=== PATIENT | male | born 1985 | race Hispanic/Latino ===

== ENCOUNTER 2019-10-07 15:38 | Inpatient (IN) | payer OTHER, SELFPAY ==
[2019-10-07] MEDS ORDERED: ONDANSETRON 4 MG/2 ML VIAL ONE (16:14)
[2019-10-07] MEDS ORDERED: NA CHLORIDE 0.9% 1,000 ML ONE ×2 (16:14→20:05)
[2019-10-07 16:37] LABS: Absolute Lymphocytes (CBC) 0.7 K/uL (0.7-4.9); Basophils % 2.1 % (0-1.3); Hematocrit 15.9 % (39.6-49.0); Lymphocytes % 15.6 % (15.3-44.8); MPV 9.3 fL (7.6-11.3); RBC Red Blood Cell Count 1.82 M/uL (4.33-5.43)
[2019-10-07 17:03] LABS: ALT/SGPT 15 U/L (12-78); AST/SGOT 9 U/L (15-37); Albumin 3.3 g/dL (3.4-5.0); Alkaline Phosphatase 51 U/L (45-117); BUN Blood Urea Nitrogen 125 mg/dL (7-18); Bicarbonate 18 mmol/L (21-32); Bilirubin Direct < 0.1 mg/dL (0-0.2); Bilirubin Total 0.3 mg/dL (0.2-1.0); Glucose Level 92 mg/dL (74-106); Lipase 424 U/L (73-393); Potassium 5.4 mmol/L (3.5-5.1); Protein, Total 6.7 g/dL (6.4-8.2); Sodium Level 133 mmol/L (136-145)
[2019-10-07 17:22] LABS: Protime INR 1.03
[2019-10-07] MEDS ORDERED: NA CHLORIDE 0.9% 500 ML ONE (17:35)
--- NOTE | 2019-10-07 18:00 | RAD REPORT ---
EXAM DESCRIPTION: CT - Abdomen Pelvis Wo Contrast - 10/07/2019 5:50 pm CLINICAL HISTORY: Abdominal pain. Anemia, Renal failure COMPARISON: <Comparisons> TECHNIQUE: CT imaging of the abdomen and pelvis was performed without contrast. Solid organ, bowel a nd vascular assessment is limited due to lack of IV and oral contrast. All CT scans are performed using dose optimization technique as appropriate and may include automated exposure control or mA/KV adjustment according to patient size. FINDINGS: The lower lung sandoval are clear. The liver, spleen, pancreas, adrenal glands and kidneys are within normal limits for a limited non-co ntrast examination. No bowel obstruction, free air, free fluid or abscess. The appendix is normal. The osseous structures are within normal limits. IMPRESSION: No acute intra-abdominal or pelvic findings. A limited non-contrast examination was performed as detailed.
[2019-10-07] MEDS ORDERED: INSULIN -REGULAR HUMAN 50 UNIT/0.5 ML ML ONE (18:52)
[2019-10-07] MEDS ORDERED: ALBUTEROL 2.5 MG/3 ML NEB SOL ONE (18:52)
[2019-10-07] MEDS ORDERED: D50W 25 GM/50 ML SYRINGE IV ONE (18:53)
[2019-10-07] MEDS ORDERED: SOD POLYSTYREN SUL 15 GM/60 ML UCUP ONE (18:53)
[2019-10-07] MEDS ORDERED: DIPHENHYDRAMINE 50 MG/ML VIAL ONE (18:54)
[2019-10-07] MEDS ORDERED: HYDROCORTISONE SUC 100 MG INJ ONE (18:54)
[2019-10-07] MEDS ORDERED: ACETAMINOPHEN 325 MG TABLET ONE (18:54)
[2019-10-07] MEDS ORDERED: WATER FOR INJ,STERILE 10 ML ONE (18:55)
[2019-10-07] MEDS ORDERED: CALCIUM GLUCONATE 1gm/100 ML NS (4.65 mEq/100mL) IV ONE ×2 (19:00)
--- NOTE | 2019-10-07 19:28 | ER ---
Nurse's Notes [facility] Name: Dennis Mariee Age: 34 yrs Sex: Male : 1985 Arrival Date: 10/07/2019 Time: 15:42 Bed 6 Private MD: Diagnosis: Anemia, unspecified;Acute renal failure;Hyperkalemia;Vomiting;Diarrhea, unspecified Presentation: 10/07 15:50 Presenting complaint: V/D x 2-3 months, subjective fever yesterday. Transition of care: hb patient was not received from another setting of care. Onset of symptoms is unknown. Risk Assessment: Do you want to hurt yourself or someone else? Patient reports no desire to harm self or others. Care prior to arrival: None. 15:50 Method Of Arrival: Ambulatory 15:50 Acuity: RUPESH 3 hb 16:33 Initial Sepsis Screen: Does the patient meet any 2 criteria? No. Patient's initial sv sepsis screen is negative. Does the patient have a suspected source of infection? No. Patient's initial sepsis screen is negative. Historical: - Allergies: 15:52 No Known Allergies; hb - Home Meds: 15:52 None [Active]; hb - PMHx: 15:52 Hypertension; hb - PSHx: 15:52 None; hb - Immunization history:: Adult Immunizations up to date. - Coronavirus screen:: The patient has NOT traveled to [place] in the past 14 days. Proceed with normal triage process as indicated. The patient has NOT had contact with known/suspected case of Coronavirus? Proceed with normal triage procedures. - Social history:: Smoking status: Patient denies any tobacco usage or history of. - Ebola Screening: : No symptoms or risks identified at this time. Screenin:40 Abuse screen: Denies threats or abuse. Nutritional screening: No deficits noted. Tuberculosis screening: No symptoms or risk factors identified. Fall Risk None identified. Assessment: 16:33 General: Appears in no apparent distress. Behavior is calm, cooperative. Pain: Denies pain. Neuro: Level of Consciousness is awake, alert, Oriented to person, place, time, situation, Yarding Engineer are equal bilaterally. Cardiovascular: Heart tones S1 S2 present Capillary refill < 3 seconds Patient's skin is warm and dry. Pulses are palpable in right radial artery, right dorsalis pedis artery, left radial artery and left dorsalis pedis artery. Respiratory: Airway is patent Respiratory effort is even, unlabored, Respiratory pattern is regular, symmetrical, Denies shortness of breath. GI: Abdomen is Bowel sounds present X 4 quads. GI: Reports vomiting, since 2-3 months and diarrhea for 3 days Patient currently denies abdominal pain. : No signs and/or symptoms were reported regarding the genitourinary system. EENT: No signs and/or symptoms were reported regarding the EENT system. Derm: Skin is intact, is healthy with good turgor. Musculoskeletal: No signs and/or symptoms reported regarding the musculoskeletal system. 17:35 Reassessment: Patient appears in no apparent distress at this time. Patient and/or ah family updated on plan of care and expected duration. Pain level reassessed. Patient is alert, oriented x 3, equal unlabored respirations, skin warm/dry/pink. Patient denies pain at this time. 18:00 Reassessment: Assisted provider while obtaining stool guiac. 18:30 Reassessment: Patient appears in no apparent distress at this time. Patient and/or ca1 family updated on plan of care and expected duration. Pain level reassessed. Patient is alert, oriented x 3, equal unlabored respirations, skin warm/dry/pink. 19:23 Reassessment: Patient appears in no apparent distress at this time. Patient and/or ca1 family updated on plan of care and expected duration. Pain level reassessed. Patient is alert, oriented x 3, equal unlabored respirations, skin warm/dry/pink. 19:38 Reassessment: BT started. See BT flow sheet. ca1 20:06 Reassessment: Reassessment: RADHA Reich at bedside. Explaining need for vascular access ca1 for dialysis. Consent signed. 20:17 Reassessment: Reassessment: Patient appears in no apparent distress at this time. ca1 Patient and/or family updated on plan of care and expected duration. Pain level reassessed. Patient is alert, oriented x 3, equal unlabored respirations, skin warm/dry/pink. Ongoing BT. Monitored pt. 20:57 Reassessment: Patient appears in no apparent distress at this time. Patient and/or ca1 family updated on plan of care and expected duration. Pain level reassessed. Patient is alert, oriented x 3, equal unlabored respirations, skin warm/dry/pink. Vital Signs: 15:51 BP 158 / 112; Pulse 82; Resp 16; Temp 98.1; Pulse Ox 100% on R/A; Weight 72.57 kg; hb Height 5 ft. 8 in. (172.72 cm); Pain 0/10; 16:30 BP 180 / 107; Pulse 74; Resp 16; Pulse Ox 100% ; sv 17:18 BP 170 / 108; Pulse 83; Resp 16 S; Pulse Ox 100% on R/A; ca1 18:14 BP 172 / 106; Pulse 81; Resp 16; Pulse Ox 100% ; sv 19:03 BP 173 / 98; Pulse 90; Resp 14; Pulse Ox 100% ; sv 19:38 BP 171 / 92; Pulse 104; Resp 13; Temp 98.3(TE); Pulse Ox 100% on R/A; ca1 20:08 BP 168 / 95; Pulse 96; Resp 14 S; Temp 97.8(TE); Pulse Ox 100% on R/A; ca1 20:38 BP 152 / 91; Pulse 95; Resp 13 S; Temp 97.7(O); Pulse Ox 100% on R/A; ca1 15:51 Body Mass Index 24.33 (72.57 kg, 172.72 cm) hb 19:38 BT initiated. See BT flow sheet for VS monitoring ca1 ED Course: 15:42 Patient arrived in ED. mr 15:51 Triage completed. hb 15:51 Arm band placed on. hb 15:53 Damir Pillai NP is PHCP. pm1 15:53 Preston Gale MD is Attending Physician. pm1 15:57 Claudia Villalba, RN is Primary Nurse. ca1 16:26 Yari Wilhelm, RN is Primary Nurse. sv 16:33 Patient has correct armband on for positive identification. Bed in low position. Call sv light in reach. Pulse ox on. NIBP on. Door closed. Head of bed elevated. 16:35 CBC with Automated Diff Sent. sv 16:35 Alcohol Serum/Plasma Sent. sv 16:35 Creatinine (Radiology Only) Sent. sv 16:35 Lipase Sent. sv 16:35 Liver (Hepatic) Function Sent. sv 16:35 Basic Metabolic Panel Sent. sv 16:35 Inserted saline lock: 20 gauge in right antecubital area, using aseptic technique. ah 17:04 T\T\S collected, blood band applied to patient. ah 17:09 Inserted saline lock: 18 gauge in left antecubital area, using aseptic technique. ca1 17:13 PT-INR Sent. sv 17:13 Type And Screen Sent. sv 17:13 Bb Add On Sent. sv 18:40 Occult Blood--Ancillary Sent. sv 18:40 Urine Dipstick--Ancillary (enter results) Sent. sv 18:40 CT Abd/Pelvis - Without Contrast Sent. sv 19:09 Consent for blood and/or blood product transfusion explained by physician, signed by ca1 patient. 19:23 Salina Davidson MD is Hospitalizing Provider. pm1 20:06 Procedure consent explained by physician, signed by patient, For OR for a vascular ca1 access. 20:59 No provider procedures requiring assistance completed. Patient admitted, IV remains in ca1 place. Administered Medications: 16:25 Drug: Zofran 4 mg Route: IVP; Site: right antecubital; ah 17:25 Follow up: Response: No adverse reaction; Nausea is decreased ah 16:25 Drug: NS 0.9% 1000 ml Route: IV; Rate: 1000 ml; Site: right antecubital; ah 17:30 Follow up: Response: No adverse reaction; IV Status: Completed infusion; IV Intake: ah 1000ml 18:45 Drug: Calcium Gluconate 1 grams Route: IVPB; Infused Over: 60 mins; Site: right ca1 antecubital; 20:08 Follow up: Response: No adverse reaction; IV Status: Completed infusion ca1 18:47 Drug: D50W 50 ml Route: IVP; Site: left antecubital; ca1 20:25 Follow up: Response: No adverse reaction ca1 18:50 Drug: Insulin Regular Human 5 units {Co-Signature: sv (Antonietta Leija RN).} Route: ca1 IVP; Site: left antecubital; 20:25 Follow up: Response: No adverse reaction ca1 18:55 Drug: Albuterol 7.5 mg Route: Inhalation; ca1 19:10 Drug: Kayexalate 45 grams Route: PO; ca1 20:25 Follow up: Response: No adverse reaction ca1 19:12 Drug: Tylenol 650 mg Route: PO; ca1 20:25 Follow up: Response: No adverse reaction ca1 19:13 Drug: Benadryl 12.5 mg Route: IVP; Site: left antecubital; ca1 20:25 Follow up: Response: No adverse reaction ca1 19:15 Drug: Solu-CORTEF 50 mg Route: IVP; Site: left antecubital; ca1 20:25 Follow up: Response: No adverse reaction ca1 20:04 Drug: Ancef 1 grams Route: IVPB; Site: right antecubital; ca1 20:24 Follow up: Response: No adverse reaction; IV Status: Completed infusion ca1 20:09 Drug: foLIC Acid 1 mg Route: IVPB; Site: right antecubital; ca1 20:24 Follow up: Response: No adverse reaction; IV Status: Infusion continued upon admission ca1 20:09 Drug: NS 0.9% 1000 ml Route: IV; Rate: 80 ml/hr; Site: right antecubital; ca1 20:24 Follow up: Response: No adverse reaction; IV Status: Infusion continued upon admission ca1 Medication: 19:38 Blood products: PRBCs X 1 unit given. Verified with CRISTOBAL Rush. Monitored pt at bedside. ca1 See transfusion record. Intake: 17:30 IV: 1000ml; Total: 1000ml. Outcome: 19:26 Decision to Hospitalize by Provider. pm1 20:59 Admitted to OR accompanied by nurse, via wheelchair, with chart, Other with BT PRBC ca1 Report called to Coreen Yarbrough RN 20:59 Condition: stable 20:59 Instructed on the need for admit. 21:01 Patient left the ED. ca1 Signatures: Antonietta Leija RN RN Gricelda Coronado, Damir, AIR AND WATER TESTER AIR AND WATER TESTER pm1 Melisa Hughes RN RN Claudia Villalba RN RN [facility] Yari Wilhelm RN RN Antonietta Leija RN Corrections: (The following items were deleted from the chart) 17:47 16:47 ETHANOL+C.LAB.BRZ drawn and sent. EDMS 19:03 18:59 Insulin Regular Human 5 units IVP in right antecubital ca1 ca1 20:20 20:17 Reassessment: ca1 ca1 20: 20:18 Reassessment: ca1 ca1
--- NOTE | 2019-10-07 19:28 | EDPHYS ---
Physician Documentation [facility] Name: Dennis Mariee Age: 34 yrs Sex: Male : 1985 Arrival Date: 10/07/2019 Time: 15:42 Bed 6 Private MD: ED Physician Preston Gale HPI: 10/07 16:16 This 34 yrs old Male presents to ER via Ambulatory with complaints of pm1 Vomiting, High Blood Pressure. 16:16 The patient presents to the emergency department with on and off vomiting over the past pm1 3 months. No vomiting today. Reports diarrhea present for the past few days. Watery diarrhea, no blood. Patient also complaining of high blood pressure that was diagnosed in [place] about three months ago. Is not currently taking any medications for it. At that time he was told that he might be diabetic so he started taking his parents' metformin 500 mg once daily. Possible causes: unknown. The symptoms are aggravated by nothing. The symptoms are alleviated by nothing. Associated signs and symptoms: Pertinent negatives: abdominal pain, constipation, dysuria, fever. Severity of symptoms: Pain is currently a 0 / 10. 16:16 Patient came to the ER today with his symptoms because he reports increased generalized pm1 weakness. Historical: - Allergies: 15:52 No Known Allergies; hb - Home Meds: 15:52 None [Active]; hb - PMHx: 15:52 Hypertension; hb - PSHx: 15:52 None; hb - Immunization history:: Adult Immunizations up to date. - Coronavirus screen:: The patient has NOT traveled to [place] in the past 14 days. Proceed with normal triage process as indicated. The patient has NOT had contact with known/suspected case of Coronavirus? Proceed with normal triage procedures. - Social history:: Smoking status: Patient denies any tobacco usage or history of. - Ebola Screening: : No symptoms or risks identified at this time. ROS: 16:16 Constitutional: Negative for fever, chills, and weight loss, Cardiovascular: Negative pm1 for chest pain, palpitations, and edema, Respiratory: Negative for shortness of breath, cough, wheezing, and pleuritic chest pain. 16:16 Back: Negative for injury and pain, : Negative for injury, bleeding, discharge, and swelling, MS/Extremity: Negative for injury and deformity, Skin: Negative for injury, rash, and discoloration. 16:16 Abdomen/GI: Positive for diarrhea, Negative for abdominal pain, nausea, vomiting, constipation. 17:31 Neuro: Positive for Generalized weakness, Negative for dizziness, headache, numbness, pm1 tingling. Exam: 16:16 Constitutional: This is a well developed, well nourished patient who is awake, alert, pm1 and in no acute distress. Head/Face: Normocephalic, atraumatic. Neck: Trachea midline, no thyromegaly or masses palpated, and no cervical lymphadenopathy. Supple, full range of motion without nuchal rigidity, or vertebral point tenderness. No Meningismus. Chest/axilla: Normal chest wall appearance and motion. Nontender with no deformity. No lesions are appreciated. Cardiovascular: Regular rate and rhythm with a normal S1 and S2. No gallops, murmurs, or rubs. Normal PMI, no JVD. No pulse deficits. Respiratory: Lungs have equal breath sounds bilaterally, clear to auscultation and percussion. No rales, rhonchi or wheezes noted. No increased work of breathing, no retractions or nasal flaring. Abdomen/GI: Soft, non-tender, with normal bowel sounds. No distension or tympany. No guarding or rebound. No evidence of tenderness throughout. Back: No spinal tenderness. No costovertebral tenderness. Full range of motion. Skin: Warm, dry with normal turgor. Normal color with no rashes, no lesions, and no evidence of cellulitis. MS/ Extremity: Pulses equal, no cyanosis. Neurovascular intact. Full, normal range of motion. 16:16 Neuro: Orientation: is normal, Motor: is normal, moves all fours. 17:59 Abdomen/GI: Rectal exam: Stool: brown, Trace guaiac positive. pm1 Vital Signs: 15:51 BP 158 / 112; Pulse 82; Resp 16; Temp 98.1; Pulse Ox 100% on R/A; Weight 72.57 kg; hb Height 5 ft. 8 in. (172.72 cm); Pain 0/10; 16:30 BP 180 / 107; Pulse 74; Resp 16; Pulse Ox 100% ; sv 17:18 BP 170 / 108; Pulse 83; Resp 16 S; Pulse Ox 100% on R/A; ca1 18:14 BP 172 / 106; Pulse 81; Resp 16; Pulse Ox 100% ; sv 19:03 BP 173 / 98; Pulse 90; Resp 14; Pulse Ox 100% ; sv 19:38 BP 171 / 92; Pulse 104; Resp 13; Temp 98.3(TE); Pulse Ox 100% on R/A; ca1 20:08 BP 168 / 95; Pulse 96; Resp 14 S; Temp 97.8(TE); Pulse Ox 100% on R/A; ca1 20:38 BP 152 / 91; Pulse 95; Resp 13 S; Temp 97.7(O); Pulse Ox 100% on R/A; ca1 15:51 Body Mass Index 24.33 (72.57 kg, 172.72 cm) hb 19:38 BT initiated. See BT flow sheet for VS monitoring ca1 MDM: 16:05 Patient medically screened. pm1 16:23 Data reviewed: vital signs. Data interpreted: Pulse oximetry: on room air is 100 %. pm1 Interpretation: normal. 18:01 Counseling: I had a detailed discussion with the patient and/or guardian regarding: lab pm1 results, the need for further work-up and treatment in the hospital, pending CT results. 18:38 ED course: Peak T's present on ECG. Hyperkalemia treatment ordered. pm1 19:22 Counseling: I had a detailed discussion with the patient and/or guardian regarding: the pm1 historical points, exam findings, and any diagnostic results supporting the discharge/admit diagnosis, radiology results, the need for further work-up and treatment in the hospital. 19:37 Physician consultation: Nephrology Liza was called at 19:39, was contacted at pm1 19:39, regarding consult, patient's condition, Will contact Dr. Davidson. Would like lactic acid lab, give folic acid and NS 80/hr. Admit the patient to the ICU. 19:55 Physician consultation: Gunner Fitzpatrick MD was contacted at 19:55, regarding consult, pm1 patient's condition, Would like the OR crew called out for placement of Andrea catheter for dialysis. 1 gram of Ancef prior to surgery. Obtain consent for placement of Andrea Catheter. Will be here in 1 hour. . 19:55 ED course: Patient last ate/drank at 1000 today. pm1 10/07 16:34 Order name: Basic Metabolic Panel; Complete Time: 17:10 EDMS 10/07 16:34 Order name: Liver (Hepatic) Function; Complete Time: 17:10 EDMS 10/07 16:34 Order name: Lipase; Complete Time: 17:10 EDMS 10/07 16:34 Order name: Creatinine (Radiology Only); Complete Time: 17:10 EDMS 10/07 16:34 Order name: Alcohol Serum/Plasma; Complete Time: 17:01 EDMS 10/07 16:34 Order name: CBC with Automated Diff; Complete Time: 16:50 EDMS 10/07 16:52 Order name: Type And Screen pm10/07 16:59 Order name: PT-INR pm10/07 17:05 Order name: Bb Add On bd 10/07 17:19 Order name: CT Abd/Pelvis - Without Contrast pm10/07 17:19 Order name: Urine Dipstick--Ancillary (enter results); Complete Time: 20:04 bd 10/07 17:27 Order name: Protime (+INR); Complete Time: 17:45 EDMS 10/07 17:57 Order name: ABO/RH no charge; Complete Time: 17:59 EDMS 10/07 17:58 Order name: Occult Blood--Ancillary bd 10/07 19:37 Order name: Lactate pm1 10/07 19:45 Order name: CT; Complete Time: 20:04 EDMS 10/07 20:15 Order name: Packed RBCs (Additional Unit) EDMS 10/07 20:17 Order name: Lactate EDMS 10/07 16:06 Order name: IV Saline Lock; Complete Time: 16:24 pm1 10/07 16:06 Order name: Labs collected and sent; Complete Time: 16:24 pm10/07 16:06 Order name: Urine Dipstick-Ancillary (obtain specimen); Complete Time: 18:40 pm1 10/07 16:59 Order name: Transfuse; Complete Time: 20:17 pm1 10/07 17:19 Order name: EKG; Complete Time: 17:42 pm10/07 17:19 Order name: EKG - Nurse/Tech; Complete Time: 18:40 pm1 Administered Medications: 16:25 Drug: Zofran 4 mg Route: IVP; Site: right antecubital; 17:25 Follow up: Response: No adverse reaction; Nausea is decreased ah 16:25 Drug: NS 0.9% 1000 ml Route: IV; Rate: 1000 ml; Site: right antecubital; ah 17:30 Follow up: Response: No adverse reaction; IV Status: Completed infusion; IV Intake: ah 1000ml 18:45 Drug: Calcium Gluconate 1 grams Route: IVPB; Infused Over: 60 mins; Site: right ca1 antecubital; 20:08 Follow up: Response: No adverse reaction; IV Status: Completed infusion ca1 18:47 Drug: D50W 50 ml Route: IVP; Site: left antecubital; ca1 20:25 Follow up: Response: No adverse reaction ca1 18:50 Drug: Insulin Regular Human 5 units {Co-Signature: heather (Antonietta Leija RN).} Route: ca1 IVP; Site: left antecubital; 20:25 Follow up: Response: No adverse reaction ca1 18:55 Drug: Albuterol 7.5 mg Route: Inhalation; ca1 19:10 Drug: Kayexalate 45 grams Route: PO; ca1 20:25 Follow up: Response: No adverse reaction ca1 19:12 Drug: Tylenol 650 mg Route: PO; ca1 20:25 Follow up: Response: No adverse reaction ca1 19:13 Drug: Benadryl 12.5 mg Route: IVP; Site: left antecubital; ca1 20:25 Follow up: Response: No adverse reaction ca1 19:15 Drug: Solu-CORTEF 50 mg Route: IVP; Site: left antecubital; ca1 20:25 Follow up: Response: No adverse reaction ca1 20:04 Drug: Ancef 1 grams Route: IVPB; Site: right antecubital; ca1 20:24 Follow up: Response: No adverse reaction; IV Status: Completed infusion ca1 20:09 Drug: foLIC Acid 1 mg Route: IVPB; Site: right antecubital; ca1 20:24 Follow up: Response: No adverse reaction; IV Status: Infusion continued upon admission ca1 20:09 Drug: NS 0.9% 1000 ml Route: IV; Rate: 80 ml/hr; Site: right antecubital; ca1 20:24 Follow up: Response: No adverse reaction; IV Status: Infusion continued upon admission ca1 Disposition: 10/08 07:13 Co-signature as Attending Physician, Preston Gale MD I agree with the assessment and kdr plan of care. Disposition: 10/07/19 19:26 Hospitalization ordered by Salina Davidson for Inpatient Admission. Preliminary diagnosis are Acute renal failure, Anemia, unspecified, Hyperkalemia, Vomiting, Diarrhea, unspecified. - Bed requested for Intensive Care Unit. - Status is Inpatient Admission. ca1 - Condition is Stable. - Problem is new. - Symptoms have improved. Signatures: Dispatcher [employer] EDNV Antonietta Leija RN RN Preston Gale MD MD [facility] Damir Pillai, MANAGER ER MANAGER ER pm1 Melisa Hughes RN RN Claudia Villalba RN RN ca1 Yari Wilhelm RN RN Antonietta romero Corrections: (The following items were deleted from the chart) 10/07 17:32 16:16 Back: Negative for injury and pain, : Negative for injury, bleeding, discharge, pm1 and swelling, MS/Extremity: Negative for injury and deformity, Skin: Negative for injury, rash, and discoloration, Neuro: Negative for headache, weakness, numbness, tingling, and seizure, pm1 17:39 16:43 BASIC METABOLIC PANEL+C.LAB.BRZ ordered. EDNV EDMS 17:40 16:43 Creatinine for Radiology+C.LAB.BRZ ordered. EDNV EDMS 17:43 16:43 HEPATIC FUNCTION+C.LAB.BRZ ordered. [facility] EDMS 17:45 16:43 LIPASE+C.LAB.BRZ ordered. EDNV EDMS 17:47 16:43 ETHANOL+C.LAB.BRZ ordered. [facility] EDNV 19:37 19:26 Hospitalization Ordered by Salina Davidson MD for Inpatient Admission. Preliminary pm1 diagnosis is Acute renal failureAnemia, unspecified; Hyperkalemia; Vomiting; Diarrhea, unspecified. Bed requested for Telemetry/MedSurg (Inpatient). Status is Inpatient Admission. Condition is Stable. Problem is new. Symptoms have improved. pm1 19:46 16:43 CBC+H.LAB.BRZ ordered. [facility] EDNV 21:01 19:37 10/07/2019 19:26 Hospitalization Ordered by Salina Davidson MD for Inpatient ca1 Admission. Preliminary diagnosis is Acute renal failureAnemia, unspecified; Hyperkalemia; Vomiting; Diarrhea, unspecified. Bed requested for Intensive Care Unit. Status is Inpatient Admission. Condition is Stable. Problem is new. Symptoms have improved. pm1
[2019-10-07 19:51] LABS: Urine Blood 1+ (NEG); Urine Glucose NEGATIVE (NEG); Urine Protein 3+ (NEG); Urine pH 6.5 (5.0-7.0)
[2019-10-07] MEDS ORDERED: CEFAZOLIN/SWI 1gm 1 GM/10 ML SYR ONE (20:04)
[2019-10-07] MEDS ORDERED: FOLIC ACID 5 MG/ML VIAL ONE (20:06)
[2019-10-07] MEDS ORDERED: NA CHLORIDE 0.9% 100 ML IV ONE (20:26)
[2019-10-07] MEDS ORDERED: NS 0.9% VIAL 10 ML ONE (20:26)
[2019-10-07] MEDS ORDERED: LIDOCAINE 1% 20 ML MDV ONE (20:27)
[2019-10-07] MEDS ORDERED: MORPHINE 2 MG/ML SYR IV PRN (21:11)
[2019-10-07] MEDS ORDERED: FENTANYL CITR 100 MCG/2 ML ONE (21:18)
[2019-10-07] MEDS ORDERED: MIDAZOLAM HCL 2 MG/2 ML INJ ONE (21:18)
[2019-10-07] MEDS: HEPARIN 5000 UNIT/ML 1 ML VIAL ONE ×2 (21:39→21:41)
--- NOTE | 2019-10-07 21:50 | P.OP ---
Preoperative diagnosis: ARF Postoperative diagnosis: same Primary procedure: MARCELLA Mai, Fluoroscopy Anesthesia: MAC Estimated blood loss: min Specimen: none Findings: Normal Anatomy Complications: None Transferred to: Recovery Room Condition: Good
--- NOTE | 2019-10-07 22:57 | RAD REPORT ---
EXAM DESCRIPTION: RAD - Chest Single View - 10/07/2019 10:17 pm CLINICAL HISTORY: POST TESSIO Chest pain. COMPARISON: No comparisons FINDINGS: Right-sided venous catheter is in place its tip in the SVC. No pneumothorax evident.
--- NOTE | 2019-10-07 22:59 | RAD REPORT ---
EXAM DESCRIPTION: RAD - Fluoroscopy <1 Hour - 10/07/2019 10:41 pm CLINICAL HISTORY: Venous catheter insertion. TESSIO WITH MARY COMPARISON: No comparisons FINDINGS: Fluoroscopy time 0.1 minutes.
[2019-10-07] MEDS ORDERED: HEPARIN 5000 UNIT/ML 1 ML VIAL ONE (23:35)
--- NOTE | 2019-10-08 00:52 | PREOPCON ---
Date of Consultation: 10/07/2019 Reason: Patient needs emergent dialysis. History Of Present Illness: The patient is a 34-year-old gentleman who came with vomiting and nausea for several months and high blood pressure. He states that over the past 2 months he had been vomit ing on and off, diarrhea the last few days, watery diarrhea, no blood. He had been recently diagnose d with high blood pressure and diabetes and he has been taking his parent's metformin for the diabete s. He is not taking anything for his high blood pressure. No fever or chills. No sore throat, runn y nose, cough, headaches, or dizziness. No chest pain. Review of Systems: Otherwise unremarkable. Past Medical History: Hypertension and diabetes. Past Surgical History: Negative. Allergies: NO ALLERGIES. Social History: He denies smoking or drinking. Family History: Significant for diabetes and hypertension. Physical Examination: Vital Signs: In the ER were blood pressure 158/112, pulse rate of 82, respirations 16, temperature 9 8.1. General: He is awake, alert. Head and Neck: Cranial nerves 2 through 12 are grossly within normal limits. No neck masses. No JV D. Throat clear. Neck is supple. Chest: Clear. Heart: S1, S2. Abdomen: Soft. Extremities: Neurovascularly intact. Neuro: Nonfocal. Diagnostic Data: His WBC is 4.3, H and H are 5.3 and 15.9. He is getting blood right now. Platelet s are 126. INR is 1.03. His potassium is 5.4, CO2 is 18, his BUN is 25, his creatinine is 30.2, jalil cium is 6.4, lactic acid is 1.4, lipase is 424. CT of the abdomen and pelvis is essentially unremarkable. Assessment: A 34-year-old gentleman with multiple medical problems and acute renal failure requiring emergent dialysis. Recommendations: We will go ahead and place the Tesio catheter because patient will need long-term d ialysis. Patient understands the risks, benefits, and alternatives and agrees to procedure. /MODL Voice ID: [id number] Report ID: [id number]
--- NOTE | 2019-10-08 04:11 | OP ---
Date of Procedure: 10/07/2019 Surgeon: Gunner Fitzpatrick MD Preoperative Diagnosis: Acute renal failure. Postoperative Diagnosis: Acute renal failure. Procedure: Right IJ Tesio catheter placement and interpretation of intraoperative fluoroscopy. Estimated Blood Loss: Minimal. Specimen: None. Findings: Normal anatomy. Anesthesia: MAC. Complications: None. Disposition: Patient tolerated the procedure in stable condition and taken to Recovery in good gener al condition. Procedure In Detail: Patient was brought to the OR and placed in supine position. MAC anesthesia wa s begun. Patient was prepped and draped in usual sterile fashion. Lidocaine 1% infiltrated locally and then an 18-gauge needle was used to access the right IJ vein. Guidewire was passed. Position co nfirmed with fluoroscopy. Counterincision was made and tunneling device was used to tunnel the maria esther ter between the 2 wounds. Counterincision was made on the right anterior chest. Then, vein dilated and Seldinger technique used and tip of the catheter was placed in the SVC under fluoroscopy. Cathet er flushed with heparin and packed with heparin with good blood flow. 3-0 chromic was used to approx imate subcutaneous tissue and 3-0 nylon used to secure the tube to the chest wall. Sterile dressing was applied. Patient was awakened and taken to Recovery in good general condition. Chest x-ray has been ordered. /MODL Voice ID: [id number] Report ID: [id number]
[2019-10-08 04:13] VITALS: BMI 23.8
[2019-10-08 06:19] LABS: Absolute Lymphocytes (CBC) 0.5 K/uL (0.7-4.9); Basophils % 0.8 % (0-1.3); Lymphocytes % 14.1 % (15.3-44.8); MPV 9.9 fL (7.6-11.3); RBC Red Blood Cell Count 2.15 M/uL (4.33-5.43)
[2019-10-08 06:30] LABS: Albumin 2.6 g/dL (3.4-5.0); Bilirubin Total 0.4 mg/dL (0.2-1.0); Potassium 4.4 mmol/L (3.5-5.1); Protein, Total 5.5 g/dL (6.4-8.2)
[2019-10-08] MEDS ORDERED: INFLUENZA VACCINE (for 3y+) 0.5 ML DOSE IMVAC ONE (08:00)
--- NOTE | 2019-10-08 08:42 | EKG ---
Test Date: 2019-10-07 Test Time: 17:37:23 Supervisor Stitching Department: [facility] MEASUREMENT RESULTS: Intervals: Rate: 82 [place]: 160 QRSD: 90 QT: 430 QTc: 502 [place]: P: 75 [place]: 160 QRS: 8 T: 60 INTERPRETIVE STATEMENTS: Normal sinus rhythm Possible Left atrial enlargement Prolonged QT Abnormal ECG No previous ECG available for comparison Electronically Signed On 10-08-19 08:41:07 TITLE INSPECTOR by Matthieu Downing
[2019-10-08 10:04] LABS: Anisocytosis 1+; Blood Morphology Comment NOTED (NOT SEEN); Platelet Estimate DECR; White Blood Cell Scan OK
[2019-10-08] MEDS: HYDRALAZINE HCL 20 MG/ML VIAL IV PRN ×2 (12:32→23:23)
[2019-10-08] MEDS ORDERED: D50W 25 GM/50 ML SYRINGE IV PRN (13:35)
[2019-10-08] MEDS ORDERED: GLUCAGON 1 MG/VIAL IM PRN (13:35)
--- NOTE | 2019-10-08 13:39 | P.PN ---
Subjective Date of Service: 10/08/19 Primary Care Provider: None Chief Complaint: Nausea and vomiting Subjective: Improving Physical Examination - Vital Signs Temperature: 98.7 F Blood Pressure: 172/105 Pulse: 87 Respirations: 18 Pulse Ox (%): 99 - Physical Exam General: Alert, In no apparent distress, Oriented x3, Cooperative HEENT: Atraumatic Neck: Supple Respiratory: Clear to auscultation bilaterally, Normal air movement Cardiovascular: Normal pulses, Regular rate/rhythm Gastrointestinal: Normal bowel sounds, Soft and benign, Non-distended, No tenderness, No masses, No rebound, No guarding Musculoskeletal: No erythema, No tenderness, No warmth Integumentary: No tenderness/swelling, No erythema, No warmth, No cyanosis Neurological: Normal speech, Normal strength at 5/5 x4 extr, Normal tone, Normal affect - Studies Laboratory Data (last 24 hrs) 10/07/19 17:04: PT 12.1, INR 1.03 10/07/19 16:25: Creatinine 30.20 H* 10/07/19 16:25: WBC 4.3, Hgb 5.3 L*, Hct 15.9 L*, Plt Count 126 L 10/07/19 16:25: Sodium 133 L, Potassium 5.4 H, BUN 125 H, Creatinine 30.20 H*, Glucose 92, Total Bilirubin 0.3, AST 9 L, ALT 15, Alkaline Phosphatase 51, Lipase 424 H 10/07/19 16:06: Creatinine Cancelled 10/07/19 16:06: WBC Cancelled, Hgb Cancelled, Hct Cancelled, Plt Count Cancelled 10/07/19 16:06: Sodium Cancelled, Potassium Cancelled, BUN Cancelled, Creatinine Cancelled, Glucose Cancelled, Total Bilirubin Cancelled, AST Cancelled, ALT Cancelled, Alkaline Phosphatase Cancelled, Lipase Cancelled Medications List Reviewed: Yes Assessment & Plan Discharge Plan: Home Plan to discharge in: Greater than 2 days - Code Status/Comfort Care Code Status Assessed: Yes (Patient is full code) Physician Review Additional Text: Impression: Nausea and vomiting secondary to acute on chronic renal failure stage 5 requiring hemodialysis Hyperkalemia secondary to above Hypertension uncontrolled Diabetes mellitus type 2 with hyperglycemia Plan: Nausea and vomiting secondary to acute on chronic renal failure stage 5 requiring hemodialysis: Patient without significant nausea vomiting. Patient had emergent dialysis last night after placement of dialysis catheter. Will discuss with nephrology. Patient will likely require further dialysis and outpatient dialysis. Will contact dialysis social worker to help with outpatient dialysis. Hyperkalemia secondary to above: This has improved with dialysis. Hypertension uncontrolled: Will start metoprolol. Will provide IV hydralazine as needed. May need to add further adjust for better control. Diabetes mellitus type 2 with hyperglycemia: Will check A1c. Will provide sliding scale. Patient may require medication at discharge. Time Spent Managing Pts Care (In Minutes): 55
[2019-10-08] MEDS: INSULIN -REGULAR HUMAN 50 UNIT/0.5 ML ML SQ SCH ×2 (15:50→21:00)
[2019-10-08] MEDS: CALCIUM CARBONATE CHEW 500MG TAB PO SCH (15:51)
--- NOTE | 2019-10-08 16:38 | P.HP ---
Certification for Inpatient Patient admitted to: Inpatient Patient will require the following post-hospital care: Other (outpatient hemodialysis arrangements are possible) Practitioner: I am a practitioner with admitting privileges, knowledge of patient current condition, hospital course, and medical plan of care. Services: Services provided to patient in accordance with Admission requirements found in Title 42 Section 412.3 of the Code of Federal Regulations Patient History Date of Service: 10/07/19 Reason for admission: Nausea and vomiting History of Present Illness: patient is a 34-year-old gentleman who came to the hospital with intractable nausea and vomiting. Patient was lethargic and not feeling right. He was brought into the emergency room by his family members. In the emergency room he was found have a severely elevated creatinine level. He was hyperkalemic. The emergency room physician spoke with nephrology and they recommended hemodialysis access catheter and he is to start hemodialysis tonight. Otherwise , patient's history suggests that he was aware that he has some renal issues a year ago. He had an outpatient renal ultrasound performed for some unknown etiology that suggested he may have renal issues and was advised to see a kidney doctor. At that time, the person he saw put the patient on a vegetarian diet. He advised him to refrain from medications including NSAIDs. Patient never was able to see a doctor in the meantime. This is the is on only other time he has been to the doctor is here in the hospital. He will be admitted to the hospital for further treatment at this time. Allergies No Known Allergies Allergy (Verified 10/08/19 15:13) Home Medications: NK [No Home Meds] 10/08/19 - Past Medical/Surgical History Has patient received pneumonia vaccine in the past: No Diabetic: Yes -: HTN -: DM-2 -: Migraine headache Past Surgical History: Patient denies surgical history - Family History Father Family History: Reviewed- Non-Contributory - Social History Smoking Status: Never smoker Alcohol use: No CD- Drugs: No Caffeine use: Yes Place of Residence: Home Review of Systems 10-point ROS is otherwise unremarkable Physical Examination - Vital Signs Temperature: 98.7 F Blood Pressure: 172/105 Pulse: 87 Respirations: 18 Pulse Ox (%): 99 - Physical Exam General: Alert, In no apparent distress, Oriented x3 HEENT: Atraumatic, PERRLA, Mucous membr. moist/pink, EOMI, Sclerae nonicteric Neck: Supple, 2+ carotid pulse no bruit, No LAD, Without JVD or thyroid abnormality Respiratory: Clear to auscultation bilaterally, Normal air movement Cardiovascular: Regular rate/rhythm, Normal S1 S2 Gastrointestinal: Normal bowel sounds, Soft and benign, Non-distended, No tenderness Musculoskeletal: No clubbing, No swelling, No tenderness Integumentary: No rashes Neurological: Normal gait, Normal speech, Normal strength at 5/5 x4 extr, Normal tone, Sensation intact, Cranial nerves 3-12 intact, Normal affect Lymphatics: No axilla or inguinal lymphadenopathy - Studies Laboratory Data (last 24 hrs) 10/07/19 17:04: PT 12.1, INR 1.03 10/07/19 16:25: Creatinine 30.20 H* 10/07/19 16:25: WBC 4.3, Hgb 5.3 L*, Hct 15.9 L*, Plt Count 126 L 10/07/19 16:25: Sodium 133 L, Potassium 5.4 H, BUN 125 H, Creatinine 30.20 H*, Glucose 92, Total Bilirubin 0.3, AST 9 L, ALT 15, Alkaline Phosphatase 51, Lipase 424 H 10/07/19 16:06: Creatinine Cancelled 10/07/19 16:06: WBC Cancelled, Hgb Cancelled, Hct Cancelled, Plt Count Cancelled 10/07/19 16:06: Sodium Cancelled, Potassium Cancelled, BUN Cancelled, Creatinine Cancelled, Glucose Cancelled, Total Bilirubin Cancelled, AST Cancelled, ALT Cancelled, Alkaline Phosphatase Cancelled, Lipase Cancelled Assessment & Plan - Problems (Diagnosis) (1) OLIVIA (acute kidney injury) Current Visit: Yes Status: Acute (2) Intractable nausea and vomiting Current Visit: Yes Status: Acute (3) Confused Current Visit: Yes Status: Acute (4) ESRD (end stage renal disease) Current Visit: Yes Status: Acute - Plan PLAN: 1. IV HYDRATION 2. NEPHROLOGY CONSULTATION FOR ARRANGEMENTS OF HEMODIALYSIS 3. MONITOR BICARBONATE LEVEL 4. MONITOR POTASSIUM LEVEL CLOSELY 5. WE WILL ARRANGE FOR A RENAL ULTRASOUND 6. WE WILL GO AHEAD AND START A HEPATITIS PANEL 7. MOST LIKELY PATIENT WILL NEED OUTPATIENT HEMODIALYSIS Discharge Plan: Home Plan to discharge in: Greater than 2 days - Advance Directives Does patient have a Living Will: No Does patient have a Durable POA for Healthcare: No - Code Status/Comfort Care Code Status Assessed: Yes Code Status: Full Code Critical Care: No Time Spent Managing PTS Care (In Minutes): 45
--- NOTE | 2019-10-08 17:41 | CON ---
Date of Consultation: 10/08/2019 Reason For Consultation: Elevated BUN and creatinine, hypertension. History Of Present Illness: This is a pleasant, unfortunate, 34-year-old gentleman with significant past medical history of diabetes diagnosis back in February 2019, no retinopathy, questionable of nephrop athy, hypertension, the patient apparently was diagnosed with diabetes in February, did not treat it. Ac cording to the patient, he presented to me. Labs that were done in February in 2018, at that time his cr eatinine 6.9 with GFR of 9. Again, there is no mention for any treatment at that time. According to him, nobody discussed with him. The patient traveled to [place] 2 weeks ago, started there having so me shortness of breath and started having diarrhea with bloody stool with nausea and vomiting, took i buprofen also. The patient came to the hospital feeling sick, nausea and vomiting. Labs show creati nine of 30. For that reason, we have been consulted. The patient denied IV contrast. Denied any ot her changes in his medication. PermCath was placed and patient received a session of dialysis yester day. The patient denied any IV contrast. No other changes in his medication. Patient shows severe anemia, hemoglobin 6.4. With thrombocytopenia again, patient has blood in the stool. No altered men florentin status. CT did not show any obstruction. Good size kidney. Past Medical History: Includes: 1.Diabetes. 2.Chronic kidney disease. 3.Hypertension. Social History: Denies smoking, denies drinking, denies drugs abuse. Allergies: NO KNOWN DRUG ALLERGIES. Surgical History: PermCath placement. Family History: Positive for diabetes. Review of Systems: Head and Neck: No red eye. No ear pain. GI: Has diarrhea, has nausea, vomiting. : No polyuria, no dysuria, no hematuria. Clinical Mental Health Counselor: Not applicable. Respiratory: Has shortness of breath. Cardiovascular: No chest pain. Endocrine: No polydipsia. Skin: No rash. Neuro: No neuropathy. Musculoskeletal: Generalized fatigue. Physical Examination: Vital Signs: When I saw the patient, blood pressure 172/105, pulse of 87, afebrile. Chest: Clear to auscultation. Heart: S1, S2, regular. Abdomen: Soft, nontender. Extremities: No edema. Laboratory Data: WBC 3.5, H and H 6.4/19, platelets 95. Sodium 137, potassium 4.4, bicarb 22, BUN 7 6, creatinine 19.5, calcium 6.8. LFT within normal limit. Lactic acid 1.4, albumin 3.3. Urinalysis , +3 protein. Hepatitis is still pending. Current Medications: The patient on include hydralazine p.r.n., metoprolol 25 b.i.d. 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 Given the young age and diabetes just diagnosed, we need to rule out, especially with blood in the stool and anemia, to rule out any autoimmune disease. I am going to go ahead and send for full sero logy. I had long discussion with the patient in the presence of the parent regarding kidney biopsy, agreed on the plan. We will proceed with the kidney biopsy. We will refer the patient to outpatient dialysis. Discussed with secondary social studies teacher and staff. 2.Hypertension, not controlled. I agree with metoprolol. We will add amlodipine. 3.Anemia, possible secondary to chronic kidney disease status post transfusion. We will follow up. Start the patient on Retacrit. 4.Hypocalcemia. Corrected calcium is 8. No need for supplement. We will send for PTH and vitamin D for the time being and we will follow up. We will start the patient on Tums/calcium carbonate. 5.Diabetes as by Primary. ANDRESSA/JO Voice ID: [id number] Report ID: [id number]
[2019-10-08] MEDS: METOPROLOL TAR 25 MG TAB PO SCH (18:03)
[2019-10-08] MEDS: CALCITROL 0.25 MCG CAP PO SCH (18:03)
[2019-10-08] MEDS: ONDANSETRON 4 MG/2 ML VIAL IV PRN ×2 (18:25→23:26)
[2019-10-09] MEDS ORDERED: GUAIFENESIN/CODEINE 5ML UCUP PO PRN (02:40)
[2019-10-09 04:41] LABS: Absolute Lymphocytes (CBC) 0.5 K/uL (0.7-4.9); Basophils % 1.3 % (0-1.3); Hematocrit 21.1 % (39.6-49.0); Lymphocytes % 10.5 % (15.3-44.8); RBC Red Blood Cell Count 2.41 M/uL (4.33-5.43)
[2019-10-09 05:28] LABS: Albumin 2.7 g/dL (3.4-5.0); Folic Acid, (Folate) 3.2 ng/mL (3.1-17.5); Phosphorus 5.2 mg/dL (2.5-4.9); Potassium 4.5 mmol/L (3.5-5.1); Thyroid Stimulating Hormone 1.26 uIU/mL (0.360-3.740); Uric Acid 3.1 mg/dL (3.5-7.2)
[2019-10-09] MEDS: METOPROLOL TAR 25 MG TAB PO SCH (06:24)
[2019-10-09] MEDS: AMLODIPINE 10 MG TAB PO SCH (06:24)
[2019-10-09] MEDS: CALCIUM CARBONATE CHEW 500MG TAB PO SCH ×3 (07:30→17:47)
[2019-10-09] MEDS: INSULIN -REGULAR HUMAN 50 UNIT/0.5 ML ML SQ SCH ×4 (07:30→21:00)
[2019-10-09] MEDS: HYDRALAZINE HCL 20 MG/ML VIAL IV PRN (08:42)
[2019-10-09 09:02] LABS: Urine Protein/Creatinine Ratio 9.05 ratio (<0.15)
[2019-10-09] MEDS ORDERED: NA CHLORIDE 0.9% 1,000 ML ONE (09:04)
[2019-10-09] MEDS ORDERED: FENTANYL CITR 100 MCG/2 ML ONE (09:59)
[2019-10-09] MEDS ORDERED: NALOXONE 0.4 MG/ML VIAL ONE (09:59)
[2019-10-09] MEDS ORDERED: MIDAZOLAM HCL 2 MG/2 ML INJ ONE (09:59)
[2019-10-09] MEDS ORDERED: NA CHLORIDE 0.9% 500 ML ONE (10:00)
--- NOTE | 2019-10-09 11:02 | P.PN ---
Subjective Date of Service: 10/09/19 Primary Care Provider: None Chief Complaint: Nausea and vomiting Subjective: Improving, Doing well Physical Examination - Vital Signs Temperature: 98.8 F Blood Pressure: 163/100 Pulse: 85 Respirations: 18 Pulse Ox (%): 97 - Physical Exam General: Alert, In no apparent distress, Oriented x3, Cooperative HEENT: Atraumatic Neck: Supple Respiratory: Clear to auscultation bilaterally, Normal air movement Cardiovascular: Normal pulses, Regular rate/rhythm Gastrointestinal: Normal bowel sounds, Soft and benign, Non-distended Neurological: Normal speech, Normal strength at 5/5 x4 extr, Normal tone, Normal affect - Studies Medications List Reviewed: Yes Assessment & Plan Discharge Plan: Home Plan to discharge in: Greater than 2 days Physician Review Additional Text: Impression: Nausea and vomiting secondary to acute on chronic renal failure stage 5 requiring hemodialysis Hyperkalemia secondary to above Hypertension uncontrolled Hyperglycemia Plan: Nausea and vomiting secondary to acute on chronic renal failure stage 5 requiring hemodialysis: Patient has responded well hemodialysis. No further nausea vomiting. Case discussed with nephrology yesterday. Etiology of renal failure unknown. Patient will have renal biopsy done today to further determine. Will increase hypertensive medication for better control. A1c within normal range. No evidence of diabetes. Will continue to evaluate for hemodialysis as an outpatient. Will discuss with social group worker. Hyperkalemia secondary to above: This has improved with dialysis. Hypertension uncontrolled: Will increase metoprolol for better blood pressure control. Patient started on Norvasc yesterday. Will provide IV hydralazine as needed. May need to add further adjust for better control. Hyperglycemia: No evidence of diabetes. A1c 5.0. Will monitor closely. Time Spent Managing Pts Care (In Minutes): 55
[2019-10-09] MEDS ORDERED: HYDRALAZINE HCL 20 MG/ML VIAL ONE (11:52)
[2019-10-09] MEDS: ONDANSETRON 4 MG/2 ML VIAL IV PRN (13:43)
[2019-10-09] MEDS ORDERED: PROMETHAZINE INJ 25 MG/ML AMP IV PRN (14:24)
--- NOTE | 2019-10-09 14:44 | RAD REPORT ---
EXAM DESCRIPTION: CT - Renal Biopsy CT - 10/09/2019 1:35 pm CLINICAL HISTORY: End-stage renal disease COMPARISON: CT imaging October 07 TECHNIQUE: The patient presents for image guided renal biopsy for diagnosis of renal failure/renal d isease. The procedure, risks and alternatives to the procedure were discussed with the patient in det ail. After answering all questions, both oral and written consent were obtained. A time-out procedure was performed. PT/INR/platelet count values within acceptable limits for biopsy. IV access and physiologic monitors were in place. Prior to the procedure the patient had relatively low hemoglobin and hematocrit values . Values were acceptable for biopsy. The patient's hypertension was sufficiently controlled to allow biopsy. Prior to the biopsy the patient's elevated blood pressure values were monitored. Consulting n ephrologist was contacted. The patient was administered 20 milligrams hydralazine. The patient was al so administered 1 milligram Versed at IV and 100 micrograms fentanyl IV. Approximately 45 minutes had elapsed since the initial Versed and fentanyl administration. The patient was then re-medicated with 1.0 milligram Versed IV and 100 micrograms fentanyl IV. The patient had serial blood pressure values with a diastolic value below 90 mm Hg. Blood pressure wa s deemed sufficiently controlled for biopsy. The patient was in a prone position on the CT table. Preliminary images identified lower pole left ki dney access site. The patient has relatively small kidneys with a very narrow window of available doug al parenchyma for biopsy. This fact was discussed with the patient prior to the procedure. Access site was selected. Skin was prepped and draped in the usual sterile fashion. Skin and deeper t issues were anesthetized with 1% lidocaine. Under direct CT guidance an introducer needle was advance d. Tip was placed at the posterolateral aspect of the lower pole of the left kidney. An initial 1 cm core biopsy was obtained with little to no tissue retrieved. The 18 gauge needle was repositioned and a 2 cm core biopsy was obtained. Again under CT guidance needle was positioned against the lower priyanka e of the left kidney and an additional 2 cm core biopsy was obtained. Introducer needle was withdrawn. Hemostasis was obtained at the puncture site and a bandage placed. The immediate post biopsy imaging showed a small amount of hemorrhage in the perinephric fatty tissue s. Repeat imaging 10 minutes after biopsy showed no measurable change in the amount of retroperitonea l hemorrhage. The patient was in no distress at the time of the examination. Vital signs maintained stability over the course of the examination. Conscious sedation time was 1 hour 30 minutes. IMPRESSION: 1. CT-guided biopsy of the left kidney performed as detailed. 2. Post biopsy imaging showed a small retroperitoneal hematoma showing no substantial change between the immediate and 10 minutes post biopsy imaging. The patient's vital signs were stable. 3. The patient was transferred back to the floor for continued care. 4. Biopsy findings were discussed with Dr. Marquez following the biopsy.
[2019-10-09] MEDS ORDERED: NA CHLORIDE 0.9% 250 ML ONE ×2 (15:07→16:35)
[2019-10-09] MEDS: EPOETIN ALFA 10,000 UNIT/ML VIAL IV SCH (15:49)
[2019-10-09] MEDS: METOPROLOL TAR 50 MG TAB PO SCH (17:48)
[2019-10-09] MEDS: ACETAMINOPHEN 500 MG TAB PO PRN (17:52)
[2019-10-09 22:18] LABS: Hematocrit 26.8 % (39.6-49.0)
--- NOTE | 2019-10-09 23:50 | PN ---
Date of Progress Note: 10/09/2019 Subjective: Patient was admitted with renal failure. Patient was found to have a normal size kidney . Patient's blood sugar being controlled today. The patient planned for kidney biopsy. Physical Examination: Vital Signs: Blood pressure 158/91, pulse of 98. Chest: Clear to auscultation. Heart: S1, S2, regular. Abdomen: Soft, nontender. Extremities: No edema. Neuro: Alert, oriented. No focal. Laboratory Data: WBC 4.5, H and H 7/21.1, platelets 105. Sodium 136, potassium 4.5, bicarb 29, BUN 45, creatinine 14.7, calcium 6.9, uric acid 3.1, iron saturation 28, CK 321, PTH 658, TSH 1.2. Current Medications: The patient on include, 1.Promethazine. 2.Epogen. 3.Calcium carbonate. 4.Norvasc. 5.Metoprolol. 6.Glucagon. 7.Calcitriol. Assessment And Plan: 1.End-stage renal disease, normal size kidney with nephrotic range of proteinuria mostly secondary t o diabetes. Considering the young age and the fast progression with anemia, workup for secondary dis ease has been started. Patient to plan for biopsy today. We will follow up the patient closely. 2.Anemia of chronic kidney disease, arrange for transfusion. 3.Nephrotic range of proteinuria. We will start the patient on lisinopril. 4.We will follow up serology. 5.Hypertension. Start lisinopril. We will increase hydralazine. 6.Diabetes as by primary. 7.Secondary hyperparathyroidism. Start the patient on calcitriol. 8.Anemia of chronic kidney disease. Patient is going to be transfused today. We will follow up. ANDRESSA/JO Voice ID: [id number] Report ID: [id number]
[2019-10-10 02:22] LABS: Rheumatoid Factor NEG (NEG)
[2019-10-10 04:31] LABS: Absolute Lymphocytes (CBC) 0.6 K/uL (0.7-4.9); Hematocrit 25.7 % (39.6-49.0); Lymphocytes % 12.3 % (15.3-44.8); MPV 9.3 fL (7.6-11.3); RBC Red Blood Cell Count 2.94 M/uL (4.33-5.43)
[2019-10-10 04:44] LABS: Albumin 2.7 g/dL (3.4-5.0); Magnesium 1.8 mg/dL (1.8-2.4); Phosphorus 4.6 mg/dL (2.5-4.9)
[2019-10-10] MEDS: METOPROLOL TAR 50 MG TAB PO SCH ×2 (06:40→17:17)
[2019-10-10] MEDS: INSULIN -REGULAR HUMAN 50 UNIT/0.5 ML ML SQ SCH ×4 (07:30→21:00)
[2019-10-10] MEDS: lisinopriL 20 MG TAB PO SCH (07:57)
[2019-10-10] MEDS: AMLODIPINE 10 MG TAB PO SCH (07:57)
[2019-10-10] MEDS: CALCIUM CARBONATE CHEW 500MG TAB PO SCH ×3 (07:57→16:09)
[2019-10-10] MEDS: HYDRALAZINE HCL 25 MG TABLET PO SCH ×3 (07:58→20:14)
[2019-10-10] MEDS: ACETAMINOPHEN 500 MG TAB PO PRN (07:58)
--- NOTE | 2019-10-10 11:24 | P.PN ---
Subjective Date of Service: 10/10/19 Primary Care Provider: None Chief Complaint: Nausea and vomiting Subjective: Improving, Doing well Physical Examination - Vital Signs Temperature: 98.7 F Blood Pressure: 145/92 Pulse: 81 Respirations: 16 Pulse Ox (%): 97 - Physical Exam General: Alert, In no apparent distress, Oriented x3, Cooperative HEENT: Atraumatic Neck: Supple Respiratory: Clear to auscultation bilaterally, Normal air movement Cardiovascular: Normal pulses, Regular rate/rhythm Gastrointestinal: Normal bowel sounds, Soft and benign, Non-distended Musculoskeletal: No erythema, No tenderness, No warmth Integumentary: No erythema, No warmth, No cyanosis Neurological: Normal speech, Normal strength at 5/5 x4 extr, Normal tone, Normal affect - Studies Medications List Reviewed: Yes Assessment & Plan Discharge Plan: Home Plan to discharge in: 48 Hours Physician Review Additional Text: Impression: Nausea and vomiting secondary to acute on chronic renal failure stage 5 requiring hemodialysis Hyperkalemia secondary to above Hypertension uncontrolled Hyperglycemia Plan: Nausea and vomiting secondary to acute on chronic renal failure stage 5 requiring hemodialysis: Patient received dialysis yesterday. Patient also had renal biopsy performed. Small retroperitoneal bleed after biopsy done. This is not uncommon. H&H stable this time. Continue monitor closely. Encourage ambulation. Awaiting hepatitis panel for approval of outpatient hemodialysis. Once this is approved then can proceed with chair time. Anticipate discharge likely in the next 48 hr with approval for outpatient dialysis. Case discussed with nephrology. Hyperkalemia secondary to above: This has improved with dialysis. Hypertension uncontrolled: Blood pressure adjusted. Blood pressure better controlled. Will provide IV hydralazine as needed. May need to add further adjust for better control. Hyperglycemia: No evidence of diabetes. A1c 5.0. Will monitor closely. Time Spent Managing Pts Care (In Minutes): 55
--- NOTE | 2019-10-10 14:40 | PN ---
Date of Progress Note: 10/10/2019 Subjective: Patient undergo kidney biopsy. Yesterday has 2 incidents of hematuria. According to kamille younger, it cleared up. No abdominal pain. Physical Examination: Vital Signs: Blood pressure 145/92, pulse of 81, afebrile. Chest: Clear to auscultation. Heart: S1, S2 regular. Abdomen: Soft, nontender. Extremities: No edema. Laboratory Data: WBC 4.5, H and H 8.7/25.7, platelets of 89. Sodium 135, potassium 4, bicarb 30, BU N 27, creatinine 11, calcium 7.1. Phosphor 4.6, magnesium 1.8. Albumin 2.7. PTH of 658. Serology and immunology still pending. Current Medications: The patient on includes: 1.Epogen. 2.Calcium carbonate with each meal. 3.Amlodipine 10. 4.Hydralazine 25 t.i.d. 5.Lisinopril 20 daily. 6.Metoprolol 50 b.i.d. Assessment And Plan: 1.End-stage renal disease, nephrotic range of proteinuria recently, start on dialysis, status post k china biopsy. I am going to continue the patient on dialysis from now on as Monday, Monday, y. We will monitor the patient. We will follow up the serology and biopsy to see any reversibility mostly it is secondary to diabetes nephropathy, but given his age, we will follow up those lab, daksha garces for share time. 2.Hypertension with the presence of nephrotic range of proteinuria. Yesterday, we started the patie nt on ADDIS inhibitor. Blood pressure been better controlled. We will continue to monitor. 3.Nephrotic range of proteinuria as above, possible secondary to diabetes given young age and severe anemia. Serology has been sent and serum protein electrophoresis also was sent, still pending. We will follow up. 4.Secondary hyperparathyroidism. 5.with hypocalcemia. Continue current treatment. Calcium trending up phosphor being controlled. C ontinue calcitriol and calcium carbonate. 6.Anemia of chronic kidney disease. Continue SHAISTA. Status post transfusion yesterday. 7.Diabetes as by primary. MA/MODL Voice ID: [id number] Report ID: [id number]
[2019-10-10] MEDS: CALCITROL 0.25 MCG CAP PO SCH (15:21)
[2019-10-11 05:34] LABS: Absolute Lymphocytes (CBC) 0.6 K/uL (0.7-4.9); Basophils % 0.9 % (0-1.3); Hematocrit 25.1 % (39.6-49.0); Lymphocytes % 13.1 % (15.3-44.8); RBC Red Blood Cell Count 2.88 M/uL (4.33-5.43)
[2019-10-11 05:44] LABS: Albumin 2.7 g/dL (3.4-5.0); Magnesium 1.9 mg/dL (1.8-2.4); Phosphorus 4.9 mg/dL (2.5-4.9); Potassium 4.1 mmol/L (3.5-5.1)
[2019-10-11] MEDS: METOPROLOL TAR 50 MG TAB PO SCH ×2 (06:35→18:07)
[2019-10-11] MEDS: INSULIN -REGULAR HUMAN 50 UNIT/0.5 ML ML SQ SCH ×4 (07:30→21:00)
--- NOTE | 2019-10-11 09:42 | P.PN ---
Subjective Date of Service: 10/11/19 Primary Care Provider: None Chief Complaint: Nausea and vomiting Subjective: Improving Physical Examination - Vital Signs Temperature: 100.0 F Blood Pressure: 151/96 Pulse: 84 Respirations: 18 Pulse Ox (%): 98 - Physical Exam General: Alert, In no apparent distress, Cooperative HEENT: Atraumatic Neck: Supple Respiratory: Clear to auscultation bilaterally, Normal air movement Cardiovascular: Normal pulses, Regular rate/rhythm Gastrointestinal: Normal bowel sounds, No tenderness, No masses, No rebound, No guarding Neurological: Normal speech, Normal strength at 5/5 x4 extr, Normal tone, Normal affect - Studies Medications List Reviewed: Yes Assessment & Plan Discharge Plan: Home Plan to discharge in: 24 Hours Physician Review Additional Text: Impression: Nausea and vomiting secondary to acute on chronic renal failure stage 5 requiring hemodialysis Hyperkalemia secondary to above Hypertension uncontrolled Hyperglycemia Anemia of chronic disease with thrombocytopenia Plan: Nausea and vomiting secondary to acute on chronic renal failure stage 5 requiring hemodialysis: Awaiting renal biopsy. Patient continues with dialysis. Awaiting hepatitis panel for approval of outpatient hemodialysis. Once this is approved then can proceed with chair time. Anticipate discharge likely in the next 48 hr with approval for outpatient dialysis. Case discussed with nephrology. Hyperkalemia secondary to above: This has improved with dialysis. Hypertension uncontrolled: Blood pressure adjusted. Blood pressure better controlled. Will provide IV hydralazine as needed. May need to add further adjust for better control. Hyperglycemia: No evidence of diabetes. A1c 5.0. Will monitor closely. Anemia of chronic disease with thrombocytopenia: Overall stable. Will discuss with nephrology Time Spent Managing Pts Care (In Minutes): 55
[2019-10-11] MEDS: HYDRALAZINE HCL 25 MG TABLET PO SCH ×3 (10:50→21:50)
[2019-10-11] MEDS: AMLODIPINE 10 MG TAB PO SCH (10:50)
[2019-10-11] MEDS: CALCIUM CARBONATE CHEW 500MG TAB PO SCH ×3 (10:50→18:06)
[2019-10-11] MEDS: lisinopriL 20 MG TAB PO SCH (10:51)
[2019-10-11] MEDS: EPOETIN ALFA 10,000 UNIT/ML VIAL IV SCH (14:02)
[2019-10-11 19:24] LABS: Hepatitis C Virus RNA (PCR)log <1.18 log IU/mL
[2019-10-11 21:28] LABS: HBsAG Nonreactive (Nonreactive)
[2019-10-11] MEDS: ACETAMINOPHEN 500 MG TAB PO PRN (21:49)
--- NOTE | 2019-10-12 02:33 | PN ---
Date of Progress Note: 10/11/2019 Chief Complaint: Advanced chronic kidney disease, currently end-stage renal disease. History Of Present Illness: Patient underwent renal biopsy to evaluate for etiology of kidney failur e. Patient presented to the hospital with severe hyperazotemia. 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 Patient has nephrotic range proteinuria. He was started on dialysis. He is tolerating dialysis. Volemia is in good control. Review of Systems: Denies PND or orthopnea. Physical Examination: Lungs: Clear to auscultation bilaterally. Heart: S1, S2. Abdomen: Soft, benign. Extremities: Minimal edema. Laboratory Data: BUN 27, creatinine 11, sodium 135, potassium 4.0, chloride 105, CO2 of 30, phosphor us 4.6, calcium 7.1. PTH 658, albumin 2.8, magnesium 1.8. Impression And Plan: 1.End-stage renal disease. Continue dialysis. Patient underwent dialysis today and procedure was w ell tolerated. Adjust dialysis parameters according to lab works. 2.Hypertension. Patient has nephrotic range proteinuria. He was started on ADDIS inhibitor and renal biopsy was done during this admission. Results are pending. 3.Secondary hyperparathyroidism. Continue calcitriol and monitor phosphorus level. Adjust binders. 4.Anemia and chronic kidney disease. Continue SHAISTA. EB/MODL Voice ID: [id number] Report ID: [id number]
[2019-10-12 05:59] LABS: Albumin 2.5 g/dL (3.4-5.0); Magnesium 1.9 mg/dL (1.8-2.4); Potassium 3.8 mmol/L (3.5-5.1)
[2019-10-12] MEDS: METOPROLOL TAR 50 MG TAB PO SCH ×2 (06:18→17:05)
[2019-10-12] MEDS: INSULIN -REGULAR HUMAN 50 UNIT/0.5 ML ML SQ SCH ×4 (07:30→20:08)
[2019-10-12] MEDS: lisinopriL 20 MG TAB PO SCH (08:55)
[2019-10-12] MEDS: CALCIUM CARBONATE CHEW 500MG TAB PO SCH ×3 (08:55→15:56)
[2019-10-12] MEDS: AMLODIPINE 10 MG TAB PO SCH (08:55)
[2019-10-12] MEDS: HYDRALAZINE HCL 25 MG TABLET PO SCH ×3 (08:55→20:07)
--- NOTE | 2019-10-12 10:18 | P.PN ---
Subjective Date of Service: 10/12/19 Primary Care Provider: None Chief Complaint: Nausea and vomiting Subjective: Improving, Doing well Physical Examination - Vital Signs Temperature: 98 F Blood Pressure: 140/82 Pulse: 89 Respirations: 18 Pulse Ox (%): 96 - Physical Exam General: Alert, In no apparent distress, Oriented x3, Cooperative HEENT: Atraumatic Neck: Supple Respiratory: Clear to auscultation bilaterally, Normal air movement Cardiovascular: Normal pulses, Regular rate/rhythm Neurological: Normal speech, Normal strength at 5/5 x4 extr, Normal tone, Normal affect - Studies Medications List Reviewed: Yes Assessment & Plan Discharge Plan: Home Plan to discharge in: 48 Hours Physician Review Additional Text: Impression: Nausea and vomiting secondary to acute on chronic renal failure stage 5 requiring hemodialysis Hyperkalemia secondary to above Hypertension uncontrolled Hyperglycemia Anemia of chronic disease with thrombocytopenia Plan: Nausea and vomiting secondary to acute on chronic renal failure stage 5 requiring hemodialysis: Awaiting renal biopsy. Patient continues with dialysis. Awaiting hepatitis panel for approval of outpatient hemodialysis. Once this is approved then can proceed with chair time. Anticipate discharge likely in the next 48 hr with approval for outpatient dialysis. Case discussed with nephrology. Likely discharge on Monday. Will provide incentive spirometer. Encourage ambulation. Hyperkalemia secondary to above: This has improved with dialysis. Hypertension uncontrolled: Blood pressure adjusted. Blood pressure better controlled. Will provide IV hydralazine as needed. May need to add further adjust for better control. Hyperglycemia: No evidence of diabetes. A1c 5.0. Will monitor closely. Anemia of chronic disease with thrombocytopenia: Overall stable. Will discuss with nephrology Time Spent Managing Pts Care (In Minutes): 55
[2019-10-12 14:01] LABS: HIV AG/AB 4TH GEN Non-reactive (Non-reactive)
[2019-10-12] MEDS: CALCITROL 0.25 MCG CAP PO SCH (15:02)
[2019-10-13] MEDS: HYDRALAZINE HCL 20 MG/ML VIAL IV PRN (00:31)
--- NOTE | 2019-10-13 01:57 | PN ---
Date of Progress Note: 10/12/2019 Chief Complaint: End-stage renal disease, new onset. Patient is undergoing dialysis for metabolic clearance and to obtain ultrafiltration electrolytes and azotemia has improved in response to dialysis. There is no evidence of renal function recovery. Patient has severe proteinuria, nephrotic syndrome. Patient has renal biopsy done during this admission and results are pending. Review of Systems: Denies fever, chills. Physical Examination: Lungs: Clear to auscultation bilaterally. Heart: S1, S2. Abdomen: Soft, benign. Extremities: Minimal edema. Impression And Plan: 1. End-stage renal disease. Next dialysis on Mondays. Electrolytes, azotemia in good control. Patient received dialysis yesterday. Patient will continue dialysis 3 times per week. 2. Hypertension. Patient will continue medication. Patient has nephrotic syndrome. He was started on ADDIS inhibitor for blood pressure control and proteinuria control. 3. Secondary hyperparathyroidism due to renal origin. Continue calcitriol. Monitor phosphorus level. Adjust binders to control hyperphosphatemia. 4. Anemia due to chronic kidney disease. Continue SHAISTA. I spent total 36 min including 25 min to coordinate care plan. WILDER/JO Voice ID: [id number] Report ID: [id number]
[2019-10-13] MEDS: METOPROLOL TAR 50 MG TAB PO SCH ×2 (05:04→16:58)
[2019-10-13 06:00] LABS: Albumin 2.8 g/dL (3.4-5.0); Phosphorus 4.4 mg/dL (2.5-4.9); Potassium 3.9 mmol/L (3.5-5.1)
[2019-10-13] MEDS: INSULIN -REGULAR HUMAN 50 UNIT/0.5 ML ML SQ SCH ×4 (07:30→21:00)
[2019-10-13] MEDS: CALCIUM CARBONATE CHEW 500MG TAB PO SCH ×3 (08:42→16:58)
[2019-10-13] MEDS: lisinopriL 20 MG TAB PO SCH (08:42)
[2019-10-13] MEDS: AMLODIPINE 10 MG TAB PO SCH (08:42)
[2019-10-13] MEDS: HYDRALAZINE HCL 25 MG TABLET PO SCH ×3 (08:42→21:20)
--- NOTE | 2019-10-13 13:46 | P.PN ---
Subjective Date of Service: 10/13/19 Primary Care Provider: None Chief Complaint: Nausea and vomiting Subjective: Doing well Physical Examination - Vital Signs Temperature: 97.8 F Blood Pressure: 135/70 Pulse: 86 Respirations: 18 Pulse Ox (%): 97 - Physical Exam General: Alert, In no apparent distress, Oriented x3, Cooperative HEENT: Atraumatic Neck: Supple Respiratory: Clear to auscultation bilaterally, Normal air movement Cardiovascular: Normal pulses, Regular rate/rhythm Gastrointestinal: Normal bowel sounds, Soft and benign, Non-distended Neurological: Normal speech, Normal strength at 5/5 x4 extr, Normal tone, Normal affect - Studies Medications List Reviewed: Yes Assessment & Plan Discharge Plan: Home Plan to discharge in: 24 Hours Physician Review Additional Text: Impression: Nausea and vomiting secondary to acute on chronic renal failure stage 5 requiring hemodialysis Hyperkalemia secondary to above Hypertension uncontrolled Hyperglycemia Anemia of chronic disease with thrombocytopenia Plan: Nausea and vomiting secondary to acute on chronic renal failure stage 5 requiring hemodialysis: Renal biopsy shows global glomerulosclerosis, interstitial fibrosis, tubular atrophy and arthrosclerosis. Etiology of renal disease cannot be identified although hypertensive changes noted on biopsy. No evidence of light chain associated disease or immune complex mediated disorder. Hepatitis panel results have finalize. Anticipate discharge tomorrow once outpatient dialysis is arranged. Will discuss with social science manager. Will also discuss with nephrology. Hyperkalemia secondary to above: This has improved with dialysis. Hypertension uncontrolled: Blood pressure adjusted. Blood pressure better controlled. Will provide IV hydralazine as needed. May need to add further adjust for better control. Hyperglycemia: No evidence of diabetes. A1c 5.0. Will monitor closely. Anemia of chronic disease with thrombocytopenia: Overall stable. Will discuss with nephrology Time Spent Managing Pts Care (In Minutes): 55
--- NOTE | 2019-10-13 23:40 | PN ---
Date of Progress Note: 10/13/2019 Chief Complaint: End-stage renal disease, new onset. Patient has history of severe proteinuria. He was initiated on ADDIS inhibitor to control nephrotic sy ndrome. He underwent renal biopsy during this admission. Results are pending. Review of Systems: Denies complaints. Denies fever, chills. Physical Examination: Lungs: Clear to auscultation bilaterally. Heart: S1, S2. Abdomen: Soft, benign. Extremities: Minimal edema. Impression And Plan: 1.End-stage renal disease. Next dialysis tomorrow. Monitor renal panel and adjust electrolytes wit h dialysis accordingly. 2.Hypertension. Continue blood pressure medication. Patient is on ADDIS inhibitor for proteinuria co ntrol and blood pressure control. 3.Secondary hyperparathyroidism. Continue calcitriol. Monitor phosphorus level. Adjust binders to control hyperphosphatemia. 4.Anemia due to chronic kidney disease, end-stage renal disease. Continue SHAISTA. WILDER/MODL Voice ID: [id number] Report ID: [id number]
[2019-10-13 23:45] LABS: Albumin, (SPE) 3.1 g/dL (3.8-4.8); Alpha-1-Globulins 0.3 g/dL (0.2-0.3); Alpha-2-Globulins 0.5 g/dL (0.5-0.9); Gamma Globulins 0.8 g/dL (0.8-1.7); INTERPRETATION REPORT
[2019-10-14] MEDS: METOPROLOL TAR 50 MG TAB PO SCH ×2 (05:54→16:48)
[2019-10-14 06:05] LABS: Potassium 4.1 mmol/L (3.5-5.1)
[2019-10-14] MEDS: INSULIN -REGULAR HUMAN 50 UNIT/0.5 ML ML SQ SCH ×3 (07:30→15:41)
[2019-10-14] MEDS: CALCIUM CARBONATE CHEW 500MG TAB PO SCH ×3 (08:16→15:31)
[2019-10-14 08:21] VITALS: O2SAT 97
--- NOTE | 2019-10-14 09:38 | P.DS ---
Admission Date: 10/07/19 Discharge Date: 10/14/19 Primary Care Provider: None Disposition: ROUTINE DISCHARGE Discharge Condition: GOOD Reason for Admission: Nausea and vomiting Consultations: Nephrology-Dr. Laureano Procedures: Renal biopsy: Renal biopsy shows global glomerulosclerosis, interstitial fibrosis, tubular atrophy and arthrosclerosis. Etiology of renal disease cannot be identified although hypertensive changes noted on biopsy. No evidence of light chain associated disease or immune complex mediated disorder. CT scan: FINDINGS: The lower lung sandoval are clear. The liver, spleen, pancreas, adrenal glands and kidneys are within normal limits for a limited non-contrast examination. No bowel obstruction, free air, free fluid or abscess. The appendix is normal. The osseous structures are within normal limits. IMPRESSION: No acute intra-abdominal or pelvic findings. Surgery: Date of Procedure: 10/07/2019 Surgeon: Gunner Fitzpatrick MD Preoperative Diagnosis: Acute renal failure. Postoperative Diagnosis: Acute renal failure. Procedure: Right IJ Tesio catheter placement and interpretation of intraoperative fluoroscopy. Estimated Blood Loss: Minimal. Specimen: None. Findings: Normal anatomy. Anesthesia: MAC. Medical problem list: Nausea and vomiting secondary to acute on chronic renal failure stage 5 now end- stage renal disease requiring hemodialysis Hyperkalemia secondary to above Hypertension uncontrolled Hyperglycemia Anemia of chronic disease with thrombocytopenia Brief History of Present Illness: 34-year-old male presented with nausea, vomiting and fatigue. Patient with history of uncontrolled hypertension de did not been treated. Patient found to be in acute renal failure with hyperkalemia with elevated blood pressure. Patient required emergent dialysis and treatment. Patient admitted for further evaluation and treatment. Hospital Course: Patient presented with nausea, vomiting and fatigue secondary to acute on chronic renal failure stage 5. Patient found to have hyperkalemia. Patient now end-stage renal disease requiring hemodialysis. Patient had dialysis catheter placed. Patient did well then the course of his stay receiving dialysis. Renal biopsy was done. Etiology of renal disease cannot be identified although hypertensive changes were noted. No evidence of light chain associated disease or immune complex mediated disorder. Patient requiring outpatient initiation of hemodialysis. This has been arranged. Patient will continue with hemodialysis 3 times a week as an outpatient in [place] every Monday, Monday and Monday. Patient will follow up with nephrology as directed. Patient may continue with current medications. Patient would be a candidate for renal transplant and/or possible peritoneal dialysis. This will be further addressed by nephrology as an outpatient. Patient will need to establish care with a PCP to continue his care. Patient with uncontrolled hypertension. Patient has had history of hypertension but untreated. During the course of his stay he was started on medication for better control. At discharge blood pressure stable. At discharge patient will continue with Norvasc 10 mg daily, hydralazine 25 mg 3 times a day, lisinopril 20 mg daily, and metoprolol 50 mg 1 pill twice daily. Recommend to maintain blood pressures less 150/80. Further adjustment can be addressed by his PCP or nephrology. Patient will need to establish care with a PCP to continue his care and monitoring. There were some question of diabetes. A1c 5.0. No evidence of diabetes at this time. This can be monitored as an outpatient. Patient with anemia of chronic disease with thrombocytopenia. This has remained stable. This is likely related to his renal disease. Recommend to recheck CBC in 2-4 weeks to monitors progress. Further evaluation and monitoring can be done by nephrology. Vital Signs/Physical Exam: Temp Pulse Resp BP Pulse Ox 98.8 F 83 18 130/78 97 10/14/19 08:00 10/14/19 08:00 10/14/19 08:00 10/14/19 08:00 10/14/19 08:00 General: Alert, In no apparent distress, Oriented x3, Cooperative HEENT: Atraumatic Neck: Supple Respiratory: Clear to auscultation bilaterally, Normal air movement Cardiovascular: Normal pulses, Regular rate/rhythm Gastrointestinal: Normal bowel sounds, Soft and benign, Non-distended, No tenderness, No masses, No rebound, No guarding Musculoskeletal: No erythema, No tenderness, No warmth Integumentary: No tenderness/swelling, No erythema, No warmth, No cyanosis Neurological: Normal speech, Normal strength at 5/5 x4 extr, Normal tone, Normal affect Laboratory Data at Discharge: WBC 4.9 K/uL (4.3-10.9) 10/11/19 04:44 Hgb 8.6 g/dL (13.6-17.9) L 10/11/19 04:44 Hct 25.1 % (39.6-49.0) L 10/11/19 04:44 Plt Count 90 K/uL (152-406) L 10/11/19 04:44 PT 12.1 SECONDS (9.5-12.5) 10/07/19 17:04 INR 1.03 10/07/19 17:04 Sodium 137 mmol/L (136-145) 10/14/19 05:05 Potassium 4.1 mmol/L (3.5-5.1) 10/14/19 05:05 BUN 46 mg/dL (7-18) H 10/14/19 05:05 Creatinine 14.70 mg/dL (0.55-1.3) H* D 10/14/19 05:05 Glucose 85 mg/dL (74-106) 10/14/19 05:05 Uric Acid 3.1 mg/dL (3.5-7.2) L 10/09/19 04:14 Phosphorus 4.4 mg/dL (2.5-4.9) 10/13/19 04:56 Magnesium 2.0 mg/dL (1.8-2.4) 10/13/19 04:56 Total Bilirubin 0.4 mg/dL (0.2-1.0) 10/08/19 04:58 AST 10 U/L (15-37) L 10/08/19 04:58 ALT 12 U/L (12-78) 10/08/19 04:58 Alkaline Phosphatase 42 U/L (45-117) L 10/08/19 04:58 Lipase 424 U/L (73-393) H 10/07/19 16:25 Home Medications: Amlodipine [Norvasc*] 10 mg PO DAILY #30 tab 10/14/19 Calcitrol [Rocaltrol*] 0.25 mcg PO Q48H #15 cap 10/14/19 Calcium Carbonate [Tums Regular*] 1,000 mg PO AC #120 tab 10/14/19 Hydralazine [Apresoline*] 25 mg PO TID #90 tab 10/14/19 Metoprolol Tartrate [Lopressor*] 50 mg PO BID 6AM 6PM #60 tab 10/14/19 Ondansetron HCl [Zofran] 4 mg PO TID PRN #5 tablet 10/14/19 lisinopriL [Prinivil*] 20 mg PO DAILY #30 tab 10/14/19 New Medications: Amlodipine [Norvasc*] 10 mg PO DAILY #30 tab Calcitrol [Rocaltrol*] 0.25 mcg PO Q48H #15 cap Calcium Carbonate [Tums Regular*] 1,000 mg PO AC #120 tab Hydralazine [Apresoline*] 25 mg PO TID #90 tab lisinopriL [Prinivil*] 20 mg PO DAILY #30 tab Metoprolol Tartrate [Lopressor*] 50 mg PO BID 6AM 6PM #60 tab Ondansetron HCl [Zofran] 4 mg PO TID PRN #5 tablet PRN Reason: Nausea / Vomiting Patient Discharge Instructions: 1. Patient will follow up with a PCP to establish care follow up this hospitalization. 2. Patient presented with nausea, vomiting and fatigue secondary to acute on chronic renal failure stage 5. Patient found to have hyperkalemia. Patient now end-stage renal disease requiring hemodialysis. Patient had dialysis catheter placed. Patient did well then the course of his stay receiving dialysis. Renal biopsy was done. Etiology of renal disease cannot be identified although hypertensive changes were noted. No evidence of light chain associated disease or immune complex mediated disorder. Patient requiring outpatient initiation of hemodialysis. This has been arranged. Patient will continue with hemodialysis 3 times a week as an outpatient in [place] every Monday, Monday and Monday. Patient will follow up with nephrology as directed. Patient may continue with current medications. Patient would be a candidate for renal transplant and/or possible peritoneal dialysis. This will be further addressed by nephrology as an outpatient. Patient will need to establish care with a PCP to continue his care. 3. Patient with uncontrolled hypertension. Patient has had history of hypertension but untreated. During the course of his stay he was started on medication for better control. At discharge blood pressure stable. At discharge patient will continue with Norvasc 10 mg daily, hydralazine 25 mg 3 times a day, lisinopril 20 mg daily, and metoprolol 50 mg 1 pill twice daily. Recommend to maintain blood pressures less 150/80. Further adjustment can be addressed by his PCP or nephrology. Patient will need to establish care with a PCP to continue his care and monitoring. 4. There were some question of diabetes. A1c 5.0. No evidence of diabetes at this time. This can be monitored as an outpatient. 5. Patient with anemia of chronic disease with thrombocytopenia. This has remained stable. This is likely related to his renal disease. Recommend to recheck CBC in 2-4 weeks to monitors progress. Further evaluation and monitoring can be done by nephrology. Diet: Renal Activity: Ad [place] Time spent managing pt's care (in minutes): 55
[2019-10-14] MEDS: HYDRALAZINE HCL 25 MG TABLET PO SCH ×2 (12:33→12:34)
[2019-10-14] MEDS: AMLODIPINE 10 MG TAB PO SCH (12:33)
[2019-10-14] MEDS: lisinopriL 20 MG TAB PO SCH (12:33)
[2019-10-14 15:30] VITALS: TEMP 98.1
[2019-10-14] MEDS: CALCITROL 0.25 MCG CAP PO SCH (15:31)
[2019-10-14 16:48] VITALS: BP 139/83
--- NOTE | 2019-10-14 23:17 | PN ---
Date of Progress Note: 10/14/2019 Chief Complaint: End-stage renal disease, new onset. Subjective: Patient is undergoing dialysis today. Procedure was well tolerated. Volemia is well co ntrolled. Review of Systems: Denies cough, chest pain, nausea, vomiting. Physical Examination: Lungs: Clear to auscultation bilaterally. Heart: S1-S2. Abdomen: Soft, benign. Extremities: Minimal edema. Impression And Plan: 1.End-stage renal disease. Patient underwent dialysis today. Procedure was well tolerated. 2.Proteinuria, hypertension. Continue ADDIS inhibitor. 3.Patient underwent renal biopsy, results are pending. 4.Secondary hyperparathyroidism. Monitor phosphorus level. Adjust binders accordingly. 5.Anemia and chronic kidney disease. Continue SHAISTA. EB/MODL Voice ID: [id number] Report ID: [id number]
[2019-10-15 06:45] LABS: Anti-Cardiolipin IgA Antibody 17 APL (<=11)
[2019-10-17 13:43] LABS: Vitamin D 1,25-Dihydroxy Total 13 pg/mL (18-72); Vitamin D,1,25-OH2, D2 <8 pg/mL
== END 2019-10-14 17:15 | disposition home or self-care (01) | DRG 683 ==
LOC: ER 15:38 → OR 20:49 → 4TH 21:45
PROVIDERS: ADMIT Hospitalist; ATTEND Family Medicine
PROC: B513YZA Fluoroscopy of Right Jugular Veins using Other Contrast, Guidance (ICD-10-PCS; 2019-10-07)
PROC: 5A1D70Z Performance of Urinary Filtration, Intermittent, Less than 6 Hours Per Day (ICD-10-PCS; 2019-10-07)
PROC: 30233N1 Transfusion of Nonautologous Red Blood Cells into Peripheral Vein, Percutaneous Approach (ICD-10-PCS; 2019-10-07)
PROC: 30233N1 Transfusion of Nonautologous Red Blood Cells into Peripheral Vein, Percutaneous Approach (ICD-10-PCS; 2019-10-07)
PROC: 05HM33Z Insertion of Infusion Device into Right Internal Jugular Vein, Percutaneous Approach (ICD-10-PCS; principal; 2019-10-07 21:00)
PROC: 5A1D70Z Performance of Urinary Filtration, Intermittent, Less than 6 Hours Per Day (ICD-10-PCS; 2019-10-08)
PROC: 5A1D70Z Performance of Urinary Filtration, Intermittent, Less than 6 Hours Per Day (ICD-10-PCS; 2019-10-09)
PROC: 30233N1 Transfusion of Nonautologous Red Blood Cells into Peripheral Vein, Percutaneous Approach (ICD-10-PCS; 2019-10-09)
PROC: 30233N1 Transfusion of Nonautologous Red Blood Cells into Peripheral Vein, Percutaneous Approach (ICD-10-PCS; 2019-10-09)
PROC: 5A1D70Z Performance of Urinary Filtration, Intermittent, Less than 6 Hours Per Day (ICD-10-PCS; 2019-10-11)
PROC: 5A1D70Z Performance of Urinary Filtration, Intermittent, Less than 6 Hours Per Day (ICD-10-PCS; 2019-10-14)
DX: N17.9 Acute kidney failure, unspecified (principal); I12.0 Hypertensive chronic kidney disease with stage 5 chronic kidney disease or end stage renal disease; N99.821 Postprocedural hemorrhage of a genitourinary system organ or structure following other procedure; N18.6 End stage renal disease; N25.81 Secondary hyperparathyroidism of renal origin; E11.22 Type 2 diabetes mellitus with diabetic chronic kidney disease; E11.65 Type 2 diabetes mellitus with hyperglycemia; E11.21 Type 2 diabetes mellitus with diabetic nephropathy; E87.5 Hyperkalemia; D63.1 Anemia in chronic kidney disease; D69.6 Thrombocytopenia, unspecified; E83.51 Hypocalcemia; R80.9 Proteinuria, unspecified; Z79.4 Long term (current) use of insulin
CPT/HCPCS: 36415; 36430; 71045; 74176; 76000; 80048; 80053; 80069; 80074; 80076; 80320; 81003; 82272; 82550; 82570; 82607; 82652; 82746; 82947; 83036; 83520; 83540; 83605; 83690; 83735; 83970; 84156; 84165; 84443; 84466; 84550; 85014; 85018; 85025; 85044; 85610; 86021; 86038; 86147; 86160; 86225; 86317; 86430; 86704; 86706; 86850; 86900; 86901; 87389; 87522; 88300; 90935; 93005; 99285; C1752; J0360; J0610; J0690; J1200; J1644; J1720; J2250; J2310; J2405; J2550; J3010; J7030; J7040; P9016; Q5105

== ENCOUNTER 2021-03-21 20:36 | Emergency (ER) | payer OTHER ==
--- OUTSIDE RECORDS SUMMARY | 2021-03-21 20:39 | XMS REPORT | Continuity of Care Document ---
:1985 Author Organization [facility] t Address [address] [place] [address] Care Team Providers Name Role Phone uSnita CARDENAS, Neymar Lala Attending Clinician Problems This patient has no known problems. Allergies, Adverse Reactions, Alerts This patient has no known allergies or adverse reactions. Medications This patient has no known medications. Procedures This patient has no known procedures. Encounters Start End Encounter Admission Attending Care Care Encounter Source Date/Time Date/Time Type Type Clinicians Facility Department ID 2020-04-17 Inpatient [facility] [id number] [facility] 16:04:57 2021-03-09 2021-03-09 Office CLARIBEL Dorsey [id number] 15:00:07 15:30:07 Visit [facility] [id number] Spike Bearden [id number] [employer] [id number] [address] 2020-10-19 2020-10-19 Outpatient [facility] [id number] [facility] 13:06:00 13:06:00 2020-09-07 2020-09-07 Outpatient [facility] [id number] [facility] 13:04:00 13:04:00 2020-08-25 2020-08-25 Outpatient [facility] [id number] [facility] 10:47:00 10:47:00 2020-06-23 2020-06-23 Outpatient [facility] [id number] [facility] 10:30:00 10:30:00 2020-03-31 2020-03-31 Outpatient [facility] [id number] [facility] 06:57:00 06:57:00 2020-01-15 2020-01-15 Outpatient [facility] [id number] [facility] 08:30:00 08:30:[address] [facility] l Results This patient has no known results.
--- NOTE | 2021-03-22 00:30 | EDPHYS ---
Physician Documentation [facility] Name: Dennis Mariee Age: 35 yrs Sex: Male : 1985 Arrival Date: 03/21/2021 Time: 20:37 Bed DIS2 Private MD: ED Physician Chevy Sutton HPI: 03/22 00:00 This 35 yrs old Male presents to ER via Ambulatory with complaints of cp Congestion, Fever. 00:00 The patient reports fever, not measured (subjective). Onset: The symptoms/episode cp began/occurred 3 day(s) ago. 00:00 Associated signs and symptoms: Pertinent positives: sinus congestion, body aches, cp Pertinent negatives: diarrhea, vomiting. Severity of symptoms: in the emergency department the symptoms are unchanged. Patient denies taking any medications for fever. Historical: - Allergies: 03/21 21:45 No Known Allergies; kg - Home Meds: 21:45 lisinopril 10 mg Oral tab 1 tab once daily [Active]; hydralazine 10 mg Oral tab 1 tab kg [Active]; Lasix Oral [Active]; - PMHx: 21:45 Hypertension; ESRD; HD- M/W/F; DM- NDDM; kg - PSHx: 21:45 Fistula- HD left arm; kg - Immunization history:: Adult Immunizations not up to date, Client reports receiving the 2nd dose of the Covid vaccine, Date received: December 11, 2020 [employer] Client reports receiving the 1st dose of the Covid vaccine, November 15, 2020 [employer]. - Social history:: Smoking status: Patient denies any tobacco usage or history of. ROS: 03/22 00:05 Constitutional: Positive for body aches, chills, Negative for fever. cp 00:05 Respiratory: Positive for cough, with no reported sputum, Negative for shortness of cp breath, wheezing. 00:05 Eyes: Negative for injury, pain, redness, and discharge. cp 00:05 ENT: Positive for sore throat, Negative for drainage from ear(s), ear pain, difficulty swallowing, difficulty handling secretions. 00:05 Cardiovascular: Negative for chest pain, edema, palpitations. 00:05 Abdomen/GI: Negative for abdominal pain, nausea, vomiting, and diarrhea. 00:05 Skin: Negative for cellulitis, rash. 00:05 Neuro: Positive for headache, Negative for altered mental status, dizziness, weakness. 00:05 All other systems are negative. Exam: 00:10 Constitutional: The patient appears in no acute distress, alert, awake, non-toxic, well cp developed, well nourished. 00:10 Head/Face: Normocephalic, atraumatic. cp 00:10 Eyes: Periorbital structures: appear normal, Conjunctiva: normal, no exudate, no cp injection, Sclera: no appreciated abnormality, Lids and lashes: appear normal, bilaterally. 00:10 ENT: External ear(s): are unremarkable, Ear canal(s): are normal, clear, TM's: bulging, cp is not appreciated, bilaterally, dullness, bilaterally, erythema, is not appreciated, bilaterally, Nose: is normal, Mouth: Lips: moist, Oral mucosa: moist, Posterior pharynx: Airway: no evidence of obstruction, patent, Tonsils: no enlargement, no exudate, erythema, that is moderate, exudate, is not appreciated, Voice: is normal. 00:10 Neck: ROM/movement: is normal, is supple, no meningismus, no nuchal rigidity, Lymph nodes: no appreciated lymphadenopathy. 00:10 Chest/axilla: Inspection: normal, Palpation: is normal, no crepitus, no tenderness. 00:10 Cardiovascular: Rate: normal, Rhythm: regular. 00:10 Respiratory: the patient does not display signs of respiratory distress, Respirations: normal, no use of accessory muscles, no retractions, labored breathing, is not present, Breath sounds: are clear throughout. 00:10 Abdomen/GI: Exam negative for discomfort, distension, guarding, Inspection: abdomen appears normal. 00:10 Back: pain, is absent, ROM is normal. 00:10 Skin: cellulitis, is not appreciated, no rash present. 00:10 Neuro: Orientation: to person, place \T\ time. Mentation: is normal. Vital Signs: 03/21 21:42 BP 120 / 80; Pulse 84; Resp 20; Temp 98.8; Pulse Ox 99% on R/A; Weight 68.04 kg (R); kg Height 5 ft. 8 in. (172.72 cm); Pain 6/10; 03/22 00:18 BP 119 / 71 RA Sitting (auto/lg); Pulse 83 MON; Resp 15 S; Temp 98.8(O); Pulse Ox 100% bs2 on R/A; Pain 02/20; 03/21 21:42 Body Mass Index 22.81 (68.04 kg, 172.72 cm) kg MDM: 03/21 23:53 Patient medically screened. cp 03/22 00:00 Differential diagnosis: viral Infection, bacterial infection, URI, bronchitis, cp pneumonia meningitis. 00:29 Data reviewed: vital signs, nurses notes, lab test result(s), and as a result, I will cp discharge patient. 00:29 Counseling: I had a detailed discussion with the patient and/or guardian regarding: the cp historical points, exam findings, and any diagnostic results supporting the discharge/admit diagnosis, lab results, to return to the emergency department if symptoms worsen or persist or if there are any questions or concerns that arise at home. ED course: VSS. Patient appears non-toxic and no signs of respiratory distress. Will discharge to home and recommend 10 day quarantine. 03/21 21:45 Order name: Flu kg 03/21 21:45 Order name: Strep kg 03/21 22:45 Order name: Throat Culture EDMS 03/22 00:08 Order name: SARS-COV-2 RT PCR EDMS Administered Medications: No medications were administered Disposition: 00:40 Co-signature as Attending Physician, Chevy Sutton MD. pkl Disposition Summary: 03/22/21 00:29 Discharge Ordered Location: Home cp Problem: new cp Symptoms: are unchanged cp Condition: Stable cp Diagnosis - SARS-associated coronavirus as the cause of diseases classified elsewhere cp Followup: cp - With: Private Physician - When: 1 - 2 days - Reason: Worsening of condition Discharge Instructions: - Discharge Summary Sheet cp - COVID-19 cp - Things to Know about the COVID-19 Pandemic - [facility] cp - 10 Things You Can Do to Manage Your COVID-19 Symptoms at Home - [facility] cp - COVID-19: Quarantine vs. Isolation - [facility] cp - Prevent the Spread of COVID-19 if You Are Sick - [facility] cp Forms: - Medication Reconciliation Form cp - Thank You Letter cp - Antibiotic Education cp - Prescription Opioid Use cp Prescriptions: - Tessalon Perles 100 mg Oral Capsule - take 2 capsule by ORAL route every 8 hours As needed; 30 capsule; Refills: 0, cp Product Selection Permitted Signatures: Dispatcher [employer] EDMS Chevy Sutton MD MD pkl Rod Clifton PA PA cp Kaia Sutton, RN RN kg Corrections: (The following items were deleted from the chart) 03/21 23:00 21:45 CORONAVIRUS+ ordered. EDMS EDMS
--- NOTE | 2021-03-22 00:30 | ER ---
Nurse's Notes [facility] Name: Dennis Mariee Age: 35 yrs Sex: Male : 1985 Arrival Date: 03/21/2021 Time: 20:37 Bed DIS2 Private MD: Diagnosis: SARS-associated coronavirus as the cause of diseases classified elsewhere Presentation: 03/21 21:42 Chief complaint: Patient states: Fever, Chills, body aches, stuffy nose x 3 days. kg Coronavirus screen: Client denies travel out of the [place] in the last 14 days. At this time, unable to obtain information related to travel outside the [place] Client presents with at least one sign or symptom that may indicate coronavirus-19. Standard/surgical mask placed on the client. Provider contacted for isolation considerations. Ebola Screen: Patient negative for fever greater than or equal to 101.5 degrees Fahrenheit, and additional compatible Ebola Virus Disease symptoms Patient denies exposure to infectious person. Patient denies travel to an Ebola-affected area in the 21 days before illness onset. Initial Sepsis Screen: Does the patient meet any 2 criteria? No. Patient's initial sepsis screen is negative. Does the patient have a suspected source of infection? No. Patient's initial sepsis screen is negative. Risk Assessment: Do you want to hurt yourself or someone else? Patient reports no desire to harm self or others. Onset of symptoms was March 18, 2021. 21:42 Method Of Arrival: Ambulatory kg 21:42 Acuity: RUPESH 4 kg Triage Assessment: 21:45 General: Appears in no apparent distress. Behavior is calm, cooperative, appropriate kg for age, quiet. Pain: Complains of pain in Generalized. Historical: - Allergies: 21:45 No Known Allergies; kg - Home Meds: 21:45 lisinopril 10 mg Oral tab 1 tab once daily [Active]; hydralazine 10 mg Oral tab 1 tab kg [Active]; Lasix Oral [Active]; - PMHx: 21:45 Hypertension; ESRD; HD- M/W/F; DM- NDDM; kg - PSHx: 21:45 Fistula- HD left arm; kg - Immunization history:: Adult Immunizations not up to date, Client reports receiving the 2nd dose of the Covid vaccine, Date received: December 11, 2020 [employer] Client reports receiving the 1st dose of the Covid vaccine, November 15, 2020 [employer]. - Social history:: Smoking status: Patient denies any tobacco usage or history of. Screenin:49 Abuse screen: Denies threats or abuse. Denies injuries from another. Nutritional kg screening: No deficits noted. Tuberculosis screening: No symptoms or risk factors identified. Fall Risk None identified. Vital Signs: 21:42 BP 120 / 80; Pulse 84; Resp 20; Temp 98.8; Pulse Ox 99% on R/A; Weight 68.04 kg (R); kg Height 5 ft. 8 in. (172.72 cm); Pain 01/21; 03/22 00:18 BP 119 / 71 RA Sitting (auto/lg); Pulse 83 MON; Resp 15 S; Temp 98.8(O); Pulse Ox 100% bs2 on R/A; Pain 02/20; 03/21 21:42 Body Mass Index 22.81 (68.04 kg, 172.72 cm) kg ED Course: 03/21 20:37 Patient arrived in ED. ds1 21:44 Triage completed. kg 21:45 Arm band placed on left wrist. kg 21:49 Patient has correct armband on for positive identification. kg 23:45 Rod Clifton PA is PHCP. cp 23:45 Chevy Sutton MD is Attending Physician. cp Administered Medications: No medications were administered Outcome: 03/22 00:29 Discharge ordered by . cp 00:36 Patient left the ED. bs2 Signatures: Juana Marshall ds1 Rod Clifton PA PA cp Kaia Sutton, CRISTOBAL RN kg Iris Skaggs RN RN bs2
[2021-03-22 01:08] VITALS: TEMP 98.8
[2021-03-22 01:09] VITALS: BP 119/71; O2SAT 100
== END 2021-03-22 00:36 | disposition home or self-care (01) ==
LOC: ER 20:36
DX: U07.1 COVID-19 (principal); E11.22 Type 2 diabetes mellitus with diabetic chronic kidney disease; I12.0 Hypertensive chronic kidney disease with stage 5 chronic kidney disease or end stage renal disease; N18.6 End stage renal disease; Z99.2 Dependence on renal dialysis
CPT/HCPCS: 87070; 87081; 87804 ×2; 99281; U0003

== ENCOUNTER 2021-10-31 16:29 | Inpatient (IN) | payer OTHER ==
--- OUTSIDE RECORDS SUMMARY | 2021-10-31 16:32 | XMS REPORT | Continuity of Care Document ---
:1985 Author Organization [facility] t Address [address] [place] [address] Care Team Providers Name Role Phone Pcp, Patient Does Not Have A Primary Care Physician [phone] VANESA STONE Attending Clinician Unavailable Chata CARDENAS, Mario Lemons Attending Clinician [phone] Shauna Phillips MD Attending Clinician Rick CUELLAR Attending Clinician Unavailable VANESA JACOB Attending Clinician Unavailable Pelaez MD Attending Clinician Berto PELAEZ Attending Clinician Unavailable Spike Dorsey MD Attending Clinician WILMAR MCDONOUGH Attending Clinician Unavailable TOMAS RÍOS Attending Clinician Unavailable VANESA STONE Admitting Clinician Unavailable TOMAS RÍOS Admitting Clinician Unavailable Payers Payer Name Policy Type Policy Number Effective Date Expiration Date S ource Problems Condition Condition Condition Status Onset Resolution Last Treating Co mments Source Name Details Category Date Date Treatment Clinician Date Non-intrac Non-intrac Disease Active Overview : Univers table table 9-17 Formattin ity of vomiting vomiting 00:00: g of this [place] as with with 00 note Medical nausea, nausea, might be Branch unspecifie unspecifie different d vomiting d vomiting from the type type original. Added automatic ally from request for surgery [id number] ESRD (end ESRD (end Disease Active Uni vers stage stage 9-16 ity of renal renal 00:00: [place] disease) disease) 00 Medica l Branch Allergies, Adverse Reactions, Alerts This patient has no known allergies or adverse reactions. Social History Social Habit Start Date Stop Date Quantity Comments Source History SDOH University o f Alcohol Std [place] Medical Drinks Branch History SDOH University o f Alcohol Binge [place] Medic al Branch History SDME University o f Alcohol Comment [place] Med ical Branch Exposure to Not sure University of SARS-CoV-2 [facility] (event) Branch Alcohol intake 2021-10-28 2021-10-28 Lifetime University of 00:00:00 00:00:00 non-drinker [facility] (finding) [place] Tobacco use and 2021-03-09 2021-03-09 Never used Universit y of exposure 00:00:00 00:00:00 [facility] Branch History SDOH 2021-03-09 2021-03-09 1 University o f Alcohol Frequency 00:00:00 00:00:00 [facility] edical [place] Sex Assigned At [birth year] [facility] 00:00:00 00:00:00 Smoking Status Start Date Stop Date Source Tobacco smoking consumption [facility] Never smoker [facility] Te xamarisol [facility] Medications Ordered Filled Start Stop Current Ordering Indication Dosage Frequency Signature Comments Components Source Medication Medication Date Date Medication? Clinician (SIG) Name Name wen Yes [id number] Take Univ ers rol, 2-16 50,000 ity of vitamin d2, 00:00: Units by Jj xas 1,250 mcg 00 mouth Medical (50,000 weekly. Branch unit) capsule lisinopriL 2020-08 Yes 10mg Take 10 mg U nivers 10 mg 2-16 by mouth ity of tablet 14:56: daily. [address] hydrALAZINE 2020-08 Yes 10mg Take 10 mg Univers 10 mg 2-16 by mouth ity of tablet 14:56: as needed. [address] Blood Yes [id number] Use to Floxx s Pressure 05-06 check ity of Monitor Kit 00:00: blood [place] [address] pressure Medical once Branch daily. I10 Blood-Gluco Yes [id number] Use to Univers se Meter 9-23 check ity of (ACCU-CHEK 00:00: glucose 1x [place] GUIDE 00 daily. Medical GLUCOSE E11.22, Branch METER) Misc N18.6, Z99.2 Lancets Yes [id number] Use to Univ ers (ACCU-CHEK 9-21 check ity of MULTICLIX 00:00: blood [place] LANCET) 00 glucose Medical Misc level 1x Branch daily. E11.22, N18.6, Z99.2 blood sugar Yes [id number] Use as Univers diagnostic 9-20 directed ity o f (ACCU-CHEK 00:00: once daily [place] GUIDE TEST 00 Medical STRIPS) [place] strip ondansetron Yes [id number] 8mg Take 1 Univers 8 mg 9-16 tablet by ity of disintegrat 00:00: mouth [place] ing tablet 00 every 8 Medica l (eight) Branch hours as needed for Nausea and Vomiting (N/V). gabapentin Yes Univers 100 mg 8-18 ity of capsule 00:00: [place] [address] Medical Branch lanthanum Yes CHEW AND Univ ers 1,000 mg 7-21 SWALLOW 1 ity of chewable 00:00: TABLET [place] tablet 00 MOUTH Medical THREE Branch TIMES DAILY WITH MEALS furosemide Yes 20mg Take 20 mg U nivers 20 mg 6-08 by mouth 2 ity of tablet 00:00: (two) [place] 00 times Medical daily. [place] Vital Signs Vital Name Observation Time Observation Value Comments Source Systolic blood 2021-10-28 20:51:00 123 mm[Hg] [facility] Diastolic blood 2021-10-28 20:51:00 72 mm[Hg] [facility] 2021-10-28 20:51:00 83 /min [facility] Body temperature 2021-10-28 20:51:00 36.33 Bridget [facility] Respiratory rate 2021-10-28 20:51:00 18 /min [facility] Body height 2021-10-28 20:51:00 167.6 cm [facility] Body weight 2021-10-28 20:51:00 71.124 kg [facility] BMI 2021-10-28 20:51:00 25.31 kg/m2 Universi ty of [facility] Oxygen saturation in 2021-10-28 20:51:00 99 /min University Arterial blood by [facility] Pulse oximetry [place] Procedures Procedure Date / Time Performed Performing Clinician Sourcahvez e CT CHEST WO CONTRAST 2021-07-20 20:20:00 Ish Schafer [facility] En[facility] Start End Encounter Admission Attending Care Care Encounter Source Date/Time Date/Time Type Type Clinicians Facility Department ID 2021-08-26 Outpatient RUDOLPH STONE [facility] [id number] [facility] 10:37:00 2020-04-17 Inpatient BERTHA RUDOLPH [facility] [id number] [facility] 16:04:57 2021-10-28 2021-10-28 Office Camilla Brizuelajose [facility] [id number] [facility] 16:00:00 16:30:00 Visit Dariusz Mae SPECIALTY [id number] [facility] [id number] [facility] AT [id number] De daysi MAXAdriana 2 [facility] 2021-10-13 2021-10-13 Outpatient RODO [facility] CAR [id number] [facility] 11:26:00 11:26:00 NETTIE BEAL 2021-09-13 2021-10-12 Outpatient CECIL [facility] PUL [id number] [facility] 13:03:00 23:59:00 CHARLETTE 2021-07-22 2021-07-22 EXT [facility] OP de EXT MSRDP [id number] [place] 00:00:00 00:00:00 [facility], LOCATION [id number] [facility] [id number] 2021-07-20 2021-07-20 EXT MHH OP de EXT MSRDP [id number] [place] 00:00:00 00:00:00 [facility], LOCATION [id number] [facility] [id number] 2021-06-222021-06-22 Outpatient DE [facility] [id number] [facility] 06:33:00 06:33:00 [facility] 2021-03-09 2021-03-09 Office CLARIBEL Dorsey [id number] 15:00:07 15:30:07 Visit [facility] [id number] [facility] [id number] Professio [id number] nal [address] 2020-10-19 2020-11-17 Outpatient GABRIEL MCDONOUGH [facility] LEONID [id number] [facility] 13:06:00 23:59:00 2020-09-07 2020-09-07 Outpatient RODO [facility] CAR [id number] [facility] 13:04:00 17:40:00 NETTIE BEAL 2020-08-25 2020-08-25 Outpatient RODO [facility] CAR [id number] [facility] 10:47:00 23:59:00 NETTIE BEAL 2020-06-23 2020-06-23 Outpatient RODO [facility] CAR [id number] [facility] 10:30:00 23:59:00 NETTIE BEAL 2020-03-31 2020-03-31 Outpatient DE [facility] CAR [id number] [facility] 06:57:00 06:57:00 [facility] 2020-01-15 2020-01-15 Outpatient MICHOACANO, MHSE MHSE [id number] MH 08:30:00 18:10:00 [facility] l Results This patient has no known results.
[2021-10-31 18:05] LABS: SARS-COV-2 RT PCR NEGATIVE (NEGATIVE)
[2021-10-31] MEDS ORDERED: ACETAMINOPHEN 500 MG TAB ONE (18:05)
[2021-10-31 20:45] LABS: Absolute Lymphocytes (CBC) 0.7 K/uL (0.7-4.9); Lymphocytes % 11.4 % (15.3-44.8); MPV 9.3 fL (7.6-11.3); RBC Red Blood Cell Count 3.02 M/uL (4.33-5.43)
[2021-10-31 21:02] LABS: Albumin 3.2 g/dL (3.4-5.0); Bilirubin Total 0.3 mg/dL (0.2-1.0); Potassium 4.9 mmol/L (3.5-5.1); Protein, Total 6.5 g/dL (6.4-8.2)
[2021-10-31 21:08] LABS: Urine Blood 1+ (Negative); Urine Glucose Trace (Negative); Urine Protein 2+ (Negative); Urine Specific Gravity 1.015 (1.005-1.030)
--- NOTE | 2021-10-31 22:21 | EDPHYS ---
Physician Documentation [facility] Name: Dennis Mariee Age: 36 yrs Sex: Male : 1985 Arrival Date: 10/31/2021 Time: 16:31 Bed 26 Private MD: ED Physician Preston Gale HPI: 10/31 16:44 This 36 yrs old Male presents to ER via Ambulatory with complaints of Flu pm1 Symptoms. 16:44 The patient or guardian reports flu symptoms. Onset: The symptoms/episode pm1 began/occurred 2 day(s) ago. Severity of symptoms: in the emergency department the symptoms have improved. Modifying factors: The symptoms are alleviated by Tylenol, last taken last night. Associated signs and symptoms: Pertinent positives: Bodyaches, Pertinent negatives: chest pain, diarrhea, ear ache, nausea, rhinorrhea, sore throat, vomiting, shortness of breath. The patient has not experienced similar symptoms in the past. Patient received MMR vaccination on prior to onset of symptoms. Historical: - Allergies: 16:43 No Known Allergies; ld1 - PMHx: 16:43 Hypertension; HD- M/W/F; ESRD; DM- NDDM; ld1 - PSHx: 16:43 Fistula- HD left arm; ld1 - Immunization history:: Adult Immunizations up to date, Client reports receiving the 2nd dose of the Covid vaccine. - Social history:: Smoking status: Patient denies any tobacco usage or history of. Patient/guardian denies using alcohol. ROS: 16:44 Eyes: Negative for injury, pain, redness, and discharge, ENT: Negative for injury, pm1 pain, and discharge, Neck: Negative for injury, pain, and swelling, Cardiovascular: Negative for chest pain, palpitations, and edema, Respiratory: Negative for shortness of breath, cough, wheezing, and pleuritic chest pain, Abdomen/GI: Negative for abdominal pain, nausea, vomiting, diarrhea, and constipation, Back: Negative for injury and pain, MS/Extremity: Negative for injury and deformity, Skin: Negative for injury, rash, and discoloration, Neuro: Negative for headache, weakness, numbness, tingling, and seizure. 16:44 Constitutional: Positive for body aches, Negative for poor PO intake. 16:44 All other systems are negative. Exam: 16:44 Constitutional: This is a well developed, well nourished patient who is awake, alert, pm1 and in no acute distress. Head/Face: Normocephalic, atraumatic. Chest/axilla: Normal chest wall appearance and motion. Nontender with no deformity. No lesions are appreciated. 16:44 Back: No spinal tenderness. No costovertebral tenderness. Full range of motion. Skin: Warm, dry with normal turgor. Normal color with no rashes, no lesions, and no evidence of cellulitis. MS/ Extremity: Pulses equal, no cyanosis. Neurovascular intact. Full, normal range of motion. 16:44 Eyes: Exam is negative for acute changes, Extraocular movements: no acute changes, Conjunctiva: no acute changes, no injection. 16:44 ENT: Exam is negative for acute changes, External ear(s): are unremarkable, Ear canal(s): are normal, TM's: are normal, Mouth: no acute changes, Lips: normal, moist, Oral mucosa: normal, pink and intact, moist. 16:44 Cardiovascular: Exam negative for acute changes, Rate: normal, Rhythm: regular, Pulses: no pulse deficits are appreciated, Heart sounds: normal, normal S1and S2. 16:44 Respiratory: Exam negative for acute changes, respiratory distress, shortness of breath, Breath sounds: are clear throughout. 16:44 Neuro: Exam negative for acute changes, Orientation: is normal, Mentation: is normal, Motor: is normal, moves all fours, Gait: is steady, at a normal pace, without difficulty. Vital Signs: 16:42 BP 129 / 77; Pulse 96; Resp 18; Temp 99.1(TE); Pulse Ox 100% on R/A; Weight 69.85 kg; ld1 Height 5 ft. 8 in. (172.72 cm); Pain 0/10; 16:42 Body Mass Index 23.42 (69.85 kg, 172.72 cm) ld1 MDM: 16:36 Patient medically screened. pm1 18:04 Data reviewed: vital signs. Data interpreted: Pulse oximetry: on room air is 100 %. pm1 Interpretation: normal. 22:01 Physician consultation: Haseeb Robert MD was called at 22:01, was contacted pm1 at 22:01, regarding consult, patient's condition, and will see patient tomorrow, would like further tests performed, blood culture, cefepime, vancomycin, CT stone protocol, admit to the hospitalist and consultation with her. 22:20 Counseling: I had a detailed discussion with the patient and/or guardian regarding: the pm1 historical points, exam findings, and any diagnostic results supporting the discharge/admit diagnosis, lab results, the need for further work-up and treatment in the hospital. 10/31 16:44 Order name: COVID-19/FLU A+B (Document "Date of Onset" if Symptomatic) pm1 10/31 16:44 Order name: Strep pm1 10/31 16:44 Order name: COVID-19/FLU A+B; Complete Time: 19:10 EDMS 10/31 16:44 Order name: Group A Streptococcus Rapid Sc; Complete Time: 17:42 EDMS 10/31 17:22 Order name: Throat Culture EDMS 10/31 19:57 Order name: CBC with Diff pm10/31 19:57 Order name: CMP; Complete Time: 21:30 pm1 10/31 19:57 Order name: CBC with Automated Diff; Complete Time: 20:52 EDMS 10/31 21:07 Order name: Urine Dipstick-Ancillary; Complete Time: 21:30 EDMS 10/31 22:00 Order name: Blood Culture Adult (2) pm10/31 22:29 Order name: HCV w/reflex PCR EDMS 10/31 22:29 Order name: Hep B Core Ab, Tot/reflex IgM EDMS 10/31 22:29 Order name: Hep B Surface AG w/ Confirm EDMS 10/31 22:29 Order name: Hepatitis B Surface Antibody EDMS 10/31 19:57 Order name: IV Saline Lock; Complete Time: 20:29 pm1 10/31 19:57 Order name: Urine Dipstick-Ancillary (obtain specimen); Complete Time: 21:10 pm1 10/31 22:00 Order name: CT Stone Protocol pm10/31 22:00 Order name: Chest Pa And Lat (2 Views) XRAY pm11/01 05:02 Order name: CBC with Automated Diff; Complete Time: 11:53 EDMS 11/01 05:05 Order name: Hemoglobin A1c; Complete Time: 11:53 EDMS 11/01 05:16 Order name: Comprehensive Metabolic Panel; Complete Time: 11:53 EDMS 11/01 05:16 Order name: C-Reactive Protein; Complete Time: 11:53 EDMS 11/01 05:59 Order name: Procalcitonin; Complete Time: 11:53 EDMS 11/01 06:41 Order name: Urinalysis; Complete Time: 11:53 EDMS 11/01 07:00 Order name: Urine Microscopic Only; Complete Time: 11:53 EDMS Administered Medications: 18:04 Drug: Tylenol 1000 mg Route: PO; beckford 18:04 Follow up: Response: No adverse reaction beckford Disposition: 11/01 19:08 Co-signature as Attending Physician, Preston Gale MD I agree with the assessment and kdr plan of care. Disposition Summary: 10/31/21 22:20 Hospitalization Ordered Hospitalization Status: Observation pm1 Provider: Adam Adkins pm1 Condition: Stable pm1 Problem: new pm1 Symptoms: have improved pm1 Bed/Room Type: Standard pm1 Location: Telemetry/MedSurg (observation)(11/01/21 21:58) cg Room Assignment: [facility](11/01/21 21:58) cg Diagnosis - Fever, unspecified pm1 Forms: - Medication Reconciliation Form pm1 - SBAR form pm1 Signatures: Dispatcher [employer] EDLucille Hernandez FNP-C FNP-Preston Georges MD MD [facility] Lizette Wiggins RN RN ss Lauren Lucas RN RN cg Damir Pillai, RADHA AZURE ARCHITECT pm1 Lukas Hall RN RN cayden Carmen Hoskins RN RN [facility] Melisa Menon RN RN beckford Corrections: (The following items were deleted from the chart) 10/31 23:10 22:20 Telemetry/MedSurg (observation) pm1 cg 23:10 22:20 pm1 cg 11/01 18:16 10/31 23:10 [facility] ER HOLD [facility] 11/01 18:16 10/31 23:10 ERHOLD- cg 11/01 19:01 18:16 Telemetry/MedSurg (Inpatient) ja1 19:01 18:16 210 ja1 21:58 19:01 [facility] ER HOLD ja1 21:58 19:01 ja1 cg
--- NOTE | 2021-10-31 22:21 | ER ---
Nurse's Notes [facility] Name: Dennis Mariee Age: 36 yrs Sex: Male : 1985 Arrival Date: 10/31/2021 Time: 16:31 Bed 26 Private MD: Diagnosis: Fever, unspecified Presentation: 10/31 16:42 Chief complaint: Patient states: 2-3 days - body aches, chills, fever. Coronavirus ld1 screen: Client presents with at least one sign or symptom that may indicate coronavirus-19. Standard/surgical mask placed on the client. Ebola Screen: No symptoms or risks identified at this time. Initial Sepsis Screen: Does the patient meet any 2 criteria? No. Patient's initial sepsis screen is negative. Does the patient have a suspected source of infection? No. Patient's initial sepsis screen is negative. Risk Assessment: Do you want to hurt yourself or someone else? Patient reports no desire to harm self or others. Onset of symptoms was October 31, 2021. 16:42 Method Of Arrival: Ambulatory ld1 16:42 Acuity: RUPESH 4 ld1 Triage Assessment: 16:43 General: Appears in no apparent distress. comfortable, Behavior is calm, cooperative, ld1 appropriate for age. Pain: Denies pain. EENT: No signs and/or symptoms were reported regarding the EENT system. Neuro: Level of Consciousness is awake, alert, obeys commands, Oriented to person, place, time, situation, Appropriate for age. Cardiovascular: Capillary refill < 3 seconds Patient's skin is warm and dry. Respiratory: Airway is patent Respiratory effort is even, unlabored, Respiratory pattern is regular, symmetrical. GI: Abdomen is flat, non-distended. Historical: - Allergies: 16:43 No Known Allergies; ld1 - PMHx: 16:43 Hypertension; HD- M/W/F; ESRD; DM- NDDM; ld1 - PSHx: 16:43 Fistula- HD left arm; ld1 - Immunization history:: Adult Immunizations up to date, Client reports receiving the 2nd dose of the Covid vaccine. - Social history:: Smoking status: Patient denies any tobacco usage or history of. Patient/guardian denies using alcohol. Screenin:00 Abuse screen: Denies threats or abuse. Denies injuries from another. Nutritional ww screening: No deficits noted. Tuberculosis screening: No symptoms or risk factors identified. Fall Risk None identified. Assessment: 18:00 General: Appears uncomfortable, Behavior is calm, cooperative. Neuro: Level of ww Consciousness is awake, alert, obeys commands, Oriented to person, place, time, situation, Speech is normal. Cardiovascular: Patient's skin is warm and dry. Respiratory: Airway is patent Respiratory effort is even, unlabored, Respiratory pattern is regular, symmetrical. GI: No signs and/or symptoms were reported involving the gastrointestinal system. : No signs and/or symptoms were reported regarding the genitourinary system. Vital Signs: 16:42 BP 129 / 77; Pulse 96; Resp 18; Temp 99.1(TE); Pulse Ox 100% on R/A; Weight 69.85 kg; ld1 Height 5 ft. 8 in. (172.72 cm); Pain 0/10; 16:42 Body Mass Index 23.42 (69.85 kg, 172.72 cm) ld1 ED Course: 16:31 Patient arrived in ED. as 16:36 Damir Pillai NP is PHCP. pm1 16:36 Preston Gale MD is Attending Physician. pm1 16:43 Triage completed. ld1 16:43 Arm band placed on right wrist. ld1 16:47 Strep Sent. ww 16:47 COVID-19/FLU A+B (Document "Date of Onset" if Symptomatic) Sent. ww 16:47 COVID-19/FLU A+B Sent. ww 16:47 Group A Streptococcus Rapid Sc Sent. ww 18:00 Patient has correct armband on for positive identification. Bed in low position. Call ww light in reach. Side rails up X 1. 18:01 Deyanira Garcia, RN is Primary Nurse. ww 20:28 Initial lab(s) drawn, by wa, sent to lab. Inserted saline lock: 20 gauge in right mb4 antecubital area, using aseptic technique. Blood collected. 20:29 CBC with Automated Diff Sent. mb4 20:29 CMP Sent. mb4 20:29 CBC with Diff Sent. mb4 20:55 Urine collected: clean catch specimen, clear. mb4 22:20 Adam Adkins MD is Hospitalizing Provider. pm1 22:26 CT Stone Protocol In Process Unspecified. EDMS 22:34 Chest Pa And Lat (2 Views) XRAY In Process Unspecified. EDMS 11/01 22:39 No provider procedures requiring assistance completed. Patient admitted, IV remains in [address] Administered Medications: 10/31 18:04 Drug: Tylenol 1000 mg Route: PO; beckford 18:04 Follow up: Response: No adverse reaction beckford Outcome: 22:20 Decision to Hospitalize by Provider. pm1 11/01 22:39 Admitted to Med/surg accompanied by tech, via wheelchair, with chart. [facility] Condition: stable Instructed on the need for admit. 22:40 Patient left the ED. [facility] Signatures: Dispatcher [employer] Jackie Marie Patrick, RADHA AIRLINE CUSTOMER SERVICE AGENT pm1 Monalisa Hughes mb4 Carmen Hoskins, RN RN ld1 Michelle Thayer RN RN 5 Deyanira Garcia, CRISTOBAL RN Melisa Menon RN RN beckford
--- NOTE | 2021-10-31 23:00 | P.HP ---
Certification for Inpatient Patient admitted to: Observation With expected LOS: <2 Midnights Patient will require the following post-hospital care: None Practitioner: I am a practitioner with admitting privileges, knowledge of patient current condition, hospital course, and medical plan of care. Services: Services provided to patient in accordance with Admission requirements found in Title 42 Section 412.3 of the Code of Federal Regulations Patient History Date of Service: 10/31/21 Reason for admission: Fever History of Present Illness: 36-year-old male with history of ESRD on HD MWF, hypertension presents the emergency department for subjective fever, chills. Patient reports received his MMR vaccine on Monday of this last week began having subjective fever/chills on which have continued until today. For this reason patient presented to the emergency department, he was evaluated had labs including a CBC with normal white blood cell count chemistry with elevated creatinine negative test for influenza and Covid. ED provider reached out to patient's nephrology group who recommended patient be admitted under observation blood cultures be obtained started on vancomycin/cefepime and have dialysis tomorrow. Will admit under observation. Allergies No Known Allergies Allergy (Verified 10/08/19 15:13) Home Medications: Amlodipine [Norvasc*] 10 mg PO DAILY #30 tab 10/14/19 Calcitrol [Rocaltrol*] 0.25 mcg PO Q48H #15 cap 10/14/19 Calcium Carbonate [Tums Regular*] 1,000 mg PO AC #120 tab 10/14/19 Hydralazine [Apresoline*] 25 mg PO TID #90 tab 10/14/19 Metoprolol Tartrate [Lopressor*] 50 mg PO BID 6AM 6PM #60 tab 10/14/19 lisinopriL [Prinivil*] 20 mg PO DAILY #30 tab 10/14/19 ondansetron HCL [Zofran] 4 mg PO TID PRN #5 tablet 10/14/19 - Past Medical/Surgical History Diabetic: Yes -: HTN -: ESRD on HD MWF -: Left arm fistula Psychosocial/ Personal History: Patient lives at home with family - Family History Father -: Diabetes Mother -: Diabetes - Social History Smoking Status: Never smoker Alcohol use: No CD- Drugs: No Caffeine use: Yes Place of Residence: Home Review of Systems 10-point ROS is otherwise unremarkable General: Fever, Chills, Malaise Physical Examination - Physical Exam General: Alert, In no apparent distress, Oriented x3 HEENT: Atraumatic, PERRLA, Mucous membr. moist/pink, EOMI, Sclerae nonicteric Neck: Supple, 2+ carotid pulse no bruit, No LAD, Without JVD or thyroid abnormality Respiratory: Clear to auscultation bilaterally, Normal air movement Cardiovascular: Regular rate/rhythm, Normal S1 S2 Gastrointestinal: Normal bowel sounds, No tenderness Musculoskeletal: No tenderness Integumentary: No rashes Neurological: Normal gait, Normal speech, Normal strength at 5/5 x4 extr, Normal tone, Normal affect Lymphatics: No axilla or inguinal lymphadenopathy - Studies Laboratory Data (last 24 hrs) 10/31/21 20:28: Sodium 133 L, Potassium 4.9, BUN 76 H, Creatinine 19.40 H*, Glucose 103, Total Bilirubin 0.3, AST 13 L, ALT 25, Alkaline Phosphatase 54 10/31/21 20:28: WBC 6.00, Hgb 10.8 L, Hct 31.0 L, Plt Count 126 L Microbiology Data (last 24 hrs): 10/31/21 16:46 Throat Group A Streptococcus Rapid Screen - Final Assessment and Plan - Plan Assessment: Subjective fever, chills ESRD on HD MWF Hypertension Plan: Subjective fever, chills: Per nephrology will obtain blood cultures, treat with vancomycin/cefepime. Daily labs. Will obtain pro David/CRP. ESRD on HD MWF: Scheduled for dialysis tomorrow per nephrology. Hypertension: Obtain and continue home medications as appropriate. DVT PPX: Heparin Code status: Full Discharge Plan: Home Plan to discharge in: 24 Hours - Advance Directives Does patient have a Living Will: No Does patient have a Durable POA for Healthcare: No - Code Status/Comfort Care Code Status Assessed: Yes (Full) Critical Care: No Time Spent Managing Pts Care (In Minutes): 55
[2021-10-31] MEDS ORDERED: ONDANSETRON 4 MG/2 ML VIAL IV PRN (23:36)
[2021-11-01] MEDS ORDERED: VANCOMYCIN 1.25 GM in NA CHLORIDE 0.9% 250 ML IVPB ONE (00:01)
[2021-11-01] MEDS ORDERED: VANCOMYCIN 1.5 GM in NA CHLORIDE 0.9% 500 ML IVPB ONE (00:01)
[2021-11-01 00:18] VITALS: BMI 23.8
[2021-11-01] MEDS ORDERED: ACETAMINOPHEN 325 MG TABLET PO PRN (00:19)
[2021-11-01] MEDS ORDERED: ACETAMINOPHEN 325 MG TABLET ONE (00:25)
[2021-11-01] MEDS ORDERED: VANCOMYCIN 1 GM/VIAL ONE (00:26)
[2021-11-01] MEDS ORDERED: NA CHLORIDE 0.9% 250 ML ONE (00:27)
[2021-11-01] MEDS ORDERED: VANCOMYCIN 500 MG/VIAL ONE (00:37)
[2021-11-01] MEDS ORDERED: NA CHLORIDE 0.9% 500 ML ONE (00:55)
[2021-11-01 01:57] VITALS: O2SAT 98
[2021-11-01 04:43] LABS: Absolute Lymphocytes (CBC) 0.8 K/uL (0.7-4.9); Hematocrit 31.1 % (39.6-49.0); MPV 9.5 fL (7.6-11.3); RBC Red Blood Cell Count 3.03 M/uL (4.33-5.43)
[2021-11-01 05:09] LABS: Bilirubin Total 0.3 mg/dL (0.2-1.0); C-Reactive Protein 15.1 mg/L (<3.00); Potassium 4.4 mmol/L (3.5-5.1); Protein, Total 6.3 g/dL (6.4-8.2)
--- NOTE | 2021-11-01 06:28 | P.PN ---
Date of Service: 11/01/21 Subjective: no significant change in admission +malaise, no n/v, no diarrhea ROS: 10 point ROS as noted above, otherwise negative Physical exam GEN: Alert, oriented, NAD HEENT: Normal conjunctiva, sclera anicteric CV: Regular rate and rhythm, no edema Pulm: Nonlabored respirations on room air ABD: Soft, nontender, nondistended MSK: No joint tenderness Integumentary: No rashes Neuro: Normal speech, normal affect Problem List subjective fever, chills, decreased appetite, malaise ESRD on HD- MWF Hypertension nephrology consulted in ED, recommended admission, blood cultures, empiric coverage with van/cefepime cultures pending procal elevated no obvious source of infection on exam/CT patient did receive MMR vaccine last week, could lead to some symptoms he has been having continue to monitor through tonight, f/u cultures Dispo: home, 1-2 days Time Spent Managing Pts Care (In Minutes): 35
[2021-11-01 06:38] LABS: Urine Appearance CLOUDY (Clear); Urine Bilirubin NEGATIVE (Negative); Urine Blood NEGATIVE (Negative); Urine Color YELLOW (Yellow); Urine Glucose TRACE (Negative); Urine Protein 2+ (Negative); Urine Urobilinogen 0.2 mg/dL (0.2-1.0)
[2021-11-01 06:41] LABS: Urine Microscopic Reflex ORDER UMIC
[2021-11-01 07:00] LABS: Urine Amorphous Sediment TRACE /HPF (NONE SEEN); Urine Bacteria <20 /HPF (NONE SEEN); Urine Mucus SLIGHT /HPF (NONE SEEN); Urine RBC <5 /HPF (NONE SEEN)
[2021-11-01] MEDS ORDERED: VANCOMYCIN 500 MG in NA CHLORIDE 0.9% 100 ML IVPB SCH ×2 (07:15→17:00)
[2021-11-01] MEDS ORDERED: CEFEPIME 1 GM/VIAL ONE (08:06)
[2021-11-01] MEDS ORDERED: HEPARIN 5000 UNIT/ML 1 ML VIAL ONE (08:06)
[2021-11-01] MEDS ORDERED: NA CHLORIDE 0.9% 100 ML IV ONE (08:07)
[2021-11-01] MEDS: HEPARIN 5000 UNIT/ML 1 ML VIAL SQ SCH ×2 (08:29→21:00)
[2021-11-01] MEDS: CEFEPIME 1 GM in NA CHLORIDE 0.9% 100 ML IV SCH (08:29)
--- NOTE | 2021-11-01 13:32 | RAD REPORT ---
EXAM DESCRIPTION: CT - Stone Protocol - 11/01/2021 4:33 am CLINICAL HISTORY: The patient is 36 years old and is Male; FEVER TECHNIQUE: Axial computed tomography images of the abdomen and pelvis without intravenous contrast. Sagittal and coronal reformatted images were created and reviewed. This CT exam was performed usi ng one or more of the following dose reduction techniques: automated exposure control, adjustment o f the mA and/or kV according to patient size, and/or use of iterative reconstruction technique. DLP: 489 mGy*cm COMPARISON: CT abdomen pelvis dated 10/07/2019. FINDINGS: LUNG BASES: Lung bases are clear. HEART: Visualized heart is normal. ABDOMEN: LIVER: Unremarkable. GALLBLADDER AND BILE DUCTS: Unremarkable. No calcified stones. No ductal dilation. PANCREAS: Unremarkable. No ductal dilation. SPLEEN: Unremarkable. No splenomegaly. ADRENALS: Unremarkable. No mass. KIDNEYS AND URETERS: Bilateral renal atrophy. No obstructing stones. No hydronephrosis. STOMACH AND BOWEL: Moderate stool burden. No obstruction. No mucosal thickening. PELVIS: APPENDIX: The appendix is seen and is within normal limits. BLADDER: Bladder is decompressed. No stones. REPRODUCTIVE: Unremarkable as visualized. ABDOMEN and PELVIS: INTRAPERITONEAL SPACE: Unremarkable. No free air. No significant fluid collection. BONES/JOINTS: No acute fracture. No dislocation. SOFT TISSUES: Small fat-containing umbilical hernia. VASCULATURE: Unremarkable. No abdominal aortic aneurysm. LYMPH NODES: Unremarkable. No enlarged lymph nodes. IMPRESSION: 1. No acute abdominal or pelvic abnormality. No obstructive uropathy. 2. Bilateral renal atrophy. 3. Moderate stool burden. Correlate for constipation. Electronically signed by: Ryley Li DO 10/31/2021 11:02 PM CDT Due to temporary technical issues with the PACS/Fluency reporting system, reports are being signed by the in house radiologist without review as a courtesy to ensure prompt reporting. The interpreting r adiologist is fully responsible for the content of the report.
--- NOTE | 2021-11-01 13:33 | RAD REPORT ---
EXAM DESCRIPTION: RAD - Chest Pa And Lat (2 Views) - 10/31/2021 10:35 pm CLINICAL HISTORY: 6 years Male, FEVER COMPARISON: Chest radiograph dated 10/07/2019 FINDINGS: No focal lung consolidation. No pleural effusion. No pneumothorax. Cardiomediastinal silhouette is within normal limits. No acute osseous abnormality. IMPRESSION: No acute cardiopulmonary disease. Electronically signed by: Ryley Li DO 10/31/2021 11:02 PM CDT Due to temporary technical issues with the PACS/Fluency reporting system, reports are being signed by the in house radiologist without review as a courtesy to ensure prompt reporting. The interpreting r adiologist is fully responsible for the content of the report.
[2021-11-01] MEDS ORDERED: INFLUENZA VACCINE (for 6+ mo) 0.5 ML DOSE IMVAC ONE ×2 (17:00→18:36)
[2021-11-02 03:53] LABS: Absolute Lymphocytes (CBC) 0.8 K/uL (0.7-4.9); Hematocrit 31.5 % (39.6-49.0); Lymphocytes % 16.6 % (15.3-44.8); MPV 10.2 fL (7.6-11.3); RBC Red Blood Cell Count 3.16 M/uL (4.33-5.43)
[2021-11-02 04:20] LABS: Albumin 3.3 g/dL (3.4-5.0); Bilirubin Total 0.3 mg/dL (0.2-1.0); Potassium 3.2 mmol/L (3.5-5.1); Protein, Total 6.9 g/dL (6.4-8.2)
--- NOTE | 2021-11-02 07:49 | CON ---
Date of Consultation: 11/01/2021 Chief Complaint: End-stage renal disease, on hemodialysis. History Of Present Illness: The patient presented to the hospital because of fever associated with g eneralized weakness, body aches, and chills. He is 36-year-old man with history of end-stage renal d isease, hypertension, on dialysis 3 times per week on Monday, Monday, and Monday. The patient had MMR vaccine done last week and subsequently developed fever, chills, and generalized weakness. He p resented to the emergency room for evaluation and management. He previously had COVID infection few months ago. Nephrology consultation was requested for dialysis and management of end-stage renal dis ease. Past Medical History: Hypertension, end-stage renal disease stage, left arm AV fistula. Family History: Diabetes mellitus. Social History: Denies tobacco, alcohol, or illicit drugs. Physical Examination: General: Alert and oriented x3, not in acute distress. Eyes: Anicteric sclerae. EOMI. Ears, Nose, Mouth, and Throat: Oral mucosa moist. No pallor. Neck: Supple, no bruits. Lungs: Diminished breath sounds at bases. Heart: S1, S2. No pericardial friction rub. Abdomen: Soft, benign, nontender. Extremities: Nontender. Laboratory Data: Potassium 4.9, BUN 76. Sodium 133, creatinine 19.4, total bilirubin 0.3, AP 54. H emoglobin 10.8, platelet count 126,000. Impression And Plan: 1.End-stage renal disease. Dialysis will be done with ultrafiltration to control fluid overload. T he patient developed fever and chills. Further workup will be done to rule out bacteremia. The bernice ent will be started on broad-spectrum antibiotics with vancomycin and cefepime. Patient will have wo rkup to rule out myositis and rhabdomyolysis. CK level was elevated. Recommend to screen for collag en vascular disease including . 2.Anemia and chronic kidney disease. Continue to monitor hemoglobin level. Adjust SHAISTA. 3.Renal osteodystrophy. Continue renal diet and binders. EB/MODL Voice ID: [id number] Report ID: [id number]
--- NOTE | 2021-11-02 08:03 | P.PN ---
Subjective Date of Service: 11/02/21 Chief Complaint: Fever Subjective: No new changes Physical Examination - Vital Signs Temperature: 98.7 F Blood Pressure: 116/69 Pulse: 84 Respirations: 17 Pulse Ox (%): 100 - Physical Exam General: In no apparent distress HEENT: Atraumatic, Normocephalic Neck: Supple, JVD not distended Respiratory: Clear to auscultation bilaterally Cardiovascular: No rubs, No murmurs Gastrointestinal: Soft and benign, No guarding Musculoskeletal: No clubbing, No swelling Integumentary: No warmth Neurological: Normal speech, Normal tone Urinary: Other (no bladder distention) External genitalia: Deferred Rectal: Deferred - Studies Microbiology Data (last 24 hrs): 11/01/21 00:40 Blood - Blood Anaerobic Blood Culture - Final 11/01/21 00:48 Blood - Blood Anaerobic Blood Culture - Final Assessment And Plan - Plan 1. End-stage renal disease. Next HD tomorrow per MWF sked. 2. Fever, unclear source, probably reaction to MMR vaccine received recently. Empiric abx received. 3. Anemia and chronic kidney disease. Continue to monitor hemoglobin level. Adjust SHAISTA. 4. Renal osteodystrophy. Continue renal diet and binders.
[2021-11-02 08:08] LABS: Troponin High Sensitivity 12.5 pg/mL (<58.9)
[2021-11-02] MEDS: HEPARIN 5000 UNIT/ML 1 ML VIAL SQ SCH ×2 (09:00→09:10)
[2021-11-02] MEDS: CEFEPIME 1 GM in NA CHLORIDE 0.9% 100 ML IV SCH (09:09)
--- NOTE | 2021-11-02 15:02 | P.DS ---
Admission Date: 11/01/21 Discharge Date: 11/02/21 Disposition: ROUTINE DISCHARGE Discharge Condition: FAIR Reason for Admission: Fever Brief History of Present Illness: 36-year-old male with history of ESRD on HD MWF, hypertension presented the emergency department for subjective fever, chills. Patient reports received his MMR vaccine on Monday of this last week began having subjective fever/chills the next day. For this reason patient presented to the emergency department, he was evaluated and had labs including a CBC with normal white blood cell count chemistry with elevated creatinine, negative test for influenza and Covid. ED provider reached out to patient's nephrology group who recommended patient be admitted for blood cultures be obtained. Patient started on on vancomycin/cefepime and admitted for further management. Hospital Course: Problem List subjective fever, chills, decreased appetite, malaise ESRD on HD- MWF Hypertension Patient admitted to the medical floor and treated with IV antibiotics after blood cultures were drawn. He was seen by nephrology, patient underwent hemodialysis. Blood cultures yielded no growth. procal elevated but no obvious source of infection. CT negative. Patient febrile symptoms likely related to MMR vaccine He is deemed clinically stable for discharge. Vital Signs/Physical Exam: Temp Pulse Resp BP Pulse Ox 98 F 74 16 113/63 100 11/02/21 12:00 11/02/21 12:00 11/02/21 12:00 11/02/21 12:00 11/02/21 12:00 General: Alert, In no apparent distress, Oriented x3 Neck: JVD not distended Respiratory: Clear to auscultation bilaterally, Normal air movement Cardiovascular: No edema, Regular rate/rhythm Gastrointestinal: Soft and benign, Non-distended Musculoskeletal: No swelling Integumentary: No rashes, No erythema Neurological: Normal strength at 5/5 x4 extr Laboratory Data at Discharge: WBC 4.60 K/uL (4.3-10.9) D 11/02/21 03:11 Hgb 11.3 g/dL (13.6-17.9) L 11/02/21 03:11 Hct 31.5 % (39.6-49.0) L 11/02/21 03:11 Plt Count 117 K/uL (152-406) L 11/02/21 03:11 Sodium 136 mmol/L (136-145) 11/02/21 03:11 Potassium 3.2 mmol/L (3.5-5.1) L 11/02/21 03:11 BUN 48 mg/dL (7-18) H D 11/02/21 03:11 Creatinine 14.00 mg/dL (0.55-1.3) H* D 11/02/21 03:11 Glucose 104 mg/dL (74-106) 11/02/21 03:11 Total Bilirubin 0.3 mg/dL (0.2-1.0) 11/02/21 03:11 AST 10 U/L (15-37) L 11/02/21 03:11 ALT 27 U/L (12-78) 11/02/21 03:11 Alkaline Phosphatase 58 U/L (45-117) 11/02/21 03:11 Home Medications: Calcium Carbonate [Tums Regular*] 1,500 mg PO AC 11/02/21 Furosemide [Lasix*] 20 mg PO DAILY 11/02/21 Gabapentin [Neurontin*] 100 mg PO TID 11/02/21 Hydralazine [Apresoline*] 25 mg PO DAILY 11/02/21 Lanthanum Carbonate 1,000 mg PO TIDWM 11/02/21 Lisinopril [Zestril] 20 mg PO DAILY 11/02/21 Physician Discharge Instructions: PROBLEM: Hemodialysis GOAL: Clear understanding of disease process INSTRUCTIONS: Resume your Dialysis schedule. Follow up with your primary in 1-2 weeks. For any questions regarding your stay call [phone]. For any worsening symptoms go to the nearest ER. Diet: Renal Activity: [place] [employer] Services Needed: None Name of Company: Date or Referral: IMMUNIZATION Influenza Vaccine Indicated: Yes Influenza Vaccine Given: Yes Date Given: 11/01/21 Pneumonia Vaccine Indicated: No Pneumonia Vaccine Given: Date Given: Diet: Renal Activity: [place] Followup: Raina Robert MD [COURTESY - CAN ADMIT] - NONE,NONE [Primary Care Provider] - Time spent managing pt's care (in minutes): 35
[2021-11-03 05:55] VITALS: BP 116/69; TEMP 98.7
[2021-11-03 20:20] LABS: HBsAG Nonreactive (Nonreactive)
[2021-11-04 15:37] LABS: HIV AG/AB 4TH GEN Non-reactive (Non-reactive)
== END 2021-11-02 18:00 | disposition home or self-care (01) | DRG 864 ==
LOC: ER 16:29 → ERHOLD 22:52 → OBSVTOIN 11-01 21:49 → 4TH 11-01 22:26
PROVIDERS: ADMIT Hospitalist; ATTEND Internal Medicine
PROC: 5A1D70Z Performance of Urinary Filtration, Intermittent, Less than 6 Hours Per Day (ICD-10-PCS; principal; 2021-11-02)
DX: R50.83 Postvaccination fever (principal); N18.6 End stage renal disease; I12.0 Hypertensive chronic kidney disease with stage 5 chronic kidney disease or end stage renal disease; T50.B95A Adverse effect of other viral vaccines, initial encounter; E11.22 Type 2 diabetes mellitus with diabetic chronic kidney disease; D63.1 Anemia in chronic kidney disease; N25.0 Renal osteodystrophy; Z99.2 Dependence on renal dialysis; Z95.828 Presence of other vascular implants and grafts; Z86.16 Personal history of COVID-19; Z79.899 Other long term (current) drug therapy; Z20.822 Contact with and (suspected) exposure to COVID-19; Z23 Encounter for immunization
CPT/HCPCS: 0240U; 36415; 71046; 74176; 76377; 80053; 81003; 81015; 82550; 83036; 84145; 84484; 85025; 86021; 86038; 86140; 86225; 86235; 86704; 86706; 86803; 87040; 87070; 87081; 87340; 87389; 90471; 90935; 99285; G0378; J0692; J1644; J3370; J7040; J7050; Q2035

== ENCOUNTER 2022-01-15 22:40 | Emergency (ER) | payer OTHER ==
--- OUTSIDE RECORDS SUMMARY | 2022-01-15 22:42 | XMS REPORT | Continuity of Care Document ---
:1985 Author Organization [facility] t Address [address] [place] [address] Care Team Providers Name Role Phone PCP, PATIENT DOES NOT HAVE A Primary Care Physician Unavaila jamil RÍOS Attending Clinician Unavailable VANESA STONE Attending Clinician Unavailable Berto PELAEZ Attending Clinician Unavailable Rick CUELLAR Attending Clinician Unavailable Mario Brizuela MD Attending Clinician [phone] Shauan Phillips MD Attending Clinician Shauna MAE Attending Clinician Unavailable VANESA JACOB Attending Clinician Unavailable Pelaez MD Attending Clinician Spike Dorsey MD Attending Clinician WILMAR MCDONOUGH Attending Clinician Unavailable TOMAS RÍOS Attending Clinician Unavailable VANESA STONE Admitting Clinician Unavailable TOMAS RÍOS Admitting Clinician Unavailable Payers Payer Name Policy Type Policy Number Effective Date Expiration Date S yarelis MEDICARE PART A [id number] 2020 AND B 00:00:00 [place] [id number] 2020 00:00:00 Problems Condition Condition Condition Status Onset Resolution [...] Added automatic ally from request for surgery [id number] ESRD (end ESRD (end Disease Active Uni vers stage stage 9-16 ity of renal renal 00:00: [place] disease) disease) 00 Medica l Branch Allergies, Adverse Reactions, Alerts Allergy Allergy Status Severity Reaction(s) Onset Inactive Treating Comm ents Source Name Type Date Date Clinician NO KNOWN Drug Active Univers ALLERGIE Class ity of [facility] Social History Social Habit Start Date Stop Date Quantity Comments Source History SDOH University o f Alcohol Std [place] [facility] Drinks Branch History SDOH University o f Alcohol Binge [place] [facility] al Branch History SDOH University o f Alcohol Comment [place] [facility] ical [facility] Exposure to Not sure University SARS-CoV-2 [facility] (event) [place] Alcohol intake 2021-10-28 2021-10-28 Lifetime University of 00:00:00 00:00:00 non-drinker [facility] (finding) [place] Tobacco use and 2021-03-09 2021-03-09 Never used Universit y of exposure 00:00:00 00:00:00 [place] [facility] History SDOH 2021-03-09 2021-03-09 1 University o f Alcohol Frequency 00:00:00 00:00:00 [facility] edical [place] Sex Assigned At [birth year] [place] [facility] 00:00:00 00:00:00 Smoking Status Start Date Stop Date Source Tobacco smoking consumption [place] [facility] unknown [place] smoker [facility] [place] [facility] [place] Medications Ordered Filled Start Stop Current Ordering Indication Dosage Frequency Signature Comments Components Source Medication Medication Date Date Medication? Clinician (SIG) Name Name ergocalcife Yes [id number] Take Univ ers rol, 2-16 50,000 ity of vitamin d2, 00:00: [place] 1,250 mcg 00 mouth Medical (50,000 weekly. Branch unit) capsule lisinopriL 2020-08 Yes 10mg Take 10 mg U nivers 10 mg 2-16 by mouth ity of tablet 14:56: daily. [address] hydrALAZINE 2020-08 Yes 10mg Take 10 mg Univers 10 mg 2-16 by mouth ity of tablet 14:56: as needed. [place] 17 Medical Branch Blood Yes [id number] Use to [facility] s Pressure 23 check ity of Monitor Kit 00:00: blood [place] 00 pressure Medical once Branch daily. I10 Blood-Gluco Yes [id number] Use to [facility] se Meter 923 check ity of (ACCU-CHEK 00:00: glucose 1x [place] GUIDE 00 daily. Medical GLUCOSE E11.22, Branch METER) Misc N18.6, Z99.2 Lancets Yes [id number] Use to [facility] ers (ACCU-CHEK 05-04 check ity of MULTICLIX 00:00: blood [place] LANCET) 00 glucose Medical Misc level 1x Branch daily. E11.22, N18.6, Z99.2 blood sugar Yes [id number] Use as Univers diagnostic 9-20 directed ity o f (ACCU-CHEK 00:00: once daily [place] GUIDE TEST 00 Medical STRIPS) Branch strip ondansetron Yes [id number] 8mg Take 1 Univers 8 mg 9-16 tablet by ity of disintegrat 00:00: mouth [place] ing tablet 00 every 8 Medica l (eight) Branch hours as needed for Nausea and Vomiting (N/V). gabapentin Yes Univers 100 mg 8-18 ity of capsule 00:00: [place] [address] Medical Branch lanthanum Yes CHEW AND Univ ers 1,000 mg 7-21 SWALLOW 1 ity of chewable 00:00: TABLET BY [facility] 00 MOUTH Medical THREE Branch TIMES DAILY WITH MEALS furosemide Yes 20mg Take 20 mg U nivers 20 mg 6-08 by mouth 2 ity of tablet 00:00: (two) [place] 00 times Medical daily. [place] Vital Signs Vital Name Observation Time Observation Value Comments Source Systolic blood 2021-10-28 20:51:00 123 mm[Hg] [facility] Diastolic blood 2021-10-28 20:51:00 72 mm[facility]Hg[facility] 2021-10-28 20:51:00 83 /min [facility] Body temperature 2021-10-28 20:51:00 36.33 Bridget [facility] ers[facility] Respiratory rate 2021-10-28 20:51:00 18 /min [facility] Body height 2021-10-28 20:51:00 167.6 cm [facility] Body weight 2021-10-28 20:51:00 71.124 kg [facility] BMI 2021-10-28 20:51:00 25.31 kg/m2 [facility] Oxygen saturation in 2021-10-28 20:51:00 99 /min [facility] blood by [facility] Pulse oximetry Branch Procedures Procedure Date / Time Performed Performing Clinician [facility] e CT CHEST WO CONTRAST 2021-07-20 20:20:00 Ish Schafer [place] [facility] Encounters Start End Encounter Admission Attending Care Care Encounter Source Date/Time Date/Time Type Type Clinicians Facility Department ID 2022-01-04 Outpatient MICHOACANO, [facility] [id number] [place] 02:41:07 YAA [id number] [facility] 2022-01-03 Outpatient [facility] [id number] [place] 06:55:30 [id number] [facility] 2021-12-29 Outpatient [facility] [id number] [place] 13:55:41 [id number] [facility] 2021-12-14 Outpatient MICHOACANO, [facility] [id number] [place] 10:52:42 YAA [id number] [facility] 2021-12-02 Outpatient [facility] [id number] [place] 15:10:10 [id number] [facility] 2021-11-15 Outpatient MICHOACANO, [facility] [id number] [place] 14:06:53 YAA [id number] [facility] 2021-11-11 Outpatient [facility] [id number] [place] 17:16:53 [id number] [facility] 2021-08-26 Outpatient RUDOLPH STONE [id number] 10:37:00 2020-04-17 Inpatient RUDOLPH STONE [id number] 16:04:57 2021-11-24 2021-12-23 Outpatient PATRICIA [id number] 11:00:00 23:59:00 [facility] 2021-10-13 2021-11-11 Outpatient [id number] 11:26:00 23:59:00 NETTIE BEAL 2021-10-28 2021-10-28 Office Camilla Brizuela [address] [facility] [id number] [facility] 16:00:00 16:30:00 Visit Dariusz Mae [id number] [facility] [id number] [facility] AT [phone] [address] 2021-10-28 2021-10-28 Outpatient Rick MAE [facility] [id number] [facility] 16:00:00 16:00:00 DARIUSZ luna [facility] 2021-09-13 2021-10-12 Outpatient CECIL [facility] PUL [id number] 13:03:00 23:59:00 CHARLETTE 2021-07-22 2021-07-22 EXT M[facility] OP de EXT MSRDP [id number] [place] 00:00:00 00:00:[address] [facility], [facility] [id number] [facility] [id number] 2021-07-20 2021-07-20 EXT MHH OP de EXT MSRDP [id number] [place] 00:00:00 00:00:[address] [facility], [facility] [id number] [facility] [place] [id number] 2021-06-22 2021-06-22 Outpatient DE [id number] [facility] 06:33:00 06:33:00 [facility] 2021-03-09 2021-03-[address] [facility] [id number] 15:00:07 15:30:07 Visit Neymar Soria [id number] Spike Bearden [id number] Professio [phone] nal [address] 2020-10-19 2020-11-17 [...] MHSE [id number] MH 08:30:00 18:10:00 YAA [facility] l Results This patient has no known results.
[2022-01-15 23:03] LABS: Absolute Lymphocytes (CBC) 1.2 K/uL (0.7-4.9); Hematocrit 33.5 % (39.6-49.0); Lymphocytes % 14.8 % (15.3-44.8); MPV 10.7 fL (7.6-11.3); RBC Red Blood Cell Count 3.32 M/uL (4.33-5.43)
[2022-01-15 23:32] LABS: Potassium 4.4 mmol/L (3.5-5.1); Troponin High Sensitivity 14.1 pg/mL (<58.9)
[2022-01-15 23:50] LABS: Blood Morphology Comment NOT SEEN (NOT SEEN); Platelet Estimate DECR; White Blood Cell Scan OK (OK)
--- NOTE | 2022-01-16 00:40 | EDPHYS ---
Physician Documentation [facility] Name: Dennis Mariee Age: 36 yrs Sex: Male : 1985 Arrival Date: 01/15/2022 Time: 22:45 Bed 16 Private MD: ED Physician Rizwan Haile HPI: 01/15 22:50 This 36 yrs old Male presents to ER via EMS with complaints of dizziness. ms3 22:50 The patient presents with feeling faint. Onset: The symptoms/episode began/occurred ms3 acutely, just prior to arrival. Context: occurred gym after working out for 1 hour and then getting in the sauna. Modifying factors: The symptoms are alleviated by nothing, the symptoms are aggravated by nothing. Associated signs and symptoms: Pertinent positives: nausea, vomiting, Pertinent negatives: abdominal pain. Severity of symptoms: At their worst the symptoms were mild in the emergency department the symptoms are unchanged Pain is currently a 0 / 10. 36-year-old male presents via [facility] for lightheadedness. Patient states at work today he had 2 cups of coffee and an energy drink. After getting off of work he then went to the gym for 1 hour then proceeded to get in the sauna. After getting out of the sauna patient states he became lightheaded. Patient denies alleviating or inciting factors. Patient denies fevers, chills. Patient endorses 1 episode of nausea and vomiting while at work today.. Historical: - Allergies: 22:48 No Known Allergies; sm5 - PMHx: 22:48 DM- NDDM; ESRD; HD- M/W/F; Hypertension; sm5 - PSHx: 22:48 Fistula- HD left arm; sm5 - Immunization history:: Client reports receiving the 2nd dose of the Covid vaccine. - Social history:: Smoking status: Patient denies any tobacco usage or history of. Patient/guardian denies using alcohol. ROS: 22:53 Constitutional: Negative for fever, and chills. Eyes: Negative for injury, pain, ms3 redness, and discharge, Cardiovascular: Negative for chest pain, and palpitations. Respiratory: Negative for shortness of breath, cough, wheezing, and pleuritic chest pain, Abdomen/GI: Negative for abdominal pain, nausea, vomiting, diarrhea, and constipation, Skin: Negative for injury, rash, and discoloration. 22:53 Constitutional: 22:53 Abdomen/GI: Positive for nausea, vomiting. 22:53 All other systems are negative. Exam: 22:53 Constitutional: This is a well developed, well nourished patient who is awake, alert, ms3 and in no acute distress. Head/Face: Normocephalic, atraumatic. Neck: Trachea midline, no cervical lymphadenopathy. Supple, full range of motion without nuchal rigidity, or vertebral point tenderness. No Meningismus. Chest/axilla: Normal chest wall appearance and motion. Nontender with no deformity. Cardiovascular: Regular rate and rhythm with a normal S1 and S2. No gallops, murmurs, or rubs. Normal PMI, no JVD. No pulse deficits. Respiratory: Lungs have equal breath sounds bilaterally, clear to auscultation and percussion. No rales, rhonchi or wheezes noted. No increased work of breathing, no retractions or nasal flaring. Skin: Warm, dry with normal turgor. Normal color with no rashes, no lesions, and no evidence of cellulitis. Psych: Awake, alert, with orientation to person, place and time. Behavior, mood, and affect are within normal limits. 22:56 ECG was reviewed by the Attending Physician. ms3 Vital Signs: 22:46 BP 117 / 77; Pulse 83; Resp 17; Temp 97.9(O); Pulse Ox 100% on R/A; Weight 70.31 kg; 5 Height 5 ft. 8 in. (172.72 cm); 23:30 BP 100 / 55; Pulse 89; Resp 19; Pulse Ox 100% on R/A; [facility] 01/16 00:30 BP 106 / 55; Pulse 87; Resp 19; Pulse Ox 99% on R/A; [facility] 01/15 22:46 Body Mass Index 23.57 (70.31 kg, 172.72 cm) [facility] MDM: 01/15 22:53 Patient medically screened. ms3 22:53 Differential diagnosis: cardiac arrhythmia, generalized weakness, Electrolyte ms3 abnormality. 23:54 Data reviewed: vital signs, nurses notes, lab test result(s), EKG, radiologic studies, ms3 and as a result, I will discharge patient. 23:54 Data interpreted: Pulse oximetry: on room air is 99 %. Interpretation: normal. ms3 Counseling: I had a detailed discussion with the patient and/or guardian regarding: the historical points, exam findings, and any diagnostic results supporting the discharge/admit diagnosis, lab results, radiology results, the need for outpatient follow up, to return to the emergency department if symptoms worsen or persist or if there are any questions or concerns that arise at home. ED course: Discussed labs, chest x-ray, physical exam findings with patient. Patient to follow-up with primary care physician in 2 to 3 days. Patient understands and agrees with plan. All questions were answered. Return precautions discussed include worsening symptoms, or any other concerns. On reevaluation patient is alert and oriented x4, in no apparent distress, nontoxic-appearing, speaking full sentences, ambulatory in emergency department.. 01/15 22:47 Order name: Basic Metabolic Panel; Complete Time: 23:51 ms3 / 22:47 Order name: CBC with Diff; Complete Time: 23:51 ms3 01/15 22:47 Order name: Troponin HS; Complete Time: 23:51 ms3 01/15 22:47 Order name: XRAY Chest (1 view) ms3 01/15 22:47 Order name: EKG; Complete Time: 22:48 ms3 /04 23:14 Order name: CBC Smear Scan; Complete Time: 23:51 EDMS 01/15 22:47 Order name: Cardiac monitoring; Complete Time: 22:50 ms3 01/15 22:47 Order name: EKG - Nurse/Tech; Complete Time: 23:14 ms3 01/15 22:47 Order name: IV Saline Lock; Complete Time: 22:50 ms3 01/15 22:47 Order name: Labs collected and sent; Complete Time: 23:15 ms3 01/15 22:47 Order name: O2 Per Protocol; Complete Time: 22:50 ms3 01/15 22:47 Order name: O2 Sat Monitoring; Complete Time: 22:50 ms3 EC:56 Rate is 82 beats/min. Rhythm is regular. QRS [place] is Normal. MI interval is normal. QRS ms3 interval is normal. Clinical impression: Normal ECG. Interpreted by me. Reviewed by me. Administered Medications: No medications were administered Disposition Summary: 01/16/22 00:39 Discharge Ordered Location: Home ms3 Condition: Stable ms3 Diagnosis - lightheadedness ms3 - Anemia in chronic kidney disease ms3 - End stage renal disease ms3 Followup: ms3 - With: Private Physician - When: 1 - 2 days - Reason: Re-evaluation by your physician Discharge Instructions: - Discharge Summary Sheet ms3 - Anemia ms3 - Dialysis ms3 Forms: - Medication Reconciliation Form ms3 - Thank You Letter ms3 - Antibiotic Education ms3 - Prescription Opioid Use ms3 Signatures: Dispatcher [employer] EDRizwan Wallis DO DO ms3 Michelle Thayer, RN RN sm5
--- NOTE | 2022-01-16 00:40 | ER ---
Nurse's Notes [facility] Name: Dennis Mariee Age: 36 yrs Sex: Male : 1985 Arrival Date: 01/15/2022 Time: 22:45 Bed 16 Private MD: Diagnosis: lightheadedness;Anemia in chronic kidney disease;End stage renal disease Presentation: 01/15 22:46 Chief complaint: EMS states: pt was at the gym working out and then went into the sauna [facility] and felt dizzy and shaky. pt states he had coffee and an energy drink prior. Coronavirus screen: At this time, the client does not indicate any symptoms associated with coronavirus-19. Ebola Screen: No symptoms or risks identified at this time. Initial Sepsis Screen: Does the patient meet any 2 criteria? No. Patient's initial sepsis screen is negative. Does the patient have a suspected source of infection? No. Patient's initial sepsis screen is negative. Risk Assessment: Do you want to hurt yourself or someone else? Patient reports no desire to harm self or others. Onset of symptoms was January 15, 2022. 22:46 Method Of Arrival: EMS: [place] [id number] 22:46 Acuity: RUPESH 3 5 Triage Assessment: 22:49 General: Appears in no apparent distress. Behavior is cooperative. Pain: Denies pain. [facility] Neuro: No deficits noted. [place] Agitation-Sedation Scale (RASS): 0 - Alert and Calm Level of Consciousness is awake, alert, obeys commands, Oriented to person, place, time, situation. Cardiovascular: No deficits noted. Capillary refill < 3 seconds Patient's skin is warm and dry. Respiratory: No deficits noted. Airway is patent Trachea midline Respiratory effort is even, unlabored. GI: No deficits noted. Abdomen is flat, non-distended. Historical: - Allergies: 22:48 No Known Allergies; sm5 - PMHx: 22:48 DM- NDDM; ESRD; HD- M/W/F; Hypertension; 5 - PSHx: 22:48 Fistula- HD left arm; 5 - Immunization history:: Client reports receiving the 2nd dose of the Covid vaccine. - Social history:: Smoking status: Patient denies any tobacco usage or history of. Patient/guardian denies using alcohol. Screenin:49 Abuse screen: Denies threats or abuse. Denies injuries from another. Nutritional sm5 screening: No deficits noted. Tuberculosis screening: No symptoms or risk factors identified. Fall Risk None identified. Assessment: 22:50 Reassessment: see triage assessment. 5 23:50 Reassessment: No changes from previously documented assessment. Patient and/or family 5 updated on plan of care and expected duration. Pain level reassessed. 01/16 00:42 Reassessment: No changes from previously documented assessment. Patient is alert, sm5 oriented x 3, equal unlabored respirations, skin warm/dry/pink. Vital Signs: 01/15 22:46 BP 117 / 77; Pulse 83; Resp 17; Temp 97.9(O); Pulse Ox 100% on R/A; Weight 70.31 kg; sm5 Height 5 ft. 8 in. (172.72 cm); 23:30 BP 100 / 55; Pulse 89; Resp 19; Pulse Ox 100% on R/A; sm5 01/16 00:30 BP 106 / 55; Pulse 87; Resp 19; Pulse Ox 99% on R/A; sm5 01/15 22:46 Body Mass Index 23.57 (70.31 kg, 172.72 cm) 5 ED Course: 01/15 22:45 Patient arrived in ED. sm5 22:46 Rizwan Haile DO is Attending Physician. ms3 22:48 Triage completed. sm5 22:49 Arm band placed on left wrist. sm5 22:49 Maintain EMS IV. Dressing intact. Good blood return noted. Site clean \T\ dry. Gauge \T\ sm 5 site: 20G R AC. 22:50 Patient has correct armband on for positive identification. Bed in low position. Call 5 light in reach. Side rails up X2. Client placed on continuous cardiac and pulse oximetry monitoring. NIBP monitoring applied. 23:08 XRAY Chest (1 view) In Process Unspecified. EDMS 23:14 Michelle Thayer, CRISTOBAL is Primary Nurse. 5 01/16 00:43 No provider procedures requiring assistance completed. sm5 00:48 IV discontinued, intact, bleeding controlled, No redness/swelling at site. Pressure sm5 dressing applied. Administered Medications: No medications were administered Medication: 00:43 VIS not applicable for this client. 5 Outcome: 00:39 Discharge ordered by . ms3 00:48 Discharged to home ambulatory, with family. sm5 00:48 Condition: stable 00:48 Discharge instructions given to patient, family, Instructed on discharge instructions, follow up and referral plans. Demonstrated understanding of instructions, follow-up care. 00:48 Patient left the ED. 5 Signatures: Dispatcher [employer] EDMS Rizwan Haile DO DO ms3 Michelle Thayer, RN RN 5
[2022-01-16 00:55] VITALS: TEMP 97.9
[2022-01-16 00:59] VITALS: BP 106/55; O2SAT 99
--- NOTE | 2022-01-17 13:23 | EKG ---
Test Date: 2022-01-15 Test Time: 22:56:58 Supervisor Stage Carpentry: BRENDEN MEASUREMENT RESULTS: Intervals: Rate: 82 DC: 172 QRSD: 82 QT: 404 QTc: 472 [place]: P: 68 DC: 172 QRS: 24 T: 33 INTERPRETIVE STATEMENTS: Normal sinus rhythm Normal ECG Compared to ECG 10/07/2019 17:37:23 Prolonged QT interval no longer present Electronically Signed On 01-17-22 13:20:19 CDT by Walter Marte
--- NOTE | 2022-01-18 12:11 | RAD REPORT ---
EXAM DESCRIPTION: Chest Single View CLINICAL HISTORY: 36 years Male, dizziness COMPARISON: Chest x-ray October 31, 2021 FINDINGS: No consolidation. No pneumothorax. No significant pleural effusion. Cardiomediastinal silhouette is unremarkable. Osseous structures are unremarkable. IMPRESSION: No acute findings. Electronically signed by: Ty Woodson MD 01/15/2022 11:33 PM CDT Due to temporary technical issues with the PACS/Fluency reporting system, reports are being signed by the in house radiologists without review as a courtesy to insure prompt reporting. The interpreting radiologist is fully responsible for the content of the report.
== END 2022-01-16 00:48 | disposition home or self-care (01) ==
LOC: ER 22:40
DX: R42 Dizziness and giddiness (principal); N18.6 End stage renal disease; D63.1 Anemia in chronic kidney disease
CPT/HCPCS: 36415; 71045; 80048; 84484; 85025; 93005; 99283

== ENCOUNTER 2022-03-20 22:43 | Emergency (ER) | payer OTHER ==
--- OUTSIDE RECORDS SUMMARY | 2022-03-20 22:46 | XMS REPORT | Continuity of Care Document ---
:1985 Author Organization [facility] t Address [address] [place] [address] Care Team Providers Name Role Phone PCP, PATIENT DOES NOT HAVE A Primary Care Physician Unavaila YAA Mccoy Attending Clinician Unavailable RUDOLPH STONE Attending Clinician Unavailable STEWART PELAEZ Attending Clinician Unavailable NETTIE CUELLAR Attending Clinician Unavailable Chata CARDENAS, Camilla Lemons Attending Clinician [phone] Dariusz Mae MD Attending Clinician DARIUSZ MAE Attending Clinician Unavailable CHARLETTE JACOB Attending Clinician Unavailable Stewart Pelaez MD Attending Clinician [phone] Neymar Dorsey MD Attending Clinician GABRIEL MCDONOUGH Attending Clinician Unavailable YAA RÍOS Attending Clinician Unavailable RUDOLPH STONE Admitting Clinician Unavailable YAA RÍOS Admitting Clinician Unavailable Payers Payer Name Policy Type Policy Number Effective Date Expiration Date S carleen MEDICARE PART A [id number] 2020 AND B 00:00:00 [place] [id number] 2020 00:00:00 Problems Condition Condition Condition Status [...] Added automatic ally from request for surgery [id number] ESRD (end ESRD (end Disease Active Uni vers stage stage 9-16 ity of renal renal 00:00: [place] disease) disease) 00 Medica l Branch Allergies, Adverse Reactions, Alerts Allergy Allergy Status Severity Reaction(s) Onset Inactive Treating Comm ents Source Name Type Date Date Clinician NO KNOWN Drug Active Univers ALLERGIE Class ity of [facility] [place] [facility] Social History Social Habit Start Date Stop Date Quantity Comments Source History SDOH University o f Alcohol Std [place] [facility] Drinks Branch History SDOH University o f Alcohol Binge [place] [facility] History SDDE University o f Alcohol Comment [place] [facility] Exposure to Not sure [facility] SARS-CoV-2 [facility] (event) Branch Alcohol intake 2021-10-28 2021-10-28 Lifetime University of 00:00:00 00:00:00 non-drinker [facility] (finding) Branch Tobacco use and 2021-03-09 2021-03-09 Never used Universit y of exposure 00:00:00 00:00:00 [place] [facility] History SDOH 2021-03-09 2021-03-09 1 University o f Alcohol Frequency 00:00:00 00:00:00 [facility] edical [place] Sex [facility]igned At [birth year] [facility] 00:00:00 00:00:00 Smoking Status Start Date Stop Date Source Tobacco smoking consumption [facility] ealt unknown Never smoker [facility] [place] [facility] Medications Ordered Filled Start Stop Current Ordering Indication Dosage Frequency Signature Comments Components Source Medication Medication Date Date Medication? Clinician (SIG) Name Name ergocalcife Yes 02129V Take Univ ers rol, 2-16 50,000 ity of vitamin d2, 00:00: [place] 1,250 mcg 00 mouth Medical (50,000 weekly. Branch unit) capsule lisinopriL 2020-08 Yes 10mg Take 10 mg U nivers 10 mg 2-16 by mouth ity of tablet 14:56: daily. [address] hydrALAZINE 2020-08 Yes 10mg Take 10 mg Univers 10 mg 2-16 by mouth ity of tablet 14:56: as needed. [address] Blood Yes [id number] Use to [facility] s Pressure 923 check ity of Monitor Kit 00:00: blood [place] 00 pressure Medical once Branch daily. I10 Blood-Gluco 0 Yes [id number] Use to Univers se Meter 923 check ity of (ACCU-CHEK 00:00: glucose 1x [place] GUIDE 00 daily. Medical GLUCOSE E11.22, Branch METER) Misc N18.6, Z99.2 Lancets Yes [id number] Use to [facility] ers (ACCU-CHEK 921 check ity of MULTICLIX 00:00: blood [place] LANCET) 00 glucose Medical Misc level 1x Branch daily. E11.22, N18.6, Z99.2 blood sugar Yes [id number] Use as Univers diagnostic 9-20 directed ity o f (ACCU-CHEK 00:00: once daily [place] GUIDE TEST 00 Medical STRIPS) Branch strip ondansetron Yes [id number] 8mg Take 1 Univers 8 mg 9-16 tablet by ity of disintegrat 00:00: mouth [place] ing tablet 00 every 8 Medica l (eight) Branch hours as needed for Nausea and Vomiting (N/V). gabapentin Yes Univers 100 mg 8-18 ity of capsule 00:00: [address] Branch lanthanum Yes CHEW AND Univ ers 1,000 mg 7-21 SWALLOW 1 ity of chewable 00:00: TABLET [place] tablet 00 MOUTH Medical THREE Branch TIMES DAILY WITH MEALS furosemide 0 Yes 20mg Take 20 mg U nivers 20 mg 6-08 by mouth 2 ity of tablet 00:00: (two) [place] 00 times Medical daily. Branch Vital Signs Vital Name Observation Time Observation Value Comments Source Systolic blood 2021-10-28 20:51:00 123 mm[Hg] Univer sity of pressure [facility] Diastolic blood 2021-10-28 20:51:00 72 mm[Hg] Unive rsity of pressure [facility] Heart rate 2021-10-28 20:51:00 83 /min [facility] Body temperature 2021-10-28 20:51:00 36.33 [facility] Respiratory rate 2021-10-28 20:51:00 18 /min [facility] Body height 2021-10-28 20:51:[address] [facility] Body weight 2021-10-28 20:51:[address] [facility] BMI 2021-10-28 20:51:00 25.31 kg/m2 [facility] Oxygen saturation in 2021-10-28 20:51:00 99 /min [facility] Arterial blood by [facility] Pulse oximetry Branch Procedures Procedure Date / Time Performed Performing Clinician [facility] e CT CHEST WO CONTRAST 2021-07-20 20:20:00 Ish Schafer [facility] CHEST WO CONTRAST 2021-07-20 20:20:00 Ish Schafer [facility] Encounters Start End Encounter Admission Attending Care Care Encounter Source Date/Time Date/Time Type Type Clinicians Facility Department ID 2022-01-04 Outpatient MICHOACANO, [facility] [id number] [place] 02:41:07 YAA [id number] [facility] 2022-01-03 Outpatient [facility] [id number] [place] 06:55:30 [id number] [facility] 2021-12-29 Outpatient [facility] [id number] [place] 13:55:41 [id number] [facility] 2021-12-14 Outpatient MICHOACANO, [facility] [id number] [place] 10:52:42 YAA [id number] [facility] 2021-12-02 Outpatient [facility] [id number] [place] 15:10:10 [id number] [facility] 2021-11-15 Outpatient MICHOACANO, [facility] [id number] [place] 14:06:53 YAA [id number] [facility] 2021-11-11 Outpatient [facility] [id number] [place] 17:16:53 [id number] [facility] 2021-08-26 Outpatient RUDOLPH STONE [id number] 10:37:00 2020-04-17 Inpatient RUDOLPH STONE [facility] [id number] [facility] 16:04:57 2022-01-17 2022-02-15 Outpatient [facility] [id number] [facility] 11:00:00 23:59:00 STEWART COLON 2021-11-24 2021-12-23 Out[facility] [id number] [facility] 11:00:00 23:59:00 STEWART COLON 2021-10-13 2021-11-11 Outpatient RODO H CAR [id number] [facility] 11:26:00 23:59:00 NETTIE BEAL 2021-10-28 2021-10-28 Office Camilla Brizuelajose [facility] [id number] [facility] 16:00:00 16:30:00 Visit Dariusz Mae SPECIALTY [id number] [facility] [id number] [facility] AT [id number] [address] 2021-10-28 2021-10-28 Outpatient Rick MAE [facility] [id number] [facility] 16:00:00 16:00:00 DARIUSZ luna [facility] 2021-09-13 2021-10-12 Outpatient CECIL, [facility] PUL [id number] [facility] 13:03:00 23:59:00 CHARLETTE 2021-07-22 2021-07-22 EXT MHH OP de EXT [facility] [id number] [place] 00:00:00 00:00:00 [facility] [id number] [facility] [id number] 2021-07-22 2021-07-22 EXT MHH OP de EXT [facility] [id number] [place] 00:00:00 00:00:00 [facility] LOCATION [id number] [facility] [id number] 2021-07-20 2021-07-20 EXT MHH OP de EXT MSRDP [id number] [place] 00:00:00 00:00:00 Victoriano, LOCATION [id number] [facility] [id number] 2021-07-20 2021-07-20 EXT MHH OP de EXT MSRDP [id number] [place] 00:00:00 00:00:00 Victoriano, LOCATION [id number] [facility] Stewart [id number] 2021-06-22 2021-06-22 Outpatient DE MHHH [facility] [id number] [facility] 06:33:00 06:33:00 STEWART COLON 2021-03-09 2021-03-09 Office Sunita [facility] [id number] 15:00:07 15:30:07 Visit [facility] [id number] [place] [id number] Professio [id number] [address]al [address] 2020-10-19 2020-11-17 [...] MHSE [id number] MH 08:30:00 18:10:00 YAA stone [facility] l Results This patient has no known results.
--- NOTE | 2022-03-21 00:20 | ER ---
Nurse's Notes [facility] Name: Dennis Mariee Age: 36 yrs Sex: Male : 1985 Arrival Date: 03/20/2022 Time: 22:45 Bed 17 Private MD: Diagnosis: Palpitations;Essential (primary) hypertension Presentation: 03/20 22:56 Chief complaint: Patient states: his blood pressure has been higher than normal, his bb heart has been racing, and he feels agitated for the last couple of weeks. Coronavirus screen: At this time, the client does not indicate any symptoms associated with coronavirus-19. Ebola Screen: No symptoms or risks identified at this time. Initial Sepsis Screen: Does the patient meet any 2 criteria? No. Patient's initial sepsis screen is negative. Does the patient have a suspected source of infection? No. Patient's initial sepsis screen is negative. Risk Assessment: Do you want to hurt yourself or someone else? Patient reports no desire to harm self or others. Onset of symptoms was February 2022. 22:56 Method Of Arrival: Ambulatory bb 22:56 Acuity: RUPESH 3 bb Historical: - Allergies: 22:58 No Known Allergies; bb - Home Meds: 22:58 Lisinopril Oral [Active]; Hydralazine Oral [Active]; something for phosphorus [Active]; bb Furosemide Oral [Active]; - PMHx: 22:58 DM- NDDM; ESRD; HD- M/W/F; Hypertension; bb - PSHx: 22:58 Fistula- HD left arm; bb - Immunization history:: Pfizer x 3. - Social history:: Smoking status: Patient denies any tobacco usage or history of. Screenin/08 00:16 Abuse screen: Denies threats or abuse. Denies injuries from another. Nutritional tw5 screening: No deficits noted. Tuberculosis screening: No symptoms or risk factors identified. Fall Risk None identified. Assessment: 00:16 General: Appears in no apparent distress. Behavior is calm, cooperative, appropriate tw5 for age. Pain: Denies pain. Cardiovascular: No deficits noted. Respiratory: No deficits noted. GI: No deficits noted. Vital Signs: 03/20 22:56 BP 149 / 90; Pulse 84; Resp 16 S; Temp 98.4; Pulse Ox 99% on R/A; Weight 70.31 kg (R); bb Height 5 ft. 8 in. (172.72 cm) (R); Pain 0/10; 03/21 00:16 BP 129 / 81; Pulse 83; Resp 18; Pulse Ox 100% on R/A; tw5 03/20 22:56 Body Mass Index 23.57 (70.31 kg, 172.72 cm) bb ED Course: 03/20 22:45 Patient arrived in ED. as 22:58 Triage completed. bb 22:58 Arm band placed on Patient placed in waiting room, Patient notified of wait time. bb 23:02 Juan Milton, RN is Primary Nurse. as6 23:02 Patient has correct armband on for positive identification. Placed in gown. Bed in low mh5 position. Call light in reach. Side rails up X 1. Warm blanket given. pharmacology professor on. Pulse ox on. NIBP on. 23:06 Perla Galdamez FNP-C is [facility]. snw 23:06 Ady Apple MD is Attending Physician. snw 03/21 00:16 No provider procedures requiring assistance completed. Patient did not have IV access tw5 during this emergency room visit. Administered Medications: No medications were administered Medication: 00:16 VIS not applicable for this client. tw5 Outcome: 00:16 Discharged to home ambulatory. tw5 00:16 Condition: good 00:16 Discharge instructions given to patient, Instructed on discharge instructions, follow up and referral plans. Demonstrated understanding of instructions, follow-up care, List of primary care doctors as well as community resources were provided to the patient. 00:20 Discharge ordered by . snw 00:43 Patient left the ED. tw5 Signatures: Perla Galdamez FNP-C FNP-Csnw Martinez, Amelia as Ballard, Brenda, RN RN Neetu Marin [facility] Stella Garcia tw5 Juan Milton, CRISTOBAL RN as6
--- NOTE | 2022-03-21 00:21 | EDPHYS ---
Physician Documentation [facility] Name: Dennis Mariee Age: 36 yrs Sex: Male : 1985 Arrival Date: 03/20/2022 Time: 22:45 Bed 17 Private MD: BECCA Physician Ady Apple HPI: 03/20 23:15 This 36 yrs old Male presents to ER via Ambulatory with complaints of High snw Blood Pressure. 23:15 The patient has elevated blood pressure and discovered this during dialysis in [place] snw someone noted his bp was a little elevated. Onset: The symptoms/episode began/occurred gradually, 3 week(s) ago, and became persistent. Associated signs and symptoms: Pertinent positives: palpitations with activity. Severity of symptoms: At its worst the blood pressure was 140 mm Hg. It is unknown whether or not the patient has had similar symptoms in the past. dialysis Mon, Mon, Monday. Sees Dr. Laureano. Historical: - Allergies: 22:58 No Known Allergies; bb - Home Meds: 22:58 Lisinopril Oral [Active]; Hydralazine Oral [Active]; something for phosphorus [Active]; bb Furosemide Oral [Active]; - PMHx: 22:58 DM- NDDM; ESRD; HD- M/W/F; Hypertension; bb - PSHx: 22:58 Fistula- HD left arm; bb - Immunization history:: Pfizer x 3. - Social history:: Smoking status: Patient denies any tobacco usage or history of. ROS: 23:13 Constitutional: Negative for fever, chills, and weight loss, Eyes: Negative for injury, snw pain, redness, and discharge, ENT: Negative for injury, pain, and discharge, Neck: Negative for injury, pain, and swelling, Respiratory: Negative for shortness of breath, cough, wheezing, and pleuritic chest pain, Abdomen/GI: Negative for abdominal pain, nausea, vomiting, diarrhea, and constipation, Back: Negative for injury and pain, : Negative for injury, bleeding, discharge, and swelling, MS/Extremity: Negative for injury and deformity, Skin: Negative for injury, rash, and discoloration, Neuro: Negative for headache, weakness, numbness, tingling, and seizure, Psych: Negative for depression, anxiety, suicide ideation, homicidal ideation, and hallucinations. 23:13 Cardiovascular: Positive for palpitations. Exam: 23:13 Constitutional: This is a well developed, well nourished patient who is awake, alert, snw and in no acute distress. Head/Face: Normocephalic, atraumatic. Eyes: Pupils equal round and reactive to light, extra-ocular motions intact. Lids and lashes normal. Conjunctiva and sclera are non-icteric and not injected, right with subconjunctival hemorrhage. Cornea within normal limits. Periorbital areas with no swelling, redness, or edema. ENT: Nares patent. No nasal discharge, no septal abnormalities noted. Tympanic membranes are normal and external auditory canals are clear. Oropharynx with no redness, swelling, or masses, exudates, or evidence of obstruction, uvula midline. Mucous membranes moist. Neck: Trachea midline, no thyromegaly or masses palpated, and no cervical lymphadenopathy. Supple, full range of motion without nuchal rigidity, or vertebral point tenderness. No Meningismus. Chest/axilla: Normal chest wall appearance and motion. Nontender with no deformity. No lesions are appreciated. Cardiovascular: Regular rate and rhythm with a normal S1 and S2. No gallops, murmurs, or rubs. Normal PMI, no JVD. No pulse deficits. Respiratory: Lungs have equal breath sounds bilaterally, clear to auscultation and percussion. No rales, rhonchi or wheezes noted. No increased work of breathing, no retractions or nasal flaring. Abdomen/GI: Soft, non-tender, with normal bowel sounds. No distension or tympany. No guarding or rebound. No evidence of tenderness throughout. Back: No spinal tenderness. No costovertebral tenderness. Full range of motion. Skin: Warm, dry with normal turgor. Normal color with no rashes, no lesions, and no evidence of cellulitis. MS/ Extremity: Pulses equal, no cyanosis. Neurovascular intact. Full, normal range of motion. Neuro: Awake and alert, GCS 15, oriented to person, place, time, and situation. Cranial nerves II-XII grossly intact. Motor strength 5/5 in all extremities. Sensory grossly intact. Cerebellar exam normal. Normal gait. 23:13 Psych: Affect is calm, Oriented to person, place, time, pt concerned about blood pressure increase over the past few weeks. Pt states he has just returned from vacation in [place]. . 03/21 00:33 ECG was reviewed by the Attending Physician. snw Vital Signs: 03/20 22:56 BP 149 / 90; Pulse 84; Resp 16 S; Temp 98.4; Pulse Ox 99% on R/A; Weight 70.31 kg (R); bb Height 5 ft. 8 in. (172.72 cm) (R); Pain 0/10; 03/21 00:16 BP 129 / 81; Pulse 83; Resp 18; Pulse Ox 100% on R/A; tw5 03/20 22:56 Body Mass Index 23.57 (70.31 kg, 172.72 cm) bb MDM: 03/20 23:17 Patient medically screened. snw 03/21 00:22 Data reviewed: vital signs, nurses notes. Data interpreted: Pulse oximetry: on room air snw is 100 %. Interpretation: normal. Counseling: I had a detailed discussion with the patient and/or guardian regarding: the historical points, exam findings, and any diagnostic results supporting the discharge/admit diagnosis, the presence of at least one elevated blood pressure reading (>120/80) during this emergency department visit, the need for outpatient follow up, to return to the emergency department if symptoms worsen or persist or if there are any questions or concerns that arise at home. Special discussion: Based on the history and exam findings, there is no indication for further emergent testing or inpatient evaluation. I discussed with the patient/guardian the need to see the primary care provider for further evaluation of the symptoms. nephrology. 03/21 00:26 Order name: SARS-COV-2 RT PCR EDMS 03/21 00:21 Order name: EKG; Complete Time: 00:26 snw EC:33 Rate is 84 beats/min. Rhythm is regular. QRS [place] is Normal. [place] interval is normal. QRS snw interval is normal. QT interval is prolonged. No Q waves. T waves are Normal. No ST changes noted. Clinical impression: NSR w/ Non-specific ST/T Changes. Administered Medications: No medications were administered Disposition: 07:19 Co-signature as Attending Physician, Ady Apple MD. mh7 Disposition Summary: 03/21/22 00:20 Discharge Ordered Location: Home snw Condition: Stable snw Diagnosis - Palpitations snw - Essential (primary) hypertension snw Followup: snw - With: Private Physician - When: Tomorrow - Reason: Recheck today's complaints, Continuance of care, Re-evaluation by your physician Followup: snw - With: Emergency Department - When: As needed - Reason: Worsening of condition Discharge Instructions: - Discharge Summary Sheet snw - Palpitations snw - Eating Plan for Dialysis snw Forms: - Medication Reconciliation Form snw - Thank You Letter snw - Antibiotic Education snw - Prescription Opioid Use snw Signatures: Dispatcher [employer] EDMS Perla Galdamez FNP-C WELDING MACHINE OPERATOR ARC-Csnw Lima Carrasco RN RN Ady Lim MD MD mh7 Corrections: (The following items were deleted from the chart) 00:26 0807 23:13 SARS-COV-2 Antigen Rapid+I.LAB.BRZ ordered. EDMS EDMS
[2022-03-21 02:22] VITALS: TEMP 98.4
[2022-03-21 02:24] VITALS: BP 129/81; O2SAT 100
--- NOTE | 2022-03-21 13:44 | EKG ---
Test Date: 2022-03-21 Test Time: 00:33:39 Lumber Tailer: MEASUREMENT RESULTS: Intervals: Rate: 84 AK: 162 QRSD: 82 QT: 402 QTc: 475 Holmes: P: 70 AK: 162 QRS: 21 T: 48 INTERPRETIVE STATEMENTS: Normal sinus rhythm Prolonged QT Abnormal ECG Compared to ECG 01/15/2022 22:56:58 Prolonged QT interval now present Electronically Signed On 03-21-22 13:43:04 CDT by Walter Marte
== END 2022-03-21 00:43 | disposition home or self-care (01) ==
LOC: ER 22:43
DX: R00.2 Palpitations (principal); E11.22 Type 2 diabetes mellitus with diabetic chronic kidney disease; I12.0 Hypertensive chronic kidney disease with stage 5 chronic kidney disease or end stage renal disease; N18.6 End stage renal disease; Z99.2 Dependence on renal dialysis; Z20.822 Contact with and (suspected) exposure to COVID-19
CPT/HCPCS: 93005; 36415; U0003; 99284

== ENCOUNTER 2022-06-27 12:56 | Observation (INO) | payer OTHER ==
--- OUTSIDE RECORDS SUMMARY | 2022-06-27 12:59 | XMS REPORT | Continuity of Care Document ---
:1985 Author Organization [facility] t Address [address] [place] [address] Care Team Providers Name Role Phone PCP, PATIENT DOES NOT HAVE A Primary Care Physician UnavailOlivia Shah Attending Clinician Unavailable RUDOLPH STONE Attending Clinician Unavailable STEWART PELAEZ Attending Clinician Unavailable YAA RÍOS Attending Clinician Unavailable NETTIE CUELLAR Attending Clinician Unavailable Chata CARDENAS, Camilla Lemons Attending Clinician [phone] Dariusz Mae MD Attending Clinician DARIUSZ MAE Attending Clinician Unavailable CHARLETTE JACOB Attending Clinician Unavailable Lolis Romero MD Attending Clinician LOLIS ROMERO Attending Clinician Unavailable Stewart Pelaez MD Attending Clinician [phone] Doctor Unassigned, [place] Attending Clinician Unavailable Benjie Gómez MD Attending Clinician Parisa Arevalo MD Attending Clinician Martha Hdz MD Attending Clinician Only, Adc Test Attending Clinician Unavailable CHUNGMAYRA BENJIE Attending Clinician Unavailable Pob, Adc Lab Main Attending Clinician Unavailable Sandi Garland MD Attending Clinician SANDI GARLAND Attending Clinician Unavailable GABRIEL MCDONOUGH Attending Clinician Unavailable Raina Robert MD Attending Clinician [phone] RAINA ROBERT Attending Clinician Unavailable Unknown, Attending Attending Clinician Unavailable UNKNOWN, ATTENDING Attending Clinician Unavailable YAA RÍOS Attending Clinician Unavailable RUDOLPH STONE Admitting Clinician Unavailable Lolis Romero MD Admitting Clinician LOLIS ROMERO Admitting Clinician Unavailable YAA RÍOS Admitting Clinician Unavailable Payers Payer Name Policy Type Policy Number Effective Date [facility]piration Date [facility] [id number] 2020 AND B 00:00:00 [place]ICAID OF [place] [id number] 2020 00:00:00 Problems Condition Condition Condition Status [...] Added automatic ally from request for surgery [id number] ESRD (end ESRD (end Disease Active Uni vers stage stage 9-16 ity of renal renal 00:00: [place] disease) disease) 00 Medica l Branch [id number] Type 2 Problem Active Common diabetes Spirit mellitus - [facility] with [facility] kidney Center disease [id number] End stage Problem Active Com mon renal Spirit disease - [facility] [id number] Dependence Problem Active Co 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 Social History Social Habit Start Date Stop Date Quantity Comments Source History SDOH University o f Alcohol Std [place] Medical Drinks Branch History SDOH University o f Alcohol Binge [place] Medic al Branch History SDOH University o f Alcohol Comment [place] Med ical [facility] Exposure to Not sure University of SARS-CoV-2 [facility] (event) [place] Sex Assigned At Common Sp elizabeth - [facility] History of Common Spirit - Tobacco Use [facility] Alcohol intake 2021-10-28 2021-10-28 Lifetime University of 00:00:00 00:00:00 non-drinker [facility] (finding) [place] Tobacco use and 2021-03-09 2021-03-09 Never used Universit y of exposure 00:00:00 00:00:00 [facility] History SDOH 2021-03-09 2021-03-09 1 University o f Alcohol Frequency 00:00:00 00:00:00 [place] M edical [place] Smoking Status Start Date Stop Date Source Tobacco [facility] Medications Ordered Filled Start Stop Current Ordering Indication Dosage Frequency Signature Comments Components Source Medication Medication Date Date Medication? Clinician (SIG) Name Name Lisinopril Lisinopril No 1{table QD Lisinopril 20 MG 20 MG 8-15 t} 20 MG 00:00: 00 Lisinopril Lisinopril No 1{table QD Lisinopril 20 MG 20 MG 8-15 t} 20 MG 00:00: 00 Lisinopril Lisinopril 0 No 1{table QD Lisinopril 20 MG 20 MG 8-15 t} 20 MG 00:00: 00 ergocalcife Yes [id number] Take Univ ers rol, 2-16 50,000 ity of vitamin d2, 00:00[place] 1[place]250 mcg 00 mouth Medical (50,000 weekly. Branch unit) capsule lisinopriL 2020-08 Yes 10mg Take 10 mg U nivers 10 mg 2-16 by mouth ity of tablet 14:56: daily. [address] hydrALAZINE 2020-08 Yes 10mg Take 10 mg Univers 10 mg 2-16 by mouth ity of tablet 14:56: as needed. [place] 17 Medical Branch Blood 0 Yes [id number] Use to [facility] s Pressure 9-23 check ity of Monitor Kit 00:00: blood [place] 00 pressure Medical once Branch daily. I10 Blood-Gluco 0 Yes [id number] Use to [facility] se Meter 9-23 check ity of (ACCU-CHEK 00:00: glucose 1x [place] GUIDE 00 daily. Medical GLUCOSE E11.22, Branch METER) Misc N18.6, Z99.2 Lancets Yes [id number] Use to [facility] ers (ACCU-CHEK 9-21 check ity of MULTICLIX 00:00: blood [place] LANCET) 00 glucose Medical Misc level 1x Branch daily. E11.22, N18.6, Z99.2 blood sugar Yes [id number] Use as Univers diagnostic 9-20 directed ity o f (ACCU-CHEK 00:00: once daily [place] GUIDE TEST 00 Medical STRIPS) Branch strip ondansetron Yes [id number] 8mg Take 1 Univers 8 mg 9-16 tablet by ity of disintegrat 00:00: mouth [place] ing tablet 00 every 8 Medica l (eight) Branch hours as needed for Nausea and Vomiting (N/V). gabapentin Yes Univers 100 mg 8-18 ity of capsule 00:00: [place] [address] Medical Branch lanthanum Yes CHEW AND Univ ers 1,000 mg 7-21 SWALLOW 1 ity of chewable 00:00: TABLET BY [place] tablet 00 MOUTH Medical THREE Branch TIMES DAILY WITH MEALS furosemide Yes 20mg Take 20 mg U nivers 20 mg 6-08 by mouth 2 ity of tablet 00:00: (two) [place] 00 times Medical daily. Branch Lanthanum Lanthanum No 1{table QD Lanthanum Carbonate Carbonate t_with_ Carbonate 1000 MG 1000 MG meals} 1000 MG hydrALAZINE hydrALAZINE No 1{table TID hydrALAZIN HCl 25 MG HCl 25 MG t_with_ E HCl 25 food} MG hydrALAZINE hydrALAZINE No 1{table TID hydrALAZIN HCl 25 MG HCl 25 MG t_with_ E HCl 25 food} MG Lanthanum Lanthanum No 1{table QD Lanthanum Carbonate Carbonate t_with_ Carbonate 1000 MG 1000 MG meals} 1000 MG Lanthanum Lanthanum No 1{table QD Lanthanum Carbonate Carbonate t_with_ Carbonate 1000 MG 1000 MG meals} 1000 MG hydrALAZINE hydrALAZINE No 1{table TID hydrALAZIN HCl 25 MG HCl 25 MG t_with_ E HCl 25 food} MG Carvedilol Carvedilol No 1{table BID Carvedilol 12.5 MG 12.5 MG t_with_ 12.5 MG food} Vital Signs Vital Name Observation Time Observation Value Comments Source height 2022-04-25 11:20:00 67 [in_i] [facility] weight 2022-04-25 11:20:00 154.2 [lb_av] [facility] temperature 2022-04-25 11:20:00 98.6 [degF] [facility] bmi 2022-04-25 11:20:00 24.15 kg/m2 [facility] oximetry 2022-04-25 11:20:00 99 % [facility] respiratory rate 2022-04-25 11:20:00 16 /min Comm on [facility] blood pressure 2022-04-25 11:20:00 123 mm[Hg] [facility] - systolic [facility] blood pressure 2022-04-25 11:20:00 71 mm[Hg] [facility] - diastolic [facility] height 2022-04-01 08:00:00 67 [in_i] [facility] weight 2022-04-01 08:00:00 154 [lb_av] [facility] bmi 2022-04-01 08:00:00 24.12 kg/m2 [facility] height 2022-03-28 10:40:00 67 [in_i] [facility] weight 2022-03-28 10:40:00 154 [lb_av] [facility] temperature 2022-03-28 10:40:00 97.3 [degF] Common S pirit [facility] bmi 2022-03-28 10:40:00 24.12 kg/m2 [facility] oximetry 2022-03-28 10:40:00 98 % Common S pirit - [facility] respiratory rate 2022-03-28 10:40:00 16 /min Comm on Spirit - [facility] blood pressure 2022-03-28 10:40:00 142 mm[Hg] Common Spirit - systolic [facility] blood pressure 2022-03-28 10:40:00 86 mm[Hg] Common Spirit - diastolic [facility] Systolic blood 2021-10-28 20:51:00 123 mm[Hg] Univer sity of [facility] Diastolic blood 2021-10-28 20:51:00 72 mm[Hg] Unive rsity of [facility] Heart rate 2021-10-28 20:51:00 83 /min [facility] Body temperature 2021-10-28 20:51:00 36.33 Bridget [facility] Respiratory rate 2021-10-28 20:51:00 18 /min [facility] Body height 2021-10-28 20:51:00 167.6 cm [facility] Body weight 2021-10-28 20:51:00 71.124 kg [facility] BMI 2021-10-28 20:51:00 25.31 kg/m2 [facility] Oxygen saturation in 2021-10-28 20:51:00 99 /min [facility] Arterial blood by [facility] Pulse oximetry Branch Procedures Procedure Date / Time Performed Performing Clinician Sour e CT CHEST WO CONTRAST 2021-07-20 20:20:00 Ish Schafer [facility] CT CHEST WO CONTRAST 2021-07-20 20:20:00 Ish Schafer [facility] Encounters Start End Encounter Admission Attending Care Care Encounter Source Date/Time Date/Time Type Type Clinicians Facility Department ID 2022-03-28 Outpatient BALDEMAR Gutierrez [facility] [id number] Common 08:23:02 Olivia [id number] Spirit - [facility] 2021-08-26 Outpatient RUDOLPH STONE [facility] [id number] [facility] 10:37:00 2020-04-17 [facility] [id number] [facility] 16:04:57 2022-06-15 2022 [facility] LE[facility]ID [id number] [facility] 11:00:00 23:59:00 2022-04-25 2022-04-25 OFFICE STLMLC STLMLC [id number] Co mmon 00:00:00 00:00:00 VISIT Spirit ESTAB PT - [facility] LEVEL 4 [facility] 2022-04-01 2022-04-01 (MCR WELL) STLMLC STLC [id number] Common 00:00:00 00:00:00 Medicare Michaeli t Wellness - [facility] 2022-03-28 2022-03-28 OFFICE STLC STLC [id number] Co mmon 00:00:00 00:00:00 VISIT NEW Michael it PT LEVEL 4 - [facility] 2022-01-17 2022-02-15 Outpatient DE [facility]HH[facility] HH [id number] MHHH 11:00:00 23:59:00 STEWART COLON 2021-11-24 2021-12-23 Outpatient DE MHHH MHHH [id number] MHHH 11:00:00 23:59:00 STEWART COLON 2021-12-16 2021-12-16 Outpatient [facility]ANO [facility] [id number] [place] 10:15:00 10:15:00 formerly [facility] 2021-10-13 2021-11-11 Outpatient RODO [facility] CAR [id number] MHHH 11:26:00 23:59:00 NETTIE BEAL 2021-10-28 2021-10-28 Office Camilla Brizuela [facility] 1.2.840.114 [id number] [facility] 16:00:00 16:30:00 Visit Dariusz Mae [id number] it of [facility] 4.2.7.2.686 [place] [phone] Dc dyasi Laws [facility] 2021-10-28 2021-10-28 Outpatient Rick MAE [facility] [id number] Univers 16:00:00 16:00:[address] [facility] 2021-10-28 2021-10-28 Outpatient Rick MAE [facility] [id number] Univers 16:00:00 16:00:00 DARIUSZ [facility] [place] [facility] 2021-09-13 2021-10-12 Outpatient CECIL [facility] PUL [id number] [facility] 13:03:00 23:59:00 CHARLETTE 2021-07-29 2021-07-29 Office Camilla Brizuela [facility] 1.2.840.114 [id number] Univers 15:00:00 15:14:10 Visit Lolis Romero SPECIALTY [id number] [facility] 4.2.7.2.686 [facility] CENTER AT [phone] Dc daysi CARRANZA [address] [place] [address] 2021-07-29 2021-07-29 [facility] [id number] Univers 15:00:00 15:14:10 [facility] 2021-07-29 2021-07-29 [facility] [id number] Univers 15:00:00 15:14:10 [facility] 2021-07-29 2021-07-29 Outpatient [facility] [id number] Univers 15:00:00 15:00:00 LOLIS [facility] [place] [facility] 2021-07-22 2021-07-22 EXT MH OP de EXT MSRDP 1.2.840.114 [id number] MD 00:00:00 00:00:00 [employer] [facility], LOCATION [id number] Health Stewart 9.2.7.2.686 [id number] 2021-07-22 2021-07-22 EXT MHH OP de EXT MSRDP 1.2.840.114 [id number] MD 00:00:00 00:00:00 Trevervt, LOCATION 350.1.13.58 Health [place] 9.2.7.2.686 [id number] 2021-07-20 2021-07-20 EXT MHH OP de EXT MSRDP 1.2.840.114 [id number] [place] 00:00:00 00:00:00 [employer] [facility] [employer] [facility] [employer] [facility] [employer] [facility], LOCATION 350.1.13.58 [facility] Stewart 9.2.7.2.686 [id number] 2021-07-20 2021-07-20 EXT MHH OP de EXT MSRDP 1.2.840.114 [id number] [place] 00:00:00 00:00:00 [facility], LOCATION 350.1.13.58 [facility] Austinksandra 9.2.7.2.686 [id number] 2021-06-24 2021-06-24 Orders Doctor RUDOLPH 1.2.840.114 [id number] Univers 00:00:00 00:00:00 Only Unassigned, KARY 350.1.13.10 [facility] 4.2.7.2.686 [facility] [id number] [facility] 009 Branch 2021-06-22 2021-06-22 Outpatient DE [facility] [id number] [facility] 06:33:00 06:33:00 STEAWRT COLON 2021-06-01 2021-06-01 Telephone Chungmayra [facility] 1.2.840.114 [id number] Univers 00:00:00 00:00:00 Benjie MULTISPEC 350.1.13.10 ity of IALTY 4.2.7.2.686 [facility] [phone] [facility] AND [place] 220 Branch DIABETES CLINIC 2021-05-18 2021-05-18 Anesthesia Parisa Arevalo 1.2.840.6 [id number] Univers 13:30:59 13:30:59 Event Martha Hdz 08967.1.1 ity of 3.104.2.7 [place] .3.639918 Medica l .8 Branch 2021-05-18 2021-05-18 Hospital Heather, 1.2.840.3 [id number] Univers 11:02:00 13:15:00 Encounter Lolis 82961.1.1 it y of 3.104.2.7 [place] .3.633816 Medica l .8 [place] 2021-05-18 2021-05-18 Outpatient R HEATHER [facility] [id number] Univers 11:02:00 13:15:[address] [facility] 2021-05-18 2021-05-18 Orders Doctor 1.2.840.9 [id number] Univers 00:00:00 00:00:00 Only Unassigned, 55449.1.1 ity of [place] 3.104.2.7 [place] .3.282993 Medica l .8 [place] 2021-05-18 2021-05-18 Travel 1.2.840.1 1.2.304.923 [id number] Univers 00:00:00 00:00:00 28158.1.1 350.1.13.10 ity of 3.104.2.7 4.2.7.3.698 [place] .3.886188 084.8 Medica l .8 [place] 2021-05-17 2021-05-17 Travel 1.2.840.1 1.2.281.507 [id number] Univers 00:00:00 00:00:00 74055.1.1 350.1.13.10 ity of 3.104.2.7 4.2.7.3.698 [place] .3.640390 084.8 Medica l .8 [place] 2021-05-15 2021-05-15 [facility]patient [facility] [id number] Univers 16:00:00 16:00:[address] [facility] 2021-05-15 2021-05-15 Darnell RomeroLolis 1.2.840.1 [id number] Univers 08:25:16 08:40:16 Only Only, Adc Test 88179.1.1 ity of 3.104.2.7 [place] .3.039256 Medica l .8 [place] 2021-05-15 2021-05-15 Outpatient [facility] [id number] Univers 08:30:00 08:30:[address] [facility] 2021-05-06 2021-05-06 Outpatient R HEATHER [facility] [id number] Univers 15:45:00 15:45:[address] [facility] 2021-05-06 2021-05-06 Telephone Heather, 1.2.840.8 [id number] Univers 00:00:00 00:00:00 Lolis 43688.1.1 ity of 3.104.2.7 [place] .3.167673 Medica l .8 [place] 2021-05-05 2021-05-05 Telephone Joy, 1.2.840.8 [id number] Univers 00:00:00 00:00:00 Benjie 45254.1.1 ity of 3.104.2.7 [place] .3.794668 Medica l .8 [place] 2021-05-05 2021-05-05 Prep For Heather 1.2.840.5 [id number] Univers 00:00:00 00:00:00 Surgery Lolis 31418.1.1 ity of 3.104.2.7 [place] .3.003712 Medica l .8 [place] 2021-05-04 2021-05-04 Outpatient R JOY, [facility] [id number] Univers 09:00:00 09:00:[address] [facility] 2021-05-04 2021-05-04 Cpr Ambulance Driver Benjie Gómez 1.2.840.1 [id number] Univers 08:35:14 08:50:14 Visit Pob, Adc Lab Main 11779.1.1 ity of 3.104.2.7 [place] .3.160943 Medica l .8 [place] 2021-05-04 2021-05-04 Telephone Joy 1.2.840.6 [id number] Univers 00:00:00 00:00:00 Benjie 81362.1.1 ity of 3.104.2.7 [place] .3.092331 Medica l .8 [place] 2021-05-03 2021-05-03 Outpatient R JOY [facility] [id number] Univers 15:00:00 16:20:[address] [facility] 2021-05-03 2021-05-03 Office Joy, 1.2.840.6 [id number] Univers 14:47:04 16:20:42 Visit Benjie 98076.1.1 ity of 3.104.2.7 [place] .3.986530 Medica l .8 [place] 2021-05-03 2021-05-03 [email or web address] 1.2.840.114 [id number] Univers 14:47:04 15:17:04 Visit [facility] 350.1.13.10 it y of [place] 4.2.7.2.686 Hayden as Gregorio?Blea [id number] Dc daysi evans [address] [place] Office [facility] 2021-05-03 2021-05-03 Travel 1.2.840.1 1.2.835.795 [id number] Univers 00:00:00 00:00:00 33577.1.1 350.1.13.10 ity of 3.104.2.7 4.2.7.3.698 [place] .3.526894 084.8 Medica l .8 [place] 2021-04-29 2021-04-29 Office Lolis Romero 1.2.840.1 [id number] Univers 15:45:10 16:40:18 Visit Camilla Brizuela 61122.1.1 ity of 3.104.2.7 [place] .3.116462 Medica l .8 [place] 2021-04-29 2021-04-29 Office Camilla Brizuela [facility] 1.2.840.114 [id number] Univers 15:45:10 16:40:18 Visit Lolis Romero SPECIALTY 350.1.13.10 ity of C[place].7.2.686 [place] [id number] Dc daysi CARRANZA 072 [facility] 2021-04-29 2021-04-29 Outpatient R HEATHER [facility] [id number] Univers 15:30:00 16:40:[address] [facility] 2021-04-29 2021-04-29 Travel 1.2.840.1 1.2.373.932 [id number] Univers 00:00:00 00:00:00 34937.1.1 350.1.13.10 ity of 3.104.2.7 4.2.7.3.698 [place] .3.322508 084.8 Medica l .8 [place] 2021-03-09 2021-03-09 Office Sunita, 1.2.840.9 [id number] Univers 15:00:07 16:27:03 Visit Sandi 37051.1.1 ity of [place] 3.104.2.7 [place] .3.396912 Medica l .8 [place] 2021-03-09 2021-03-09 Office [email or web address] 1.2.840.114 [id number] 15:00:07 15:30:07 Visit [facility] 350.1.13.10 [place] 4.2.7.2.686 [facility] [phone] nal 044 [address] 2021-03-09 2021-03-09 Outpatient Rick GARLAND [facility] [id number] Univers 15:00:00 15:00:[address] [facility] 2020-10-19 2020-11-17 Outpatient GABRIEL MCDONOUGH [facility] LEONID [id number] [facility] 13:06:00 23:59:00 2020-10-15 2020-10-15 [facility] 1.2.840.114 [id number] Univers 19:12:10 23:59:00 Encounter Paramjit, SPECIALTY 350.1.13.10 ity of [facility] 4.2.7.2.686 [facility] AT [phone] Dc daysi CARRANZA 4 [facility] 2020-10-15 2020-10-15 Outpatient R [facility] [id number] Univers 00:00:00 00:00:00 PARAMJIT ity of [facility] 2020-09-14 2020-09-14 Hospital Unknown, [facility] 1.2.354.769 [id number] Univers 15:15:00 23:59:00 Encounter Attending Suleiman 350.1.13.10 Ul[place] 4.2.7.2.686 [facility] [id number] [facility] 807 Branch 2020-09-14 2020-09-14 Outpatient R UNKNOWN, [facility] [id number] Univers 00:00:00 00:00:[address] [facility] 2020-09-07 2020-09-07 Outpatient RODO MH CAR [id number] [facility] 13:04:00 17:40:00 NETTIE BEAL 2020-08-25 2020-08-25 Outpatient RODO [facility] CAR [id number] MHHH 10:47:00 23:59:00 NETTIE BEAL 2020-06-23 2020-06-23 Outpatient RODO MH CAR [id number] M[facility] 10:30:00 23:59:00 NETTIE BEAL 2020-03-31 2020-03-31 Outpatient DE MH CAR [id number] [facility] 06:57:00 06:57:00 STEWART COLON 2020-01-15 2020-01-15 Outpatient SID RÍOS MHSE [id number] MH 08:30:00 18:10:00 YAA stone [facility] l Results This patient has no known results.
--- NOTE | 2022-06-27 14:04 | RAD REPORT ---
EXAM DESCRIPTION: RAD - Chest Single View - 06/27/2022 1:59 pm CLINICAL HISTORY: presyncope Chest pain. COMPARISON: Chest Single View dated 01/15/2022; Chest Pa And Lat (2 Views) dated 10/31/2021; Chest Sing le View dated 10/07/2019 FINDINGS: Portable technique limits examination quality. The lungs are grossly clear. The heart is normal in size. No displaced fractures. IMPRESSION: No acute intrathoracic process suspected.
--- NOTE | 2022-06-27 14:05 | RAD REPORT ---
EXAM DESCRIPTION: CT - Head Brain Wo Cont - 06/27/2022 1:59 pm CLINICAL HISTORY: Near Syncope, Dizziness Headache, drowsiness COMPARISON: No comparisons TECHNIQUE: All CT scans are performed using dose optimization technique as appropriate and may inclu de automated exposure control or mA/KV adjustment according to patient size. FINDINGS: No intracranial hemorrhage, hydrocephalus or extra-axial fluid collection.No areas of brai n edema or evidence of midline shift. The paranasal sinuses and mastoids are clear. The calvarium is intact. IMPRESSION: No acute intracranial abnormality.
[2022-06-27 14:58] LABS: SARS-COV-2 RT PCR NEGATIVE (NEGATIVE)
[2022-06-27 15:21] LABS: Absolute Lymphocytes (CBC) 0.3 K/uL (0.7-4.9); Hematocrit 37.6 % (39.6-49.0); Lymphocytes % 3.8 % (15.3-44.8); MCV 101.4 fL (80-100); MPV 8.8 fL (7.6-11.3)
[2022-06-27 15:33] LABS: Troponin High Sensitivity 15.7 pg/mL (<58.9)
--- NOTE | 2022-06-27 17:18 | ER ---
Nurse's Notes [facility] Name: Dennis Mariee Age: 37 yrs Sex: Male : 1985 Arrival Date: 06/27/2022 Time: 12:59 Bed 16 Private MD: Diagnosis: Syncope Near;Hypotension, unspecified;Chest pain, unspecified Presentation: 06/27 13:00 Chief complaint: Patient states: Yesterday I began to feel dizzy, headache, body aches, ld1 chills. Intermittent chest pain - pt reports blurred vision intermittent with headache since this morning. Coronavirus screen: At this time, the client does not indicate any symptoms associated with coronavirus-19. Ebola Screen: No symptoms or risks identified at this time. Initial Sepsis Screen: Does the patient meet any 2 criteria? No. Patient's initial sepsis screen is negative. Does the patient have a suspected source of infection? No. Patient's initial sepsis screen is negative. Risk Assessment: Do you want to hurt yourself or someone else? Patient reports no desire to harm self or others. Onset of symptoms was June 27, 2022. 13:00 Method Of Arrival: Ambulatory ld1 13:00 Acuity: RUPESH 3 ld1 Triage Assessment: 13:03 Headache History: Denies prior headaches. General: Appears in no apparent distress. ld1 comfortable, Behavior is calm, cooperative, appropriate for age. Pain: Complains of pain in face Pain does not radiate. Pain currently is 8 out of 10 on a pain scale. Quality of pain is described as throbbing, Pain began 1 day ago. Is intermittent, Also complains of. EENT: No signs and/or symptoms were reported regarding the EENT system. EENT: Reports blurred vision since this morning - happened once but now it is not blurry. Neuro: Neuro: Level of Consciousness is awake, alert, obeys commands, Oriented to person, place, time, situation. Neuro: Reports blurred vision dizziness, headache. Cardiovascular: Capillary refill < 3 seconds Patient's skin is warm and dry. Respiratory: Airway is patent Respiratory effort is even, unlabored. GI: Abdomen is flat, non-distended. : No signs and/or symptoms were reported regarding the genitourinary system. : No signs and/or symptoms were reported regarding the genitourinary system. Derm: No signs and/or symptoms reported regarding the dermatologic system. Musculoskeletal: No signs and/or symptoms reported regarding the musculoskeletal system. Historical: - Home Meds: 13:03 Furosemide Oral [Active]; lisinopril Oral [Active]; ld1 - PMHx: 13:03 DM- NDDM; ESRD; HD- M/W/F; Hypertension; ld1 - PSHx: 13:03 Fistula- HD left arm; ld1 - Immunization history:: Adult Immunizations up to date, Client reports receiving the 2nd dose of the Covid vaccine. - Social history:: Smoking status: Patient denies any tobacco usage or history of. Patient uses alcohol, occasionally. Screenin:20 Abuse screen: Denies threats or abuse. Denies injuries from another. Nutritional ko1 screening: No deficits noted. Tuberculosis screening: No symptoms or risk factors identified. Fall Risk None identified. Assessment: 13:20 General: Appears in no apparent distress. comfortable, Behavior is calm, cooperative, ko1 appropriate for age. Pain: Denies pain. Neuro: No deficits noted. Cardiovascular: No deficits noted. Respiratory: No deficits noted. GI: No deficits noted. : Reports dialysis patient, access left upper arm. EENT: No deficits noted. Derm: No deficits noted. Musculoskeletal: No deficits noted. Vital Signs: 13:00 BP 95 / 55; Pulse 91; Resp 18; Temp 98.5(O); Pulse Ox 100% on R/A; Weight 68.04 kg; ld1 Height 5 ft. 8 in. (172.72 cm); Pain 7/10; 15:00 BP 96 / 58; Pulse 92; ko1 15:00 BP 88 / 50; Pulse 88; Pulse Ox 99% ; ko1 16:04 BP 82 / 52; Pulse 78; Resp 18; Pulse Ox 99% on R/A; ko1 16:08 BP 87 / 53; Pulse 82; ko1 16:22 BP 98 / 55; Pulse 76; Pulse Ox 98% on R/A; ko1 16:49 BP 89 / 60; Pulse 77; ko1 13:00 Body Mass Index 22.81 (68.04 kg, 172.72 cm) ld1 ED Course: 12:59 Patient arrived in ED. mr 13:03 Triage completed. ld1 13:03 Arm band placed on right wrist. ld1 13:10 Nasir Parnell PA is PHCP. [facility] 13:10 James Adkins MD is Attending Physician. [facility] 13:18 Strep Sent. ld1 13:18 COVID-19/FLU A+B (Document "Date of Onset" if Symptomatic) Sent. ld1 13:20 Patient has correct armband on for positive identification. Placed in gown. Bed in low ko1 position. Call light in reach. Side rails up X 1. Client placed on continuous cardiac and pulse oximetry monitoring. NIBP monitoring applied. ekg monitor tech on. Door closed. Noise minimized. Lights dimmed. Warm blanket given. Pillow given. 13:20 Inserted saline lock: 20 gauge in right antecubital area, using aseptic technique. ko1 Blood collected. 14:01 XRAY Chest (1 view) In Process Unspecified. EDMS 14:01 CT Head Brain wo Cont In Process Unspecified. EDMS 14:30 Shirley Chan, RN is Primary Nurse. ko1 14:43 MRI - Brain Wo Cont In Process Unspecified. EDMS 15:01 Basic Metabolic Panel Sent. ko1 15:01 CBC with Diff Sent. ko1 15:01 Troponin HS Sent. ko1 17:17 Salina Davidson MD is Hospitalizing Provider. [facility] 06/28 02:37 No provider procedures requiring assistance completed. Patient admitted, IV remains in ha1 place. 07:52 Primary Nurse role handed off by Shirley Chan, CRISTOBAL beaver Administered Medications: No medications were administered Medication: 02:38 VIS not applicable for this client. ha1 Outcome: 06/27 17:17 Decision to Hospitalize by Provider. [facility] 06/28 02:37 Admitted to ER Hold. Please see [facility] for further documentation. ha1 Condition: stable Discharge instructions given to patient, family, Instructed on the need for admit, Demonstrated understanding of instructions. 14:39 Patient left the ED. tw2 Signatures: Dispatcher [employer] EDMS Yusra Campbell Joel, PA PA [facility] Gricelda Coronado Halle Ny, RN RN tw2 Carmen Hoskins RN RN ld1 Brittaney Higuera RN RN ha1 Shirley Chan, CRISTOBAL RN ko1 Corrections: (The following items were deleted from the chart) 06/27 16:09 16:04 BP 82 / 52; Pulse 94bpm; Resp 18bpm; Pulse Ox 99% RA; ko1 ko1
--- NOTE | 2022-06-27 17:18 | EDPHYS ---
Physician Documentation [facility] Name: Dennis Mariee Age: 37 yrs Sex: Male : 1985 Arrival Date: 06/27/2022 Time: 12:59 Bed 16 Private MD: ED Physician James Adkins HPI: 06/27 17:13 This 37 yrs old Male presents to ER via Ambulatory with complaints of syncope. jmm 17:13 The patient has experienced near-syncope. Onset: The symptoms/episode began/occurred jmm acutely. This is a 37 year old male with a history of esrd that presents to the ED with complaints of near syncope, states after dialysis he took his bp medicine and was about to eat when symptoms began. Patient states his vision went "all white". Patient now has complaints of chest pain and feeling as if he is going to pass out. . Historical: - Home Meds: 13:03 Furosemide Oral [Active]; lisinopril Oral [Active]; ld1 - PMHx: 13:03 DM- NDDM; ESRD; HD- M/W/F; Hypertension; ld1 - PSHx: 13:03 Fistula- HD left arm; ld1 - Immunization history:: Adult Immunizations up to date, Client reports receiving the 2nd dose of the Covid vaccine. - Social history:: Smoking status: Patient denies any tobacco usage or history of. Patient uses alcohol, occasionally. ROS: 17:13 Constitutional: Negative for fever, chills, and weight loss. jmm 17:13 Cardiovascular: Positive for chest pain. 17:13 Neuro: Positive for dizziness, near syncope, visual changes. 17:13 All other systems are negative. Exam: 17:13 Constitutional: This is a well developed, well nourished patient who is awake, alert, jmm and in no acute distress. Head/Face: atraumatic. Eyes: EOMI, no conjunctival erythema appreciated ENT: Moist Mucus Membranes Neck: Trachea midline, Supple Chest/axilla: Normal chest wall appearance and motion. Cardiovascular: Regular rate and rhythm. No edema appreciated Respiratory: Normal respirations, no respiratory distress appreciated Abdomen/GI: Non distended Back: Normal ROM Skin: General appearance color normal MS/ Extremity: Moves all extremities, no obvious deformities appreciated, no edema noted to the lower extremities Neuro: Awake and alert Psych: Behavior is normal, Mood is normal, Patient is cooperative and pleasant Vital Signs: 13:00 BP 95 / 55; Pulse 91; Resp 18; Temp 98.5(O); Pulse Ox 100% on R/A; Weight 68.04 kg; ld1 Height 5 ft. 8 in. (172.72 cm); Pain 7/10; 15:00 BP 96 / 58; Pulse 92; ko1 15:00 BP 88 / 50; Pulse 88; Pulse Ox 99% ; ko1 16:04 BP 82 / 52; Pulse 78; Resp 18; Pulse Ox 99% on R/A; ko1 16:08 BP 87 / 53; Pulse 82; ko1 16:22 BP 98 / 55; Pulse 76; Pulse Ox 98% on R/A; ko1 16:49 BP 89 / 60; Pulse 77; ko1 13:00 Body Mass Index 22.81 (68.04 kg, 172.72 cm) ld1 MDM: 13:17 Patient medically screened. kehinde 17:16 Data reviewed: vital signs, nurses notes. Counseling: I had a detailed discussion with kehinde the patient and/or guardian regarding: the historical points, exam findings, and any diagnostic results supporting the discharge/admit diagnosis, lab results, radiology results, the need for further work-up and treatment in the hospital. ED course: I discussed the patient with RADHA Ruano whom accepted the patient to Dr. Cullen service. . 06/27 13:08 Order name: COVID-19/FLU A+B (Document "Date of Onset" if Symptomatic); Complete Time: ld1 14:59 06/27 13:08 Order name: Strep; Complete Time: 13:32 [facility] 06/27 13:17 Order name: Basic Metabolic Panel; Complete Time: 15:38 [facility] 06/27 13:17 Order name: CBC with Diff; Complete Time: 15:24 [facility] 06/27 13:17 Order name: Troponin HS; Complete Time: 15:38 [facility] 06/27 13:33 Order name: Throat Culture [facility] 06/28 01:00 Order name: Glucose, Ancillary Testing; Complete Time: 09:16 [facility] 06/28 03:17 Order name: CBC with Automated Diff; Complete Time: 09:16 [facility] 06/28 03:39 Order name: Hemoglobin A1c; Complete Time: 09:16 [facility] 06/28 03:39 Order name: Basic Metabolic Panel; Complete Time: 09:16 EDMS 06/28 03:39 Order name: Phosphorus; Complete Time: 09:16 EDMS 06/28 03:39 Order name: Magnesium; Complete Time: 09:16 EDMS 06/28 07:43 Order name: Glucose, Ancillary Testing; Complete Time: 09:16 [facility] 06/27 13:08 Order name: EKG - Nurse/Tech; Complete Time: 13:15 [facility] 06/27 13:17 Order name: XRAY Chest (1 view); Complete Time: 14:07 [facility] 06/27 13:17 Order name: EKG; Complete Time: 13:18 [facility] 06/27 13:17 Order name: Cardiac monitoring; Complete Time: 15:34 [facility] 06/27 13:17 Order name: IV Saline Lock; Complete Time: 15:01 [facility] 06/27 13:17 Order name: Labs collected and sent; Complete Time: 15:01 [facility] 06/27 13:17 Order name: O2 Per Protocol; Complete Time: 15:01 [facility] 06/27 13:17 Order name: O2 Sat Monitoring; Complete Time: 15:01 [facility] 06/27 13:18 Order name: CT Head Brain wo Cont; Complete Time: 14:07 [facility] 06/27 13:38 Order name: MRI - Brain Wo Cont [facility] 06/28 11:40 Order name: Glucose, Ancillary Testing; Complete Time: 11:42 EDMS Administered Medications: No medications were administered Disposition: 06/28 16:10 Co-signature as Attending Physician, James Adkins MD. rn Disposition Summary: 06/27/22 17:17 Hospitalization Ordered Hospitalization Status: Observation [facility] Provider: Salina Davidson Condition: Stable jmm Problem: new jmm Symptoms: have improved jmm Bed/Room Type: Standard [facility] Location: Telemetry/MedSurg (observation)(06/28/22 13:29) bd Room Assignment: 407(06/28/22 13:29) bd Diagnosis - Syncope Near jmm - Hypotension, unspecified jmm - Chest pain, unspecified jmm Forms: - Medication Reconciliation Form jmm - SBAR form jmm Signatures: Dispatcher [employer] EDMS Yusra Campbell Joel, PA PA jmm Nieto, James, MD MD rn Lauren Lucas RN RN cg Carmen Hoskins RN RN ld1 Corrections: (The following items were deleted from the chart) 06/27 20: 17:17 Telemetry/MedSurg (observation) [facility] 17:17 [facility] cg 06/28 13:06/27 20:28 [facility] ER [facility] cg bd 06/28 13:06/27 20:28 [facility]OLD- cg bd
--- NOTE | 2022-06-27 19:46 | P.HP ---
Certification for Inpatient Patient admitted to: Observation With expected LOS: <2 Midnights Patient will require the following post-hospital care: None Practitioner: I am a practitioner with admitting privileges, knowledge of patient current condition, hospital course, and medical plan of care. Services: Services provided to patient in accordance with Admission requirements found in Title 42 Section 412.3 of the Code of Federal Regulations Patient History Date of Service: 06/27/22 Primary Care Provider: Sridevi Reason for admission: Hypotension, ESRD, Weakness History of Present Illness: Patient is a 37-year-old male with past medical history significant for ESRD on HD Friday, [id number] type 2 diabetes, and hypertension who presented to the ED with complaints of weakness, chest pain, blurry vision, and headache. Patient reports that he had HD today, with a normal amount of fluid removed, took his BP meds after, then began experiencing said symptoms. His BP was 95/55 upon arrival to ED and slowly trended down, getting as low as 82/52. Head CT negative. Brain MRI pending. Labs unremarkable. Patient reports that his symptoms have mostly resolved, he is just feeling tired. ED provider wishes to admit patient for observation. Allergies No Known Allergies Allergy (Verified 10/31/21 23:38) Home Medications: Calcium Carbonate [Tums Regular*] 1,500 mg PO AC 11/02/21 Furosemide [Lasix*] 20 mg PO DAILY 11/02/21 Gabapentin [Neurontin*] 100 mg PO TID 11/02/21 Hydralazine [Apresoline*] 25 mg PO DAILY 11/02/21 Lanthanum Carbonate 1,000 mg PO TIDWM 11/02/21 Lisinopril [Zestril] 20 mg PO DAILY 11/02/21 - Past Medical/Surgical History Diabetic: Yes -: HTN -: ESRD on HD MWF -: Type 2 Diabetes, Non-Insulin Dependent -: Left arm fistula Psychosocial/ Personal History: Patient lives at home with family - Family History Father -: Diabetes Mother -: Diabetes - Social History Smoking Status: Never smoker Alcohol use: No CD- Drugs: No Caffeine use: Yes Place of Residence: Home Review of Systems General: Weakness, As per HPI Physical Examination - Physical Exam General: Alert, In no apparent distress HEENT: Atraumatic, PERRLA, EOMI, Sclerae nonicteric Neck: Supple, 2+ carotid pulse no bruit, No LAD, Without JVD or thyroid abnormality Respiratory: Clear to auscultation bilaterally, Normal air movement Cardiovascular: Regular rate/rhythm, Normal S1 S2 Gastrointestinal: Normal bowel sounds, No tenderness Musculoskeletal: No tenderness Integumentary: No rashes Neurological: Normal speech, Normal strength at 5/5 x4 extr, Normal tone, Normal affect - Studies Laboratory Data (last 24 hrs) 06/27/22 14:55: WBC 9.10, Hgb 12.9 L, Hct 37.6 L, Plt Count 165 06/27/22 14:55: Sodium 135 L, Potassium 4.0, BUN 41 H, Creatinine 11.30 H*, Glucose 97 Microbiology Data (last 24 hrs): 06/27/22 13:16 Throat Group A Streptococcus Rapid Screen - Final Assessment and Plan - Problems (Diagnosis) (1) Hypotension Current Visit: Yes Status: Acute Qualifiers: Hypotension type: hemodialysis-associated hypotension Qualified Code(s): I95.3 - Hypotension of hemodialysis (2) Type 2 diabetes mellitus Current Visit: Yes Status: Chronic Qualifiers: Diabetes mellitus long chain quiller tender insulin use: without shelter use Diabetes mellitus complication status: with kidney complications Diabetes mellitus complication detail: with chronic kidney disease Chronic kidney disease stage: on chronic dialysis Qualified Code(s): E11.22 - Type 2 diabetes mellitus with diabetic chronic kidney disease; N18.6 - End stage renal disease; Z99.2 - Dependence on renal dialysis (3) ESRD (end stage renal disease) Current Visit: Yes Status: Chronic - Plan Patient is admitted for observation. Monitor BP closely. Seems to be improving. Hold all antihypertensives. Repeat labs in AM. Monitor and replete electrolytes per protocol. Reconcile and continue home medications. Ambulation for VTE prophylaxis. Full code. Discharge Plan: Home Plan to discharge in: 24 Hours - Advance Directives Does patient have a Living Will: No Does patient have a Durable POA for Healthcare: No - Code Status/Comfort Care Code Status Assessed: Yes (Full) Critical Care: No Time Spent Managing Pts Care (In Minutes): 50
[2022-06-27] MEDS ORDERED: ONDANSETRON 4 MG/2 ML VIAL IV PRN (20:41)
[2022-06-27] MEDS ORDERED: ACETAMINOPHEN 325 MG TABLET PO PRN (20:41)
[2022-06-27] MEDS: INSULIN -REGULAR HUMAN 50 UNIT/0.5 ML ML SQ SCH (20:58)
[2022-06-27 21:09] VITALS: BMI 23.5
[2022-06-28 03:17] LABS: Absolute Lymphocytes (CBC) 0.8 K/uL (0.7-4.9); Hematocrit 35.2 % (39.6-49.0); MCV 101.3 fL (80-100); MPV 9.3 fL (7.6-11.3); RBC Red Blood Cell Count 3.47 M/uL (4.33-5.43)
[2022-06-28 03:36] LABS: Magnesium 2.9 mg/dL (1.8-2.4); Phosphorus 5.7 mg/dL (2.5-4.9)
[2022-06-28] MEDS: INSULIN -REGULAR HUMAN 50 UNIT/0.5 ML ML SQ SCH ×3 (07:29→16:30)
[2022-06-28] MEDS ORDERED: INFLUENZA VACCINE (for 6+ mo) 0.5 ML DOSE IMVAC ONE ×2 (08:00→09:35)
--- NOTE | 2022-06-28 08:23 | EKG ---
Test Date: 2022-06-27 Test Time: 13:13:37 [place] Worker: NICOLLE MEASUREMENT RESULTS: Intervals: Rate: 89 KS: 154 QRSD: 80 QT: 388 QTc: 472 [place]: P: 82 KS: 154 QRS: 83 T: 63 INTERPRETIVE STATEMENTS: Normal sinus rhythm Biatrial enlargement Pulmonary disease pattern Abnormal ECG Compared to ECG 03/21/2022 00:33:39 Atrial abnormality now present Prolonged QT interval no longer present Electronically Signed On 06-28-22 08:20:00 PROGRAMMING EQUIPMENT OPERATOR by Matthieu Downing
[2022-06-28 14:54] VITALS: O2SAT 98
--- NOTE | 2022-06-28 15:10 | ECHO ---
HEIGHT: 5 ft 7 in WEIGHT: 150 lb 0 oz DATE OF STUDY: 06/28/[address]: Jose Marquis MD 2-DIMENSIONAL: YES M.MODE: YES DOPPLER: YES COLOR FLOW: YES TDS: PORTABLE: YES DEFINITY: BUBBLE STUDY: YES DIAGNOSIS: HISTORY OF SEPTAL DEFECT WITH HYPOTENSION CARDIAC HISTORY: CATHERIZATION: SURGERY: PROSTHETIC VALVE: PACEMAKER: MEASUREMENTS (cm) DIASTOLIC (NORMALS) SYSTOLIC (NORMALS) IVSd 1.1 (0.6-1.2) LA Diam 2.6 (1.9-4.0) LVEF 61% LVIDd 4.6 (3.5-5.7) LVIDs 3.1 (2.0-3.5) %FS 33% LVPWd 1.3 (0.6-1.2) Ao Diam 2.6 (2.0-3.7) 2 DIMENSIONAL ASSESSMENT: RIGHT ATRIUM: NORMAL LEFT ATRIUM: NORMAL RIGHT VENTRICLE: NORMAL LEFT VENTRICLE: NORAML TRICUSPID VALVE: MILD TRICUSPID REGURGITATION MITRAL VALVE: MILD MITRAL REGURGITATION PULMONIC VALVE: NORMAL AORTIC VALVE: NORMAL PERICARDIAL EFFUSION: NONE AORTIC ROOT: NORMAL LEFT VENTRICULAR WALL MOTION: NORMAL DOPPLER/COLOR FLOW: MILD TRICUSPID REGURGITATION, MITRAL REGURGITATION COMMENTS: 1. NORMAL LEFT VENTRICULAR EJECTION FRACTION 60-65% WITH NORMAL WALL MOTION. 2. MILD MITRAL REGURGITATION, TRICUSPID REGURGITATION 3. NORMAL DIASTOLIC DYSFUNCTION 4. BUBBLE STUDY IS POSITIVE AND LIKELY DUE TO PATENT FORAMEN OVALE TECHNOLOGIST: ROSA RODRÍGUEZ
[2022-06-28 16:41] VITALS: BP 109/65; TEMP 97.8
--- NOTE | 2022-06-28 18:15 | P.DS ---
Admission Date: 06/27/22 Discharge Date: 06/28/22 Primary Care Provider: Sridevi Disposition: ROUTINE DISCHARGE Discharge Condition: FAIR Reason for Admission: Hypotension, ESRD, Weakness - Problems (1) Hypotension Current Visit: Yes Status: Acute Qualifiers: Hypotension type: hemodialysis-associated hypotension Qualified Code(s): I95.3 - Hypotension of hemodialysis (2) ESRD (end stage renal disease) Current Visit: Yes Status: Chronic (3) Type 2 diabetes mellitus Current Visit: Yes Status: Chronic Qualifiers: Diabetes mellitus care home insulin use: without laborer marine terminal use Diabetes mellitus complication status: with kidney complications Diabetes mellitus complication detail: with chronic kidney disease Chronic kidney disease stage: on chronic dialysis Qualified Code(s): E11.22 - Type 2 diabetes mellitus with diabetic chronic kidney disease; N18.6 - End stage renal disease; Z99.2 - Dependence on renal dialysis Brief History of Present Illness: Patient is a 37-year-old male with past medical history significant for ESRD on HD MWF, [id number]-[id number] type 2 diabetes, and hypertension who presented to the ED with complaints of weakness, chest pain, blurry vision, and headache. Patient reported that he had HD today, with a normal amount of fluid removed, took his BP meds after, then began experiencing said symptoms. His BP was 95/55 upon arrival to ED and slowly trended down, getting as low as 82/52. Head CT negative. Labs unremarkable. Patient symptoms resolved in the ED. Patient hospitalized for further management. Hospital Course: Patient placed under observation on the medical floor. Initial troponin was negative. 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 Echocardiogram with bubble study was done which confirmed patent foramen ovale. Case discussed with cardiology at the [facility] who stated patient's hypertension and PFO are unrelated. No cyanosis noted. Patient blood pressure improved. Noted he is on lisinopril for hypertension. Patient states that he sometimes hold his lisinopril when his systolic blood pressure is in the low 100s. His hypotension may be related to his dialysis or his antihypertensive. I called and discussed the case with his dough mixer Dr. Laureano who recommended to stop his lisinopril. Patient to follow-up with him for further dialysis orders. Patient has been asymptomatic, vitals stable. He is deemed stable for discharge. Vital Signs/Physical Exam: Temp Pulse Resp BP Pulse Ox 97.8 F 65 16 109/65 98 06/28/22 16:00 06/28/22 16:00 06/28/22 16:00 06/28/22 16:00 06/28/22 16:00 General: In no apparent distress HEENT: Mucous membr. moist/pink Neck: JVD not distended Respiratory: Clear to auscultation bilaterally, Normal air movement Cardiovascular: No edema, Regular rate/rhythm, Normal S1 S2 Gastrointestinal: Soft and benign, Non-distended, No tenderness Integumentary: No rashes, No cyanosis Neurological: Normal strength at 5/5 x4 extr Laboratory Data at Discharge: WBC 6.70 K/uL (4.3-10.9) 06/28/22 02:09 Hgb 12.4 g/dL (13.6-17.9) L 06/28/22 02:09 Hct 35.2 % (39.6-49.0) L 06/28/22 02:09 Plt Count 146 K/uL (152-406) L 06/28/22 02:09 Sodium 135 mmol/L (136-145) L 06/28/22 02:09 Potassium 4.0 mmol/L (3.5-5.1) 06/28/22 02:09 BUN 55 mg/dL (7-18) H 06/28/22 02:09 Creatinine 13.30 mg/dL (0.55-1.3) H* 06/28/22 02:09 Glucose 124 mg/dL (74-106) H 06/28/22 02:09 Phosphorus 5.7 mg/dL (2.5-4.9) H 06/28/22 02:09 Magnesium 2.9 mg/dL (1.8-2.4) H 06/28/22 02:09 Home Medications: Calcium Carbonate [Tums Regular*] 1,500 mg PO AC 11/02/21 Furosemide [Lasix*] 20 mg PO DAILY 11/02/21 Gabapentin [Neurontin*] 100 mg PO TID 11/02/21 Lanthanum Carbonate 1,000 mg PO TIDWM 11/02/21 Diet: ADA Activity: Ad [place] Followup: Matthieu Downing MD [ACTIVE - CAN ADMIT] - 1-2 Weeks (Referral for patent PFO.) NONE,NONE [Primary Care Provider] -
== END 2022-06-28 19:45 | disposition home or self-care (01) ==
LOC: ER 12:56 → ERHOLD 19:41 → 4TH 06-28 14:30
PROVIDERS: ADMIT Internal Medicine; ATTEND Internal Medicine
DX: I95.9 Hypotension, unspecified (principal); N18.6 End stage renal disease; E11.22 Type 2 diabetes mellitus with diabetic chronic kidney disease; Z99.2 Dependence on renal dialysis; I10 Essential (primary) hypertension
CPT/HCPCS: 93005; 93306; 87070; 85025 ×2; 80048 ×2; 36415; 83735; 84100; 82947 ×4; 87081; 83036; 84484; 0240U; 70450; 71045; 90471; 70551; 99285; Q2035; G0378 ×3

== ENCOUNTER 2022-09-16 11:49 | Inpatient (IN) | payer OTHER ==
[2022-09-16] MEDS ORDERED: ACETAMINOPHEN 500 MG TAB ONE (12:25)
--- NOTE | 2022-09-16 12:38 | RAD REPORT ---
EXAM DESCRIPTION: Charlie Single View09/16/2022 12:26 pm CLINICAL HISTORY: Chest pain COMPARISON: June 2022 FINDINGS: The lungs appear clear of acute infiltrate. The heart is normal size IMPRESSION: No acute abnormalities displayed
--- OUTSIDE RECORDS SUMMARY | 2022-09-16 12:38 | XMS REPORT | Continuity of Care Document ---
:1985 Author Organization [facility] t Address [address] [place] [address] Care Team Providers Name Role Phone PCP, PATIENT DOES NOT HAVE A Primary Care Physician UnavailOlivia Shah Attending Clinician Unavailable RUDOLPH STONE Attending Clinician Unavailable EUSEBIO WOOD Attending Clinician Unavailable JARRETT PERDOMO Attending Clinician Unavailable Jarrett Perdomo Attending Clinician AHMET MEDINA Attending Clinician Unavailable Ahmet Medina Attending Clinician Rudolph Stone Jr Attending Clinician STEWART PELAEZ Attending Clinician Unavailable Stewart Pelaez Attending Clinician TATE RÍOS Attending Clinician Unavailable MARQUEZ CUELLAR Attending Clinician Unavailable Marquez Cuellar Attending Clinician Camilla Brizuela MD Attending Clinician [phone] Erich Mae MD Attending Clinician ERICH MAE Attending Clinician Unavailable MICHEL JACOB Attending Clinician Unavailable Michel Jacob Attending Clinician Lolis Romero MD Attending Clinician LOLIS ROMERO Attending Clinician Unavailable Stewart Pelaez MD Attending Clinician [phone] Doctor Unassigned, [facility] Attending Clinician Unavailable Benjie Hamilton MD Attending Clinician Parisa Arevalo MD Attending Clinician Martha Hdz MD Attending Clinician Only, Adc Test Attending Clinician Unavailable BENJIE HAMILTON Attending Clinician Unavailable Pob, Ad[facility] Lab Main Attending Clinician Unavailable Sandi Garland MD Attending Clinician SANDI GARLAND Attending Clinician Unavailable GABRIEL REID Attending Clinician Unavailable Gabriel Reid Attending Clinician Wolf Robert MD Attending Clinician [phone] WOLF ROBERT Attending Clinician Unavailable Unknown, Attending Attending Clinician Unavailable UNKNOWN, ATTENDING Attending Clinician Unavailable TATE RÍOS Attending Clinician Unavailable Tate Ríos Attending Clinician RUDOLPH STONE Admitting Clinician Unavailable Lolis Romero MD Admitting Clinician LOLIS ROMERO Admitting Clinician Unavailable TATE RÍOS Admitting Clinician Unavailable Tate Ríos Admitting Clinician Payers Payer Name Policy Type Policy Number Effective Date Expiration Date S ource MEDICARE PART A [id number] 2020 AND B 00:00:00 [place] [id number] 2020 00:00:00 Problems Condition Condition Condition Status Onset Resolution Last Treating Co mments Source Name Details Category Date Date Treatment Clinician Date History of History Diagnosis Active 2022-09-04 Memoria cholecyste of 09-01 07:12:11 l ctomy cholecyste 00:00: Carlos rolon (situation ctomy 00 ) (situation ) Active 09/01/2022 Diagnosis 09/04/2022 [facility] FOLLOW UP FOLLOW UP Diagnosis Active 2022-09-01 Memoria AFTER AFTER 08-22 09:04:00 l SURGERY SURGERY 00:00: Fletcher Active 00 08/22/2022 [facility] CHOLESTERO CHOLESTER Diagnosis Active 2021-082022-08-04 Memoria LOSIS OF OLOSIS OF 09-27 10:32:00 l GALLBLADDE GALLBLADDE 00:00: Baldomero Cabrera Active 00 07/27/2022 [facility] REFERRAL REFERRAL Diagnosis Active 2021-082022-09-08 Memoria Active 09-27 10:45:00 l 07/27/2022 00:00: Carlos rolon [address] PRE-RENAL PRE-RENAL Diagnosis Active 2021-082022-08-17 Memoria TRANSPLANT TRANSPLANT 09-21 06:54:00 l LISTED LISTED 00:00: Fletcher UPDATE UPDATE 00 Active 07/21/2022 [facility] LABS LABS Diagnosis Active 2021-082022-06-16 Mem oria Active 0- 14:03:00 l 05/23/2022 11:00: Carlos rolon [address] LISTED LISTED Diagnosis Active 2021-082022-06-16 Me moria UPDATE UPDATE 0- 14:04:00 l Active 11:00: Fletcher 05/14/2022 00 [facility] LABH LABH Diagnosis Active 2021-12-17 Mem oria Active 11-24 16:28:00 l 11/24/2021 11:00: Carlos rolon [address] PATIENT PATIENT Diagnosis Active 2021-11-10 Memoria Active 09-15 15:29:00 l 09/15/2021 00:00: Carlos rolon [address] ASSESS THE ASSESS Diagnosis Active 2021-08-26 Max ORR THE 08-26 10:45:00 l R POLYPS. JOANNAADDShauna 00:00: Her napoles R POLYPS. 00 Active 08/26/2021 [facility] NEW NEW Diagnosis Active 2020-082021-09-14 Mem oria ENCOUNTER ENCOUNTER 09-22 09:26:00 l Active 00:00: Fletcher 07/22/2021 00 [facility] Non-intrac Non-intrac Disease Active Overview : Univers table table 9-17 Formattin ity of vomiting vomiting 00:00: g of this [place] as with with 00 note Medical nausea, nausea, might be Branch unspecifie unspecifie different d vomiting d vomiting from the type type original. Added automatic ally from request for surgery [id number] ESRD (end ESRD (end Disease Active Uni vers stage stage 9- ity of renal renal 00:00: [place] disease) disease) 00 Medica l Branch NON LISTED NON Diagnosis Active 2021-07-20 Memoria UPDATE LISTED 04-21 09:41:00 l UPDATE 00:00: [place] Active 00 04/21/2021 [facility] SUGICAL SUGICAL Diagnosis Active 2020-10-19 Memoria CONSULT CONSULT 09-22 13:13:00 l Active 00:00: Fletcher 09/22/2020 00 [facility] CCL/RHC CCL/RHC Diagnosis Active 2020-09-07 Memoria RAPID RAPID 09-02 13:04:00 l COVID TEST COVID TEST 00:00: Baldomero dos santos REQ REQ 00 (WILL N (WILL N Active 09/02/2020 [facility] FOLLOW UP FOLLOW UP Diagnosis Active 2019-082020-08-25 Memoria Active 09-17 10:56:00 l 07/17/2020 00:00: Carlos rolon [address] ESRD/RENAL ESRD/ILEANA Diagnosis Active 2020-05-19 Memoria TXP EVAL L TXP EVAL 04-29 07:33:00 l Active 00:00: Fletcher 04/29/2020 00 [facility] KIDNEY KIDNEY Diagnosis Active 2022-04-14 Sc moria TRANSPLANT TRANSPLANT 03-31 14:47:00 l FINANCIAL FINANCIAL 14:22: Khloe solitario ACCT NOTES ACCT NOTES 00 O O Active 03/31/2020 [facility] UNK UNK Diagnosis Active 2020-01-14 Mem oria Active 12-23 06:52:00 l 12/24/2019 00:00: Carlos rolon [address] END STAGE END Diagnosis Active 2020-01-24 Memoria RENAL STAGE - 09:08:00 l DISEASE ON RENAL 00:00: Carlos rolon DIALYSIS DISEASE ON 00 DIALYSIS Active 12/24/2019 [facility] NEW KIDNEY NEW Diagnosis Active 2020-04-28 Memoria EVAL KIDNEY 12-09 12:01:00 l EVAL 00:00: Fletcher Active 00 12/10/2019 [facility] Anemia of Anemia of Problem Resolve 2022-02-18 Memoria chronic chronic d 00:02:31 l disorder disorder Carlos rolon (disorder) (disorder) Resolved Problem 02/18/2022 [facility] RUBÉN Bynum Secondary Secondary Problem Resolve 2022-02-18 Memoria hyperparat hyperparat d 00:02:31 l hyroidism hyroidism Khloe solitario (disorder) (disorder) Resolved Problem 02/18/2022 [facility] RUBÉN Bynum Dependence Dependenc Problem Active 2022-09-04 Memoria on e on 07:12:11 l hemodialys hemodialys He rmann is due to is due to end stage end stage renal renal disease disease (finding) (finding) Active Problem 09/04/2022 [facility] in Device in Problem Active 2022-09-04 Memoria situ situ 07:12:11 l (finding) (finding) Khloe solitario Active Problem 09/04/2022 [facility] Hypertensi Hypertens Problem Active 2022-09-04 Memoria ve ji 07:12:11 l disorder, disorder, Herm kassi systemic systemic arterial arterial (disorder) (disorder) Active Problem 09/04/2022 [facility] Patient Patient Problem Active 2022-09-04 Sc moribertha encounter encounter 07:12:11 l status status Fletcher (finding) (finding) Active Problem 09/04/2022 [facility] RUBÉN Bynum Cholecysti Cholecyst Problem Active 2022-09-04 Memoria tis itis 07:12:11 l (disorder) (disorder) He rmann Active Problem 09/04/2022 [facility] Polyp of Polyp of Problem Active 2022-09-04 [facility] gallbladde gallbladde 07:12:11 l r r [place] (disorder) (disorder) Active Problem 09/04/2022 [facility] ENCNTR FOR ENCNTR Diagnosis Active 2020-08-25 [facility] GENERAL FOR 10:56:00 l ADULT GENERAL [place] MEDICAL ADULT EXAM W/ MEDICAL EXAM W/ Active [facility] END STAGE END STAGE Diagnosis Active 2020-05-19 Memoria RENAL RENAL 07:33:00 l DISEASE DISEASE [place] Active [facility] N18.6 - N18.6 - Diagnosis Active 2021-07-20 Memoria END STAGE END STAGE 14:18:00 l RENAL RENAL [place] DISEASE DISEASE Active RUBÉN Bynum ENCOUNTER ENCOUNTER Diagnosis Active 2022-09-01 Memoria FOR FOR 09:04:00 l AFTERCARE AFTERCARE Herm kassi FOLLOWING FOLLOWING OTHER OTHER Active [facility] N18.6 - N18.6 - Diagnosis Active 2022-09-09 [facility] END STAGE END STAGE 10:05:00 l RENAL RENAL [place] DISEASE DISEASE R11.2 - R11.2 - Active [facility] [id number] Type 2 Problem Active Common diabetes Spirit mellitus - [facility] disease [id number] End stage Problem Active Com mon renal Spirit disease - [facility] [id number] Dependence Problem Active Co mmon on renal Spirit dialysis - [facility] [id number] Hypertensi Problem Active Com mon ve heart Spirit disease - [facility] without [facility] Acquired Acquired Diagnosis 2022-09-04 2022-09-04 Memoria absence of absence of 09-01 07:12:11 07:12:11 l organ organ 16:00: [place] 09/01/2022 00 Diagnosis 09/04/2022 [facility] End stage End stage Diagnosis 2022-09-04 2022-09-04 Memoria renal renal - 07:12:11 07:12:11 l disease disease 15:57: Fletcher (disorder) (disorder) 00 09/01/2022 Diagnosis 09/04/2022 [facility] Surgical Surgical Diagnosis 2022-2022-09-04 2022-09-04 Memoria follow-up follow-up 09-01 07:12:11 07:12:11 l (finding) (finding) 15:57: Khloe solitario 09/01/2022 00 Diagnosis 09/04/2022 [facility] Cholestero Cholester Diagnosis 2021-082022-08-07 2022-08-07 Memoria losis of olosis of 10-05 06:21:10 06:21:10 l gallbladde gallbladde 18:00: Baldomero Nova (disorder) (disorder) 08/04/2022 Diagnosis 08/07/2022 [facility] History of Past Illness Condition Condition Condition Status Onset Resolution Last Treating Co mments Source Name Details Category Date Date Treatment Clinician Date End stage End stage Problem 2021-11-13 2021-11-13 Memoria renal renal - 23:56:20 23:56:20 l disease disease 21:06: Fletcher 10/04/2021 00 11/13/2021 [facility] Essential Essential Problem 2021-11-13 2021-11-13 Memoria (primary) (primary) - 23:56:20 23:56:20 l hypertensi hypertensi 21:06: Baldomero dos santos on on 10/04/2021 11/13/2021 [facility] Allergies, Adverse Reactions, Alerts Allergy Allergy Status Severity Reaction(s) Onset Inactive Treating Comm ents Source Name Type Date Date Clinician NO KNOWN Drug Active Univers ALLERGIE Class ity of S [place] [facility] Social History Social Habit Start Date Stop Date Quantity Comments Source History SDOH University o f Alcohol Std [place] [facility] Drinks Branch History SDOH University o f Alcohol Binge [place] [facility] History SDOH University o f Alcohol Comment [place] [facility] Exposure to Not sure University of SARS-CoV-2 [place] [facility] (event) Branch History of Common Spirit - Tobacco Use [facility] Social History 2022-09-02 2022-09-02 [facility] ermann 07:23:52 07:23:52 Alcohol intake 2021-10-28 2021-10-28 Lifetime University of 00:00:00 00:00:00 non-drinker [facility] [place] Social History 2021-06-22 [facility] 14:16:53 14:16:53 Tobacco use and 2021-03-09 2021-03-09 Never used Universit y of exposure 00:00:00 00:00:00 [facility] [place] History SDOH 2021-03-09 2021-03-09 1 University o f Alcohol Frequency 00:00:00 00:00:00 [facility] Smoking Status Start Date Stop Date Source Tobacco smoking consumption unknown [facility] Tobacco smoking status [facility] Medications Ordered Filled Start Stop Current Ordering Indication Dosage Frequency Signature Comments Components Source Medication Medication Date Date Medication? Clinician (SIG) Name Name acetaminoph 2021-08 Yes 500 mg = 1 Memoria en 500 mg 2-23 tab, PO, l oral 01:14: Q6H, X 7 [place] tablet. 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 ers rol, 2-16 50,000 ity of vitamin d2, 00:00: [place] 1[place]250 mcg 00 mouth Medical (50,000 weekly. Branch unit) capsule lisinopriL 2020-08 Yes 10mg Take 10 mg U nivers 10 mg 2-16 by mouth ity of tablet 14:56: daily. [address] hydrALAZINE 2020-08 Yes 10mg Take 10 mg Univers 10 mg 2-16 by mouth ity of tablet 14:56: as needed. [address] furosemide 2020-08 Yes 20 mg = 1 Me moria 20 mg oral 09 tab, PO, l tablet 15:55: BID [place] 00 gabapentin 2020-08 Yes 100 mg = 1 M emoria 100 mg oral 08-22 cap, PO, l capsule 15:51: TID, PRN Carlos n 00 Blood Yes [id number] Use to [facility] s Pressure 05-06 check ity of Monitor Kit 00:00: blood [place] 00 pressure Medical once Branch daily. I10 Blood-Gluco Yes [id number] Use to [facility] se Meter 23 check ity of (ACCU-CHEK 00:00: glucose 1x [place] GUIDE 00 daily. Medical GLUCOSE E11.22, Branch METER) Misc N18.6, Z99.2 Lancets Yes [id number] Use to [facility] ers (ACCU-CHEK 21 check ity of MULTICLIX 00:00: blood [place] LANCET) 00 glucose Medical Misc level 1x Branch daily. E11.22, N18.6, Z99.2 blood sugar Yes [id number] Use as Univers diagnostic -20 directed ity o f (ACCU-CHEK 00:00: once daily [place] GUIDE TEST 00 Medical STRIPS) Branch strip ondansetron Yes [id number] 8mg Take 1 Univers 8 mg 9-16 tablet by ity of disintegrat 00:00: mouth [place] ing tablet 00 every 8 Medica l (eight) Branch hours as needed for Nausea and Vomiting (N/V). gabapentin Yes Univers 100 mg 8-18 ity of capsule 00:00: [place] [id number] Medical Branch lanthanum Yes CHEW AND Univ ers 1,000 mg 7-21 SWALLOW 1 ity of chewable 00:00: TABLET BY [place] tablet 00 MOUTH Medical THREE Branch TIMES DAILY WITH MEALS furosemide Yes 20mg Take 20 mg U nivers 20 mg 6-08 by mouth 2 ity of tablet 00:00: (two) [place] 00 times Medical daily. Branch gabapentin Yes 100 mg, Rigoberto malena 1-25 PO, TID, 0 l 20:00: Refill(s) Ascorbic Yes 1 tab, PO, Mem oria Acid 60 MG 1-25 QPM, 0 l / Calcium 20:00: Refill(s) Her napoles Pantothenat 00 e 10 MG / D-BIOTIN 0.3 MG / Folic Acid 0.8 MG / Niacinamide 20 MG / pyridoxine 10 MG / Riboflavin 1.7 MG / Thiamine 1.5 MG / Vitamin B 12 0.006 MG Oral Tablet [Ileana-Melanie] Ileana-Melanie Yes 1 tab, PO, Me moria oral tablet 1-25 QPM, 0 l 20:00: Refill(s) lanthanum Yes See Memoria carbonate 1-25 Instructio l 1000 mg 20:00: ns, 1 tab Melissa nn oral 00 PO TID, 0 tablet, Refill(s) chewable lisinopril Yes 20 mg = 1 Me moria 20 mg oral 8-18 tab, PO, l tablet 14:43: Daily, HOLD If systolic blood pressure is less than 110 sevelamer Yes 1,600 mg = Me moria 800 mg oral 8-18 2 tab, PO, l tablet 12:40: TID, 0 Refill(s) Acetaminoph No 1,000 mg, M emoria en 01-14 Route: PO, l 17:42: Drug form: TAB, ONCE, Dosing Weight 69.364, kg, PRN Pain Score 1-3, Start date: 01/15/20 12:42:00 CDT Oxycodone No 5 mg, Memoria Hydrochlori 01-14 Route: PO, l de 5 MG 17:42: Drug form: Herm kassi Oral Tablet 00 TAB, Q4H, Dosing Weight 69.364, kg, PRN Pain Score 4-6, Start date: 01/15/20 12:42:00 CDT, Duration: 30 day, Stop date: 02/14/20 12:41:00 CDT Fentanyl 2020-0 No 25 Memoria 6-03 microgram, l 17:42: Route: [place] 00 IVP, Q5Min, Dosing Weight 69.364, kg, PRN Pain Score 4-6, Priority: Routine, Start date: 01/15/20 12:42:00 CDT, Duration: 4 doses or times, Stop date: Limited # of times Flumazenil 2020-0 No 0.2 mg, Rigoberto malena 01-14 Route: l 17:42: IVP, PRN, Fletcher Dosing Weight 69.364, kg, PRN Benzodiaze pine Reversal, Initial dose, Start date: 01/15/20 12:42:00 CDT, Duration: 30 day, Stop date: 02/14/20 12:41:00 CDT Naloxone 2020-0 No 0.4 mg, Memori a 01-14 Route: l 17:42: IVP, [place] 00 Q2MIN, Dosing Weight 69.364, kg, PRN Narcotic Reversal, Start date: 01/15/20 12:42:00 CDT, Duration: 8 doses or times, Stop date: Limited # of times Ondansetron 2020-0 No 4 mg, Memor ia 01-14 Route: l 17:42: IVP, ONCE, Dosing Weight 69.364, kg, PRN Nausea & Vomiting, Start date: 01/15/20 12:42:00 CDT protamine 2019-0 No Route: IV, Me moria (ANES) 01-14 Drug form: l 17:37: INJ, ONCE, Fletcher Stop date: 01/15/20 12:37:00 CDT midazolam 2019-0 No Route: IV, Me moria (ANES) - Drug form: l 17:09: SOLN, [place] 00 ONCE, Stop date: 01/15/20 12:09:00 CDT fentaNYL 2020-0 No Route: IV, Mem oria (ANES) 01-14 Drug form: l 17:09: INJ, ONCE, Stop date: 01/15/20 12:09:00 CDT propofol 2020-0 No Route: IV, Mem oria (ANES) 01-14 Drug form: l 17:09: INJ, ONCE, Stop date: 01/15/20 12:09:00 CDT lidocaine 2020-0 No Route: IV, Me moria (ANES) 01-14 Drug form: l 17:09: INJ, ONCE, Stop date: 01/15/20 12:09:00 CDT ceFAZolin 2020-0 No Route: IV, Me moria (ANES) 01-14 Drug form: l 17:09: INJ, ONCE, Stop date: 01/15/20 12:09:00 CDT ondansetron 2019-0 No Route: IV, Memoria (ANES) 01-14 Drug form: l 17:09: INJ, ONCE, Stop date: 01/15/20 12:09:00 CDT ePHEDrine 2019-0 No Route: IV, Me moria (ANES) 01-14 Drug form: l 17:09: INJ, ONCE, Stop date: 01/15/20 12:09:00 CDT phenylephri 2020-0 No Route: IV, Memoria ne (ANES) 01-14 Drug form: l 17:09: INJ, ONCE, Stop date: 01/15/20 12:09:00 CDT heparin 2020-0 No Route: IV, Rigoberto malena (ANES) 01-14 Drug form: l 17:04: INJ, ONCE, Stop date: 01/15/20 12:04:00 CDT vancomycin 2020-0 No Route: IV, M emoria (ANES) 1000 01-14 Drug form: l mg 16:16: INJ, Start date: 01/15/20 11:16:00 CDT, Stop date: 01/15/20 12:16:00 CDT Sodium 2020-0 No Route: IV, Memor ia Chloride 01-14 Total l 0.9% IV 16:16: Volume: [place] (ANES) 1000 00 1,000, mL Start date: 01/15/20 11:16:00 CDT, Stop date: 01/15/20 12:16:00 CDT normal 2020-0 No 500 mL, Memoria saline 0.9% 6- Rate: 40 l IV 500 mL 16:12: ml/hr, Carlos n 00 Infuse over: 12.5 hr, Route: IV, Dosing Weight 69.364 kg, Total Volume: 500, Start date: 01/15/20 11:12:00 CDT, Duration: 1 day, Stop date: 01/16/20 11:11:00 CDT, 1.83, m2, 0 Calcium 2020-0 No 1,000 mL, Memor ia Chloride - Rate: 75 l 0.0014 15:33: ml/hr, Fletcher MEQ/ML / 00 Infuse Potassium over: 13.3 Chloride hr, Route: 0.004 IV, Dosing MEQ/ML / Weight Sodium 69.364 kg, Chloride Total 0.103 Volume: MEQ/ML / 1,000, Sodium Start Lactate date: 0.028 01/15/20 MEQ/ML 10:33:00 Injectable CDT, Solution Duration: 1 day, Stop date: 01/16/20 10:32:00 CDT, 1.83, m2, 0 Amlodipine 0 No Notes: Memor ia 6-03 (Same as: l 14:00: Norvasc) Fletcher 00 Lisinopril 0 No Notes: Memor ia 6-03 (Same as: l 14:00: Prinivil, [place] 00 Zestril) 24 HR 0 No Notes: Memoria Metoprolol 6-03 (Same as: l Tartrate 50 14:00: Toprol XL) Fletcher MG Extended 00 May split Release tab, but Tablet do not [Toprol] crush. Hydralazine 0 No Notes: Rigoberto malena Hydrochlori 6-02 (Same as: l de 25 MG 22:00: Apresoline Her napoles Oral Tablet 00 ) May interfere w/enteral feedings Take With Food. Sodium 2020-0 No 500 mL, Memoria Chloride 6-02 Rate: 25 l 0.9% IV 500 16:46: ml/hr, Herm kassi mL 00 Infuse over: 20 hr, Route: IV, Dosing Weight 69.364 kg, Total Volume: 500, Start date: 01/14/20 11:46:00 CDT, Duration: 30 day, Stop date: 02/13/20 11:45:00 CDT, 1.83, m2, 0 Calcium 2020-0 No 1,000 mL, Memor ia Chloride 01-13 Rate: 75 l 0.0014 14:20: ml/hr, Fletcher MEQ/ML / 00 Infuse Potassium over: 13.3 Chloride hr, Route: 0.004 IV, Dosing MEQ/ML / Weight Sodium 69.364 kg, Chloride Total 0.103 Volume: MEQ/ML / 1,000, Sodium Start Lactate date: 0.028 01/14/20 MEQ/ML 9:20:00 Injectable CDT, Solution Duration: 30 day, Stop date: 02/13/20 9:19:00 CDT, 1.83, m2, 0 Lisinopril 2020-0 Yes 20 mg, PO, M emoria 5-28 Daily, 0 l 19:43: Refill(s) [place] 00 Hydralazine 2020-0 Yes 25 mg = 1 M emoria Hydrochlori 5-28 tab, PO, l de 25 MG 19:42: TID, # 270 Her napoles Oral Tablet 00 tab, 1 Refill(s) amLODIPine 2020-0 Yes 10 mg = 1 Me moria 10 mg oral 5-28 tab, PO, l tablet 19:42: Daily, # [place] 00 30 tab, 0 Refill(s) metoprolol 2020-0 Yes 50 mg = 1 Me moria tartrate 50 5-28 tab, PO, l mg oral 19:42: BID, # 180 Herm kassi tablet 00 tab, 0 Refill(s) hydrALAZINE 2020-0 Yes 25 mg = 1 M emoria 25 mg oral 5-28 tab, PO, l tablet 19:42: TID, # 270 Melissa nn 00 tab, 1 Refill(s) Vancomycin 2020-0 No 2001 mg: Me moria 5-28 infuse l 19:00: over 2.5 [place] 00 hours For adult patients only: Round to nearest 250 mg per Medical Staff approval MEDICATION WASTE Product Size: 1000 mg Product Wasted: ___ mg Ancef + 2020-0 No Notes: Memoria sterile 5-28 (Same As: l water 20 mL 19:00: Ancef, Herm kassi 00 Kefzol) MEDICATION WASTE Product Size: 1000 mg Product Wasted: ___ mg Lanthanum Lanthanum No 1{table QD Lanthanum Carbonate [...] MG 12.5 MG t_with_ 12.5 MG food} Immunizations Ordered Immunization Filled Immunization Date Status Commen ts Source Name Name [id number] 2020-12-11 Completed Rigoberto rial [id number] 00:00:00 Herm kassi <sup>1</sup> [id number] 2020-11-20 Completed Rigoberto rial [id number] 00:00:00 Herm kassi <sup>2</sup> Vital Signs Vital Name Observation Time Observation Value Comments Source height 2022-04-25 11:20:00 67 [in_i] [facility] weight 2022-04-25 11:20:00 154.2 [lb_av] Common [facility] temperature 2022-04-25 11:20:00 98.6 [degF] [facility] bmi 2022-04-25 11:20:00 24.15 kg/m2 [facility] oximetry 2022-04-25 11:20:00 99 % [facility] respiratory rate 2022-04-25 11:20:00 16 /min Comm on [facility] blood pressure 2022-04-25 11:20:00 123 mm[Hg] Common [facility] - systolic [facility] blood pressure 2022-04-25 11:20:00 71 mm[Hg] Common [facility] - diastolic [facility] height 2022-04-01 08:00:00 67 [in_i] Common [facility] weight 2022-04-01 08:00:00 154 [lb_av] Common [facility] bmi 2022-04-01 08:00:00 24.12 kg/m2 [facility] height 2022-03-28 10:40:00 67 [in_i] [facility] weight 2022-03-28 10:40:00 154 [lb_av] [facility] temperature 2022-03-28 10:40:00 97.3 [degF] [facility] bmi 2022-03-28 10:40:00 24.12 kg/m2 [facility] oximetry 2022-03-28 10:40:00 98 % [facility] [place] respiratory rate 2022-03-28 10:40:00 16 /min Comm on [facility] blood pressure 2022-03-28 10:40:00 142 mm[Hg] Common [facility] - systolic [facility] blood pressure 2022-03-28 10:40:00 86 mm[Hg] Common [facility] - diastolic [facility] Systolic blood 2021-10-28 20:51:00 123 mm[Hg] [facility] Diastolic blood 2021-10-28 20:51:00 72 mm[Hg] [facility]ive [facility] Heart rate 2021-10-28 20:51:00 83 /min [facility] Body temperature 2021-10-28 20:51:00 36.33 [facility] 2021-10-28 20:51:00 18 /min [facility] Body height 2021-10-28 20:51:00 167.6 cm [facility] Body weight 2021-10-28 20:51:00 71.124 kg [facility] BMI 2021-10-28 20:51:00 25.31 kg/m2 [facility] Oxygen saturation in 2021-10-28 20:51:00 99 /min [facility] Arterial blood by [facility] Pulse oximetry [place] Heart Rate 2022-09-01 15:33:00 [facility] [place] Systolic (mm Hg) 2022-09-01 15:33:00 Rigoberto rial [facility] Diastolic (mm Hg) 2022-09-01 15:33:00 Mem [facility] [place] Height 2022-09-01 15:33:00 169.5 cm [facility] Weight 2022-09-01 15:33:00 [facility] BMI Calculated 2022-09-01 15:33:00 [facility] [place] Systolic (mm Hg) 2022-08-05 03:15:00 Rigoberto [facility] [place] Diastolic (mm Hg) 2022-08-05 03:15:00 Mem orial [facility] Height 2022-08-04 17:11:00 5 [ft_i] [facility] Weight 2022-08-04 17:11:00 [facility] BMI Calculated 2022-08-04 17:11:00 Memori al [facility] Heart Rate 2022-08-04 17:10:00 [facility] [place] Weight 2022-08-01 14:36:00 [facility] [place] Heart Rate 2022-07-26 15:20:00 [facility] Systolic (mm Hg) 2022-07-26 15:20:00 Rigoberto rial [facility] Diastolic (mm Hg) 2022-07-26 15:20:00 Mem [facility] [place] Height 2022-07-26 15:20:00 169.5 cm [facility] Weight 2022-07-26 15:20:00 [facility] [place] BMI Calculated 2022-07-26 15:20:00 [facility] [place] Systolic (mm Hg) 2021-11-10 16:30:00 Rigboerto rial [place] Diastolic (mm Hg) 2021-11-10 16:30:00 Mem orial [facility] Heart Rate 2021-11-10 16:30:00 [facility] [place] Respitory Rate 2021-11-10 16:30:00 [facility] [place] Height 2021-11-10 16:30:00 172.72 cm [facility] Weight 2021-11-10 16:30:00 [facility] BMI Calculated 2021-11-10 16:30:00 Memori [facility] Heart Rate 2021-10-19 20:30:00 [facility] Systolic (mm Hg) 2021-10-19 20:30:00 Rigoberto rial [facility] Diastolic (mm Hg) 2021-10-19 20:30:00 Mem [facility] [place] Height 2021-10-19 20:30:00 172.7 cm [facility] [place] Weight 2021-10-19 20:30:00 [facility] BMI Calculated 2021-10-19 20:30:00 [facility] [place] Systolic (mm Hg) 2021-10-13 17:45:00 Irgoberto [facility] [place] Diastolic (mm Hg) 2021-10-13 17:45:00 [facility] [place] Heart Rate 2021-10-13 17:45:00 [facility] Respitory Rate 2021-10-13 17:45:00 Memori al [facility] Height 2021-10-13 17:45:00 172.72 cm [facility] [place] Weight 2021-10-13 17:45:00 [facility] [place] BMI Calculated 2021-10-13 17:45:00 [facility] Respitory Rate 2021-09-13 19:33:00 [facility] [place] Systolic (mm Hg) 2021-09-13 19:33:00 Rigoberto rial [facility] Diastolic (mm Hg) 2021-09-13 19:33:00 Mem orial [facility] Height 2021-09-13 19:33:00 172.72 cm [facility] [place] Weight 2021-09-13 19:33:00 [facility] BMI Calculated 2021-09-13 19:33:00 Memori al [facility] Heart Rate 2021-09-13 19:33:00 [facility] Heart Rate 2021-06-22 14:23:00 [facility] Respitory Rate 2021-06-22 14:23:00 [facility] Systolic (mm Hg) 2021-06-22 14:23:00 Rigoberto rial [facility] Diastolic (mm Hg) 2021-06-22 14:23:00 [facility] [place] Height 2021-06-22 14:23:00 172.72 cm [facility] Weight 2021-06-22 14:23:00 [facility] [place] BMI Calculated 2021-06-22 14:23:00 [facility] [place] Systolic (mm Hg) 2020-10-19 19:16:00 Rigoberto rial [place] Diastolic (mm Hg) 2020-10-19 19:16:00 Mem [facility] [place] Heart Rate 2020-10-19 19:16:00 [facility] Respitory Rate 2020-10-19 19:16:00 [facility] [place] Height 2020-10-19 19:16:00 172.72 cm [facility] [place] Weight 2020-10-19 19:16:00 [facility] BMI Calculated 2020-10-19 19:16:00 [facility] Respitory Rate 2020-09-07 23:30:00 [facility] [place] Systolic (mm Hg) 2020-09-07 23:30:00 Rigoberto [facility] [place] Diastolic (mm Hg) 2020-09-07 23:30:00 [facility] [place] Respitory Rate 2020-09-07 23:15:00 [facility] Systolic (mm Hg) 2020-09-07 23:15:00 Rigoberto rial [facility] Diastolic (mm Hg) 2020-09-07 23:15:00 [facility] [place] Respitory Rate 2020-09-07 23:10:00 [facility] [place] Systolic (mm Hg) 2020-09-07 23:10:00 Rigoberto [facility] [place] Diastolic (mm Hg) 2020-09-07 23:10:00 [facility] [place] Height 2020-09-07 19:23:00 172.72 cm [facility] [place] Weight 2020-09-07 19:23:00 [facility] [place] BMI Calculated 2020-09-07 19:23:00 Mem[facility] Temperature Oral (F) 2020-09-07 19:00:00 98.6 F [facility] [place] Height 2020-09-07 17:21:00 172.72 cm [facility] [place] Weight 2020-09-07 17:21:00 [facility] [place] BMI Calculated 2020-09-07 17:21:00 Memori [facility] Systolic (mm Hg) 2020-08-25 18:44:00 Rigoberto rial [facility] Diastolic (mm Hg) 2020-08-25 18:44:00 Mem orial [facility] Heart Rate 2020-08-25 18:44:00 [facility] Respitory Rate 2020-08-25 18:44:00 Memori al [facility] Height 2020-08-25 18:44:00 170.18 cm [facility] [place] Weight 2020-08-25 18:44:00 [facility] BMI Calculated 2020-08-25 18:44:00 [facility] [place] Systolic (mm Hg) 2020-06-23 17:24:00 Rigoberto rial [facility] Diastolic (mm Hg) 2020-06-23 17:24:00 Mem orial [facility] Heart Rate 2020-06-23 17:24:00 [facility] [place] Respitory Rate 2020-06-23 17:24:00 [facility] [place] Temperature Oral (F) 2020-06-23 17:24:00 97.3 F [facility] [place] Height 2020-06-23 17:24:00 170.18 cm [facility] Weight 2020-06-23 17:24:00 [facility] [place] BMI Calculated 2020-06-23 17:24:00 Mem[facility] Height 2020-05-19 12:06:00 170 cm [facility] [place] Weight 2020-05-19 12:06:00 [facility] [place] BMI Calculated 2020-05-19 12:06:00 [facility] Systolic (mm Hg) 2020-04-28 15:53:00 Rigoberto rial [facility] Diastolic (mm Hg) 2020-04-28 15:53:00 Mem orial [facility] Heart Rate 2020-04-28 15:53:00 [facility] Respitory Rate 2020-04-28 15:53:00 [facility] [place] Temperature Oral (F) 2020-04-28 15:53:00 97.3 F [facility] [place] Height 2020-04-28 15:53:00 170.18 cm [facility] Weight 2020-04-28 15:53:00 [facility] [place] BMI Calculated 2020-04-28 15:53:00 Mem[facility] Systolic (mm Hg) 2020-03-31 12:32:00 Rigoberto rial [facility] Diastolic (mm Hg) 2020-03-31 12:32:00 Mem orial [facility] Heart Rate 2020-03-31 12:32:00 [facility] [place] Respitory Rate 2020-03-31 12:32:00 [facility] [place] Temperature Oral (F) 2020-03-31 12:32:00 98.1 F [facility] Height 2020-03-31 12:32:00 172 cm [facility] Weight 2020-03-31 12:32:00 [facility] BMI Calculated 2020-03-31 12:32:00 Memori [facility] Respitory Rate 2020-01-15 21:23:00 Memori [facility] Systolic (mm Hg) 2020-01-15 21:23:00 Rigoberto [facility] [place] Diastolic (mm Hg) 2020-01-15 21:23:00 Mem orial [facility] Temperature Oral (F) 2020-01-15 21:23:00 97.8 F [facility] Respitory Rate 2020-01-15 21:15:00 Memori al [facility] Systolic (mm Hg) 2020-01-15 21:15:00 Rigoberto [facility] [place] Diastolic (mm Hg) 2020-01-15 21:15:00 Mem o[facility] [place] Systolic (mm Hg) 2020-01-15 21:00:00 Rigoberto [facility] [place] Diastolic (mm Hg) 2020-01-15 21:00:00 Mem [facility] [place] Respitory Rate 2020-01-15 21:00:00 Memori al [facility] Heart Rate 2020-01-15 15:30:00 [facility] [place] Temperature Oral (F) 2020-01-15 12:41:00 98.2 F [facility] Heart Rate 2020-01-15 12:41:00 [facility] Temperature Oral (F) 2020-01-15 04:46:00 97.8 F [facility] [place] Heart Rate 2020-01-15 04:46:00 [facility] [place] Height 2020-01-09 19:01:00 172.72 cm [facility] [place] Weight 2020-01-09 19:01:00 [facility] BMI Calculated 2020-01-09 19:01:00 Memori al [facility] Procedures Procedure Date / Time Performed Performing Clinician [facility] e CT CHEST WO CONTRAST 2021-07-20 20:20:00 Ish Schafer [facility] CT CHEST WO CONTRAST 2021-07-20 20:20:00 Ish Schafer [facility] Cardiac 2020-09-07 06:00:00 Kirsten napoles catheterization<sup>1</sup > AV - Creation of Kirsten Gonzalez n arteriovenous fistula Insertion of tunneled [facility] dialysis catheter using fluoroscopic guidance Encounters Start End Encounter Admission Attending Care Care Encounter Source Date/Time Date/Time Type Type Clinicians Facility Department ID 2022-09-07 Outpatient [facility] [id number] [place] 12:54:[id number] [facility] 2022-09-06 Outpatient [facility] [id number] [place] 14:19:[id number] [facility] 2022-08-29 Outpatient [facility] [id number] [place] 11:35:[id number] [facility] 2022-08-17 Outpatient [facility] [id number] [place] 12:10:[id number] [facility] 2022-08-03 Outpatient [facility] [id number] [place] 10:12:[id number] [facility] 2022-07-30 Outpatient Gutierrez, STLMLC STLC [id number] Common 09:30:00 Olivia [facility] 2022-07-28 Outpatient [facility] [id number] [place] 13:26:[id number] [facility] 2022-03-28 Outpatient Gutierrez, STLMLC STLC [id number] Common 08:23:02 Olivia [facility] 2021-08-26 Outpatient RUDOLPH [facility] [id number] [facility] 10:37:00 2020-04-17 Inpatient RUDOLPH [facility] [id number] [facility] 16:04:57 2022-09-08 2022-09-[address] [facility] [id number] [facility] 08:31:00 08:31:00 NOAHIMA 2022-09-01 2022-09-02 Outpatient [facility] Liver [id number] Memoria 14:55:00 05:59:00 [place] Barbi Bynum 2022-09-01 2022-09-[address] [facility] [id number] MH 08:55:00 23:59:00 JARRETT 2022-09-01 2022-09-01 Outpatient Teddy [facility] [id number] 08:55:00 23:59:00 Jarrett 07 2022-07-26 2022-08-25 OP MHIE Transplant [id number] Memoria 14:24:00 05:59:00 Transplant Center 09 [facility] 2022-07-26 2022-08-24 [facility] [id number] [facility] 08:24:00 23:59:00 RODRÍGUEZ 2022-07-26 2022-08-24 Outpatient Silvestre [facility] [id number] 08:24:00 23:59:00 Rodríguez 09 [facility] 2022-08-04 2022-08-05 Day [facility] Memorial [id number] Memoria 16:22:00 05:59:[address] 2022-08-04 2022-08-[address] [facility] [id number] [facility] 10:22:00 23:59:00 JARRETT 2022-08-04 2022-08-04 Outpatient Teddy [facility] [id number] 10:22:00 23:59:00 Jarrett 05 2022-06-15 2022-06-22 OP nullFlavo Transplant [id number] Memoria 16:00:00 05:59:00 Transplant r Center 08 [facility] 2022-06-15 [address] [facility] [id number] MHH 11:00:00 23:59:00 2022-06-15 2022 Outpatient Rudolph Stone [facility] [id number] 11:00:00 23:59:00 Олег 08 2022-04-25 2022-04-25 OFFICE [facility] [id number] Co mmon 00:00:00 00:00:00 VISIT Spirit ESTAB PT - CHI LEVEL 4 [facility] 2022-04-01 2022-04-01 [facility] [id number] Common 00:00:00 00:00:00 Medicare Spiri t Wellness - CHI [facility] 2022-03-28 2022-03-28 OFFICE [facility] [id number] Co mmon 00:00:00 00:00:00 VISIT NEW Spir it PT LEVEL 4 - [facility] 2022-01-17 2022-02-16 OP nullFlavo Transplant [id number] Memoria 16:00:00 04:59:00 Transplant r Center 07 l [facility] [place] Pre 2022-01-17 2022-02-15 Outpatient [facility] [id number] [facility] 11:00:00 23:59:00 STEWART PSATRANA 2022-01-17 2022-02-15 Outpatient De [facility] [id number] 11:00:00 23:59:00 Barbi Pastrana 2021-11-24 2021-12-24 OP nullFlavo Transplant [id number] Memoria 16:00:00 04:59:00 Transplant r [place] 06 l [facility] Pre 2021-11-24 2021-12-23 Outpatient [facility] [id number] [facility] 11:00:00 23:59:00 STEWART PASTRANA 2021-11-24 2021-12-23 Outpatient De [facility] [id number] 11:00:00 23:59:00 Don Pastrana 2021-12-16 2021-12-16 [facility] [id number] [place] 10:15:00 10:15:00 [facility] 2021-10-13 2021-11-12 OP nullFlavo [facility] [id number] Memoria 17:26:00 04:59:00 Transplant r [place] 05 l [facility] kassi Pre Advanced Heart Failure 2021-10-13 2021-11-11 Outpatient RODO [facility] CAR [id number] MH 11:26:00 23:59:00 MARQUEZ LO 2021-10-13 2021-11-11 [facility] [id number] 11:26:00 23:59:00 Teresita, Nicole Zayas R 2021-10-28 2021-10-28 Office [facility] 1.2.840.114 [id number] Univers 16:00:00 16:30:00 Visit Erich Mae SPECIALTY 350.1.13.10 ity [place] [id number] Sc daysi WINTERArlette [address] [place] [address] 2021-10-28 2021-10-28 [facility] [id number] Univers 16:00:00 16:00:00 ERICH [facility] 2021-10-28 2021-10-28 Outpatient [facility] [id number] Univers 16:00:00 16:00:00 [facility] 2021-09-13 2021-10-13 [facility] [id number] [facility] 19:03:00 05:59:00 Transplant r Adv Heart 03 l Clinic - Failure [place] Pre 2021-09-13 2021-10-[address] [facility] [id number] [facility] 13:03:00 23:59:00 MICHEL 2021-09-13 2021-10-12 Outpatient Cecil [facility] [id number] 13:03:00 23:59:00 Michel 03 2021-07-29 2021-07-29 Office Camilla [facility]rizuela [facility] 1.2.840.114 [id number] Univers 15:00:00 15:14:10 Visit Lolis Romero SPECIALTY 350.1.13.10 ity of CARE 4.2.7.2.686 [facility] AT [id number] Sc daysi CARRANZA [address] [place] [address] 2021-07-29 2021-07-29 Outpatient [facility] [id number] Univers 15:00:00 15:14:10 [facility] 2021-07-29 2021-07-29 [facility] [id number] Univers 15:00:00 15:14:10 [facility] 2021-07-29 2021-07-29 Outpatient R NEEMA, [facility] [id number] Univers 15:00:00 15:00:00 [facility] 2021-06-22 2021-07-22 OP nullFlavo [facility] [id number] Memoria 12:33:00 05:59:00 Transplant r [facility] 02 l [facility] n Pre 2021-07-22 2021-07-22 EXT MHH OP de EXT MSRDP 1.2.840.114 1 [id number] [place] 00:00:00 00:00:00 [place], LOCATION 350.1.13.58 Health [place] 9.2.7.2.686 [id number] 2021-07-22 2021-07-22 EXT MHH OP de EXT MSRDP 1.2.840.114 1 [id number] [place] 00:00:00 00:00:00 [place], LOCATION 350.1.13.58 [facility] [place] 9.2.7.2.686 [id number] 2021-06-22 2021-07-21 Outpatient De [facility] [id number] 06:33:00 23:59:00 [place], 02 Stewart Neetu 2021-07-20 2021-07-21 [facility] [id number] Memoria 20:05:00 05:59:00 n Patient r Outpatient 00 l Imaging [place] Bynum 2021-07-20 2021-07-20 Outpatient De [facility] [id number] 14:05:00 23:59:00 [place], 00 [place] Neetu 2021-07-20 2021-07-20 EXT MHH OP de EXT MSRDP 1.2.840.114 1 [id number] [place] 00:00:00 00:00:00 [place], LOCATION 350.1.13.58 Health [place] 9.2.7.2.686 [id number] 2021-07-20 2021-07-20 EXT MHH OP de EXT MSRDP 1.2.840.114 1 [id number] [place] 00:00:00 00:00:00 Victoriano, HUNTER 350.1.13.58 [facility] 9.2.7.2.686 [id number] 2021-06-24 2021-06-24 Orders Doctor RUDOLPH 1.2.840.114 [id number] Univers 00:00:00 00:00:00 Only Unassigned, KARY 350.1.13.10 ity of [facility] 4.2.7.2.686 [facility] [id number] [facility] 009 Branch 2021-06-22 2021-06-22 Outpatient [facility] [id number] [facility] 06:33:00 06:33:00 STEWART PASTRANA 2021-06-01 2021-06-01 Telephone Joy [facility] 1.2.840.114 [id number] Univers 00:00:00 00:00:00 Benjie MULTISPEC 350.1.13.10 ity [facility] 4.2.7.2.[address] [facility] [id number] [facility] AND COMMERCE [address] [facility] 2021-05-18 2021-05-18 Anesthesia Parisa Arevalo 1.2.840.0 [id number] Univers 13:30:59 13:30:59 Event Martha Hdz 85529.1.1 ity of 3.104.2.7 [place] .3.651538 Medica l .8 Branch 2021-05-18 2021-05-18 Hospital Neema 1.2.840.0 [id number] Univers 11:02:00 13:15:00 Encounter Lolis 45706.1.1 it y of 3.104.2.7 [place] .3.998464 Medica l .8 Branch 2021-05-18 2021-05-18 Outpatient [facility] [id number] Univers 11:02:00 13:15:00 LOLIS ity of [facility] [place] 2021-05-18 2021-05-18 Orders Doctor 1.2.840.1 [id number] Univers 00:00:00 00:00:00 Only Unassigned, 97140.1.1 ity of [facility] 3.104.2.7 [place] .3.705354 Medica l .8 [place] 2021-05-18 2021-05-18 Travel 1.2.840.1 1.2.739.291 [id number] Univers 00:00:00 00:00:00 41295.1.1 350.1.13.10 ity of 3.104.2.7 4[place].7.3.698 [place] .3.339248 084.8 Medica l .8 [place] 2021-05-17 2021-05-17 Travel 1.2.840.1 1.2.244.273 [id number] Univers 00:00:00 00:00:00 19610.1.1 350.1.13.10 ity of 3.104.2.7 4.[place].7.3.698 [place] .3.295089 084.8 Medica l .8 [place] 2021-05-15 2021-05-15 Outpatient R [facility] [id number] Univers 16:00:00 16:00:00 LOLIS luna [facility] 2021-05-15 2021-05-15 Laboratory NeemaRadhae 1.2.840.1 [id number] Univers 08:25:16 08:40:16 Only Only, Adc Test 42768.1.1 ity of 3.104.2.7 [place] .3.793517 Medica l .8 [place] 2021-05-15 2021-05-15 Outpatient R [facility] [id number] Univers 08:30:00 08:30:00 LOLIS luna [facility] 2021-05-06 2021-05-06 Outpatient R [facility] [id number] Univers 15:45:00 15:45:00 LOLIS luna [facility] 2021-05-06 2021-05-06 Telephone Jermain Romero.2.840.5 [id number] Univers 00:00:00 00:00:00 Lolis 04418.1.1 ity of 3.104.2.7 [place] .3.271070 Medica l .8 [place] 2021-05-05 2021-05-05 Telephone Joy, 1.2.840.6 [id number] Univers 00:00:00 00:00:00 Benjie 19516.1.1 ity of 3.104.2.7 [place] .3.959228 Medica l .8 [place] 2021-05-05 2021-05-05 Prep For [place], 1.2.840.4 [id number] Univers 00:00:00 00:00:00 Surgery Lolis 81806.1.1 ity of 3.104.2.7 [place] .3.402268 Medica l .8 [place] 2021-05-04 2021-05-04 [id number] Univers 09:00:00 09:00:00 BENJIE itarlette [facility] 2021-05-04 2021-05-04 Networking Specialist Benjie Hamilton 1.2.840.1 [id number] Univers 08:35:14 08:50:14 Visit Pob, [facility] Main 09479.1.1 ity of 3.104.2.7 [place] .3.688801 Medica l .8 [place] 2021-05-04 2021-05-04 Telephone Joy, 1.2.840.3 [id number] Univers 00:00:00 00:00:00 Benjie 46352.1.1 ity of 3.104.2.7 [place] .3.478612 Medica l .8 [place] 2021-05-03 2021-05-[address] [facility] [id number] Univers 15:00:00 16:20:42 BENJIE ity [facility] 2021-05-03 2021-05-03 Office Jermain Hamilton.2.840.5 [id number] Univers 14:47:04 16:20:42 Visit Benjie 61958.1.1 ity of 3.104.2.7 [place] .3.126252 Medica l .8 [place] 2021-05-03 2021-05-03 Office Joy [facility] 1.2.840.114 [id number] Univers 14:47:04 15:17:04 Visit [facility] 350.1.13.10 it y of [place] 4.2.7.2.686 Hayden as Gregorio?Blea [id number] Sc brianblue [address]ans [address] [place] [facility] 2021-05-03 2021-05-03 Travel 1.2.840.1 1.2.360.750 [id number] Univers 00:00:00 00:00:00 32451.1.1 350.1.13.10 ity of 3.104.2.7 4.2.7.3.698 [place] .3.353856 084.8 Medica l .8 [place] 2021-04-29 2021-04-29 Office Lolis Romero 1.2.840.1 [id number] Univers 15:45:10 16:40:18 Visit [facility]illa [facility] [place] 02213.1.1 ity of 3.104.2.7 [place] .3.513037 Medica l .8 [place] 2021-04-29 2021-04-29 Office [facility] 1.2.840.114 [id number] Univers 15:45:10 16:40:18 Visit Lolis Romero SPECIALTY 350.1.13.10 it[place] [id number] Sc brianblue [facility] 2021-04-29 2021-04-[address] [facility] [id number] Univers 15:30:00 16:40:18 LOLIS ity of [facility] [place] 2021-04-29 2021-04-29 Travel 1.2.840.1 1.2.008.076 [id number] Univers 00:00:00 00:00:00 17537.1.1 350.1.13.10 ity of 3.104.2.7 4.[place].7.3.698 [place] .3.155682 084.8 Medica l .8 [place] 2021-03-092021-03-09 Office Dada, 1.2.840.7 [id number] Univers 15:00:07 16:27:03 Visit Sandi 48344.1.1 ity [facility] 3.104.2.7 [place] .3.099409 Medica l .8 [place] 2021-03-09 2021-03-09 [facility] 1.2.840.114 [id number] 15:00:07 15:30:07 Visit Sandi Soria 350.1.13.10 Spike Bearden 4.2.7.2.686 Professio [id number] nal 044 Office Building One 2021-03-09 2021-03-[address] [facility] [id number] Univers 15:00:00 15:00:00 SANDI luna [facility] 2020-10-19 2020-11-18 OP nullFlavo Transplant [id number] Memoria 19:06:00 04:59:00 Transplant r Center l [facility] Pre 2020-10-19 2020-11-[address] [facility] [id number] [facility] 13:06:00 23:59:00 2020-10-19 2020-11-17 Outpatient Gabriel Reid [facility] [id number] 13:06:00 23:59:00 [place] [id number] 2020-10-15 2020-10-15 [facility] 1.2.840.114 [id number] Univers 19:12:10 23:59:00 Encounter Paramjit, FRANK 350.1.13.10 cheryl [facility] [id number] [facility] AT [id number] Sc brianblue WINTERArlette 804 [facility] 2020-10-15 2020-10-15 Outpatient R [facility] [id number] Univers 00:00:00 00:00:00 BREAA, ity of [facility] 2020-09-14 2020-09-14 [facility] [id number] Univers 15:15:00 23:59:00 Encounter Attending Suleiman [id number] itarlette [facility] [id number] [facility] [id number] [place] [id number] [place] 2020-09-14 2020-09-[address] [facility] [id number] Univers 00:00:00 00:00:00 ATTENDING ity [facility] 2020-09-07 2020-09-07 [facility]ded [facility] [id number] Memoria 19:04:00 23:40:00 Outpatient rick [facility] 2020-09-07 2020-09-[address] [facility] [address] [facility] 13:04:00 17:40:00 MARQUEZ LO 2020-09-07 2020-09-07 Outpatient Rodo [facility] [id number] 13:04:00 17:40:00 Chasity Lo 2020-09-07 2020-09-07 Outpatient Rodo [facility] [id number] 13:04:00 17:40:00 Chasity Lo 2020-08-25 2020-08-26 Outpatient nullFlavo [facility] [id number] Memoria 16:47:00 05:59:00 rick [facility] Melissa nn Advanced Heart Failure 2020-08-25 2020-08-25 Outpatient [facility] [address] [facility] 10:47:00 23:59:00 MARQUEZ LO 2020-08-25 2020-08-25 [facility] [id number] 10:47:00 23:59:00 Charan Lo 2020-06-23 2020-06-24 Outpatient [facility] [id number] Memoria 16:30:00 05:59:00 [facility] 2020-06-23 2020-06-23 Outpatient [facility] [address] [facility] 10:30:00 23:59:00 MARQUEZ LO 2020-06-23 2020-06-23 [facility] [id number] 10:30:00 23:59:00 Vinnie Lo 2020-05-19 2020-05-20 [facility] [id number] Memoria 11:59:00 04:59:00 r Fletcher 01 l [facility] 2020-05-19 2020-05-19 Outpatient [facility] [id number] 06:59:00 23:59:00 Teresita, 01 Umer 2020-05-19 2020-05-19 Outpatient Critical access hospital [id number] 06:59:00 23:59:00 Teresita, 01 Umer 2020-03-31 2020-04-30 [facility] [id number] Memoria 11:57:00 04:59:00 Transplant r Fletcher 00 l [facility] Advanced Heart Failure 2020-03-31 2020-04-29 Outpatient De [facility] [id number] 06:57:00 23:59:00 Rohini Pastrana Neetu 2020-03-31 2020-03-[address] [facility] [address] [facility] 06:57:00 06:57:00 STEWART PASTRANA 2020-01-15 2020-01-15 Observatio [facility] [id number] Memoria 13:30:00 23:10:00 n rick Bynum 00 l [facility] 2020-01-15 2020-01-15 Outpatient MICHOACANO, MHSE MHSE 7500 MH 08:30:00 18:10:00 [facility] 2020-01-15 2020-01-15 Outpatient [place], MHSE MHSE [id number] 08:30:00 18:10:[address] Results Test Description Test Time Test Comments Results Result Comments Source CHEMISTRY 2022-08-04 17:17:00 Test Item Value Reference Range Interpretation Comme nts Potassium WB (test code = Potassium WB) 5.3 3.5-5.1 [facility] 19:00:00 Test Item Value Reference Range Interpretation Comments LDH (test code = LDH) 214 98-192 [facility]VcfktnnTDEGIDLKXG1164-68-21 19:00:00 Test Item Value Reference Range Interpretation Comments PB Smear Path (test Peripheral blood smear code = PB Smear examination: Macrocytic Path) anemia with minimal anisocytosis. No increase in schistocytes. Adequate WBCs with reactive neutrophils. Adequate platelets with presence of occasional large forms. CPT: 52977 [facility]EpbhvjeDEQORAACML4284-63-22 19:00:00 Test Item Value Reference Range Interpretation Comments Haptoglobin (test code = Haptoglobin) 83 16-200 [facility] SystemWclvtrxJOIEXWETTS1286-27-51 19:00:00 Test Item Value Reference Range Interpretation Comments Complement Tot (test code = Complement no gt 31-60 Tot) [facility] SystemSccipogDLFOPECNBJ8102-73-50 19:00:00 Test Item Value Reference Range Interpretation Comments C3 Complement (test code = C3 81 82-185 Complement) [facility]VdvmvvjKTOCESPNAQ0960-90-73 19:00:00 Test Item Value Reference Range Interpretation Comments C4 Complement (test code = C4 23 15-53 Complement) [facility] DLCKIAM7695-81-67 17:00:00 Test Item Value Reference Range Interpretation Comments Titer (test code = Titer) 16 1 [facility] UOLPHAP2522-38-64 17:00:00 Test Item Value Reference Range Interpretation Comments Previous Titer (test code = Previous NA Titer) [facility] RJEIPFV3813-65-34 17:00:00 Test Item Value Reference Range Interpretation Comments Antibody Titered (test code = Antibody Anti-B Titered) [facility] IDMLRQU1394-84-13 17:00:00 Test Item Value Reference Range Interpretation Comments OP ABORh Int (test code = OP ABORh Int) A POS [facility] AEZZSSQ3814-42-96 17:00:00 Test Item Value Reference Range Interpretation Comments OP ABSC Gel Interp Negative (07/26/22 (test code = OP ABSC 11:00 AM) Gel Interp) [facility]SywiktrTSSRHQDDC7746-62-15 17:00:00 Test Item Value Reference Range Interpretation Comments Glucose Lvl (test code = Glucose Lvl) 73 70-99 [facility] TexasGypzsupISVZLWZVJ2294-59-66 17:00:00 Test Item Value Reference Range Interpretation Comments BUN (test code = BUN) 34 7-22 [facility] TexasQybksvxOEONNCEDY7408-14-09 17:00:00 Test Item Value Reference Range Interpretation Comments Creatinine Lvl (test code = Creatinine 15.20 0.50-1.40 Lvl) [facility] TexasBqnarceXQVBLQIMG7247-14-67 17:00:00 Test Item Value Reference Range Interpretation Comments Sodium Lvl (test code = Sodium Lvl) 139 135-145 [facility] TexasIlcubasAWGVGFZYL0711-54-16 17:00:00 Test Item Value Reference Range Interpretation Comments Potassium Lvl (test code = Potassium 4.8 3.5-5.1 Lvl) [place] 190102-12-13 17:00:00 Test Item Value Reference Range Interpretation Comments Chloride Lvl (test code = Chloride Lvl) 100 95-109 [place] 190102-12-13 17:00:00 Test Item Value Reference Range Interpretation Comments CO2 (test code = CO2) 26 24-32 [place] 190102-12-13 17:00:00 Test Item Value Reference Range Interpretation Comments Calcium Lvl (test code = Calcium Lvl) 8.1 8.5-10.5 [place] 190102-12-13 17:00:00 Test Item Value Reference Range Interpretation Comments Total Protein (test code = Total 7.2 6.4-8.4 Protein) [facility] TexasXjjvybnOSBBIWYWW7594-59-65 17:00:00 Test Item Value Reference Range Interpretation Comments Albumin Lvl (test code = Albumin Lvl) 4.0 3.5-5.0 [facility] TexasTaoizlvYRGHZGXIA7307-48-70 17:00:00 Test Item Value Reference Range Interpretation Comments ALT (test code = ALT) 21 See_Comment [Auto mated message] The system which ge nerated this result transmit jose carlos reference range : <=65. The reference range was not used to interpr et this result as adan l/abnormal. [facility] TexasZaqfxcuHAHEIWXJA7213-80-03 17:00:00 Test Item Value Reference Range Interpretation Comments AST (test code = AST) 13 See_Comment [Auto mated message] The system which ge nerated this result transmit jose carlos reference range : <=37. The reference range was not used to interpr et this result as adan l/abnormal. [facility] TexasAtyjpzmKPKFMXBTI4160-63-22 17:00:00 Test Item Value Reference Range Interpretation Comments Alk Phos (test code = Alk Phos) 64 39-136 [facility] TexasQoefjxjZNZHGMICZ4676-56-33 17:00:00 Test Item Value Reference Range Interpretation Comments Bili Total (test code = Bili Total) 0.5 0.2-1.3 [facility] TexasKemejsoESZKRDHOF1555-62-64 17:00:00 Test Item Value Reference Range Interpretation Comments AGAP (test code = AGAP) 17.8 10.0-20.0 [facility] TexasNnpelpxAHGSOZMYG1023-04-38 17:00:00 Test Item Value Reference Range Interpretation Comments B/C Ratio (test code = B/C Ratio) 2 1 6-25 [facility] TexasZmwmuslTWABCPFLS7619-52-83 17:00:00 Test Item Value Reference Range Interpretation Comments Globulin (test code = Globulin) 3.2 2.7-4.2 [facility] TexasSegvqirPFKSFBAXP5280-25-84 17:00:00 Test Item Value Reference Range Interpretation Comments A/G Ratio (test code = A/G Ratio) 1.2 1 0.7-1.6 [facility] TexasZjpsyldMONEPJQZO7119-25-57 17:00:00 Test Item Value Reference Range Interpretation Comments eGFR (test code = eGFR) 4 [facility] TexasXiwktufYHXHDYVQS5721-71-80 17:00:00 Test Item Value Reference Range Interpretation Comments Nicotine Lvl (test code = Nicotine Lvl) no gt [facility] TexasDxxbxhpMWBCECOFH5608-48-24 17:00:00 Test Item Value Reference Range Interpretation Comments Cotinine Lvl (test code = Cotinine Lvl) no gt [facility] TexasVrgsifcPHVRGQVDH4565-60-38 17:00:00 Test Item Value Reference Range Interpretation Comments Hgb A1C (test code = Hgb A1C) 5.0 [facility] TexasMsivsqzDNRDFLMRS7171-79-36 17:00:00 Test Item Value Reference Range Interpretation Comments Ferritin Lvl (test code = Ferritin Lvl) 775 22-275 [facility] TexasNqneqzcWGNWQDEOP9649-42-88 17:00:00 Test Item Value Reference Range Interpretation Comments Iron (test code = Iron) 76 50-180 [facility] TexasLdomenmTAYVRQFEO4321-70-04 17:00:00 Test Item Value Reference Range Interpretation Comments TIBC (test code = TIBC) 238 250-425 [facility] TexasKtqmopqFMFUSZWRR5338-28-34 17:00:00 Test Item Value Reference Range Interpretation Comments % Satur Fe (test code = % Satur Fe) 32 20-48 [facility] TexasYceklljDCXTHOQQB7423-28-54 17:00:00 Test Item Value Reference Range Interpretation Comments Trig (test code = Trig) 89 [facility] TexasJgdlzutSPOBYSWCA6578-70-45 17:00:00 Test Item Value Reference Range Interpretation Comments Chol (test code = Chol) 140 [facility] TexasImcvnjkLBOIVSJKZ2383-90-77 17:00:00 Test Item Value Reference Range Interpretation Comments HDL (test code = HDL) 44 [facility] TexasFevrwaqXTGKXTDPU8791-14-53 17:00:00 Test Item Value Reference Range Interpretation Comments Chol/HDL Ratio (test code = Chol/HDL 3.18 1 4.00-7.30 Ratio) [facility] TexasLhscvvwNKHJSEUYS5741-48-68 17:00:00 Test Item Value Reference Range Interpretation Comments LDL (Calculated) (test code = LDL 78 (Calculated)) [facility] TexasEamjamoKCVQCTSLM9756-90-11 17:00:00 Test Item Value Reference Range Interpretation Comments VLDL (test code = VLDL) 18 1 [facility] TexasJqdjpreEHUXRBFJJ0779-88-36 17:00:00 Test Item Value Reference Range Interpretation Comments Magnesium Lvl (test code = Magnesium 2.5 1.8-2.4 Lvl) [facility] TexasYckyuopSNNGCVLBC6315-72-98 17:00:00 Test Item Value Reference Range Interpretation Comments Phosphorus (test code = Phosphorus) 5.4 2.5-4.5 [facility] TexasQcpeumtJEEONDXTC6799-38-28 17:00:00 Test Item Value Reference Range Interpretation Comments Uric Acid (test code = Uric Acid) 4.5 3.8-8.0 [facility] TexasAurbhosMNSCIXPTL2782-68-69 17:00:00 Test Item Value Reference Range Interpretation Comments Vitamin D, 25-OH, Total (test code = 32 30-100 Vitamin D, 25-OH, Total) [facility] TexasYcpxaajIPPAIIVPX6653-93-12 17:00:00 Test Item Value Reference Range Interpretation Comments PTH Intact (test code = PTH Intact) 590.4 18.4-80.1 [facility] TexasHbvvjazYUYXPNFQH2276-52-60 17:00:00 Test Item Value Reference Range Interpretation Comments Creatinine Lvl (test code = Creatinine 15.00 0.50-1.40 Lvl) [facility] TexasBlyotuxYXZTQGMEB3551-01-78 17:00:00 Test Item Value Reference Range Interpretation Comments eGFR (test code = eGFR) 4 [facility] TylerJilbepjRXLFUJBOLA5414-18-98 17:00:00 Test Item Value Reference Range Interpretation Comments Segs (test code = Segs) 72.5 45.0-75.0 [place] 310992-12-13 17:00:00 Test Item Value Reference Range Interpretation Comments Lymphocytes (test code = Lymphocytes) 14.3 20.0-40.0 [place] [address]-12-13 17:00:00 Test Item Value Reference Range Interpretation Comments Monocytes (test code = Monocytes) 5.6 2.0-12.0 [place] [address]-12-13 17:00:00 Test Item Value Reference Range Interpretation Comments Eosinophils (test code = 6.5 See_Comment [A utomated message] The Eosinophils) system which ge nerated this result tra nsmitted reference range : <=4.0. The reference r bijan was not used to int erpret this result as normal/abnormal . [place] [address]-12-13 17:00:00 Test Item Value Reference Range Interpretation Comments Basophils (test code = 1.1 See_Comment [Aut omated message] The Basophils) system which ge nerated this result tra nsmitted reference range : <=1.0. The reference r bijan was not used to int erpret this result as normal/abnormal . [place] 310992-12-13 17:00:00 Test Item Value Reference Range Interpretation Comments Neutrophils # (test code = Neutrophils 5.5 1.5-8.1 #) [place] [address]-12-13 17:00:00 Test Item Value Reference Range Interpretation Comments Lymphocytes # (test code = Lymphocytes 1.1 1.0-5.5 #) [place] [address]-12-13 17:00:00 Test Item Value Reference Range Interpretation Comments Monocytes # (test code 0.4 See_Comment [Aut omated message] The = Monocytes #) system which generated this result tra nsmitted reference range : <=0.8. The reference r bijan was not used to int erpret this result as normal/abnormal . [place] [address]-12-13 17:00:00 Test Item Value Reference Range Interpretation Comments Eosinophils # (test code 0.5 See_Comment [A utomated message] The = Eosinophils #) system ic h generated this result tra nsmitted reference range : <=0.5. The reference r bijan was not used to int erpret this result as normal/abnormal . [facility] TylerSsdiqjqNNYZFXAHCY5418-56-42 17:00:00 Test Item Value Reference Range Interpretation Comments Basophils # (test code 0.1 See_Comment [Aut omated message] The = Basophils #) system which generated this result tra nsmitted reference range : <=0.2. The reference r bijan was not used to int erpret this result as normal/abnormal . [facility] TylerFhtnlatMNNBSGROQP4954-36-48 17:00:00 Test Item Value Reference Range Interpretation Comments Macrocyte (test code = 1+ *ABN*(07/26/22 Macrocyte) 11:00 AM) [facility] TylerFeimfdvHLPVXARSVR1597-38-51 17:00:00 Test Item Value Reference Range Interpretation Comments PT (test code = PT) 13.6 s 12.0-14.7 [facility] TylerRxyzhxbRVENHVLICV0972-72-88 17:00:00 Test Item Value Reference Range Interpretation Comments INR (test code = INR) 1.05 1 0.85-1.17 [facility] TylerIqhqzkqPQNDFGUAVY5935-89-54 17:00:00 Test Item Value Reference Range Interpretation Comments PTT (test code = PTT) 31.1 s 22.9-35.8 [facility] TylerUwrcqcdYDZSXCRJLB9207-53-69 17:00:00 Test Item Value Reference Range Interpretation Comments R-time (test code = R-time) 5.2 min 5.0-10.0 [place] 310992-12-13 17:00:00 Test Item Value Reference Range Interpretation Comments K-time (test code = K-time) 1.5 min 1.0-3.0 [place] 310992-12-13 17:00:00 Test Item Value Reference Range Interpretation Comments Angle (test code = Angle) 67.7 degrees 53.0-72.0 [place] 310992-12-13 17:00:00 Test Item Value Reference Range Interpretation Comments Max Amp (test code = Max Amp) 61.9 mm 50.0-70.0 [place] 310992-12-13 17:00:00 Test Item Value Reference Range Interpretation Comments G-value (test code = G-value) 8.1 4.5-11.0 [place] 310992-12-13 17:00:00 Test Item Value Reference Range Interpretation Comments Ly30 (test code = 1.9 See_Comment [Automate d message] The Ly30) system which ge nerated this result transmit jose carlos reference range : <=7.5. The reference range was not used to interpr et this result as adan l/abnormal. [place] 310992-12-13 17:00:00 Test Item Value Reference Range Interpretation Comments Coag Index (test code = Coag Index) 0.9 1 -3.0-3.0 [place] 310992-12-13 17:00:00 Test Item Value Reference Range Interpretation Comments TEG Data (test code = See Note (07/26/22 TEG Data) 11:00 AM) [place] 310992-12-13 17:00:00 Test Item Value Reference Range Interpretation Comments TEG Interp (test Thrombelastograph results code = TEG are within reference ranges. Interp) These indicate adequate hemostasis. Note that TEG does not show effect of NSAIDs or P2Y12 inhibitors. CPT:80798 [facility] TylerKwpvbawYJCZKCOJWP4159-53-13 17:00:00 Test Item Value Reference Range Interpretation Comments WBC (test code = WBC) 7.5 3.7-10.4 [place] 310992-12-13 17:00:00 Test Item Value Reference Range Interpretation Comments RBC (test code = RBC) 3.22 4.70-6.10 [place] 310992-12-13 17:00:00 Test Item Value Reference Range Interpretation Comments Hgb (test code = Hgb) 11.1 14.0-18.0 [place] 310992-12-13 17:00:00 Test Item Value Reference Range Interpretation Comments Hct (test code = Hct) 32.8 42.0-54.0 [place] [address]-12-13 17:00:00 Test Item Value Reference Range Interpretation Comments MCV (test code = MCV) 101.9 80.0-94.0 [place] [address]-12-13 17:00:00 Test Item Value Reference Range Interpretation Comments MCH (test code = MCH) 34.5 pg 27.0-31.0 [place] 310992-12-13 17:00:00 Test Item Value Reference Range Interpretation Comments MCHC (test code = MCHC) 33.9 32.0-36.0 [facility] TylerRwqgtjjNAMKFNZDLC7957-55-75 17:00:00 Test Item Value Reference Range Interpretation Comments RDW (test code = RDW) 12.9 11.5-14.5 [facility] TylerOnnsxahQPUGMSLUKC5394-40-26 17:00:00 Test Item Value Reference Range Interpretation Comments Platelet (test code = Platelet) 157 133-450 [facility] TylerHbpaohwUTYAUJFESO2887-39-89 17:00:00 Test Item Value Reference Range Interpretation Comments MPV (test code = MPV) 10.9 7.4-10.4 [facility] SystemElsacabYOEDMNVHDJ6283-81-40 17:00:00 Test Item Value Reference Range Interpretation Comments Cystatin C (test code = Cystatin C) 6.27 0.53-0.95 [facility] SystemNpgolilBWVVSNPHUV2736-58-63 17:00:00 Test Item Value Reference Range Interpretation Comments eGFR Cystatin-based (test code = eGFR 7 Cystatin-based) [facility] SystemDqpvxbsVGCEZRGRNL2738-34-76 17:00:00 Test Item Value Reference Range Interpretation Comments Hep B Core Ab (test Negative *NA*(07/26/22 code = Hep B Core Ab) 11:00 AM) [facility] SystemTfpuhcvHLEUMCZIGL7246-78-07 17:00:00 Test Item Value Reference Range Interpretation Comments Hep Bs Ab (test code = Hep Bs Ab) 21.5 [facility] SystemIuncctaMNFYWRYJYC2209-17-49 17:00:00 Test Item Value Reference Range Interpretation Comments Hep Bs Ag (test code Negative *NA*(07/26/22 = Hep Bs Ag) 11:00 AM) [facility] SystemFyauylzUFPOCTXKVJ6951-35-22 17:00:00 Test Item Value Reference Range Interpretation Comments HIV Ag/Ab 4th Gen Negative *NA*(07/26/22 (test code = HIV 11:00 AM) Ag/Ab 4th Gen) [facility] SystemKvpkysdTQFGTVNMKO8982-19-61 17:00:00 Test Item Value Reference Range Interpretation Comments CMV IgG (test code = CMV IgG) no gt [facility] SystemBcnxycjHTWGQUBAZD4773-54-40 17:00:00 Test Item Value Reference Range Interpretation Comments EBV VCA IgG (test code = EBV VCA IgG) 416.00 [facility] SystemVhlmuntBYKWBHITDZ7739-71-21 17:00:00 Test Item Value Reference Range Interpretation Comments Hep A Tot (test code = Hep A Tot) REACTIVE [facility] SystemCltnudlYHCNISNACE8349-97-19 17:00:00 Test Item Value Reference Range Interpretation Comments HSV 1 IgG (test code = HSV 1 IgG) 46.60 [place] 090822-12-13 17:00:00 Test Item Value Reference Range Interpretation Comments HSV 2 IgG (test code = HSV 2 IgG) no gt [place] 090822-12-13 17:00:00 Test Item Value Reference Range Interpretation Comments T-Spot.TB (test code = T-Spot.TB) Negative [facility] SystemMeiodxwJLEJWLXVRK5540-44-60 17:00:00 Test Item Value Reference Range Interpretation Comments T-Spot Pnl A Neg Ctrl Corrected (test 0 1 code = T-Spot Pnl A Neg Ctrl Corrected) [place] 090822-12-13 17:00:00 Test Item Value Reference Range Interpretation Comments T-Spot Pnl B Neg Ctrl Corrected (test 0 1 code = T-Spot Pnl B Neg Ctrl Corrected) [place] 090822-12-13 17:00:00 Test Item Value Reference Range Interpretation Comments T-Spot Neg Ctrl (test code = T-Spot Passed Neg Ctrl) [facility] SystemVdetgiuSYWFCICONH4241-65-44 17:00:00 Test Item Value Reference Range Interpretation Comments T-Spot Pos Ctrl (test code = T-Spot Passed Pos Ctrl) [place] 090822-12-13 17:00:00 Test Item Value Reference Range Interpretation Comments Toxoplasma IgG (test code = Toxoplasma no gt IgG) [place] 090822-12-13 17:00:00 Test Item Value Reference Range Interpretation Comments Toxoplasma IgM (test code = Toxoplasma no gt IgM) [place] 090822-12-13 17:00:00 Test Item Value Reference Range Interpretation Comments Treponemal Ab (test code Non-Reactive = Treponemal Ab) *NA*(07/26/22 11:00 AM) [place] [address]-12-13 17:00:00 Test Item Value Reference Range Interpretation Comments Varicella IgG (test code = Varicella 905.80 IgG) [place] 090822-12-13 17:00:00 Test Item Value Reference Range Interpretation Comments Mumps IgG (test code = Mumps IgG) 80.00 [place] [address]-12-13 17:00:00 Test Item Value Reference Range Interpretation Comments Rubella IgG (test code = Rubella IgG) 69.4 [facility]ballJpeygdiDITFUGLWLG2039-28-08 17:00:00 Test Item Value Reference Range Interpretation Comments Rubeola IgG (test code = Rubeola IgG) 123.00 [facility] KLYRWQUOIQ1992-29-41 17:00:00 Test Item Value Reference Range Interpretation Comments HCV RNA VirLoad Not Detected (07/26/22 (Transplant) (test 11:00 AM) code = HCV RNA VirLoad (Transplant)) [facility] CIGFCQDITK1353-51-25 17:00:00 Test Item Value Reference Range Interpretation Comments HCV RNA Log10 (Transplant) (test code = no gt HCV RNA Log10 (Transplant)) [facility] LAB RHZBMKU6538-31-17 17:00:00 Test Item Value Reference Range Interpretation Comments Misc Quest (test code = Misc Quest) REPORT [facility]2021-11-09 12:38:00 Test Item Value Reference Range Interpretation Comments Ferritin Lvl (test code = Ferritin Lvl) 896 75-275 [facility]2021-11-09 12:38:00 Test Item Value Reference Range Interpretation Comments Iron (test code = Iron) 156 [facility]2021-11-09 12:38:00 Test Item Value Reference Range Interpretation Comments TIBC (test code = TIBC) 296 [facility]2021-11-09 12:38:00 Test Item Value Reference Range Interpretation Comments % Satur Fe (test code = % Satur Fe) 53 [facility]2021-11-09 12:38:00 Test Item Value Reference Range Interpretation Comments Glucose Lvl (test code = Glucose Lvl) 98 70-99 [facility]2021-11-09 12:38:00 Test Item Value Reference Range Interpretation Comments BUN (test code = BUN) 32 7-22 [facility]2021-11-09 12:38:00 Test Item Value Reference Range Interpretation Comments Creatinine Lvl (test code = Creatinine 7.74 0.50-1.40 Lvl) [facility]2021-11-09 12:38:00 Test Item Value Reference Range Interpretation Comments Sodium Lvl (test code = Sodium Lvl) 138 135-145 [facility]2021-11-09 12:38:00 Test Item Value Reference Range Interpretation Comments Potassium Lvl (test code = Potassium 4.4 3.5-5.1 Lvl) [place] 180391-11-09 12:38:00 Test Item Value Reference Range Interpretation Comments Chloride Lvl (test code = Chloride Lvl) 98 95-109 [place] 180391-11-09 12:38:00 Test Item Value Reference Range Interpretation Comments CO2 (test code = CO2) 32 24-32 [place] 180391-11-09 12:38:00 Test Item Value Reference Range Interpretation Comments Calcium Lvl (test code = Calcium Lvl) 10.6 8.5-10.5 [place] 180391-11-09 12:38:00 Test Item Value Reference Range Interpretation Comments Total Protein (test code = Total 7.8 6.4-8.4 Protein) [place] 180391-11-09 12:38:00 Test Item Value Reference Range Interpretation Comments Albumin Lvl (test code = Albumin Lvl) 4.2 3.5-5.0 [place] 180391-11-09 12:38:00 Test Item Value Reference Range Interpretation Comments ALT (test code = ALT) 22 See_Comment [Auto mated message] The system which ge nerated this result transmit jose carlos reference range : <=65. The reference range was not used to interpr et this result as adan l/abnormal. [place] 180391-11-09 12:38:00 Test Item Value Reference Range Interpretation Comments AST (test code = AST) 9 See_Comment [Auto mated message] The system which ge nerated this result transmit jose carlos reference range : <=37. The reference range was not used to interpr et this result as adan l/abnormal. [place] 180391-11-09 12:38:00 Test Item Value Reference Range Interpretation Comments Alk Phos (test code = Alk Phos) 119 39-136 [place] 180391-11-09 12:38:00 Test Item Value Reference Range Interpretation Comments Bili Total (test code = Bili Total) 0.8 0.2-1.3 [place] [address]-11-09 12:38:00 Test Item Value Reference Range Interpretation Comments AGAP (test code = AGAP) 12.4 10.0-20.0 [facility]2021-11-09 12:38:00 Test Item Value Reference Range Interpretation Comments B/C Ratio (test code = B/C Ratio) 4 1 6-25 [facility]2021-11-09 12:38:00 Test Item Value Reference Range Interpretation Comments Globulin (test code = Globulin) 3.6 2.7-4.2 [facility]2021-11-09 12:38:00 Test Item Value Reference Range Interpretation Comments A/G Ratio (test code = A/G Ratio) 1.2 1 0.7-1.6 [facility]2021-11-09 12:38:00 Test Item Value Reference Range Interpretation Comments eGFR (test code = eGFR) 8 [facility]2021-11-09 12:38:00 Test Item Value Reference Range Interpretation Comments Magnesium Lvl (test code = Magnesium 2.2 1.8-2.4 Lvl) [facility]2021-11-09 12:38:00 Test Item Value Reference Range Interpretation Comments Phosphorus (test code = Phosphorus) 4.6 2.5-4.5 [facility] [id number] 12:38:00 Test Item Value Reference Range Interpretation Comments Uric Acid (test code = Uric Acid) 3.6 3.8-8.0 [facility] [id number] 12:38:00 Test Item Value Reference Range Interpretation Comments Vitamin D, 25-OH, Total (test code = 39 Vitamin D, 25-OH, Total) [facility] [id number] 12:38:00 Test Item Value Reference Range Interpretation Comments Creatinine Lvl (test code = Creatinine 8.04 0.50-1.40 Lvl) [facility] [id number] 12:38:00 Test Item Value Reference Range Interpretation Comments eGFR (test code = eGFR) 8 [facility] [id number] 12:38:00 Test Item Value Reference Range Interpretation Comments Phencyclidine Scr (test code = Negative Phencyclidine Scr) [facility] [id number] 12:38:00 Test Item Value Reference Range Interpretation Comments Radha Scr (test code = Radha Scr) Negative [facility] [id number] 12:38:00 Test Item Value Reference Range Interpretation Comments Cannab Scr (test code = Cannab Scr) Negative [facility] [id number] 12:38:00 Test Item Value Reference Range Interpretation Comments Methadone Scr (test code = Methadone Negative Scr) [facility] [id number] 12:38:00 Test Item Value Reference Range Interpretation Comments Cocaine Scr (test code = Cocaine Negative Scr) [facility] [id number] 12:38:00 Test Item Value Reference Range Interpretation Comments Benzodiaz Scr (test code = Benzodiaz Negative Scr) [facility] [id number] 12:38:00 Test Item Value Reference Range Interpretation Comments Amph Scr (test code = Amph Scr) Negative [facility] [id number] 12:38:00 Test Item Value Reference Range Interpretation Comments Opiate Scr (test code = Opiate Scr) Negative [facility] [id number] 12:38:00 Test Item Value Reference Range Interpretation Comments 6-Acetylmor Scr (test code = Negative 6-Acetylmor Scr) [facility] [id number] 12:38:00 Test Item Value Reference Range Interpretation Comments Cryptococcal Ag (test Negative (06/22/21 code = Cryptococcal Ag) 6:38 AM) [facility] [id number] 12:38:00 Test Item Value Reference Range Interpretation Comments Histo Yeast Ab (test code = Histo Yeast <1:8 Ab) [facility] [id number] 12:38:00 Test Item Value Reference Range Interpretation Comments Histo mycel Ab (test code = Histo mycel <1:8 Ab) [facility] [id number] 12:38:00 Test Item Value Reference Range Interpretation Comments U Histo Ag (test code None Detected (06/22/21 = U Histo Ag) 6:38 AM) [facility] [id number] 12:38:00 Test Item Value Reference Range Interpretation Comments U Hist Ag Intrp (test code = U Hist NEGATIVE Ag Intrp) [facility] [id number] 12:38:00 Test Item Value Reference Range Interpretation Comments Blastomyces Ab (test code = NEGATIVE Blastomyces Ab) [facility]2021-11-09 12:38:00 Test Item Value Reference Range Interpretation Comments Coccid Ab IgM (test code = Coccid Ab NEGATIVE IgM) [facility]2021-11-09 12:38:00 Test Item Value Reference Range Interpretation Comments Coccid Ab IgG (test code = Coccid Ab NEGATIVE IgG) [place] 310991-11-09 12:38:00 Test Item Value Reference Range Interpretation Comments Segs (test code = Segs) 62.2 45.0-75.0 [place] 310991-11-09 12:38:00 Test Item Value Reference Range Interpretation Comments Lymphocytes (test code = Lymphocytes) 22.8 20.0-40.0 [place] 310991-11-09 12:38:00 Test Item Value Reference Range Interpretation Comments Monocytes (test code = Monocytes) 8.1 2.0-12.0 [place] 310991-11-09 12:38:00 Test Item Value Reference Range Interpretation Comments Eosinophils (test code = 5.9 See_Comment [A utomated message] The Eosinophils) system which ge nerated this result tra nsmitted reference range : <=4.0. The reference r bijan was not used to int erpret this result as normal/abnormal . [id number] 12:38:00 Test Item Value Reference Range Interpretation Comments Basophils (test code = 1.0 See_Comment [Aut omated message] The Basophils) system which ge nerated this result tra nsmitted reference range : <=1.0. The reference r bijan was not used to int erpret this result as normal/abnormal . [facility] [id number] 12:38:00 Test Item Value Reference Range Interpretation Comments Neutrophils # (test code = Neutrophils 4.6 1.5-8.1 #) [place] 310991-11-09 12:38:00 Test Item Value Reference Range Interpretation Comments Lymphocytes # (test code = Lymphocytes 1.7 1.0-5.5 #) [place] 310991-11-09 12:38:00 Test Item Value Reference Range Interpretation Comments Monocytes # (test code 0.6 See_Comment [Aut omated message] The = Monocytes #) system which generated this result tra nsmitted reference range : <=0.8. The reference r bijan was not used to int erpret this result as normal/abnormal . [facility] TylerUeabpfsBQQCSWTEHX9722-93-90 12:38:00 Test Item Value Reference Range Interpretation Comments Eosinophils # (test code 0.4 See_Comment [A utomated message] The = Eosinophils #) system whic h generated this result tra nsmitted reference range : <=0.5. The reference r bijan was not used to int erpret this result as normal/abnormal . [facility] Tyl[id number] 12:38:00 Test Item Value Reference Range Interpretation Comments Basophils # (test code 0.1 See_Comment [Aut omated message] The = Basophils #) system which generated this result tra nsmitted reference range : <=0.2. The reference r bijan was not used to int erpret this result as normal/abnormal . [facility] [id number] 12:38:00 Test Item Value Reference Range Interpretation Comments Macrocyte (test code = 1+ *ABN*(06/22/21 Macrocyte) 6:38 AM) [place] 310991-11-09 12:38:00 Test Item Value Reference Range Interpretation Comments PT (test code = PT) 13.3 s 12.0-14.7 [facility] [id number] 12:38:00 Test Item Value Reference Range Interpretation Comments INR (test code = INR) 1.02 1 0.85-1.17 [place] 310991-11-09 12:38:00 Test Item Value Reference Range Interpretation Comments PTT (test code = PTT) 27.1 s 22.9-35.8 [place] 310991-11-09 12:38:00 Test Item Value Reference Range Interpretation Comments WBC (test code = WBC) 7.5 3.7-10.4 [place] 310991-11-09 12:38:00 Test Item Value Reference Range Interpretation Comments RBC (test code = RBC) 3.53 4.70-6.10 [place] 310991-11-09 12:38:00 Test Item Value Reference Range Interpretation Comments Hgb (test code = Hgb) 12.5 14.0-18.0 [place] 310991-11-09 12:38:00 Test Item Value Reference Range Interpretation Comments Hct (test code = Hct) 35.7 42.0-54.0 [place] 310991-11-09 12:38:00 Test Item Value Reference Range Interpretation Comments MCV (test code = MCV) 101.2 80.0-94.0 [place] 310991-11-09 12:38:00 Test Item Value Reference Range Interpretation Comments MCH (test code = MCH) 35.4 pg 27.0-31.0 [facility] TylerIughwqzCFQPXOEXGD9221-85-11 12:38:00 Test Item Value Reference Range Interpretation Comments MCHC (test code = MCHC) 35.0 32.0-36.0 [facility] TylerJpplnnxFORFSAFLOH8859-72-37 12:38:00 Test Item Value Reference Range Interpretation Comments RDW (test code = RDW) 13.0 11.5-14.5 [place] 310991-11-09 12:38:00 Test Item Value Reference Range Interpretation Comments Platelet (test code = Platelet) 178 133-450 [facility] TylerYhkxvrgRAEBLTHYRI4522-51-16 12:38:00 Test Item Value Reference Range Interpretation Comments MPV (test code = MPV) 9.8 7.4-10.4 [facility] TylerGsizyjoCFIBYTOVCI2296-74-04 12:38:00 Test Item Value Reference Range Interpretation Comments Sickle Cell Screen Negative (06/22/21 6:38 (test code = Sickle AM) Cell Screen) [place] 310991-11-09 12:38:00 Test Item Value Reference Range Interpretation Comments AT III Func (test code = AT III Func) 94 77-140 [facility] TylerKityuvbKORGCZAQOM6965-30-98 12:38:00 Test Item Value Reference Range Interpretation Comments dRVV Ratio (test code = dRVV Ratio) 0.92 1 [facility] TylerBxwkvthAIVDUAIBFP9177-85-18 12:38:00 Test Item Value Reference Range Interpretation Comments Hex Phos N (test code Negative (06/22/21 6:38 = Hex Phos N) AM) [place] 310991-11-09 12:38:00 Test Item Value Reference Range Interpretation Comments Lup Interp (test Negative for lupus code = Lup Interp) anticoagulant with all tests performed (dRVVT, and hexagonal phospholipid neutralization). CPT: 47297 [facility] TylerYymomlzPYSKHIZNIB1749-88-80 12:38:00 Test Item Value Reference Range Interpretation Comments Protein C Func (test code = Protein C 89 72-147 Func) [facility] TylerOausdazYVJHJLVSFZ5080-59-55 12:38:00 Test Item Value Reference Range Interpretation Comments Protein S Func (test code = Protein S 86 54-137 Func) [place] 090821-11-09 12:38:00 Test Item Value Reference Range Interpretation Comments Cystatin C (test code = Cystatin C) 7.59 [place] 090821-11-09 12:38:00 Test Item Value Reference Range Interpretation Comments eGFR Cystatin-based (test code = eGFR 6 Cystatin-based) [place] [address]-11-09 12:38:00 Test Item Value Reference Range Interpretation Comments Hgb A % (test code = Hgb A %) 97.4 95.8-97.8 [place] [address]-11-09 12:38:00 Test Item Value Reference Range Interpretation Comments Hgb A2 % (test code = Hgb A2 %) 2.6 2.2-3.2 [place] [address]-11-09 12:38:00 Test Item Value Reference Range Interpretation Comments Hgb F % (test code = 0.0 See_Comment [Autom ated message] The Hgb F %) system which ge nerated this result transmit jose carlos reference range : <=1.0. The reference range was not used to interpr et this result as adan l/abnormal. [place] 090821-11-09 12:38:00 Test Item Value Reference Range Interpretation Comments Hgb S % (test code = 0.0 See_Comment [Autom ated message] The Hgb S %) system which ge nerated this result transmit jose carlos reference range : <=0.0. The reference range was not used to interpr et this result as adan l/abnormal. [place] [address]-11-09 12:38:00 Test Item Value Reference Range Interpretation Comments Hgb C % (test code = 0.0 See_Comment [Autom ated message] The Hgb C %) system which ge nerated this result transmit jose carlos reference range : <=0.0. The reference range was not used to interpr et this result as adan l/abnormal. [facility]EkdikghSATORXXJZG9939-32-92 12:38:00 Test Item Value Reference Range Interpretation Comments Hgb Interp (test No abnormal hemoglobins are code = Hgb Interp) detected. Normal hemoglobin electrophoresis pattern. The electronic medical record has been reviewed for relevant history. I have personally reviewed the test results and concur with the resident's interpretation. CPT 40035-TP [facility] SystemGnzuhvrMIHVXGNDKS2571-70-81 12:38:00 Test Item Value Reference Range Interpretation Comments Cardiolipin IgA (test code = no gt Cardiolipin IgA) [place] 090821-11-09 12:38:00 Test Item Value Reference Range Interpretation Comments Cardiolipin IgG (test code = no gt Cardiolipin IgG) [facility] SystemQxtroggZQFEDXVJQF3399-56-12 12:38:00 Test Item Value Reference Range Interpretation Comments Cardiolipin IgM (test code = 0.9 Cardiolipin IgM) [facility] SystemFkstfurTGKLDBPZVZ4036-07-09 12:38:00 Test Item Value Reference Range Interpretation Comments Homocyst Tot (test code = Homocyst Tot) 19.8 3.7-13.9 [place] 090821-11-09 12:38:00 Test Item Value Reference Range Interpretation Comments CMV IgG (test code = CMV IgG) 4.40 [facility] SystemJgqtujqCVWBMCCEQY8599-12-89 12:38:00 Test Item Value Reference Range Interpretation Comments EBV VCA IgG (test code = EBV VCA IgG) no gt [facility] SystemQexpwfmIILYXGFCEA3498-12-28 12:38:00 Test Item Value Reference Range Interpretation Comments HIV Ag/Ab 4th Gen Negative *NA*(06/22/21 (test code = HIV 6:38 AM) Ag/Ab 4th Gen) [place] 090821-11-09 12:38:00 Test Item Value Reference Range Interpretation Comments Hep A Tot (test code = Hep A Tot) REACTIVE [facility] SystemIwvvjjfFHTYDFFHBT0754-67-28 12:38:00 Test Item Value Reference Range Interpretation Comments Hep Bs Ab (test code = Hep Bs Ab) no gt [place] 090821-11-09 12:38:00 Test Item Value Reference Range Interpretation Comments Hep B Core Ab (test code = Hep B NON-REACTIVE Core Ab) [place] 090821-11-09 12:38:00 Test Item Value Reference Range Interpretation Comments Hep Bs Ag (test code Negative *NA*(06/22/21 = Hep Bs Ag) 6:38 AM) [facility] SystemWcgagksYYDKRKYBVU5297-80-75 12:38:00 Test Item Value Reference Range Interpretation Comments Hep C Ab (test code = Hep C Ab) NON-REACTIVE [facility] SystemVtnfmvzISHYVYFTVG2771-35-07 12:38:00 Test Item Value Reference Range Interpretation Comments Hep Signal to Cut-Off (test code = Hep 0.01 1 Signal to Cut-Off) [place] 090821-11-09 12:38:00 Test Item Value Reference Range Interpretation Comments HSV 1 IgG (test code = HSV 1 IgG) 47.90 [place] 090821-11-09 12:38:00 Test Item Value Reference Range Interpretation Comments HSV 2 IgG (test code = HSV 2 IgG) no gt [place] 090821-11-09 12:38:00 Test Item Value Reference Range Interpretation Comments T-Spot.TB (test code = T-Spot.TB) Negative [facility] SystemJsyrkarPQNUVDXKXD0627-57-99 12:38:00 Test Item Value Reference Range Interpretation Comments T-Spot Pnl A Neg Ctrl Corrected (test 0 1 code = T-Spot Pnl A Neg Ctrl Corrected) [facility] SystemTjfwglsFFCVQBMXBQ1781-66-23 12:38:00 Test Item Value Reference Range Interpretation Comments T-Spot Pnl B Neg Ctrl Corrected (test 0 1 code = T-Spot Pnl B Neg Ctrl Corrected) [facility] SystemMdajxyoMOTFYNVBCJ6544-51-31 12:38:00 Test Item Value Reference Range Interpretation Comments T-Spot Neg Ctrl (test code = T-Spot Passed Neg Ctrl) [facility] SystemOxmttwwDOVXXFSPJO6948-15-08 12:38:00 Test Item Value Reference Range Interpretation Comments T-Spot Pos Ctrl (test code = T-Spot Passed Pos Ctrl) [facility] SystemUmmoecnTOYSBLVSLS3367-66-30 12:38:00 Test Item Value Reference Range Interpretation Comments Treponemal Ab (test code Non-Reactive = Treponemal Ab) *NA*(06/22/21 6:38 AM) [facility] SystemOcrvozaSVBOROSUPL8535-02-62 12:38:00 Test Item Value Reference Range Interpretation Comments Varicella IgG (test code = Varicella 3232.00 IgG) [place] 090821-11-09 12:38:00 Test Item Value Reference Range Interpretation Comments Mumps IgG (test code = Mumps IgG) no [facility] XfkchiwUKMXYLHNLM2994-45-46 12:38:00 Test Item Value Reference Range Interpretation Comments Rubella IgG (test code = Rubella IgG) 36.5 [facility] HospitalKakywssUHIJEFUMRS8767-18-94 12:38:00 Test Item Value Reference Range Interpretation Comments Rubeola IgG (test code = Rubeola IgG) no [facility]cYUUTTU4061-51-25 12:38:00 Test Item Value Reference Range Interpretation Comments Trig (test code = Trig) 64 [facility] HospitalLpgydhtSAZUIL2306-34-31 12:38:00 Test Item Value Reference Range Interpretation Comments Chol (test code = Chol) 151 [facility] HospitalSfgdwyyMVACXY8670-18-70 12:38:00 Test Item Value Reference Range Interpretation Comments HDL (test code = HDL) 65 [facility]ballRggwqtcXOIIFR3368-28-34 12:38:00 Test Item Value Reference Range Interpretation Comments CHD Risk (test code = CHD Risk) 2.32 1 4.00-7.30 [facility]CwdnklvJLXIQG7442-12-02 12:38:00 Test Item Value Reference Range Interpretation Comments LDL (Calculated) (test code = LDL 73 (Calculated)) [facility]ballOiwjycdJZMLMX5557-26-19 12:38:00 Test Item Value Reference Range Interpretation Comments VLDL (test code = VLDL) 13 1 [facility] - [id number] 12:38:00 Test Item Value Reference Range Interpretation Comments Strongyloides Antibodies (test code NEGATIVE = Strongyloides Antibodies) [facility] TomballPARATHYROID EUMIARU2864-48-62 12:38:00 Test Item Value Reference Range Interpretation Comments PTH Intact (test code = PTH Intact) 1014.1 18.4-80.1 [facility]ballSPECIAL NMSCAJGKS2903-99-26 12:38:00 Test Item Value Reference Range Interpretation Comments Nicotine Lvl (test code = Nicotine Lvl) no [facility] XGPRRPBAY0576-02-84 12:38:00 Test Item Value Reference Range Interpretation Comments Cotinine Lvl (test code = Cotinine Lvl) no [facility] UUVSLVMOG7785-38-58 12:38:00 Test Item Value Reference Range Interpretation Comments Hgb A1C (test code = Hgb A1C) 5.2 [facility] AND [id number] 12:38:00 Test Item Value Reference Range Interpretation Comments UA Color (test code = Yellow *NA*(06/22/21 UA Color) 6:38 AM) [facility] AND [id number] 12:38:00 Test Item Value Reference Range Interpretation Comments UA Turbidity (test code = Clear (06/22/21 6:38 UA Turbidity) AM) [facility] AND [id number] 12:38:00 Test Item Value Reference Range Interpretation Comments UA Spec Grav (test code = UA Spec 1.015 1 Grav) [facility] AND [id number] 12:38:00 Test Item Value Reference Range Interpretation Comments UA pH (test code = UA pH) 8.5 1 5.0-8.0 [facility] AND [id number] 12:38:00 Test Item Value Reference Range Interpretation Comments UA Protein (test code = UA Protein) 100 mg/dL [facility] AND [id number] 12:38:00 Test Item Value Reference Range Interpretation Comments UA Glucose (test code = 250 *ABN*(06/22/21 UA Glucose) 6:38 AM) [facility] AND [id number] 12:38:00 Test Item Value Reference Range Interpretation Comments UA Ketones (test code Negative *NA*(06/22/21 = UA Ketones) 6:38 AM) [facility] AND [id number] 12:38:00 Test Item Value Reference Range Interpretation Comments UA Bili (test code = Negative *NA*(06/22/21 UA Bili) 6:38 AM) [facility] AND [id number] 12:38:00 Test Item Value Reference Range Interpretation Comments UA Blood (test code = Trace *ABN*(06/22/21 UA Blood) 6:38 AM) [facility] AND [id number] 12:38:00 Test Item Value Reference Range Interpretation Comments UA Urobilinogen (test code = UA 0.2 0.1-1.0 Urobilinogen) [facility] AND [id number] 12:38:00 Test Item Value Reference Range Interpretation Comments UA Nitrite (test code Negative (06/22/21 6:38 = UA Nitrite) AM) [facility] AND [id number] 12:38:00 Test Item Value Reference Range Interpretation Comments UA Leuk Est (test Negative (06/22/21 6:38 code = UA Leuk Est) AM) [facility] AND [id number] 12:38:00 Test Item Value Reference Range Interpretation Comments UA Sq Epi (test code = UA Sq Occasional /LPF Epi) [facility] AND [id number] 12:38:00 Test Item Value Reference Range Interpretation Comments UA WBC (test code = 1 See_Comment [Automa jose carlos message] The UA WBC) system which ge nerated this result transmit jose carlos reference range : <=5. The reference range was not used to interpr et this result as adan l/abnormal. [facility] AND [id number] 12:38:00 Test Item Value Reference Range Interpretation Comments UA RBC (test code = no gt See_Comment [Automa jose carlos message] The UA RBC) system which ge nerated this result transmit jose carlos reference range : <=2. The reference range was not used to interpr et this result as adan l/abnormal. [facility] AND [id number] 12:38:00 Test Item Value Reference Range Interpretation Comments UA Bacteria (test code = UA Occasional /HPF Bacteria) [facility] AND [id number] 12:38:00 Test Item Value Reference Range Interpretation Comments UA Amorph Bella (test code = Occasional /HPF UA Amorph Bella) [facility]2021-11-09 12:38:00 Test Item Value Reference Range Interpretation Comments U Creatinine (test code = U 117.00 Creatinine) [facility]2021-11-09 12:38:00 Test Item Value Reference Range Interpretation Comments U Alb (test code = U Alb) 609.0 [facility]2021-11-09 12:38:00 Test Item Value Reference Range Interpretation Comments U Alb/Crea (test code = U Alb/Crea) 520.5 [facility]2021-11-09 12:38:00 Test Item Value Reference Range Interpretation Comments U Creatinine (test code = U 117.00 Creatinine) [facility]2021-11-09 12:38:00 Test Item Value Reference Range Interpretation Comments U Protein (test code = U Protein) 194.5 [facility]2021-11-09 12:38:00 Test Item Value Reference Range Interpretation Comments U Prot/Creat (test code = U 1.66 1 Prot/Creat) [facility]2021-11-09 12:38:00 Test Item Value Reference Range Interpretation Comments U Creatinine (test code = U 117.00 Creatinine) [facility]2021-11-09 12:38:00 Test Item Value Reference Range Interpretation Comments U Alb (test code = U Alb) 609.0 [facility]2021-11-09 12:38:00 Test Item Value Reference Range Interpretation Comments U Alb/Crea (test code = U Alb/Crea) 520.5 [facility]2021-11-09 12:38:00 Test Item Value Reference Range Interpretation Comments T cruzi (Chagas) Ab (test code = NONREACTIVE T cruzi (Chagas) Ab) [facility]2021-11-09 12:38:00 Test Item Value Reference Range Interpretation Comments W Nile Ab IgG (test code = W Nile Ab no gt IgG) [facility] [facility] 12:38:00 Test Item Value Reference Range Interpretation Comments W Nile Ab IgM (test code = W Nile Ab no gt IgM) [facility]2021-01-25 19:03:00 Test Item Value Reference Range Interpretation Comments Glucose Lvl (test code = Glucose Lvl) 89 70-99 [facility]2021-01-25 19:03:00 Test Item Value Reference Range Interpretation Comments BUN (test code = BUN) 36 7-22 [facility]2021-01-25 19:03:00 Test Item Value Reference Range Interpretation Comments Creatinine Lvl (test code = Creatinine 10.60 0.50-1.40 Lvl) [facility]2021-01-25 19:03:00 Test Item Value Reference Range Interpretation Comments Sodium Lvl (test code = Sodium Lvl) 135 135-145 [facility]2021-01-25 19:03:00 Test Item Value Reference Range Interpretation Comments Potassium Lvl (test code = Potassium 4.3 3.5-5.1 Lvl) [facility]2021-01-25 19:03:00 Test Item Value Reference Range Interpretation Comments Chloride Lvl (test code = Chloride Lvl) 101 95-109 [place] 180391-01-25 19:03:00 Test Item Value Reference Range Interpretation Comments CO2 (test code = CO2) 27 24-32 [place] [address]-01-25 19:03:00 Test Item Value Reference Range Interpretation Comments Calcium Lvl (test code = Calcium Lvl) 9.7 8.5-10.5 [place] 180391-01-25 19:03:00 Test Item Value Reference Range Interpretation Comments AGAP (test code = AGAP) 11.3 10.0-20.0 [place] 180391-01-25 19:03:00 Test Item Value Reference Range Interpretation Comments eGFR (test code = eGFR) 6 [place] 180391-01-25 19:03:00 Test Item Value Reference Range Interpretation Comments Magnesium Lvl (test code = Magnesium 2.5 1.8-2.4 Lvl) [place] 310991-01-25 19:03:00 Test Item Value Reference Range Interpretation Comments Segs (test code = Segs) 68.6 45.0-75.0 [place] 310991-01-25 19:03:00 Test Item Value Reference Range Interpretation Comments Lymphocytes (test code = Lymphocytes) 19.0 20.0-40.0 [place] 310991-01-25 19:03:00 Test Item Value Reference Range Interpretation Comments Monocytes (test code = Monocytes) 6.2 2.0-12.0 [place] 310991-01-25 19:03:00 Test Item Value Reference Range Interpretation Comments Eosinophils (test code = 5.3 See_Comment [A utomated message] The Eosinophils) system which ge nerated this result tra nsmitted reference range : <=4.0. The reference r bijan was not used to int erpret this result as normal/abnormal . [place] 310991-01-25 19:03:00 Test Item Value Reference Range Interpretation Comments Basophils (test code = 0.9 See_Comment [Aut omated message] The Basophils) system which ge nerated this result tra nsmitted reference range : <=1.0. The reference r bijan was not used to int erpret this result as normal/abnormal . [place] 310991-01-25 19:03:00 Test Item Value Reference Range Interpretation Comments Neutrophils # (test code = Neutrophils 5.9 1.5-8.1 #) [facility]usphjpEMVRQCNUVS4722-35-80 19:03:00 Test Item Value Reference Range Interpretation Comments Lymphocytes # (test code = Lymphocytes 1.6 1.0-5.5 #) [place] 310991-01-25 19:03:00 Test Item Value Reference Range Interpretation Comments Monocytes # (test code 0.5 See_Comment [Aut omated message] The = Monocytes #) system which generated this result tra nsmitted reference range : <=0.8. The reference r bijan was not used to int erpret this result as normal/abnormal . [place] 310991-01-25 19:03:00 Test Item Value Reference Range Interpretation Comments Eosinophils # (test code 0.5 See_Comment [A utomated message] The = Eosinophils #) system whic h generated this result tra nsmitted reference range : <=0.5. The reference r bijan was not used to int erpret this result as normal/abnormal . [place] 310991-01-25 19:03:00 Test Item Value Reference Range Interpretation Comments Basophils # (test code 0.1 See_Comment [Aut omated message] The = Basophils #) system which generated this result tra nsmitted reference range : <=0.2. The reference r bijan was not used to int erpret this result as normal/abnormal . [facility] TylerTyzhjowKSGFKLGNGX8998-02-37 19:03:00 Test Item Value Reference Range Interpretation Comments Macrocyte (test code = 1+ *ABN*(09/07/20 Macrocyte) 1:03 PM) [place] 310991-01-25 19:03:00 Test Item Value Reference Range Interpretation Comments WBC (test code = WBC) 8.6 3.7-10.4 [place] 310991-01-25 19:03:00 Test Item Value Reference Range Interpretation Comments RBC (test code = RBC) 3.75 4.70-6.10 [place] 310991-01-25 19:03:00 Test Item Value Reference Range Interpretation Comments Hgb (test code = Hgb) 13.1 14.0-18.0 [place] 310991-01-25 19:03:00 Test Item Value Reference Range Interpretation Comments Hct (test code = Hct) 37.8 42.0-54.0 [place] 310991-01-25 19:03:00 Test Item Value Reference Range Interpretation Comments MCV (test code = MCV) 100.7 80.0-94.0 [place] 310991-01-25 19:03:00 Test Item Value Reference Range Interpretation Comments MCH (test code = MCH) 34.9 pg 27.0-31.0 [facility] TylerHuiddprCTHCANOSQN3590-56-19 19:03:00 Test Item Value Reference Range Interpretation Comments MCHC (test code = MCHC) 34.6 32.0-36.0 [facility] TylerDwocgbeRDGDIWRQHB5679-44-15 19:03:00 Test Item Value Reference Range Interpretation Comments RDW (test code = RDW) 13.1 11.5-14.5 [place] 310991-01-25 19:03:00 Test Item Value Reference Range Interpretation Comments Platelet (test code = Platelet) 188 133-450 [facility] TylerSdaqiazLZKNPUASSG8927-41-25 19:03:00 Test Item Value Reference Range Interpretation Comments MPV (test code = MPV) 8.8 7.4-10.4 [facility] TylerEbrjtssVNPNCHYAEF7956-24-52 19:03:00 Test Item Value Reference Range Interpretation Comments PT (test code = PT) 12.8 s 12.0-14.7 [place] 310991-01-25 19:03:00 Test Item Value Reference Range Interpretation Comments INR (test code = INR) 0.97 1 0.85-1.17 [place] 310991-01-25 19:03:00 Test Item Value Reference Range Interpretation Comments PTT (test code = PTT) 29.1 s 22.9-35.8 [place] 090821-01-25 17:23:00 Test Item Value Reference Range Interpretation Comments Coronavirus (COVID-19) Not Detected (09/07/20 LATONYA (test code = 11:23 AM) Coronavirus (COVID-19) LATONYA) [facility]lyoriqFZYLNTLAYZ5650-27-35 12:11:00 Test Item Value Reference Range Interpretation Comments Coronavirus (COVID-19) Not Detected (05/19/20 LATONYA (test code = 7:11 AM) Coronavirus (COVID-19) LATONYA) [facility]ballPencibfFEOWBZRFGY4223-67-21 18:29:00 Test Item Value Reference Range Interpretation Comments C3 Complement (test code = C3 101 82-185 Complement) [facility] TomballSdpwlchTQDFALGEEP8327-21-35 18:29:00 Test Item Value Reference Range Interpretation Comments C4 Complement (test code = C4 30 15-53 Complement) [facility]hkwyrxBGJBCYHLOS1109-15-79 18:29:00 Test Item Value Reference Range Interpretation Comments CHUCKIE (test code = CHUCKIE) NEGATIVE [facility] HospitalPfrpvjtQMDHOTKPFJ5876-42-34 18:29:00 Test Item Value Reference Range Interpretation Comments DNA Ab (DS) (test code = DNA Ab NEGATIVE (DS)) [facility] HospitalZtpblkxUAEPJALGDC5467-31-72 18:29:00 Test Item Value Reference Range Interpretation Comments ANCA (test code = ANCA) NEGATIVE [facility] HOCJHSV2844-17-23 12:30:00 Test Item Value Reference Range Interpretation Comments ABO/RH Confirm (test code = ABO/RH A POS Confirm) [facility] [id number] 12:10:00 Test Item Value Reference Range Interpretation Comments Globulin (test code = Globulin) 4.2 2.7-4.2 [facility] [id number] 12:10:00 Test Item Value Reference Range Interpretation Comments A/G Ratio (test code = A/G Ratio) 1.0 1 0.7-1.6 [facility] [id number] 12:10:00 Test Item Value Reference Range Interpretation Comments eGFR (test code = eGFR) 3 [facility] [id number] 12:10:00 Test Item Value Reference Range Interpretation Comments Magnesium Lvl (test code = Magnesium 2.9 1.8-2.4 Lvl) [facility] [id number] 12:10:00 Test Item Value Reference Range Interpretation Comments Phosphorus (test code = Phosphorus) 8.0 2.5-4.5 [facility] [id number] 12:10:00 Test Item Value Reference Range Interpretation Comments Uric Acid (test code = Uric Acid) 5.5 3.8-8.0 [facility] [id number] 12:10:00 Test Item Value Reference Range Interpretation Comments Vitamin D, 25-OH, Total (test code = 23 30-100 Vitamin D, 25-OH, Total) [facility] [id number] 12:10:00 Test Item Value Reference Range Interpretation Comments Creatinine Lvl (test code = Creatinine 16.20 0.50-1.40 Lvl) [facility]ann[facility] [id number] 12:10:00 Test Item Value Reference Range Interpretation Comments eGFR (test code = eGFR) 3 [facility] [id number] 12:10:00 Test Item Value Reference Range Interpretation Comments Phencyclidine Scr (test code = Negative Phencyclidine Scr) [facility] MDIZWZ9911-79-06 12:10:00 Test Item Value Reference Range Interpretation Comments Radha Scr (test code = Radha Scr) Negative [facility] KRPYZM8890-51-50 12:10:00 Test Item Value Reference Range Interpretation Comments Cannab Scr (test code = Cannab Scr) Negative [facility] ZDZPMT4302-49-05 12:10:00 Test Item Value Reference Range Interpretation Comments Methadone Scr (test code = Methadone Positive Scr) [facility] [id number] 12:10:00 Test Item Value Reference Range Interpretation Comments Cocaine Scr (test code = Cocaine Negative Scr) [facility] BQDGJE5142-09-14 12:10:00 Test Item Value Reference Range Interpretation Comments Benzodiaz Scr (test code = Benzodiaz Negative Scr) [facility] TJXBIQ6588-27-31 12:10:00 Test Item Value Reference Range Interpretation Comments Amph Scr (test code = Amph Scr) Negative [facility] [id number] 12:10:00 Test Item Value Reference Range Interpretation Comments Opiate Scr (test code = Opiate Scr) Positive [facility] UKLMZW0383-06-42 12:10:00 Test Item Value Reference Range Interpretation Comments 6-Acetylmor Scr (test code = Negative 6-Acetylmor Scr) [facility] [id number] 12:10:00 Test Item Value Reference Range Interpretation Comments Opiate Qnt (test code = Opiate Qnt) Negative [facility] OYJXQI5106-52-24 12:10:00 Test Item Value Reference Range Interpretation Comments Methadone Qnt (test code = Methadone Negative Qnt) [facility] HospitalZvtonnfGVOAPWCZTM6247-82-25 12:10:00 Test Item Value Reference Range Interpretation Comments PT (test code = PT) 14.2 s 12.0-14.7 [facility] TylerPwdkmtzEHBEWWLYQJ9190-59-84 12:10:00 Test Item Value Reference Range Interpretation Comments INR (test code = INR) 1.10 1 0.85-1.17 [facility] TylerOwhuplbPLXHQJYRYR9782-58-46 12:10:00 Test Item Value Reference Range Interpretation Comments PTT (test code = PTT) 30.4 s 22.9-35.8 [facility] TylerCqtsqpzHKNKAKROGZ9835-58-58 12:10:00 Test Item Value Reference Range Interpretation Comments WBC (test code = WBC) 9.6 3.7-10.4 [facility] TylerRrpsppjSLUOEMJNYR1275-09-56 12:10:00 Test Item Value Reference Range Interpretation Comments RBC (test code = RBC) 3.68 4.70-6.10 [facility] TylerJmjchbfBZCCQNRQSZ7912-48-37 12:10:00 Test Item Value Reference Range Interpretation Comments Hgb (test code = Hgb) 13.1 14.0-18.0 [facility] TylerVuwisjoMPIIIVKYAI0147-99-06 12:10:00 Test Item Value Reference Range Interpretation Comments Hct (test code = Hct) 38.0 42.0-54.0 [facility] TylerWmgtnncLLWIRHRRJT4544-60-48 12:10:00 Test Item Value Reference Range Interpretation Comments MCV (test code = MCV) 103.4 80.0-94.0 [facility] TylerCykudsuPUFQMZNOGD1439-63-34 12:10:00 Test Item Value Reference Range Interpretation Comments MCH (test code = MCH) 35.7 pg 27.0-31.0 [facility] TylerTfkdsqzMSIVPQGFLH9596-73-23 12:10:00 Test Item Value Reference Range Interpretation Comments MCHC (test code = MCHC) 34.6 32.0-36.0 [facility] TylerIiwjfbcYXBZDFMUTV9474-34-57 12:10:00 Test Item Value Reference Range Interpretation Comments RDW (test code = RDW) 14.6 11.5-14.5 [facility] TylerIxzstsxTBSKQDPSXS4135-89-83 12:10:00 Test Item Value Reference Range Interpretation Comments Platelet (test code = Platelet) 181 133-450 [facility] TylerTurldohWNOXMBIAJD9610-59-95 12:10:00 Test Item Value Reference Range Interpretation Comments MPV (test code = MPV) 10.1 7.4-10.4 [facility] TylerKdqfuomEJEOJEDNEM3544-32-70 12:10:00 Test Item Value Reference Range Interpretation Comments Sickle Cell Screen Negative (03/31/20 7:10 (test code = Sickle AM) Cell Screen) [facility] TylerLvsnslwJGWILMKYGF5440-26-05 12:10:00 Test Item Value Reference Range Interpretation Comments AT III Func (test code = AT III Func) 99 77-140 [facility] TylerZslrtpqEWOKWXTNPK5680-99-91 12:10:00 Test Item Value Reference Range Interpretation Comments F5 Leiden PCR (test Negative (03/31/20 7:10 code = F5 Leiden PCR) AM) [facility] TylerGbudzptMLUTGBZVZM5797-56-17 12:10:00 Test Item Value Reference Range Interpretation Comments F5 Leiden Intrp (test code = F5 See note Leiden Intrp) [facility] TylerWgpmzfaIUBRXNACYX9458-57-28 12:10:00 Test Item Value Reference Range Interpretation Comments dRVV Ratio (test code = dRVV Ratio) 1.17 1 [facility] TylerYlndqfiGTEMRXHDTK6549-30-55 12:10:00 Test Item Value Reference Range Interpretation Comments Hex Phos N (test code Negative (03/31/20 7:10 = Hex Phos N) AM) [facility] TylerGopurklWSMJKXYRCS1784-20-80 12:10:00 Test Item Value Reference Range Interpretation Comments Lup Interp (test Negative for lupus code = Lup Interp) anticoagulant with all tests performed (dRVVT, and hexagonal phospholipid neutralization). CPT: 85096 [facility] TylerQjhpaaiYCMMOXFDNE2044-61-23 12:10:00 Test Item Value Reference Range Interpretation Comments F2 Mutation PCR (test Negative (03/31/20 7:10 code = F2 Mutation PCR) AM) [facility] TylerAhqdramDVWSHMWZIP1458-46-09 12:10:00 Test Item Value Reference Range Interpretation Comments F2 Mut Interp (test code = F2 Mut See note Interp) [facility] TylerZbbeswnEDXRHKTVGO0563-92-81 12:10:00 Test Item Value Reference Range Interpretation Comments Protein C Func (test code = Protein C 92 72-147 Func) [facility] TylerPzbazxvIHRTNBJFCR6324-32-49 12:10:00 Test Item Value Reference Range Interpretation Comments Protein S Func (test code = Protein S 111 54-137 Func) [facility] TylerWqzuwcnRPDPADYNGA0540-81-51 12:10:00 Test Item Value Reference Range Interpretation Comments Segs (test code = Segs) 71.6 45.0-75.0 [facility] TylerBnbijrwTPVFGLWVCP5791-21-61 12:10:00 Test Item Value Reference Range Interpretation Comments Lymphocytes (test code = Lymphocytes) 14.5 20.0-40.0 [place] 310990-08-18 12:10:00 Test Item Value Reference Range Interpretation Comments Monocytes (test code = Monocytes) 7.5 2.0-12.0 [place] 310990-08-18 12:10:00 Test Item Value Reference Range Interpretation Comments Eosinophils (test code = 5.7 See_Comment [A utomated message] The Eosinophils) system which ge nerated this result tra nsmitted reference range : <=4.0. The reference r bijan was not used to int erpret this result as normal/abnormal . [facility] TylerNuavyzmFTYAQWEEQV7811-78-45 12:10:00 Test Item Value Reference Range Interpretation Comments Basophils (test code = 0.7 See_Comment [Aut omated message] The Basophils) system which ge nerated this result tra nsmitted reference range : <=1.0. The reference r bijan was not used to int erpret this result as normal/abnormal . [facility] TylerOrwvyuoUHOVCTEWEI2955-14-41 12:10:00 Test Item Value Reference Range Interpretation Comments Neutrophils # (test code = Neutrophils 6.9 1.5-8.1 #) [facility] TylerBnwpozdONSFNJYHUA4945-38-46 12:10:00 Test Item Value Reference Range Interpretation Comments Lymphocytes # (test code = Lymphocytes 1.4 1.0-5.5 #) [place] 310990-08-18 12:10:00 Test Item Value Reference Range Interpretation Comments Monocytes # (test code 0.7 See_Comment [Aut omated message] The = Monocytes #) system which generated this result tra nsmitted reference range : <=0.8. The reference r bijan was not used to int erpret this result as normal/abnormal . [facility] TylerFeutqyuEQRSYSMXVE2502-20-04 12:10:00 Test Item Value Reference Range Interpretation Comments Eosinophils # (test code 0.5 See_Comment [A utomated message] The = Eosinophils #) system whic h generated this result tra nsmitted reference range : <=0.5. The reference r bijan was not used to int erpret this result as normal/abnormal . [facility] TylerVzicnjoNTWZGUQDFD5518-05-47 12:10:00 Test Item Value Reference Range Interpretation Comments Basophils # (test code 0.1 See_Comment [Aut omated message] The = Basophils #) system which generated this result tra nsmitted reference range : <=0.2. The reference r bijan was not used to int erpret this result as normal/abnormal . [facility] TylerCyrvrseUYPYIXOZUZ3594-68-23 12:10:00 Test Item Value Reference Range Interpretation Comments Macrocyte (test code = 1+ *ABN*(03/31/20 Macrocyte) 7:10 AM) [facility] SystemTgzzsmwQGYSOIKMAU7702-24-70 12:10:00 Test Item Value Reference Range Interpretation Comments Cardiolipin IgA (test code = no gt Cardiolipin IgA) [facility] SystemDfmoxqpKVYEEQSMRH7209-96-00 12:10:00 Test Item Value Reference Range Interpretation Comments Cardiolipin IgG (test code = no gt Cardiolipin IgG) [facility]ballDwrgbpyPDRNKAVWZG8906-03-55 12:10:00 Test Item Value Reference Range Interpretation Comments Cardiolipin IgM (test code = no gt Cardiolipin IgM) [facility] SystemRmnprbcZVNTRVSRKJ2060-55-01 12:10:00 Test Item Value Reference Range Interpretation Comments Homocyst Tot (test code = Homocyst Tot) 126.0 3.7-13.9 [facility] SystemOvkjpnkXWXOTOXRKA7533-84-37 12:10:00 Test Item Value Reference Range Interpretation Comments CMV IgG (test code = CMV IgG) no gt [facility] TomballOpnhyhuAWWBETGOLO3543-99-56 12:10:00 Test Item Value Reference Range Interpretation Comments EBV VCA IgG (test code = EBV VCA IgG) 236.00 [facility] SystemVqakgsiOYMUVSNNGQ3605-50-14 12:10:00 Test Item Value Reference Range Interpretation Comments HIV Ag/Ab 4th Gen Negative *NA*(03/31/20 (test code = HIV 7:10 AM) Ag/Ab 4th Gen) [facility] SystemBrmfdbfSAPSUEUYHF5215-02-45 12:10:00 Test Item Value Reference Range Interpretation Comments Hep A Tot (test code = Hep A Tot) REACTIVE [facility] SystemXuuiybjZZMBZFMFUF8802-54-58 12:10:00 Test Item Value Reference Range Interpretation Comments Hep Bs Ab (test code = Hep Bs Ab) 39 [facility] SystemCdwebtfKFZBJIANIF1872-13-23 12:10:00 Test Item Value Reference Range Interpretation Comments Hep B Core Ab (test code = Hep B NON-REACTIVE Core Ab) [facility] SystemCqyhopcPGRTQXOAYX9222-93-60 12:10:00 Test Item Value Reference Range Interpretation Comments Hep Bs Ag (test code = Hep Bs NON-REACTIVE Ag) [facility] SystemSmusakrQTNYSFJOPD8975-49-99 12:10:00 Test Item Value Reference Range Interpretation Comments HSV 1 IgG (test code = HSV 1 IgG) 42.30 [place] 090820-08-18 12:10:00 Test Item Value Reference Range Interpretation Comments HSV 2 IgG (test code = HSV 2 IgG) no gt [facility] SystemOdwewupNTCTUHGKRF3954-35-52 12:10:00 Test Item Value Reference Range Interpretation Comments Treponemal Ab (test code Non-Reactive = Treponemal Ab) *NA*(03/31/20 7:10 AM) [facility] SystemIdzfouxFAKJQRBQUJ0092-42-04 12:10:00 Test Item Value Reference Range Interpretation Comments Varicella IgG (test code = Varicella 849.40 IgG) [facility] SystemPosmrsaUSVJBMGOWF1336-28-81 12:10:00 Test Item Value Reference Range Interpretation Comments Mumps IgG (test code = Mumps IgG) 20.50 [place] 090820-08-18 12:10:00 Test Item Value Reference Range Interpretation Comments Rubella IgG (test code = Rubella IgG) 71.7 [facility] SystemBdhtmbgUZXSZNGHVV6562-47-41 12:10:00 Test Item Value Reference Range Interpretation Comments Rubeola IgG (test code = Rubeola IgG) 39.20 [place] 090820-08-18 12:10:00 Test Item Value Reference Range Interpretation Comments Cystatin C (test code = Cystatin C) 6.89 0.52-1.31 [place] 090820-08-18 12:10:00 Test Item Value Reference Range Interpretation Comments eGFR Cystatin-based (test code = eGFR 7 Cystatin-based) [facility] SystemCmthdgtHGEJNPRTQO1786-10-17 12:10:00 Test Item Value Reference Range Interpretation Comments Hep C Ab (test code = Hep C Ab) NON-REACTIVE [facility] SystemSmmcvypCGDSCOJZQE7738-70-39 12:10:00 Test Item Value Reference Range Interpretation Comments Hep Signal to Cut-Off (test code = Hep 0.01 1 Signal to Cut-Off) [facility] HospitalMsozohiUGEXWRPOZQ4607-88-78 12:10:00 Test Item Value Reference Range Interpretation Comments T-Spot.TB (test code = T-Spot.TB) Negative [facility] HospitalLqoqmknJIEJDLRWOQ8662-49-28 12:10:00 Test Item Value Reference Range Interpretation Comments T-Spot Pnl A Neg Ctrl Corrected (test 1 1 code = T-Spot Pnl A Neg Ctrl Corrected) [facility] HospitalWobzkfsJJPHIQRILI0885-94-33 12:10:00 Test Item Value Reference Range Interpretation Comments T-Spot Pnl B Neg Ctrl Corrected (test 2 1 code = T-Spot Pnl B Neg Ctrl Corrected) [facility] HospitalFvlgzrrGSRERVGYBN0162-82-19 12:10:00 Test Item Value Reference Range Interpretation Comments T-Spot Neg Ctrl (test code = T-Spot Passed Neg Ctrl) [facility] HospitalHfeykrwZJFBEKMHPE0385-30-34 12:10:00 Test Item Value Reference Range Interpretation Comments T-Spot Pos Ctrl (test code = T-Spot Passed Pos Ctrl) [facility] HospitalBqvedruVBAJPG8480-26-32 12:10:00 Test Item Value Reference Range Interpretation Comments Trig (test code = Trig) 295 [facility] HospitalJtbybmaTYBUIU2494-87-24 12:10:00 Test Item Value Reference Range Interpretation Comments Chol (test code = Chol) 127 [facility] HospitalAcvfcodQOAWAG0106-33-97 12:10:00 Test Item Value Reference Range Interpretation Comments HDL (test code = HDL) 38 [facility] HospitalFqucxmpRIHOBE5978-14-56 12:10:00 Test Item Value Reference Range Interpretation Comments CHD Risk (test code = CHD Risk) 3.34 1 4.00-7.30 [facility] HospitalSpgewthVOKBRV2573-29-22 12:10:00 Test Item Value Reference Range Interpretation Comments LDL (Calculated) (test code = LDL 30 (Calculated)) [facility] HospitalFxwsaknMEDBFG1234-80-56 12:10:00 Test Item Value Reference Range Interpretation Comments VLDL (test code = VLDL) 59 1 [facility]annPARASITOLOGY - HZDZWCNT7697-72-28 12:10:00 Test Item Value Reference Range Interpretation Comments Strongyloides Antibodies (test code NEGATIVE = Strongyloides Antibodies) [facility] HospitalannPARATHYROID HFBQSAH2376-98-09 12:10:00 Test Item Value Reference Range Interpretation Comments PTH Intact (test code = PTH Intact) 431.4 18.4-80.1 [facility] [facility] [id number] 12:10:00 Test Item Value Reference Range Interpretation Comments Misc Quest (test code = Misc SEE COMMENT Quest) [facility]ballInit[facility] GamingIAL [id number] 12:10:00 Test Item Value Reference Range Interpretation Comments Nicotine Lvl (test code = Nicotine Lvl) no gt [facility] [id number] 12:10:00 Test Item Value Reference Range Interpretation Comments Cotinine Lvl (test code = Cotinine Lvl) no gt [facility] [id number] 12:10:00 Test Item Value Reference Range Interpretation Comments Hgb A1C (test code = Hgb A1C) 4.4 [facility]ball[facility]IR[facility] - [id number] 12:10:00 Test Item Value Reference Range Interpretation Comments T cruzi (Chagas) Ab (test code = NONREACTIVE T cruzi (Chagas) Ab) [facility]odes[facility] [id number] 12:10:00 Test Item Value Reference Range Interpretation Comments W Nile Ab IgG (test code = W Nile Ab no gt IgG) [facility] [id number] 12:10:00 Test Item Value Reference Range Interpretation Comments W Nile Ab IgM (test code = W Nile Ab no gt IgM) [facility] [id number] 12:10:00 Test Item Value Reference Range Interpretation Comments Ferritin Lvl (test code = Ferritin Lvl) 458 22-275 [facility] [employer] [id number] 12:10:00 Test Item Value Reference Range Interpretation Comments OP ABORh Int (test code = OP ABORh Int) A POS [facility] [employer] [id number] 12:10:00 Test Item Value Reference Range Interpretation Comments OP ABSC Gel Interp Negative (03/31/20 7:10 (test code = OP ABSC AM) Gel Interp) [facility] [employer] [id number] 12:10:00 Test Item Value Reference Range Interpretation Comments Glucose Lvl (test code = Glucose Lvl) 85 70-99 [facility] [employer] [id number] 12:10:00 Test Item Value Reference Range Interpretation Comments BUN (test code = BUN) 51 7-22 [place] 180390-08-18 12:10:00 Test Item Value Reference Range Interpretation Comments Creatinine Lvl (test code = Creatinine 16.00 0.50-1.40 Lvl) [place] 180390-08-18 12:10:00 Test Item Value Reference Range Interpretation Comments Sodium Lvl (test code = Sodium Lvl) 134 135-145 [place] 180390-08-18 12:10:00 Test Item Value Reference Range Interpretation Comments Potassium Lvl (test code = Potassium 5.0 3.5-5.1 Lvl) [place] 180390-08-18 12:10:00 Test Item Value Reference Range Interpretation Comments Chloride Lvl (test code = Chloride Lvl) 98 95-109 [place] 180390-08-18 12:10:00 Test Item Value Reference Range Interpretation Comments CO2 (test code = CO2) 24 24-32 [place] 180390-08-18 12:10:00 Test Item Value Reference Range Interpretation Comments Calcium Lvl (test code = Calcium Lvl) 9.1 8.5-10.5 [place] 180390-08-18 12:10:00 Test Item Value Reference Range Interpretation Comments Total Protein (test code = Total 8.5 6.4-8.4 Protein) [facility]2020-08-18 12:10:00 Test Item Value Reference Range Interpretation Comments Albumin Lvl (test code = Albumin Lvl) 4.3 3.5-5.0 [place] 180390-08-18 12:10:00 Test Item Value Reference Range Interpretation Comments ALT (test code = ALT) 11 See_Comment [Auto mated message] The system which ge nerated this result transmit jose carlos reference range : <=65. The reference range was not used to interpr et this result as adan l/abnormal. [facility] [id number] 12:10:00 Test Item Value Reference Range Interpretation Comments AST (test code = AST) 6 See_Comment [Auto mated message] The system which ge nerated this result transmit jose carlos reference range : <=37. The reference range was not used to interpr et this result as adan l/abnormal. [facility] [id number] 12:10:00 Test Item Value Reference Range Interpretation Comments Alk Phos (test code = Alk Phos) 55 39-136 [employer]2020-08-18 12:10:00 Test Item Value Reference Range Interpretation Comments Bili Total (test code = Bili Total) 0.5 0.2-1.3 [employer] [id number] 12:10:00 Test Item Value Reference Range Interpretation Comments AGAP (test code = AGAP) 17.0 10.0-20.0 [employer]2020-08-18 12:10:00 Test Item Value Reference Range Interpretation Comments B/C Ratio (test code = B/C Ratio) 3 1 6-25 [employer] [id number] 14:59:00 Test Item Value Reference Range Interpretation Comments ABO/Rh (test code = ABO/Rh) A POS [employer] [id number] 14:59:00 Test Item Value Reference Range Interpretation Comments Antibody Scrn (test Negative (01/15/20 9:59 code = Antibody Scrn) AM) [employer]2020-06-03 10:07:00 Test Item Value Reference Range Interpretation Comments Glucose Lvl (test code = Glucose Lvl) 96 70-99 [employer]2020-06-03 10:07:00 Test Item Value Reference Range Interpretation Comments BUN (test code = BUN) 26 7-22 [employer]2020-06-03 10:07:00 Test Item Value Reference Range Interpretation Comments Creatinine Lvl (test code = Creatinine 10.30 0.50-1.40 Lvl) [employer]2020-06-03 10:07:00 Test Item Value Reference Range Interpretation Comments Sodium Lvl (test code = Sodium Lvl) 138 135-145 [employer]2020-06-03 10:07:00 Test Item Value Reference Range Interpretation Comments Potassium Lvl (test code = Potassium 5.1 3.5-5.1 Lvl) [employer]2020-06-03 10:07:00 Test Item Value Reference Range Interpretation Comments Chloride Lvl (test code = Chloride Lvl) 102 95-109 [employer]2020-06-03 10:07:00 Test Item Value Reference Range Interpretation Comments CO2 (test code = CO2) 27 24-32 [facility]PayAT[facility] [id number] 10:07:00 Test Item Value Reference Range Interpretation Comments Calcium Lvl (test code = Calcium Lvl) 8.5 8.5-10.5 [facility]2020-06-03 10:07:00 Test Item Value Reference Range Interpretation Comments AGAP (test code = AGAP) 14.1 10.0-20.0 [facility]PayAT[facility] [id number] 10:07:00 Test Item Value Reference Range Interpretation Comments eGFR (test code = eGFR) 6 [facility]2020-06-03 01:48:00 Test Item Value Reference Range Interpretation Comments Glucose Lvl (test code = Glucose Lvl) 82 70-99 [facility]2020-06-03 01:48:00 Test Item Value Reference Range Interpretation Comments BUN (test code = BUN) 22 7-22 [facility]PayAT[facility] [id number] 01:48:00 Test Item Value Reference Range Interpretation Comments Creatinine Lvl (test code = Creatinine 8.46 0.50-1.40 Lvl) [facility]PayAT[facility] [id number] 01:48:00 Test Item Value Reference Range Interpretation Comments Sodium Lvl (test code = Sodium Lvl) 139 135-145 [facility]PayAT[facility] [id number] 01:48:00 Test Item Value Reference Range Interpretation Comments Potassium Lvl (test code = Potassium 4.5 3.5-5.1 Lvl) [facility]PayAT[facility] [id number] 01:48:00 Test Item Value Reference Range Interpretation Comments Chloride Lvl (test code = Chloride Lvl) 103 95-109 [facility]PayAT[facility] [id number] 01:48:00 Test Item Value Reference Range Interpretation Comments CO2 (test code = CO2) 30 24-32 [facility]PayAT[facility] [id number] 01:48:00 Test Item Value Reference Range Interpretation Comments Calcium Lvl (test code = Calcium Lvl) 8.2 8.5-10.5 [place] 180390-06-03 01:48:00 Test Item Value Reference Range Interpretation Comments AGAP (test code = AGAP) 10.5 10.0-20.0 [facility]PayAT[facility] [id number] 01:48:00 Test Item Value Reference Range Interpretation Comments eGFR (test code = eGFR) 7 [facility] [id number] 01:48:00 Test Item Value Reference Range Interpretation Comments WBC (test code = WBC) 5.9 3.7-10.4 [facility] [id number] 01:48:00 Test Item Value Reference Range Interpretation Comments RBC (test code = RBC) 3.37 4.70-6.10 [facility] [id number] 01:48:00 Test Item Value Reference Range Interpretation Comments Hgb (test code = Hgb) 11.4 14.0-18.0 [place] [address]-06-03 01:48:00 Test Item Value Reference Range Interpretation Comments Hct (test code = Hct) 33.4 42.0-54.0 [place] 310990-06-03 01:48:00 Test Item Value Reference Range Interpretation Comments MCV (test code = MCV) 99.0 80.0-94.0 [facility] TylerZkgzioqLKZQKKNIWR0358-27-00 01:48:00 Test Item Value Reference Range Interpretation Comments MCH (test code = MCH) 33.7 pg 27.0-31.0 [facility] [id number] 01:48:00 Test Item Value Reference Range Interpretation Comments MCHC (test code = MCHC) 34.0 32.0-36.0 [facility] TylerKiyqokeLKBLLKCGHR4951-03-48 01:48:00 Test Item Value Reference Range Interpretation Comments RDW (test code = RDW) 14.4 11.5-14.5 [facility] TylerXuoalpeGCRIHBAPCC4928-79-69 01:48:00 Test Item Value Reference Range Interpretation Comments Platelet (test code = Platelet) 153 133-450 [facility] TylerRpgbjzrVUXHKBMCLS0982-12-20 01:48:00 Test Item Value Reference Range Interpretation Comments MPV (test code = MPV) 9.7 7.4-10.4 [place] 310990-06-03 01:48:00 Test Item Value Reference Range Interpretation Comments PT (test code = PT) 13.9 s 12.0-14.7 [place] 310990-06-03 01:48:00 Test Item Value Reference Range Interpretation Comments INR (test code = INR) 1.07 1 0.85-1.17 [place] [address]-06-03 01:48:00 Test Item Value Reference Range Interpretation Comments PTT (test code = PTT) 31.5 s 22.9-35.8 [place] 310990-06-03 01:48:00 Test Item Value Reference Range Interpretation Comments Segs (test code = Segs) 53.1 45.0-75.0 [facility] [id number] 01:48:00 Test Item Value Reference Range Interpretation Comments Lymphocytes (test code = Lymphocytes) 26.9 20.0-40.0 [place] 310990-06-03 01:48:00 Test Item Value Reference Range Interpretation Comments Monocytes (test code = Monocytes) 11.9 2.0-12.0 [place] 310990-06-03 01:48:00 Test Item Value Reference Range Interpretation Comments Eosinophils (test code = 7.0 See_Comment [A utomated message] The Eosinophils) system which ge nerated this result tra nsmitted reference range : <=4.0. The reference r bijan was not used to int erpret this result as normal/abnormal . [facility] TylerRmgbskhFHQCGRVEUD5391-02-81 01:48:00 Test Item Value Reference Range Interpretation Comments Basophils (test code = 1.1 See_Comment [Aut omated message] The Basophils) system which ge nerated this result tra nsmitted reference range : <=1.0. The reference r bijan was not used to int erpret this result as normal/abnormal . [facility] [id number] 01:48:00 Test Item Value Reference Range Interpretation Comments Neutrophils # (test code = Neutrophils 3.2 1.5-8.1 #) [facility] TylerFnjpqezKEXNXXRAJR9513-03-61 01:48:00 Test Item Value Reference Range Interpretation Comments Lymphocytes # (test code = Lymphocytes 1.6 1.0-5.5 #) [place] 310990-06-03 01:48:00 Test Item Value Reference Range Interpretation Comments Monocytes # (test code 0.7 See_Comment [Aut omated message] The = Monocytes #) system which generated this result tra nsmitted reference range : <=0.8. The reference r bijan was not used to int erpret this result as normal/abnormal . [place] [address]-06-03 01:48:00 Test Item Value Reference Range Interpretation Comments Eosinophils # (test code 0.4 See_Comment [A utomated message] The = Eosinophils #) system whic h generated this result tra nsmitted reference range : <=0.5. The reference r bijan was not used to int erpret this result as normal/abnormal . [facility] TomballPeowjbvAOWNQIZFUC3602-96-94 01:48:00 Test Item Value Reference Range Interpretation Comments Basophils # (test code 0.1 See_Comment [Aut omated message] The = Basophils #) system which generated this result tra nsmitted reference range : <=0.2. The reference r bijan was not used to int erpret this result as normal/abnormal . [facility] H[id number] 19:39:00 Test Item Value Reference Range Interpretation Comments Hep Bs Ag (test code Negative *NA*(01/14/20 = Hep Bs Ag) 2:39 PM) [facility] HospitalNnsyubsTYEXSKEOQPFQ8994-42-06 13:17:00 Test Item Value Reference Range Interpretation Comments Potassium Lvl (test code = Potassium 6.1 3.5-5.1 Lvl) [facility] [employer] [id number] 19:20:00 Test Item Value Reference Range Interpretation Comments ABO/Rh (test code = ABO/Rh) A POS [facility] [employer] [id number] 19:20:00 Test Item Value Reference Range Interpretation Comments Antibody Scrn (test Negative (01/09/20 2:20 code = Antibody Scrn) PM) [employer] [id number] 19:20:00 Test Item Value Reference Range Interpretation Comments Glucose Lvl (test code = Glucose Lvl) 86 70-99 [facility] [employer]2020-05-28 19:20:00 Test Item Value Reference Range Interpretation Comments BUN (test code = BUN) 58 7-22 [employer] [id number] 19:20:00 Test Item Value Reference Range Interpretation Comments Creatinine Lvl (test code = Creatinine 14.30 0.50-1.40 Lvl) [employer]2020-05-28 19:20:00 Test Item Value Reference Range Interpretation Comments Sodium Lvl (test code = Sodium Lvl) 133 135-145 [employer]2020-05-28 19:20:00 Test Item Value Reference Range Interpretation Comments Chloride Lvl (test code = Chloride Lvl) 100 95-109 [place] 180390-05-28 19:20:00 Test Item Value Reference Range Interpretation Comments CO2 (test code = CO2) 24 24-32 [place] [address]-05-28 19:20:00 Test Item Value Reference Range Interpretation Comments Calcium Lvl (test code = Calcium Lvl) 8.5 8.5-10.5 [place] 180390-05-28 19:20:00 Test Item Value Reference Range Interpretation Comments AGAP (test code = AGAP) 14.9 10.0-20.0 [place] [address]-05-28 19:20:00 Test Item Value Reference Range Interpretation Comments eGFR (test code = eGFR) 4 [place] [address]-05-28 19:20:00 Test Item Value Reference Range Interpretation Comments Segs (test code = Segs) 55.8 45.0-75.0 [place] [address]-05-28 19:20:00 Test Item Value Reference Range Interpretation Comments Lymphocytes (test code = Lymphocytes) 25.3 20.0-40.0 [place] [address]-05-28 19:20:00 Test Item Value Reference Range Interpretation Comments Monocytes (test code = Monocytes) 11.9 2.0-12.0 [place] [address]-05-28 19:20:00 Test Item Value Reference Range Interpretation Comments Eosinophils (test code = 5.8 See_Comment [A utomated message] The Eosinophils) system which ge nerated this result tra nsmitted reference range : <=4.0. The reference r bijan was not used to int erpret this result as normal/abnormal . [place] [address]-05-28 19:20:00 Test Item Value Reference Range Interpretation Comments Basophils (test code = 1.2 See_Comment [Aut omated message] The Basophils) system which ge nerated this result tra nsmitted reference range : <=1.0. The reference r bijan was not used to int erpret this result as normal/abnormal . [place] [address]-05-28 19:20:00 Test Item Value Reference Range Interpretation Comments Neutrophils # (test code = Neutrophils 3.4 1.5-8.1 #) [facility] [id number] 19:20:00 Test Item Value Reference Range Interpretation Comments Lymphocytes # (test code = Lymphocytes 1.5 1.0-5.5 #) [place] 310990-05-28 19:20:00 Test Item Value Reference Range Interpretation Comments Monocytes # (test code 0.7 See_Comment [Aut omated message] The = Monocytes #) system which generated this result tra nsmitted reference range : <=0.8. The reference r bijan was not used to int erpret this result as normal/abnormal . [place] 310990-05-28 19:20:00 Test Item Value Reference Range Interpretation Comments Eosinophils # (test code 0.4 See_Comment [A utomated message] The = Eosinophils #) system whic h generated this result tra nsmitted reference range : <=0.5. The reference r bijan was not used to int erpret this result as normal/abnormal . [facility] TylerVoxvjwxFUXSBAXQCQ9955-20-71 19:20:00 Test Item Value Reference Range Interpretation Comments Basophils # (test code 0.1 See_Comment [Aut omated message] The = Basophils #) system which generated this result tra nsmitted reference range : <=0.2. The reference r bijan was not used to int erpret this result as normal/abnormal . [facility] TylerBnmnvhnNMXDXUJVYG9707-89-88 19:20:00 Test Item Value Reference Range Interpretation Comments Macrocyte (test code = 1+ *ABN*(01/09/20 Macrocyte) 2:20 PM) [place] 310990-05-28 19:20:00 Test Item Value Reference Range Interpretation Comments WBC (test code = WBC) 6.1 3.7-10.4 [place] [address]-05-28 19:20:00 Test Item Value Reference Range Interpretation Comments RBC (test code = RBC) 3.80 4.70-6.10 [place] [address]-05-28 19:20:00 Test Item Value Reference Range Interpretation Comments Hgb (test code = Hgb) 12.9 14.0-18.0 [place] [address]-05-28 19:20:00 Test Item Value Reference Range Interpretation Comments Hct (test code = Hct) 38.2 42.0-54.0 [place] 310990-05-28 19:20:00 Test Item Value Reference Range Interpretation Comments MCV (test code = MCV) 100.5 80.0-94.0 [place] 310990-05-28 19:20:00 Test Item Value Reference Range Interpretation Comments MCH (test code = MCH) 34.0 pg 27.0-31.0 [facility] TylerXnhehnvHIXOXHKTEB5825-98-11 19:20:00 Test Item Value Reference Range Interpretation Comments MCHC (test code = MCHC) 33.8 32.0-36.0 [place] [address]-05-28 19:20:00 Test Item Value Reference Range Interpretation Comments RDW (test code = RDW) 15.2 11.5-14.5 [place] [address]-05-28 19:20:00 Test Item Value Reference Range Interpretation Comments Platelet (test code = Platelet) 146 133-450 [facility] TylerDhbnahrRIRRDMWISO3654-23-36 19:20:00 Test Item Value Reference Range Interpretation Comments MPV (test code = MPV) 9.9 7.4-10.4 [place] [address]-05-28 19:20:00 Test Item Value Reference Range Interpretation Comments PT (test code = PT) 13.5 s 12.0-14.7 [place] [address]-05-28 19:20:00 Test Item Value Reference Range Interpretation Comments INR (test code = INR) 1.03 1 0.85-1.17 [place] [address]-05-28 19:20:00 Test Item Value Reference Range Interpretation Comments PTT (test code = PTT) 30.9 s 22.9-35.8 [place] 090820-05-28 19:03:00 Test Item Value Reference Range Interpretation Comments Coronavirus (COVID-19) Not Detected (01/09/20 LATONYA (test code = 2:03 PM) Coronavirus (COVID-19) LATONYA) [facility]
[2022-09-16 13:02] LABS: Absolute Lymphocytes (CBC) 0.3 K/uL (0.7-4.9); Hematocrit 35.8 % (39.6-49.0); MCV 98.1 fL (80-100); MPV 8.9 fL (7.6-11.3); RBC Red Blood Cell Count 3.65 M/uL (4.33-5.43)
[2022-09-16 13:05] LABS: Protime INR 0.99
[2022-09-16 13:12] LABS: Albumin 4.1 g/dL (3.4-5.0); Bilirubin Total 0.5 mg/dL (0.2-1.0); Potassium 4.3 mmol/L (3.5-5.1); Protein, Total 8.5 g/dL (6.4-8.2)
[2022-09-16 13:34] LABS: SARS-COV-2 RT PCR NEGATIVE (NEGATIVE)
[2022-09-16 15:19] LABS: CSF Glucose 57 mg/dL (40-70)
[2022-09-16 15:45] LABS: Body Fluid Source CSF; Color of fluid Colorless (COLORLESS)
[2022-09-16 15:46] LABS: Appearance CLEAR (CLEAR); Body Fluid WBC 1 /mm^3
[2022-09-16 15:47] LABS: Body Fluid Source CSF; Color of fluid Colorless (COLORLESS); Fluid Total Volume 6 ml
[2022-09-16 15:48] LABS: Appearance CLEAR (CLEAR); Body Fluid WBC 0 /mm^3
--- NOTE | 2022-09-16 15:59 | EDPHYS ---
Physician Documentation [facility] Name: Dennis Mariee Age: 37 yrs Sex: Male : 1985 Arrival Date: 09/16/2022 Time: 11:50 Bed 13 Private MD: ED Physician James Adkins HPI: 09/16 12:49 This 37 yrs old Male presents to ER via Ambulatory with complaints of Fever, sb4 Headache, chills, bodyaches. 12:49 Patient is a 37-year-old female with ESRD on hemodialysis Monday sb4 (followed by Sridevi) and hypertension who presented to the ED with complaints of FLS. He reports that he has been feeling sick for 5 days now with fever, headache, malaise, shortness of breath. He last completed HD this morning. Denies sick contacts. Reports some improvement in symptoms with tylenol. States he had his covid and flu vaccine last year. Historical: - Allergies: 17:23 No Known Allergies; eh3 - PMHx: 12:12 ESRD; HD- M/W/F; Hypertension; ko1 - PSHx: 12:12 Fistula- HD left arm; ko1 - Immunization history:: Adult Immunizations up to date. - Social history:: Smoking status: Patient denies any tobacco usage or history of. ROS: 12:49 MS/Extremity: Negative for injury and deformity, Skin: Negative for injury, rash, and sb4 discoloration. 12:49 Constitutional: Positive for body aches, chills, fatigue, fever, malaise, poor PO intake. 12:49 Constitutional: Positive for 12:49 Respiratory: Positive for cough, dyspnea on exertion, Negative for shortness of breath, sputum production. 12:49 Abdomen/GI: Negative for abdominal pain, nausea, vomiting, and diarrhea. 12:49 Neuro: Positive for headache, Negative for altered mental status, dizziness, gait disturbance. Exam: 12:49 Head/Face: Normocephalic, atraumatic. Eyes: extra-ocular motions intact. Periorbital sb4 areas with no swelling, redness, or edema. Chest/axilla: Normal chest wall appearance and motion. Nontender with no deformity. No lesions are appreciated. Respiratory: Lungs have equal breath sounds bilaterally, clear to auscultation and percussion. No rales, rhonchi or wheezes noted. No increased work of breathing, no retractions or nasal flaring. Abdomen/GI: Soft, non-tender, no distension. Skin: Warm, dry with normal turgor. Normal color with no rashes, no lesions, and no evidence of cellulitis. MS/ Extremity: Pulses equal, no cyanosis. Neurovascular intact. Full, normal range of motion. Neuro: Awake and alert, GCS 15, oriented to person, place, time, and situation. Cranial nerves II-XII grossly intact. Motor strength 5/5 in all extremities. Sensory grossly intact. Cerebellar exam normal. Normal gait. Psych: Awake, alert, with orientation to person, place and time. Behavior, mood, and affect are within normal limits. 12:49 Constitutional: The patient appears alert, awake, non-diaphoretic, uncomfortable. 12:49 Cardiovascular: Rate: tachycardic, Rhythm: regular, Edema: is not appreciated. 13:51 ECG was reviewed by the Attending Physician. sb4 Vital Signs: 12:05 BP 107 / 67; Pulse 134; Resp 20; Temp 101.1; Pulse Ox 100% on R/A; Weight 64.86 kg; ko1 Height 5 ft. 8 in. (172.72 cm); 12:30 BP 120 / 75; Pulse 108; Resp 22; Temp 102.8(O); Pulse Ox 96% on R/A; eh3 13:30 BP 115 / 69; Pulse 106; Resp 14; Pulse Ox 99% on R/A; eh3 14:30 BP 101 / 59; Pulse 100; Resp 20; Temp 102.7(O); Pulse Ox 99% on R/A; eh3 15:30 BP 91 / 55; Pulse 89; Resp 18; Pulse Ox 100% on R/A; eh3 16:30 BP 115 / 63; Pulse 88; Resp 16; Pulse Ox 100% on R/A; eh3 12:05 Body Mass Index 21.74 (64.86 kg, 172.72 cm) ko1 Procedures: 14:39 Lumbar Puncture: Patient placed in left lateral decubitus position. Prepped with rn Betadine. Draped using sterile technique. Collected 6 ml's of clear fluid. Sample sent to lab. Puncture site dressed with band aid, Patient tolerated well. Normal opening pressure. MDM: 12:10 Patient medically screened. sb4 12:49 Differential diagnosis: viral Infection, bacterial infection, URI, bronchitis, sb4 pneumonia meningitis. 13:44 Data reviewed: vital signs, nurses notes, lab test result(s), EKG, radiologic studies, sb4 plain films, I have discussed the patient's presentation/case with the attending Emergency Department Physician;. Care significantly affected by the following chronic conditions: Diabetes, Chronic Kidney Disease. ED course: Fever has gone up despite tylenol. No lab/radiologic finding to explain symptoms/fever. Discussed case with Dr. Adkins and with patient. Told patient we would like to perform an LP to rule out meningitis. Dr. Adkins to speak with patient.. 15:56 Consideration of Admission/Observation Patient was admitted/placed on observation. sb4 Admission orders: after a detailed discussion of the patient's condition and case, the admit orders are written by me. 09/16 12:10 Order name: COVID-19/FLU A+B; Complete Time: 13:34 4 09/16 12:10 Order name: Blood Culture Adult (2) sb4 09/16 12:10 Order name: CBC with Diff; Complete Time: 13:10 sb4 09/16 12:10 Order name: CMP; Complete Time: 13:27 sb4 09/16 12:10 Order name: Lactate w/ 2H reflex if indic.; Complete Time: 13:10 sb4 09/16 12:10 Order name: Protime (+inr); Complete Time: 13:10 4 09/16 12:10 Order name: Ptt, Activated; Complete Time: 13:10 4 09/16 12:56 Order name: Glucose, Ancillary Testing; Complete Time: 13:10 EDMS 09/16 13:50 Order name: [place] Screen Profile; Complete Time: 14:17 sb4 09/16 14:39 Order name: CSF Cell Count; Complete Time: 15:49 rn 09/16 14:39 Order name: Csf Culture rn 09/16 14:39 Order name: Spinal Fluid Profile; Complete Time: 15:49 rn 09/16 16:11 Order name: Urinalysis; Complete Time: 18:01 sb4 09/16 16:11 Order name: UDS; Complete Time: 18:01 sb4 09/16 12:10 Order name: Chest Single View XRAY; Complete Time: 12:41 sb4 09/16 12:10 Order name: EKG; Complete Time: 12:11 sb4 09/16 12:11 Order name: Accucheck; Complete Time: 12:48 sb4 09/16 12:11 Order name: Cardiac monitoring; Complete Time: 12:48 sb4 09/16 12:11 Order name: EKG - Nurse/Tech; Complete Time: 12:58 sb4 09/16 12:11 Order name: IV Saline Lock - Large Bore; Complete Time: 12:48 sb4 09/16 12:11 Order name: Labs collected and sent; Complete Time: 12:48 sb4 09/16 12:11 Order name: O2 Per Protocol; Complete Time: 12:48 sb4 09/16 12:11 Order name: O2 Sat Monitoring; Complete Time: 12:48 sb4 09/16 12:11 Order name: Vital Signs; Complete Time: 12:59 sb4 09/16 14:39 Order name: LP Consents; Complete Time: 15:08 rn 09/16 14:39 Order name: LP Setup; Complete Time: 15:08 rn 03 16:11 Order name: Urine Culture sb4 09/16 19:36 Order name: C-Reactive Protein; Complete Time: 20:00 EDMS 09/16 20:23 Order name: Procalcitonin EDLA 09/16 16:11 Order name: Urine Dipstick-Ancillary (obtain specimen); Complete Time: 17:05 sb4 EC:51 Rate is 108 beats/min. Rhythm is regular, Sinus tachycardia. QRS [place] is Normal. SC sb4 interval is normal at 150 msec. QRS interval is normal at 88 msec. QT interval is normal at 350 msec. Administered Medications: 12:30 Drug: Acetaminophen 1000 mg Route: PO; eh3 14:00 Follow up: Response: Temperature is decreased eh3 Disposition: 09/17 07:15 Co-signature as Attending Physician, James Adkins MD I reviewed the patient's care rn provided by the Advanced Practice Provider and agree with the diagnosis and treatment plan. Disposition Summary: 09/16/22 15:58 Hospitalization Ordered Hospitalization Status: Inpatient Admission sb4 Provider: Adam Adkins sbFranchecsa Condition: Fair sb4 Problem: an ongoing problem sb4 Symptoms: are unchanged sb4 Bed/Room Type: Standard sb4 Location: Telemetry/MedSurg (Inpatient)(09/16/22 19:56) cg Room Assignment: [facility](09/16/22 19:56) cg Diagnosis - Fever, unspecified sb4 - End stage renal disease sb4 Forms: - Medication Reconciliation Form sb4 - SBAR form sb4 Signatures: Dispatcher [employer] EDJames Gomez MD MD rn Yuri Monge, FBI PROFILER-C FBI PROFIL[facility] Lauren Lucas RN RN Jeanna Grullon Erin, RN RN eh3 Shirley Chan RN RN ko1 Eleonora Lucas PAGala PAGala sb4 Corrections: (The following items were deleted from the chart) 09/16 12:12 12:12 Home Meds: Furosemide Oral; ko1 ko1 12:12 12:12 Home Meds: lisinopril Oral; ko1 ko1 12:12 12:12 PMHx: DM- NDDM; ko1 ko1 17:26 15:58 Telemetry/MedSurg (Inpatient) sb4 eb 17:26 15:58 sb4 eb 19:56 17:26 [facility] ER HOLD eb cg 19:56 17:26 ERHOLD- eb cg
--- NOTE | 2022-09-16 15:59 | ER ---
Nurse's Notes [facility] Name: Dennis Mariee Age: 37 yrs Sex: Male : 1985 Arrival Date: 09/16/2022 Time: 11:50 Bed 13 Private MD: Diagnosis: Fever, unspecified;End stage renal disease Presentation: 09/16 12:05 Chief complaint: Patient states: I have been sick since last Monday. I have had a ko1 fever and body aches, my neck hurts , my eyes hurt. Coronavirus screen: Vaccine status: Patient reports receiving the 2nd dose of the covid vaccine. chills, fatigue, fever, headache, shaking with chills. Ebola Screen: No symptoms or risks identified at this time. Initial Sepsis Screen: Does the patient meet any 2 criteria? Temp <36.0*C (96.8*F)) or > 38.3*C (100.9*F). HR > 90 bpm. Yes Does the patient have a suspected source of infection? No. Patient's initial sepsis screen is negative. Risk Assessment: Do you want to hurt yourself or someone else? Patient reports no desire to harm self or others. Onset of symptoms was September 11, 2022 at 12:00. 12:05 Method Of Arrival: Ambulatory ko1 12:05 Acuity: RUPESH 2 ko1 Triage Assessment: 12:12 Headache History: Denies prior headaches. General: Appears uncomfortable, ill, Behavior ko1 is calm, cooperative, appropriate for age. Pain: Pain currently is 6 out of 10 on a pain scale. Pain began gradually, Also complains of photophobia. Neuro: No deficits noted. Historical: - Allergies: 17:23 No Known Allergies; eh3 - PMHx: 12:12 ESRD; HD- M/W/F; Hypertension; ko1 - PSHx: 12:12 Fistula- HD left arm; ko1 - Immunization history:: Adult Immunizations up to date. - Social history:: Smoking status: Patient denies any tobacco usage or history of. Screenin:30 [facility] ED Fall Risk Assessment (Adult) History of falling in the last 3 months, eh3 including since admission No falls in past 3 months (0 pts) Confusion or Disorientation No (0 pts) Intoxicated or Sedated No (0 pts) Impaired Gait No (0 pts) Mobility Assist Device Used No (0 pt) Altered Elimination No (0 pt) Score/Fall Risk Level 0 - 2 = Low Risk. Abuse screen: Denies threats or abuse. Denies injuries from another. Nutritional screening: No deficits noted. Tuberculosis screening: No symptoms or risk factors identified. Assessment: 12:30 General: Appears in no apparent distress. uncomfortable, Behavior is cooperative, eh3 appropriate for age. Pain: Complains of pain in generalized aches. Neuro: Level of Consciousness is awake, alert, obeys commands, Oriented to person, place, time, Appropriate for age. Cardiovascular: Capillary refill < 3 seconds Patient's skin is warm and dry. Rhythm is sinus tachycardia. Respiratory: Airway is patent Respiratory effort is even, unlabored, Respiratory pattern is regular, symmetrical. GI: Abdomen is flat, non-distended. : No signs and/or symptoms were reported regarding the genitourinary system. EENT: No signs and/or symptoms were reported regarding the EENT system. Derm: No signs and/or symptoms reported regarding the dermatologic system. Skin is dry, Skin is pink, Skin temperature is hot. Musculoskeletal: Circulation, motion, and sensation intact. Range of motion: intact in all extremities. 13:30 Reassessment: Patient appears in no apparent distress at this time. Patient and/or 3 family updated on plan of care and expected duration. Pain level reassessed. Patient is alert, oriented x 3, equal unlabored respirations, skin warm/dry/pink. 14:30 Reassessment: Patient appears in no apparent distress at this time. Patient and/or eh3 family updated on plan of care and expected duration. Pain level reassessed. Patient is alert, oriented x 3, equal unlabored respirations, skin warm/dry/pink. 15:30 Reassessment: Patient appears in no apparent distress at this time. Patient and/or eh3 family updated on plan of care and expected duration. Pain level reassessed. Patient is alert, oriented x 3, equal unlabored respirations, skin warm/dry/pink. 16:30 Reassessment: Patient appears in no apparent distress at this time. Patient and/or eh3 family updated on plan of care and expected duration. Pain level reassessed. Patient is alert, oriented x 3, equal unlabored respirations, skin warm/dry/pink. Vital Signs: 12:05 BP 107 / 67; Pulse 134; Resp 20; Temp 101.1; Pulse Ox 100% on R/A; Weight 64.86 kg; ko1 Height 5 ft. 8 in. (172.72 cm); 12:30 BP 120 / 75; Pulse 108; Resp 22; Temp 102.8(O); Pulse Ox 96% on R/A; eh3 13:30 BP 115 / 69; Pulse 106; Resp 14; Pulse Ox 99% on R/A; eh3 14:30 BP 101 / 59; Pulse 100; Resp 20; Temp 102.7(O); Pulse Ox 99% on R/A; eh3 15:30 BP 91 / 55; Pulse 89; Resp 18; Pulse Ox 100% on R/A; eh3 16:30 BP 115 / 63; Pulse 88; Resp 16; Pulse Ox 100% on R/A; eh3 12:05 Body Mass Index 21.74 (64.86 kg, 172.72 cm) ko1 Vitals: 12:30 Cardiac Rhythm Assessment Sinus tach. eh3 ED Course: 11:50 Patient arrived in ED. am2 11:51 Eleonora Lucas PA-C is PHCP. sb4 11:51 James Adkins MD is Attending Physician. sb4 12:12 Triage completed. ko1 12:12 Arm band placed on left wrist. Patient notified of wait time. ko1 12:14 Maeve Reid, RN is Primary Nurse. eh3 12:28 Chest Single View XRAY In Process Unspecified. EDMS 12:30 Patient has correct armband on for positive identification. Bed in low position. Call 3 light in reach. Side rails up X2. Adult w/ patient. Client placed on continuous cardiac and pulse oximetry monitoring. NIBP monitoring applied. Door closed. Noise minimized. Lights dimmed. 12:37 Inserted saline lock: 20 gauge in right antecubital area, using aseptic technique. 3 Blood collected. 12:48 COVID-19/FLU A+B Sent. eh3 15:08 Csf Culture Sent. eh3 15:08 Spinal Fluid Profile Sent. eh3 15:08 CSF Cell Count Sent. eh3 15:57 Adam Adkins MD is Hospitalizing Provider. sb4 17:23 Diet: Patient given snack. Patient given juice. Patient given water. Tolerated well. 3 17:52 No provider procedures requiring assistance completed. Patient admitted, IV remains in [address] Administered Medications: 12:30 Drug: Acetaminophen 1000 mg Route: PO; 3 14:00 Follow up: Response: Temperature is decreased 3 Medication: 17:51 VIS not applicable for this client. 3 Outcome: 15:58 Decision to Hospitalize by Provider. sb4 17:52 Admitted to ER Hold. Please see [facility] for further documentation. 3 17:52 Condition: stable 17:52 Instructed on the need for admit. 21:13 Patient left the ED. 3 Signatures: Dispatcher [employer] EDMS Yoko Peter am2 Maeve Reid RN RN 3 Shirley Chan RN RN [email or web address] Eleonora Lucas, PA-Clif PA-Clif sb4 Corrections: (The following items were deleted from the chart) 12:12 12:12 Home Meds: Furosemide Oral; ko1 ko1 12:12 12:12 Home Meds: lisinopril Oral; ko1 ko1 12:12 12:12 PMHx: DM- NDDM; ko1 ko1
[2022-09-16 17:17] LABS: Specific Gravity 1.016 (1.005-1.030); Urine Bacteria None Seen /HPF (<20); Urine Bilirubin NEGATIVE (Negative); Urine Blood Trace (Negative); Urine Clarity Turbid (Clear); Urine Color Yellow (Yellow); Urine Glucose 2+ (Negative); Urine Protein 3+ (Negative); Urine RBC <5 /HPF (None Seen); Urine Urobilinogen Normal (Normal); Urine pH 6.5 (5.0-7.0)
[2022-09-16 17:19] LABS: Barbiturates NEGATIVE (NEGATIVE); Benzodiazepines NEGATIVE (NEGATIVE); Cocaine NEGATIVE (NEGATIVE); METHAMPHETAM NEGATIVE (NEGATIVE); Methadone NEGATIVE (NEGATIVE); Opiates NEGATIVE (NEGATIVE); Phencyclidine NEGATIVE (NEGATIVE); THC Cannibis NEGATIVE (NEGATIVE)
[2022-09-16] MEDS ORDERED: ONDANSETRON 4 MG/2 ML VIAL IV PRN (18:27)
[2022-09-16] MEDS ORDERED: VANCOMYCIN 1 GM/VIAL ONE ×2 (18:37→20:06)
[2022-09-16] MEDS ORDERED: NA CHLORIDE 0.9% 250 ML ONE ×2 (18:37→20:06)
--- NOTE | 2022-09-16 19:12 | P.HP ---
Certification for Inpatient Patient admitted to: Inpatient With expected LOS: >2 Midnights Patient will require the following post-hospital care: None Practitioner: I am a practitioner with admitting privileges, knowledge of patient current condition, hospital course, and medical plan of care. Services: Services provided to patient in accordance with Admission requirements found in Title 42 Section 412.3 of the Code of Federal Regulations Patient History Date of Service: 09/16/22 Reason for admission: Fever History of Present Illness: 37-year-old male with history of ESRD on HD MWF presents to the emergency department for fevers. He reports low-grade fevers, chills which began on . He reports when he has chills he also has myalgias, headache, neck pain. He was evaluated in the emergency department his labs were significant for white blood cell count of 7.3, redemonstration of his ESRD, sodium 130 urinalysis negative for UTI influenza and COVID-negative, mono negative LP was performed thus far has returned colorless, clear, nonxanthochromic with normal glucose, total protein. Patient with fistula left upper extremity in place without obvious infection/surrounding cellulitis. Blood cultures were obtained. Patient with fever of unknown origin Tmax 102.7, will need to be admitted to rule out bacteremia, other causes of fever. Patient denies abdominal pain, cough, ROS is otherwise negative. Allergies No Known Allergies Allergy (Verified 10/31/21 23:38) Home Medications: Calcium Carbonate [Tums Regular*] 1,500 mg PO AC 11/02/21 Furosemide [Lasix*] 20 mg PO DAILY 11/02/21 Gabapentin [Neurontin*] 100 mg PO TID 11/02/21 Lanthanum Carbonate 1,000 mg PO TIDWM 11/02/21 - Past Medical/Surgical History Diabetic: Yes -: ESRD on HD MWF -: Left arm fistula Psychosocial/ Personal History: Patient lives at home with family - Family History Father -: Diabetes Mother -: Diabetes - Social History Smoking Status: Never smoker Alcohol use: No CD- Drugs: No Caffeine use: Yes Place of Residence: Home Review of Systems 10-point ROS is otherwise unremarkable General: Fever, Chills Physical Examination - Physical Exam General: Alert, In no apparent distress, Oriented x3 HEENT: Atraumatic, PERRLA, Mucous membr. moist/pink, EOMI, Sclerae nonicteric Neck: Supple, 2+ carotid pulse no bruit, No LAD, Without JVD or thyroid abnormality Respiratory: Clear to auscultation bilaterally, Normal air movement Cardiovascular: Regular rate/rhythm, Normal S1 S2 Gastrointestinal: Normal bowel sounds, No tenderness Musculoskeletal: No tenderness Integumentary: No rashes Neurological: Normal speech, Normal strength at 5/5 x4 extr, Normal tone, Normal affect - Studies Laboratory Data (last 24 hrs) 09/16/22 12:37: PT 10.9, INR 0.99, APTT 28.3 09/16/22 12:37: Sodium 130 L, Potassium 4.3, BUN 30 H, Creatinine 12.10 H*, Glucose 141 H, Total Bilirubin 0.5, AST 50 H, ALT 60, Alkaline Phosphatase 62 09/16/22 12:37: WBC 7.30, Hgb 12.7 L, Hct 35.8 L, Plt Count 132 L Assessment and Plan - Plan Assessment: Fever of unknown origin ESRD on HD MWF Plan: Fever of unknown origin Thus far patient negative for COVID/influenza/mono, no leukocytosis noted, LP performed with clear fluid, not xanthochromic, normal glucose, total protein levels. Patient without abdominal pain or tenderness, no UTI present, no cough or shortness of breath. Patient with left upper extremity fistula in place, blood cultures were obtained we will need to follow to rule out bacteremia, echocardiogram ordered to rule out endocarditis. Continue broad-spectrum antibiotics at this time including vancomycin, cefepime. ESRD on HD MWF Nephrology consulted for assistance with hemodialysis, patient goes to dialysis Monday, he did complete dialysis today prior to arrival. DVT PPX: Heparin Code status: Full Discharge Plan: Home Plan to discharge in: 72 Hours - Advance Directives Does patient have a Living Will: No Does patient have a Durable POA for Healthcare: No - Code Status/Comfort Care Code Status Assessed: Yes (Full code) Critical Care: No Time Spent Managing Pts Care (In Minutes): 55
[2022-09-16] MEDS ORDERED: VANCOMYCIN 1.25 GM in NA CHLORIDE 0.9% 250 ML IVPB SCH ×2 (20:00→21:00)
[2022-09-16] MEDS ORDERED: VANCOMYCIN 500 MG/VIAL ONE (20:06)
[2022-09-16] MEDS: CEFEPIME 2 GM in NA CHLORIDE 0.9% 100 ML IV SCH (23:45)
[2022-09-17 01:34] VITALS: BMI 22.2
[2022-09-17 04:05] LABS: Absolute Lymphocytes (CBC) 1.2 K/uL (0.7-4.9); Hematocrit 31.6 % (39.6-49.0); Lymphocytes % 17.3 % (15.3-44.8); MCV 99.5 fL (80-100); MPV 9.5 fL (7.6-11.3); RBC Red Blood Cell Count 3.17 M/uL (4.33-5.43)
[2022-09-17 04:22] LABS: Magnesium 2.6 mg/dL (1.6-2.4); Phosphorus 7.8 mg/dL (2.5-4.9); Potassium 4.6 mmol/L (3.5-5.1)
[2022-09-17] MEDS: CEFEPIME 2 GM in NA CHLORIDE 0.9% 100 ML IV SCH (08:13)
[2022-09-17] MEDS ORDERED: PNEUMOCOCCAL VACCINE 0.5 ML IMVAC ONE (12:00)
--- NOTE | 2022-09-17 12:32 | CON ---
Date of Consultation: 09/17/2022 Reason For Consultation: Hyponatremia, electrolyte imbalance, end-stage renal disease. History Of Present Illness: This is a 37-year-old gentleman, well known to me from dialysis with sig nificant past medical history of end-stage renal disease, on hemodialysis at [facility], last dialysis was yesterday, hypertension, hyperphosphatemia. The patient came to the hospital c omplaining from fever and chills for the last 5 days continuous. Found to have fever, all workup so far negative. No source of infection has been identified including LP. The patient has T-max of 102 .7. Past Medical History: Includes; 1.Hypertension. 2.End-stage renal disease. Home Medications: Include calcium carbonate, Lasix, gabapentin, and lanthanum. Past Surgical History: Includes AV fistula creation on the left side. Family History: Positive for hypertension and diabetes. Social History: Denied smoking, denied drinking, denied drugs abuse. Review of Systems: Head and Neck: No red eye. No ear pain. GI: No nausea. No vomiting. : No polyuria. No dysuria. No hematuria. Cook Helper Meat: Not applicable. Respiratory: No shortness of breath. No cough. Cardiovascular: No chest pain. Endocrine: No polydipsia. Skin: No rash. Neuro: Has facial droop on the right side. No weakness. Musculoskeletal: No joint pain. Physical Examination: Vital Signs: When I saw the patient; blood pressure 112/59, pulse of 80, T-max 98.1. Chest: Clear to auscultation. Heart: S1, S2. Regular. Abdomen: Soft, nontender. Extremities: No edema. Laboratory Data: Hemoglobin 11.1. Sodium 133, potassium 4.6, bicarb 24, BUN 43, creatinine 15.1, ca lcium 8.6, phosphorus 7.8, magnesium 2.6. Procalcitonin 7.3. Urinalysis negative for infection. LP was negative with RBC of 51. Glucose 57, protein 43. Current Medications: The patient on include; 1.Cefepime. 2.Vancomycin. 3.Tylenol. Assessment And Plan: 1.End-stage renal disease. Normal volume. We will continue the patient on dialysis Monday, , Monday. 2.Hyponatremia, no symptoms, will be corrected with dialysis. 3.Fever, unknown source with end-stage renal disease. I am going to go ahead and follow up with ID. We will get echocardiogram to evaluate if there is any endocarditis. We will follow up culture. C ontinue current antibiotic dose appropriate. 4.Secondary hyperparathyroidism. Resume sarah. ANDRESSA/JO Voice ID: [id number] Report ID: [id number]
[2022-09-17] MEDS: LANTHANUM 1000 MG TAB PO SCH (15:36)
[2022-09-17] MEDS ORDERED: LANTHANUM 1000 MG TAB PO SCH (16:30)
--- NOTE | 2022-09-17 16:38 | RAD REPORT ---
EXAM DESCRIPTION: CT - Abdomen Pelvis W Contrast - 09/17/2022 3:45 pm CLINICAL HISTORY: Abdominal pain COMPARISON: 2014 TECHNIQUE: Computed axial tomography of the abdomen pelvis was obtained. 100 cc Isovue-300 was admin istered intravenously. Oral contrast was not requested which limits evaluation of bowel and appendix All CT scans are performed using dose optimization technique as appropriate and may include automated exposure control or mA/KV adjustment according to patient size. FINDINGS: Liver, spleen, pancreas and adrenals are unremarkable Small kidneys. No hydronephrosis. . There is no evidence of diverticulitis. Normal appendix Mild prostatic enlargement. Small umbilical hernia IMPRESSION: No acute abnormality is displayed.
[2022-09-17 18:40] LABS: Hepatitis B surface AG Interp. Nonreactive (Nonreactive)
[2022-09-17] MEDS: ACETAMINOPHEN 500 MG TAB PO PRN (21:57)
--- NOTE | 2022-09-17 22:30 | P.PN ---
Date of Service: 09/17/22 Subjective: no acute events overnight fever improved symptoms improved no new/worsening symptoms now reports he underwent elective cholecystectomy ~5-6 weeks ago due to biliary colic /polyps ROS: A complete review of systems was performed and is negative except as mentioned above Physical Exam: Gen: NAD, AOx3 HEENT: normal conjunctiva, sclera anicteric; no nuchal rigidity CV: regular rate & rhythm, no edema Pulm: non-labored respirations, clear bilaterally Abd: soft, non-tender, non-distended MSK: no contractures, no tenderness Skin: no rashes, no lesions, L AV fistula Neuro: normal speech, normal affect, moves all extremities vitals reviewed Problem List Fever of unknown origin ESRD on HD MWF h/o biliary colonic 2/2 polyps s/p elective cholecystectomy ~6 weeks ago Fever of unknown origin unclear etiology, patient with nonspecific symptoms myalgias, feve, chills x 1 week blood cultures drawn in ED suspect viral etiology; covid negative, flu negative possible endocarditis; no IVDU, echo ordered LP with clear fluid continue broad spectrum antibiotics - dc tomorrow if blood cultures negative x 4 Nephrology consulted for assistance with hemodialysis, patient goes to dialysis Monday, he did complete dialysis today prior to arrival. VTE: heparin Code: full Dispo: home, ~2 days
[2022-09-18 04:16] LABS: Absolute Lymphocytes (CBC) 1.2 K/uL (0.7-4.9); Hematocrit 31.1 % (39.6-49.0); Lymphocytes % 19.7 % (15.3-44.8); MCV 99.3 fL (80-100); MPV 9.6 fL (7.6-11.3); RBC Red Blood Cell Count 3.14 M/uL (4.33-5.43)
[2022-09-18 04:33] LABS: Albumin 3.3 g/dL (3.4-5.0); Bilirubin Total 0.3 mg/dL (0.2-1.0); C-Reactive Protein 17.1 mg/L (<3.00); Magnesium 2.7 mg/dL (1.6-2.4); Potassium 4.2 mmol/L (3.5-5.1)
[2022-09-18] MEDS: LANTHANUM 1000 MG TAB PO SCH ×3 (07:30→16:29)
[2022-09-18] MEDS: CEFEPIME 2 GM in NA CHLORIDE 0.9% 100 ML IV SCH (08:26)
[2022-09-18] MEDS: FUROSEMIDE 20 MG TABLET PO SCH (08:26)
--- NOTE | 2022-09-18 14:07 | PN ---
Date of Progress Note: 09/18/2022 Subjective: The patient was admitted with fever of unknown source. The patient was treated with ant ibiotic. Fever has been resolved. Primary workup including CT and culture so far negative. Physical Examination: Vital Signs: When I saw the patient; blood pressure 151/87, pulse of 87, afebrile. Chest: Clear to auscultation. Heart: S1, S2. Regular. Abdomen: Soft, nontender. Extremity: No edema. Neurologic: Alert. No focality. Laboratory Data: Hemoglobin 10.7. Sodium 137, potassium 4.2, bicarb 25, BUN 37, creatinine 11, calc ium 8.7, albumin 3.3. Current Medications: The patient on include; 1.Cefepime. 2.Vancomycin. 3.Tylenol. 4.Lasix 20 mg. 5.Zofran. Assessment And Plan: 1.End-stage renal disease. We will continue dialysis Monday, Monday, Monday. We will arrange fo r dialysis tomorrow. We will monitor the patient. 2.Fever, unknown source with end-stage renal disease and AV fistula. AV fistula clear. Blood cultu re still negative. The patient's fever resolved on antibiotics. Waiting for the echocardiogram to b e done. CT was negative. We will follow up with primary. Continue current antibiotics. 3.Hyponatremia secondary to dilutional. Will be corrected with dialysis. 4.Anemia of chronic kidney disease. We will monitor. STEFAN Voice ID: [id number] Report ID: [id number]
--- NOTE | 2022-09-18 17:48 | P.PN ---
Date of Service: 09/18/22 Subjective: no acute events overnight afebrile feeling close to baseline no new/worsening symptoms ROS: A complete review of systems was performed and is negative except as mentioned above Physical Exam: Gen: NAD, AOx3 HEENT: normal conjunctiva, sclera anicteric; no nuchal rigidity CV: regular rate & rhythm, no edema Pulm: non-labored respirations, clear bilaterally Abd: soft, non-tender, non-distended Skin: no rashes, no lesions, L AV fistula Neuro: normal speech, normal affect, moves all extremities vitals reviewed Problem List Fever of unknown origin ESRD on HD MWF h/o biliary colonic 2/2 polyps s/p elective cholecystectomy ~6 weeks ago Fever of unknown origin unclear etiology, patient with nonspecific symptoms myalgias, feve, chills x 1 week blood cultures drawn in ED - NG x 24hrs suspect viral etiology; covid negative, flu negative possible endocarditis; no IVDU, echo ordered LP with clear fluid continue broad spectrum antibiotics - dc tomorrow if blood cultures negative x 48hrs; f/u echo Nephrology consulted for assistance with hemodialysis, patient goes to dialysis Monday, he did complete dialysis prior to arrival. VTE: heparin Code: full Dispo: home, ~1-2 days
[2022-09-18] MEDS ORDERED: VANCOMYCIN 1 GM in NA CHLORIDE 0.9% 250 ML IVPB SCH (18:00)
[2022-09-19 03:43] LABS: Absolute Lymphocytes (CBC) 1.6 K/uL (0.7-4.9); Hematocrit 27.5 % (39.6-49.0); Lymphocytes % 21.4 % (15.3-44.8); RBC Red Blood Cell Count 2.78 M/uL (4.33-5.43)
[2022-09-19 04:14] LABS: C-Reactive Protein 10.1 mg/L (<3.00); Potassium 4.1 mmol/L (3.5-5.1)
[2022-09-19] MEDS: FUROSEMIDE 20 MG TABLET PO SCH (08:51)
[2022-09-19] MEDS: CEFEPIME 2 GM in NA CHLORIDE 0.9% 100 ML IV SCH (08:51)
[2022-09-19] MEDS: LANTHANUM 1000 MG TAB PO SCH ×3 (08:52→16:26)
--- NOTE | 2022-09-19 11:35 | CON ---
History Of Present Illness: This is a 37-year-old male, coming in with fevers of 5 days prior to adm ission. The patient was admitted for evaluation of fever and sepsis. Denies any headache, nausea, v omiting, chest pain, abdominal pain, constipation, or diarrhea. Feels much better today. The patien t has significant past medical history of end-stage renal disease, on hemodialysis on Monday, , Monday, and hypertension. The patient currently on IV antibiotic, cefepime and vancomycin. Past Medical History: As per HPI. Social History: Nonsmoker, nondrinker. Works as a strong. Family History: Noncontributory. Medications: Vancomycin, cefepime. See MAR for other medications. Allergies: NO KNOWN DRUG ALLERGIES. Review of Systems: A 10-point review was performed. Physical Examination: General: This is a 37-year-old male, sitting in bed, not in any acute cardiopulmonary distress. Vital Signs: Temperature 97, pulse 94, respirations 16, blood pressure 151/89. HEENT: Unremarkable. Neck: Supple. Lungs: Clear to auscultation. Heart: S1, S2. Regular. Abdomen: Soft, nontender. Bowel sounds present. Extremity: No edema. Left arm with fistula in place. Laboratory Data: Shows WBC 7.3, hemoglobin 9.5, platelets are 153. Chemistry shows BUN of 54, creat inine 14.9. Albumin level is 3.3. Micro data; blood cultures showing no growth. Abdominal pelvis C T, no abnormal finding. Chest x-ray done on September 16, no abnormal finding. Assessment And Plan: A 37-year-old male, most likely viral syndrome with significant history of end- stage renal disease and hypertension and sepsis symptoms. No leukocytosis. We will recommend to hol d antibiotic for 24 hours and monitor the patient. If develops any fever, the patient can be sent ho me on cefdinir orally. We will follow the patient as needed. Thank you, Dr. Adkins for consult. NF/MODL Voice ID: [id number] Report ID: [id number]
[2022-09-19] MEDS: ACETAMINOPHEN 500 MG TAB PO PRN ×2 (13:30→20:36)
[2022-09-20 04:16] LABS: Potassium 4.5 mmol/L (3.5-5.1)
--- NOTE | 2022-09-20 06:11 | PN ---
Date of Progress Note: 09/19/2022 Chief Complaint: End-stage renal disease. History Of Present Illness: The patient is admitted to the hospital because of new onset of fever, g eneralized weakness, malaise and headache. The patient is treated with broad-spectrum antibiotics. He was started on cefepime and vancomycin. Blood cultures were obtained during this hospitalization and did not show growth. Infection Disease is consulted. CT scan was done to rule out abscess. Review of Systems: Denies chest pain, palpitation, syncope. Physical Examination: Lungs: Clear to auscultation bilaterally. Heart: S1-S2. Abdomen: Soft, benign. Extremities: No edema. Lab Work: Sodium 137, potassium 4.1, chloride 100, CO2 25, BUN 54, creatinine 14.9, glucose 115. C- reactive protein 17.1. Procalcitonin 7.31. Blood culture update, no growth in 24 hours. Urine cult ure less than 10,000 CFU per mL mixed diamond. CT scan of the abdomen and pelvis done on 09/16 showed no acute abnormalities, small kidneys. No hydronephrosis. Liver, spleen, pancreas, adrenal are unre markable. No evidence of diverticulitis. Normal appendix. Impression And Plan: 1.Fever, generalized weakness, malaise and sepsis. The patient is a 37-year-old male and he came to the hospital because of fevers 5 days duration prior to this admission associated with headache, mal aise and generalized weakness. He was admitted for evaluation of fever and sepsis. Today he is feel ing better. He denies headache, nausea, vomiting, constipation, or diarrhea. Denies dysuria, hematu malena, kidney colic. He will continue broad-spectrum antibiotics. Further recommendation from the [facility] team and Infectious Disease. 2.Hypertension. Continue blood pressure medication. 3.Anemia of chronic kidney disease. Continue SHAISTA, adjust dose according to lab results. 4.Hypoalbuminemia. Increase p.o. protein intake. 5.End-stage renal disease. Dialysis with ultrafiltration is ordered. WILDER/MARCOL Voice ID: [id number] Report ID: [id number]
[2022-09-20] MEDS: FUROSEMIDE 20 MG TABLET PO SCH (08:12)
[2022-09-20] MEDS: LANTHANUM 1000 MG TAB PO SCH ×4 (08:12→16:54)
--- NOTE | 2022-09-20 08:41 | P.PN ---
Subjective Date of Service: 09/20/22 Chief Complaint: Fever Patient lying in bed with family member at the bedside. Reported having mild headache without having cardiopulmonary distress. Physical Examination - Vital Signs Temperature: 97.3 F Blood Pressure: 133/80 Pulse: 80 Respirations: 16 Pulse Ox (%): 99 - Physical Exam General: Alert, In no apparent distress, Oriented x3 Neck: Supple Cardiovascular: No edema, Normal pulses, Normal S1 S2 Gastrointestinal: Normal bowel sounds Musculoskeletal: No swelling, No erythema, No tenderness Integumentary: No rashes, No breakdown Neurological: Normal speech, Normal tone, Sensation intact, Normal affect - Studies Acetaminophen (Acetaminophen 500 Mg Tab) 1,000 mg PO Q6H PRN PRN Reason: Pain scale 2-4 (Mild) Last Admin: 09/19/22 20:36 Dose: 1,000 mg Furosemide (Furosemide 20 Mg Tablet) 20 mg PO DAILY [facility] Last Admin: 09/20/22 08:12 Dose: 20 mg Heparin Sodium (Porcine) (Heparin 1,000 Unit/Ml Vial) 4,000 unit IV EVERY HD PRN PRN Reason: Prevent Lines Clotting Last Admin: 09/17/22 16:25 Dose: 4,000 unit Home Med (Lanthanum 1000 Mg Tab) 1 ea PO AC [place] Last Admin: 09/20/22 08:12 Dose: 1 ea Ondansetron HCl (Ondansetron 4 Mg/2 Ml Vial) 4 mg IV Q6HP PRN PRN Reason: NAUSEA / VOMITING Last Admin: 09/19/22 13:30 Dose: 4 mg Sodium Chloride (Flush Normal Saline 10 Ml) 10 ml IV BID [facility] Last Admin: 09/20/22 08:13 Dose: 10 ml Microbiology Data (last 24 hrs): 09/16/22 14:00 Cerebral Spinal Fluid Gram Stain - Final 09/16/22 14:00 Cerebral Spinal Fluid Culture & Sensitivity - Final Assessment And Plan - Current Problems (Diagnosis) (1) Fever of unknown origin Current Visit: Yes Status: Acute Plan: Most likely viral syndrome Cultures: 2/3 Urine: Negative /3 CSF: Negative /3 BCx2: Negative Antibiotics: Had Cefepime on 09/16 Recommendations: Hold antibiotics due to no signs of having infection Can give PO Cefdinir for 10 days when discharge home if patient develops fever - Plan - Fever of unknown origin - ESRD on HD MWF - Anemia of chronic disease - Mild protein calorie malnutrition Case has been discussed with Dr. Rudolph N
--- NOTE | 2022-09-20 10:39 | RAD REPORT ---
EXAM DESCRIPTION: CT - Head Brain Wo Cont - 09/20/2022 9:15 am CLINICAL HISTORY: Headache COMPARISON: Head Brain Wo Cont dated 06/27/2022 TECHNIQUE: Axial 5 mm thick images of the head were obtained without IV contrast. All CT scans are performed using dose optimization technique as appropriate and may include automated exposure control or mA/KV adjustment according to patient size. FINDINGS: No intracranial hemorrhage, mass, edema or shift of mid-line structures. No acute infarcti on changes seen. No abnormal extra-axial fluid collections. Ventricles are normal. Mastoid air cells and visualized portions of the paranasal sinuses are clear. No acute bony findings. IMPRESSION: Negative non-contrast CT head examination for acute or significant finding. No significant change from the June 2022 study.
[2022-09-20] MEDS: ACETAMINOPHEN 500 MG TAB PO PRN (11:57)
--- NOTE | 2022-09-20 12:00 | P.DS ---
Admission Date: 09/16/22 Discharge Date: 09/20/22 Disposition: ROUTINE DISCHARGE Discharge Condition: FAIR Reason for Admission: Fever Brief History of Present Illness: 37-year-old male with history of ESRD on HD MWF presents to the emergency department for fevers. He reports low-grade fevers, chills which began on 09/11/2022. He reports when he has chills he also has myalgias, headache, neck pain. He was evaluated in the emergency department his labs were significant for white blood cell count of 7.3, sodium 130 urinalysis negative for UTI influenza and COVID-negative, mono negative, LP was performed thus far has returned colorless, clear, nonxanthochromic with normal glucose, total protein. Patient with fistula left upper extremity in place without obvious infection/surrounding cellulitis. Blood cultures were obtained. Patient with fever of unknown origin Tmax 102.7. He was admitted to rule out bacteremia and other causes of fever. Hospital Course: Diagnosis Fever. ESRD on HD MWF h/o biliary colonic 2/2 polyps s/p elective cholecystectomy Patient admitted to the medical floor for further evaluation reviewed given his risk factors for bacteremia which include ESRD on hemodialysis. Blood cultures yielded no growth. CSF studies did not suggest infection. CSF culture yielded no growth. UA negative for UTI, imaging unremarkable. No source of fever id entified. Viral etiology suspected. Patient had fever for 1 day during this hospitalization. He was treated aggressively with IV vancomycin and cefepime. He was seen and evaluated by infectious disease Dr. Rudolph who recommended to discontinue antibiotics. Patient had no fever within 24 hours of discontinuing antibiotics. Nephrology consulted for assistance with hemodialysis, patient underwent routine hemodialysis. He was complaining of intermittent headache. Head CT done showed no acute disease. He has been clinically stable. Vital Signs/Physical Exam: Temp Pulse Resp BP Pulse Ox 97.3 F 80 16 133/80 99 09/20/22 08:48 09/20/22 08:48 09/20/22 08:48 09/20/22 08:48 09/20/22 08:48 General: Alert, Oriented x3 HEENT: Mucous membr. moist/pink Neck: JVD not distended Respiratory: Clear to auscultation bilaterally, Normal air movement Cardiovascular: No edema, Regular rate/rhythm, Normal S1 S2 Gastrointestinal: Normal bowel sounds, Soft and benign, Non-distended, No tenderness Musculoskeletal: No swelling, Other (Left AV fistula-no erythema or tenderness or swelling..) Integumentary: No rashes Neurological: Normal strength at 5/5 x4 extr, Cranial nerves 3-12 intact Laboratory Data at Discharge: WBC 7.30 K/uL (4.3-10.9) 09/19/22 02:42 Hgb 9.5 g/dL (13.6-17.9) L D 09/19/22 02:42 Hct 27.5 % (39.6-49.0) L 09/19/22 02:42 Plt Count 153 K/uL (152-406) 09/19/22 02:42 PT 10.9 SECONDS (9.5-12.5) 09/16/22 12:37 INR 0.99 09/16/22 12:37 APTT 28.3 SECONDS (24.3-36.9) 09/16/22 12:37 Sodium 137 mmol/L (136-145) 09/20/22 03:00 Potassium 4.5 mmol/L (3.5-5.1) 09/20/22 03:00 BUN 62 mg/dL (7-18) H 09/20/22 03:00 Creatinine 17.50 mg/dL (0.70-1.30) H* 09/20/22 03:00 Glucose 93 mg/dL (74-106) 09/20/22 03:00 Phosphorus 7.8 mg/dL (2.5-4.9) H 09/17/22 03:21 Magnesium 2.7 mg/dL (1.6-2.4) H 09/18/22 03:23 Total Bilirubin 0.3 mg/dL (0.2-1.0) 09/18/22 03:23 AST 16 U/L (15-37) 09/18/22 03:23 ALT 37 U/L (16-61) 09/18/22 03:23 Alkaline Phosphatase 47 U/L (45-117) 09/18/22 03:23 Home Medications: Calcium Carbonate [Tums Regular*] 1,500 mg PO AC PRN 11/02/21 Furosemide [Lasix*] 20 mg PO DAILY 11/02/21 Lanthanum Carbonate 1,000 mg PO TIDWM 11/02/21 Vit B Comp C/Folic Acid/Vit D3 [Dialyvite 800 Plus D Wafer] 1 each PO DAILY 09/16/22 Vitamin D [Drisdol*] 50,000 unit PO PRN 09/16/22 Diet: Renal Activity: Ad [place] Followup: Raina Robert MD [COURTESY - CAN ADMIT] - 1-2 Weeks NONE,NONE [Primary Care Provider] - 1-2 Weeks Time spent managing pt's care (in minutes): 34
[2022-09-20 12:21] VITALS: O2SAT 100
[2022-09-20 12:52] VITALS: TEMP 97.3
--- NOTE | 2022-09-20 13:03 | PN ---
Date of Progress Note: 09/20/2022 Subjective: The patient was admitted with known fever. The patient complaining from headache. Physical Examination: Vital Signs: Blood pressure 133/80, pulse of 80. Chest: Clear to auscultation. Heart: S1, S2. Regular. Abdomen: Soft, nontender. Extremity: No edema. Neurological: Alert. No focality. Laboratory Data: Sodium 137, potassium 4.5, bicarb 23, BUN 62, creatinine 17, hemoglobin 9.5. Current Medications: The patient on include heparin, Lasix, Tylenol. Assessment And Plan: 1.End-stage renal disease. Received dialysis yesterday. We will arrange for the dialysis today. 2.Hypertension, controlled, optimal. Continue current treatment. 3.Fever, unknown source. Off antibiotic for the last couple of days. Waiting for echocardiogram. Full workup and culture so far negative. 4.Headache. We will follow up CT report. STEFAN Voice ID: [id number] Report ID: [id number]
[2022-09-20 18:38] VITALS: BP 142/88
--- NOTE | 2022-09-21 06:40 | ECHO ---
HEIGHT: 5 ft 8 in WEIGHT: 146 lb 2 oz DATE OF STUDY: 09/20/[address]: Isiah Laureano MD 2-DIMENSIONAL: YES M.MODE: YES DOPPLER: YES COLOR FLOW: YES TDS: PORTABLE: YES DEFINITY: BUBBLE STUDY: DIAGNOSIS: CONGESTIVE HEART FAILURE CARDIAC HISTORY: CATHERIZATION: NO SURGERY: NO PROSTHETIC VALVE: NO PACEMAKER: NO MEASUREMENTS (cm) DIASTOLIC (NORMALS) SYSTOLIC (NORMALS) IVSd 1.1 (0.6-1.2) LA Diam 2.9 (1.9-4.0) LVEF 67% LVIDd 5.3 (3.5-5.7) LVIDs 3.3 (2.0-3.5) %FS 38% LVPWd 1.1 (0.6-1.2) Ao Diam 2.5 (2.0-3.7) 2 DIMENSIONAL ASSESSMENT: RIGHT ATRIUM: NORMAL LEFT ATRIUM: NORMAL RIGHT VENTRICLE: NORMAL LEFT VENTRICLE: NORMAL TRICUSPID VALVE: MILD TRICUSPID REGURGITATION MITRAL VALVE: MILD MITRAL REGURGITATION PULMONIC VALVE: NORMAL AORTIC VALVE: NORMAL PERICARDIAL EFFUSION: NONE AORTIC ROOT: NORMAL LEFT VENTRICULAR WALL MOTION: NORMAL DOPPLER/COLOR FLOW: SEE BELOW COMMENTS: 1. NORMAL LEFT VENTRICULAR EJECTION FRACTION 60-65% 2. NORMAL WALL MOTION 3. NORMAL DIASTOLIC FUNCTION 4. MILD MITRAL REGURGITATION, MILD TRICUSPID REGURGITATION TECHNOLOGIST: ROBERT GLASS
--- NOTE | 2022-09-27 17:47 | EKG ---
Test Date: 2022-09-16 Test Time: 12:54:28 Licensed Investment Sales Assistant: LISA MEASUREMENT RESULTS: Intervals: Rate: 108 AK: 150 QRSD: 88 QT: 350 QTc: 469 Lyles: P: 76 AK: 150 QRS: 60 T: 38 INTERPRETIVE STATEMENTS: Sinus tachycardia Otherwise normal ECG Compared to ECG 06/27/2022 13:13:37 Sinus rhythm no longer present Atrial abnormality no longer present Electronically Signed On 09-27-22 17:28:37 PHYSICIAN ANESTHESIOLOGIST by Walter Marte
== END 2022-09-20 19:30 | disposition home or self-care (01) | DRG 871 ==
LOC: ER 11:49 → ERHOLD 16:42 → 4TH 19:57
PROVIDERS: ADMIT Hospitalist; ATTEND Hospitalist
PROC: 5A1D70Z Performance of Urinary Filtration, Intermittent, Less than 6 Hours Per Day (ICD-10-PCS; principal; 2022-09-17)
PROC: 009U3ZX Drainage of Spinal Canal, Percutaneous Approach, Diagnostic (ICD-10-PCS; 2022-09-17)
DX: A41.9 Sepsis, unspecified organism (principal); N18.6 End stage renal disease; E87.1 Hypo-osmolality and hyponatremia; N25.81 Secondary hyperparathyroidism of renal origin; E44.1 Mild protein-calorie malnutrition; I12.0 Hypertensive chronic kidney disease with stage 5 chronic kidney disease or end stage renal disease; E11.22 Type 2 diabetes mellitus with diabetic chronic kidney disease; D63.1 Anemia in chronic kidney disease; E83.39 Other disorders of phosphorus metabolism; E88.09 Other disorders of plasma-protein metabolism, not elsewhere classified; R50.9 Fever, unspecified; Z99.2 Dependence on renal dialysis; Z95.9 Presence of cardiac and vascular implant and graft, unspecified; Z68.22 Body mass index [BMI] 22.0-22.9, adult; Z90.49 Acquired absence of other specified parts of digestive tract; Z79.899 Other long term (current) drug therapy; Z20.822 Contact with and (suspected) exposure to COVID-19
CPT/HCPCS: 0240U; 36415; 62270; 70450; 71045; 74177; 80048; 80053; 80202; 80307; 81001; 82945; 82947; 83605; 83735; 84100; 84145; 84157; 85025; 85610; 85730; 86140; 86308; 86706; 87040; 87070; 87086; 87088; 87340; 89050; 90935; 93005; 93306; 99285; J0692; J1644; J2405; J3370; J7050; Q9967

== ENCOUNTER 2022-10-19 16:59 | Observation (INO) | payer OTHER ==
--- OUTSIDE RECORDS SUMMARY | 2022-10-19 17:08 | XMS REPORT | Continuity of Care Document ---
:1985 Author Organization [facility] t Address [address] [facility] [address] [place] [address] Care Team Providers Name Role Phone PCP, PATIENT DOES NOT HAVE A Primary Care Physician UnavailEUSEBIO Blackmon Attending Clinician Unavailable Olivia Gutierrez Attending Clinician Unavailable RUDOLPH STONE Attending Clinician Unavailable BALWINDER PERDOMO Attending Clinician Unavailable ANNE RIVERS Attending Clinician Unavailable STEWART PELAEZ Attending Clinician Unavailable YAA RÍOS Attending Clinician Unavailable NETTIE CUELLAR Attending Clinician Unavailable Camilla Brizuela MD Attending Clinician [phone] Erich Mae MD Attending Clinician ERICH MAE Attending Clinician Unavailable CHARLETTE JACOB Attending Clinician Unavailable Lolis Romero MD Attending Clinician LOLIS ROMERO Attending Clinician Unavailable Pelaez MD, [place] Attending Clinician [phone] Doctor Unassigned, [place] Attending Clinician Unavailable Benjie Hamilton MD Attending Clinician Parisa Arevalo MD Attending Clinician Martha Hdz MD Attending Clinician Only, Adc Test Attending Clinician Unavailable BENJIE HAMILTON Attending Clinician Unavailable Pob, [facility] Main Attending Clinician Unavailable Sandi Garland MD Attending Clinician SANDI GARLAND Attending Clinician Unavailable GABRIEL MCDONOUGH Attending Clinician Unavailable Wolf Robert MD Attending Clinician [phone] WOLF ROBERT Attending Clinician Unavailable Unknown, Attending Attending Clinician Unavailable UNKNOWN, ATTENDING Attending Clinician Unavailable YAA RÍOS Attending Clinician Unavailable RUDOLPH STONE Admitting Clinician Unavailable Lolis Romero MD Admitting Clinician LOLIS ROMERO Admitting Clinician Unavailable YAA RÍOS Admitting Clinician Unavailable Payers Payer Name Policy Type Policy Number Effective Date Expiration Date carleen MEDICARE PART A [id number] 2020 AND B 00:00:[address] [facility] [id number] 2020 00:00:00 Problems Condition Condition Condition Status Onset Resolution Last Treating Co mments Source Name Details Category Date Date Treatment Clinician Date History of History Diagnosis Active 2022-09-04 Memoria cholecyste of 09-01 07:12:11 l ctomy cholecyste 00:00: Carlos rolon (situation ctomy 00 ) (situation ) Active 09/01/2022 Diagnosis 09/04/2022 [facility] FOLLOW UP FOLLOW UP Diagnosis Active 2022-09-01 Memoria AFTER AFTER 08-22 09:04:00 l SURGERY SURGERY 00:00: Fletcher Active 00 08/22/2022 [facility] CHOLESTERO CHOLESTER Diagnosis Active 2021-082022-08-04 Memoria LOSIS OF OLOSIS OF 09-27 10:32:00 l GALLBLADDE GALLBLADDE 00:00: He tikiann R R Active 00 07/27/2022 [facility] REFERRAL REFERRAL Diagnosis Active 2021-082022-09-08 Memoria Active 09-27 10:45:00 l 07/27/2022 00:00: Carlos rolon [address] PRE-RENAL PRE-RENAL Diagnosis Active 2021-082022-08-17 Memoria TRANSPLANT TRANSPLANT 09-21 06:54:00 l LISTED LISTED 00:00: Fletchre UPDATE UPDATE 00 Active 07/21/2022 [facility] LABS LABS Diagnosis Active 2021-082022-06-16 Mem oria Active 0 14:03:00 l 05/23/2022 11:00: Carlos rolon [address] LISTED LISTED Diagnosis Active 2021-082022-06-16 Me moria UPDATE UPDATE 0- 14:04:00 l Active 11:00: Fletcher 05/14/2022 00 [facility] LABH LABH Diagnosis Active 2021-12-17 Mem oria Active 11-24 16:28:00 l 11/24/2021 11:00: Carlos rolon [address] PATIENT PATIENT Diagnosis Active 2021-11-10 Memoria Active 09-15 15:29:00 l 09/15/2021 00:00: Carlos rolon [address] ASSESS THE ASSESS Diagnosis Active 2021-08-26 Max GALLBLADDE THE 08-26 10:45:00 l R POLYPS. GALLBLADDE 00:00: Her napoles R POLYPS. 00 Active 08/26/2021 [facility] NEW NEW Diagnosis Active 2020-082021-09-14 Mem oria ENCOUNTER ENCOUNTER 09-22 09:26:00 l Active 00:00: Fletcher 07/22/2021 00 [facility] Non-intrac Non-intrac Disease Active Overview : Univers table table 9-17 Formattin ity of vomiting vomiting 00:00: g of this [place] as with with 00 note Medical nausea, nausea, might be Branch unspecifie unspecifie different d vomiting d vomiting from the type type original. Added automatic ally from request for surgery [id number] ESRD (end ESRD (end Disease Active Uni vers stage stage 04-29 ity of renal renal 00:00: [place] disease) disease) 00 Medica l Branch NON LISTED NON Diagnosis Active 2021-07-20 Memoria UPDATE LISTED 04-21 09:41:00 l UPDATE 00:00: Fletcher Active 00 04/21/2021 [facility] SUGICAL SUGICAL Diagnosis Active 2020-10-19 Memoria CONSULT CONSULT 09-22 13:13:00 l Active 00:00: Fletcher 09/22/2020 00 [facility] CCL/RHC CCL/RHC Diagnosis Active 2020-09-07 Memoria RAPID RAPID 09-02 13:04:00 l COVID TEST COVID TEST 00:00: Baldomero dos santos REQ REQ 00 (WILL N (WILL N Active 09/02/2020 [facility] FOLLOW UP FOLLOW UP Diagnosis Active 2019-082020-08-25 Memoria Active 09-17 10:56:00 l 07/17/2020 00:00: Carlos rolon [address] ESRD/RENAL ESRD/ILEANA Diagnosis Active 2020-05-19 Max TXP EVAL L TXP EVAL 04-29 07:33:00 l Active 00:00: Fletcher 04/29/2020 00 [facility] KIDNEY KIDNEY Diagnosis Active 2022-04-14 Me moria TRANSPLANT TRANSPLANT 03-31 14:47:00 l FINANCIAL FINANCIAL 14:22: Khloe solitario ACCT NOTES ACCT NOTES 00 O O Active 03/31/2020 [facility] UNK UNK Diagnosis Active 2020-01-14 Patricia oria Active 12-23 06:52:00 l 12/24/2019 00:00: Carlos rolon [address] [place] END STAGE END STAGE Diagnosis Active 2020-01-24 Patriciaoria RENAL RENAL 12-23 09:08:00 l DISEASE ON DISEASE ON 00:00: He rmann DIALYSIS DIALYSIS 00 Active 12/24/2019 [facility] NEW KIDNEY NEW Diagnosis Active 2020-04-28 Memoria EVAL KIDNEY -28 12:01:00 l EVAL 00:00: Fletcher Active 00 12/10/2019 [facility] Anemia of Anemia of Problem Resolve 2022-02-18 Memoria chronic chronic d 00:02:31 l disorder disorder Carlos n (disorder) (disorder) Resolved Problem 02/18/2022 [facility] RUBÉN Bynum Secondary Secondary Problem Resolve 2022-02-18 Memoria hyperparat hyperparat d 00:02:31 l hyroidism hyroidism Herm kassi (disorder) (disorder) Resolved Problem 02/18/2022 [facility] RUBÉN Bynum Dependence Dependenc Problem Active 2022-09-04 Memoria on e on 07:12:11 l hemodialys hemodialys He rmann is due to is due to end stage end stage renal renal disease disease (finding) (finding) Active Problem 09/04/2022 [facility] in Device in Problem Active 2022-09-04 Memoria situ situ 07:12:11 l (finding) (finding) Herm kassi Active Problem 09/04/2022 [facility] Hypertensi Hypertens Problem Active 2022-09-04 Memoria ve ji 07:12:11 l disorder, disorder, Herm kassi systemic systemic arterial arterial (disorder) (disorder) Active Problem 09/04/2022 [facility] Patient Patient Problem Active 2022-09-04 Me moria encounter encounter 07:12:11 l status status Fletcher (finding) (finding) Active Problem 09/04/2022 [facility] RUBÉN Bynum Cholecysti Cholecyst Problem Active 2022-09-04 Memoria tis itis 07:12:11 l (disorder) (disorder) He rmann Active Problem 09/04/2022 [facility] Polyp of Polyp of Problem Active 2022-09-04 Memoria gallbladde gallbladde 07:12:11 l r r Fletcher (disorder) (disorder) Active Problem 09/04/2022 [facility] ENCNTR FOR ENCNTR Diagnosis Active 2020-08-25 Memoria GENERAL FOR 10:56:00 l ADULT GENERAL [place] MEDICAL ADULT EXAM W/ MEDICAL EXAM W/ Active [facility] END STAGE END STAGE Diagnosis Active 2020-05-19 Memoria RENAL RENAL 07:33:00 l DISEASE DISEASE [place] Active [facility] N18.6 - N18.6 - Diagnosis Active 2021-07-20 Memoria END STAGE END STAGE 14:18:00 l RENAL RENAL [place] DISEASE DISEASE Active RUBÉN Bynum ENCOUNTER ENCOUNTER Diagnosis [facility] 09:04:00 l AFTERCARE AFTERCARE Herm kassi FOLLOWING FOLLOWING OTHER OTHER Active [facility] N18.6 - N18.6 - Diagnosis Active 2022-09-09 Memoria END STAGE END STAGE 10:05:00 l RENAL RENAL [place] DISEASE DISEASE R11.2 - R11.2 - Active [facility] [id number] 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[place] disease [id number] End stage Problem Active Com mon renal [facility] disease - [facility] [id number] Dependence Problem Active Co mmon on renal [facility] dialysis - [facility] [id number] Hypertensi Problem Active Com mon ve heart [facility] disease - [facility] without [facility] Acquired Acquired Diagnosis 2022-09-04 2022-09-04 [facility] absence of absence of 09-01 07:12:11 07:12:11 l organ organ 16:00: Fletcher 09/01/2022 00 Diagnosis 09/04/2022 [facility] End stage End stage Diagnosis 2022-09-04 2022-09-04 Memoria renal renal 09-01 07:12:11 07:12:11 l disease disease 15:57: [place] (disorder) (disorder) 00 09/01/2022 Diagnosis 09/04/2022 [facility] Surgical Surgical Diagnosis 2022-09-04 2022-09-04 [facility] follow-up follow-up 09-01 07:12:11 07:12:11 l (finding) (finding) 15:57: Herm kassi 09/01/2022 00 Diagnosis 09/04/2022 [facility] Cholestero Diagnosis 2021-082022-08-072022-072022-08-07 Memoria losis of Cholestero 10-05 06:21:10 06:21:10 l gallbladde losis of 18:00: Herm kassi r obdulio 00 (disorder) r (disorder) 08/04/2022 Diagnosis 08/07/2022 [facility] History of Past Illness Condition Condition Condition Status Onset Resolution Last Treating Co mments Source Name Details Category Date Date Treatment Clinician Date End stage End stage Problem 2021-11-13 2021-11-13 Memoria renal renal - 23:56:20 23:56:20 l disease disease 21:06: Fletcher 10/04/2021 00 11/13/2021 [facility] Essential Essential Problem 2021-11-13 2021-11-13 Memoria (primary) (primary) 10-04 23:56:20 23:56:20 l hypertensi hypertensi 21:06: He rmann on on 10/04/2021 11/13/2021 [facility] Allergies, Adverse Reactions, Alerts Allergy Allergy Status Severity Reaction(s) Onset Inactive Treating Comm ents Source Name Type Date Date Clinician NO KNOWN Drug Active Univers ALLERGIE Class ity of S [place] [facility] Social History Social Habit Start Date Stop Date Quantity Comments Source History SDOH University o f Alcohol Std [place] [facility] Drinks Branch History SDOH University o f Alcohol Binge [place] [facility] Branch History SDOH University o f Alcohol Comment [place] [facility] ical [facility] Exposure to Not sure University of SARS-CoV-2 [place] [facility] (event) Branch History of [facility] - [facility] Use [facility] Social History 2022-09-02 2022-09-02 [facility] estuardo 07:23:52 07:23:52 Alcohol intake 2021-10-28 2021-10-28 Lifetime University of 00:00:00 00:00:00 non-drinker [place] [facility] (finding) Branch Tobacco use and 2021-03-09 2021-03-09 Never used Universit y of exposure 00:00:00 00:00:00 [place] [facility] History SDOH 2021-03-09 2021-03-09 1 University o f Alcohol Frequency 00:00:00 00:00:00 [facility] edical Branch Social History 2020-01-09 2020-01-09 [facility] 21:[facility] 21:34:55 Smoking Status Start Date Stop Date Source Tobacco smoking consumption unknown [facility] Tobacco smoking status [facility] Medications Ordered Filled Start Stop Current Ordering Indication Dosage Frequency Signature Comments Components Source Medication Medication Date Date Medication? Clinician (SIG) Name Name eloise 2021-08 Yes 500 mg = 1 Memoria en 500 mg 2-23 tab, PO, l oral 01:14: Q6H, X 7 Fletcher tablet. 00 day, # 28 tab, 0 Refill(s), Pharmacy: [id number], 172.72, cm, 08/04/22 11:11:00 [employer], Height, 69.5, kg, 08/04/22 11:11:00 [employer], Weight oxyCODONE 5 2021-08 Yes 5 mg = 1 Me moria mg oral 2-23 tab, PO, l tablet, 01:13: Q4H, PRN Carlos n immediate 00 Pain, X 7 release day, # 12 tab, 0 Refill(s), Pharmacy: [id number], 172.72, cm, 08/04/22 11:11:00 [employer], Height, 69.5, kg, 08/04/22 11:11:00 [employer], Weight Lisinopril Lisinopril No 1{table QD Lisinopril 20 MG 20 MG 8-15 t} 20 MG 00:00: 00 Lisinopril Lisinopril No 1{table QD Lisinopril 20 MG 20 MG 8-15 t} 20 MG 00:00: 00 Lisinopril Lisinopril 0 No 1{table QD Lisinopril 20 MG 20 MG 8-15 t} 20 MG 00:00: 00 ergocalcife Yes [id number] Take Univ ers rol, 2-16 50,000 ity of vitamin d2, 00:00: [place] 1,[address] [place] [address] Medical (50,000 weekly. Branch unit) capsule lisinopriL 2020-08 Yes 10mg Take 10 mg U nivers 10 mg 2-16 by mouth ity of tablet 14:56: daily. [address] hydrALAZINE 2020-08 Yes 10mg Take 10 mg Univers 10 mg 2-16 by mouth ity of tablet 14:56: as needed. [place] [address] Medical Branch furosemide 2020-08 Yes 20 mg = 1 Me moria 20 mg oral -09 tab, PO, l tablet 15:55: BID [place] gabapentin 2020-08 Yes 100 mg = 1 M emoria 100 mg oral 08-22 cap, PO, l capsule 15:51: TID, PRN Carlos n 00 Blood Yes [id number] Use to [facility] s Pressure 23 check ity of Monitor Kit 00:00: blood [place] 00 pressure Medical once Branch daily. I10 Blood-Gluco Yes [id number] Use to Univers se Meter 23 check ity of (ACCU-CHEK 00:00: glucose 1x [place] GUIDE 00 daily. Medical GLUCOSE E11.22, Branch METER) Misc N18.6, Z99.2 Lancets Yes [id number] Use to [facility] ers (ACCU-CHEK 05-04 check ity of MULTICLIX 00:00: blood [place] LANCET) 00 glucose Medical Misc level 1x Branch daily. E11.22, N18.6, Z99.2 blood sugar Yes [id number] Use as Univers diagnostic 9-20 directed ity o f (ACCU-CHEK 00:00: once daily [place] GUIDE TEST 00 Medical STRIPS) Branch strip ondansetron Yes [id number] 8mg Take 1 Univers 8 mg 9-16 tablet by ity of disintegrat 00:00: mouth [place] ing tablet 00 every 8 Medica l (eight) Branch hours as needed for Nausea and Vomiting (N/V). gabapentin Yes Univers 100 mg 8-18 ity of capsule 00:00: [place] 00 Medical Branch lanthanum Yes CHEW AND Univ ers 1,000 mg 7-21 SWALLOW 1 ity of chewable 00:00: TABLET BY [place] tablet 00 MOUTH Medical THREE Branch TIMES DAILY WITH MEALS furosemide Yes 20mg Take 20 mg U nivers 20 mg 6-08 by mouth 2 ity of tablet 00:00: (two) [place] [id number] times Medical daily. Branch gabapentin Yes 100 mg, Rigoberto malena 1-25 PO, TID, 0 l 20:00: Refill(s) [place] Ascorbic 2021-0 Yes 1 tab, PO, Mem oria Acid [...] 20:00: Refill(s) lanthanum Yes See Memoria carbonate 09-07 Instructio l 1000 mg 20:00: ns, 1 [...] l tablet 12:40: TID, 0 Refill(s) Acetaminoph 0 No 1,000 mg, M emoria en 01-14 Route: PO, l 17:42: Drug form: Fletcher 00 TAB, ONCE, Dosing Weight 69.364, kg, PRN Pain Score 1-3, Start date: 01/15/20 12:42:00 CDT Oxycodone 2019-0 No 5 mg, Memoria Hydrochlori 01-14 Route: PO, l de 5 MG 17:42: Drug form: Herm kassi Oral Tablet 00 TAB, Q4H, Dosing Weight 69.364, kg, PRN Pain Score 4-6, Start date: 01/15/20 12:42:00 CDT, Duration: 30 day, Stop date: 02/14/20 12:41:00 CDT Fentanyl 2020-0 No 25 Memoria 01-14 microgram, l 17:42: Route: IVP, Q5Min, Dosing Weight 69.364, kg, PRN Pain Score 4-6, Priority: Routine, Start date: 01/15/20 12:42:00 CDT, Duration: 4 doses or times, Stop date: Limited # of times Flumazenil 2020-0 No 0.2 mg, Rigoberto malena 01-14 Route: l 17:42: IVP, PRN, Dosing Weight 69.364, kg, PRN Benzodiaze pine Reversal, Initial dose, Start date: 01/15/20 12:42:00 CDT, Duration: 30 day, Stop date: 02/14/20 12:41:00 CDT Naloxone 2020-0 No 0.4 mg, Memori a 01-14 Route: l 17:42: IVP, Q2MIN, Dosing Weight 69.364, kg, PRN Narcotic Reversal, Start date: 01/15/20 12:42:00 CDT, Duration: 8 doses or times, Stop date: Limited # of times Ondansetron 2019-0 No 4 mg, Memor ia 01-14 Route: l 17:42: IVP, ONCE, Dosing Weight 69.364, kg, PRN Nausea & Vomiting, Start date: 01/15/20 12:42:00 CDT protamine 2019-0 No Route: IV, Me moria (ANES) 01-14 Drug form: l 17:37: INJ, ONCE, Stop date: 01/15/20 12:37:00 CDT midazolam 2020-0 No Route: IV, Me moria (ANES) 01-14 Drug form: l 17:09: SOLN, ONCE, Stop date: 01/15/20 12:09:00 CDT fentaNYL 2020-0 No Route: IV, Mem oria (ANES) - Drug form: l 17:09: INJ, ONCE, Stop date: 01/15/20 12:09:00 CDT propofol 2020-0 No Route: IV, Mem oria (ANES) - Drug form: l 17:09: INJ, ONCE, Stop date: 01/15/20 12:09:00 CDT lidocaine 2020-0 No Route: IV, Me moria (ANES) - Drug form: l 17:09: INJ, ONCE, Stop [...] ONCE, Stop date: 01/15/20 12:09:00 CDT phenylephri 2019-0 No Route: IV, Memoria ne (ANES) 01-14 Drug form: l 17:09: INJ, ONCE, Stop date: 01/15/20 12:09:00 CDT heparin 2019-0 No Route: IV, Rigoberto malena (ANES) 01-14 Drug form: l 17:04: INJ, ONCE, Stop date: 01/15/20 12:04:00 CDT vancomycin 2019-0 No Route: IV, M emoria (ANES) 1000 01-14 Drug form: l mg 16:16: INJ, Start date: 01/15/20 11:16:00 CDT, Stop date: 01/15/20 12:16:00 CDT Sodium 2019-0 No Route: IV, Memor ia Chloride 01-14 Total l 0.9% IV 16:16: Volume: [place] (ANES) 1000 00 1,000, mL Start date: 01/15/20 11:16:00 CDT, Stop date: 01/15/20 12:16:00 CDT normal 2020-0 No 500 mL, Memoria saline 0.9% 01-14 Rate: 40 l IV 500 mL 16:12: ml/hr, Carlos n 00 Infuse over: 12.5 hr, Route: IV, Dosing Weight 69.364 kg, Total Volume: 500, Start date: 01/15/20 11:12:00 CDT, Duration: 1 day, Stop date: 01/16/20 11:11:00 CDT, 1.83, m2, 0 Calcium 2019-0 No 1,000 mL, Memor ia Chloride - Rate: 75 l 0.0014 15:33: ml/hr, [place] MEQ/ML / 00 Infuse Potassium over: 13.3 Chloride hr, Route: 0.004 IV, Dosing MEQ/ML / Weight Sodium 69.364 kg, Chloride Total 0.103 Volume: MEQ/ML / 1,000, Sodium Start Lactate date: 0.028 01/14/20 MEQ/ML 10:33:00 Injectable CDT, Solution Duration: 1 day, Stop date: 01/16/20 10:32:00 CDT, 1.83, m2, 0 Amlodipine 0 No Notes: Memor ia - (Same as: l 14:00: Norvasc) Fletcher 00 Lisinopril 0 No Notes: Memor ia 6- (Same as: l 14:00: Prinivil, [place] 00 Zestril) 24 HR No Notes: Memoria Metoprolol 01-14 (Same as: l Tartrate 50 14:00: Toprol XL) Fletcher MG Extended 00 May split Release tab, but Tablet do not [Toprol] crush. Hydralazine No Notes: Rigoberto malena Hydrochlori 01-13 (Same as: l de 25 MG 22:00: Apresoline Her napoles Oral Tablet 00 ) May interfere w/enteral feedings Take With Food. Sodium 0 No 500 mL, Memoria Chloride 01-13 Rate: 25 l 0.9% IV 500 16:46: [...] / 1,000, Sodium Start Lactate date: 0.028 06/02/20 MEQ/ML 9:20:00 Injectable CDT, Solution Duration: 30 day, Stop date: 02/13/20 9:19:00 CDT, 1.83, m2, 0 Lisinopril 2020-0 Yes 20 mg, PO, M emoria 5-28 Daily, 0 l 19:43: Refill(s) Fletcher 00 hydrALAZINE 2020-0 Yes 25 mg = 1 M emoria 25 mg oral 5-28 tab, PO, l tablet 19:42: TID, # 270 Melissa nn 00 tab, 1 Refill(s) Hydralazine 2020-0 Yes 25 mg = 1 [...] Herm kassi tablet 00 tab, 0 Refill(s) Vancomycin 2020-0 No 2001 mg: Me moria 5-28 infuse l 19:00: over 2.5 Fletcher 00 hours For adult patients only: Round [...] Date Status Commen ts Source Name Name [id number] 2020-12-11 Completed Rigoberto rial [id number] 00:00:00 Herm kassi <sup>1</sup> [id number] 2020-11-20 Completed Rigoberto rial [id number] 00:00:00 Herm kassi <sup>2</sup> Vital Signs Vital Name Observation Time Observation Value Comments Source height 2022-04-25 11:20:00 67 [in_i] [facility] weight 2022-04-25 11:20:00 154.2 [lb_av] [facility] temperature 2022-04-25 11:20:00 98.6 [degF] [facility] bmi 2022-04-25 11:20:00 24.15 kg/m2 [facility] oximetry 2022-04-25 11:20:00 99 % [facility] respiratory rate 2022-04-25 11:20:00 16 /min Comm on [facility] blood pressure 2022-04-25 11:20:00 123 mm[Hg] [facility] [place] systolic [facility] blood pressure 2022-04-25 11:20:00 71 mm[Hg] [facility] - diastolic [facility] height 2022-04-01 08:00:00 67 [in_i] [facility] weight 2022-04-01 08:00:00 154 [lb_av] [facility] bmi 2022-04-01 08:00:00 24.12 kg/m2 [facility] height 2022-03-28 10:40:00 67 [in_i] [facility] weight 2022-03-28 10:40:00 154 [lb_av] [facility] temperature 2022-03-28 10:40:00 97.3 [degF] [facility] bmi 2022-03-28 10:40:00 24.12 kg/m2 [facility] oximetry 2022-03-28 10:40:00 98 % [facility] respiratory rate 2022-03-28 10:40:00 16 /min Comm on [facility] blood pressure 2022-03-28 10:40:00 142 mm[Hg] [facility] - systolic [facility] blood pressure 2022-03-28 10:40:00 86 mm[Hg] [facility] - diastolic [facility] Systolic blood 2021-10-28 20:51:00 123 mm[Hg] Univer sity of pressure [facility] Diastolic blood 2021-10-28 20:51:00 72 mm[Hg] Unive rsity of [facility] Heart rate 2021-10-28 20:51:00 83 /min [facility] Body temperature 2021-10-28 20:51:00 [facility].33 [facility] 2021-10-28 20:51:00 18 /[facility] height 2021-10-28 20:51:[facility] 2021-10-28 20:51:00 71.124 kg [facility] BMI 2021-10-28 20:51:00 25.31 kg/m2 [facility] Oxygen saturation in 2021-10-28 20:51:00 99 /min [facility] blood by [facility] Pulse oximetry Branch Heart Rate 2022-09-01 15:33:00 Memorial [place] Systolic (mm Hg) 2022-09-01 15:33:00 Rigoberto rial [place] Diastolic (mm Hg) 2022-09-01 15:33:00 Mem orial [place] Height 2022-09-01 15:33:00 169.5 cm Memorial [place] Weight 2022-09-01 15:33:00 Memorial [place] BMI Calculated 2022-09-01 15:33:00 Memori al [place] Systolic (mm Hg) 2022-08-05 03:15:00 Rigoberto rial [place] Diastolic (mm Hg) 2022-08-05 03:15:00 Mem orial [place] Height 2022-08-04 17:11:00 5 [ft_i] Memorial [place] Weight 2022-08-04 17:11:00 Memorial [place] BMI Calculated 2022-08-04 17:11:00 Memori al [place] Heart Rate 2022-08-04 17:10:00 Memorial [place] Weight 2022-08-01 14:36:00 Memorial [place] Heart Rate 2022-07-26 15:20:00 Memorial [place] Systolic (mm Hg) 2022-07-26 15:20:00 Rigoberto rial Fletcher Diastolic (mm Hg) 2022-07-26 15:20:00 Mem orial [place] Height 2022-07-26 15:20:00 169.5 cm Memorial [place] Weight 2022-07-26 15:20:00 Memorial [place] BMI Calculated 2022-07-26 15:20:00 Memori al [place] Systolic (mm Hg) 2021-11-10 16:30:00 Rigoberto rial [place] Diastolic (mm Hg) 2021-11-10 16:30:00 Mem orial [place] Heart Rate 2021-11-10 16:30:00 Memorial [place] Respitory Rate 2021-11-10 16:30:00 Memori al [place] Height 2021-11-10 16:30:00 172.72 cm Memorial [place] Weight 2021-11-10 16:30:00 Memorial [place] BMI Calculated 2021-11-10 16:30:00 Memori al [place] Heart Rate 2021-10-19 20:30:00 Memorial [place] Systolic (mm Hg) 2021-10-19 20:30:00 Rigoberto rial Fletcher Diastolic (mm Hg) 2021-10-19 20:30:00 Mem orial [place] Height 2021-10-19 20:30:00 172.7 cm Memorial [place] Weight 2021-10-19 20:30:00 Memorial [place] BMI Calculated 2021-10-19 20:30:00 Memori al [place] Systolic (mm Hg) 2021-10-13 17:45:00 Rigoberto rial Fletcher Diastolic (mm Hg) 2021-10-13 17:45:00 Mem orial [facility] Heart Rate 2021-10-13 17:45:00 [facility] [place] Respitory Rate 2021-10-13 17:45:00 [facility] Height 2021-10-13 17:45:00 172.72 cm [facility] Weight 2021-10-13 17:45:00 [facility] BMI Calculated 2021-10-13 17:45:00 [facility] Respitory Rate 2021-09-13 19:33:00 [facility] Systolic (mm Hg) 2021-09-13 19:33:00 Rigoberto rial Fletcher Diastolic (mm Hg) 2021-09-13 19:33:00 Mem orial [facility] Height 2021-09-13 19:33:00 172.72 cm [facility] Weight 2021-09-13 19:33:00 [facility] [place] BMI Calculated 2021-09-13 19:33:00 [facility] [place] Heart Rate 2021-09-13 19:33:00 [facility] Heart Rate 2021-06-22 14:23:00 [facility] [place] Respitory Rate 2021-06-22 14:23:00 [facility]ori [facility] Systolic (mm Hg) 2021-06-22 14:23:00 Rigoberto rial [place] Diastolic (mm Hg) 2021-06-22 14:23:00 Mem orial [facility] Height 2021-06-22 14:23:00 172.72 cm [facility] [place] Weight 2021-06-22 14:23:00 [facility] BMI Calculated 2021-06-22 14:23:00 Memori al [facility] Systolic (mm Hg) 2020-10-19 19:16:00 Rigoberto rial [place] Diastolic (mm Hg) 2020-10-19 19:16:00 [facility] [place] Heart Rate 2020-10-19 19:16:00 [facility] [place] Respitory Rate 2020-10-19 19:16:00 [facility] [place] Height 2020-10-19 19:16:00 172.72 cm [facility] Weight 2020-10-19 19:16:00 [facility] BMI Calculated 2020-10-19 19:16:00 [facility] [place] Respitory Rate 2020-09-07 23:30:00 [facility] Systolic (mm Hg) 2020-09-07 23:30:00 Rigoberto rial Fletcher Diastolic (mm Hg) 2020-09-07 23:30:00 [facility] [place] Respitory Rate 2020-09-07 23:15:00 [facility]ori [facility] Systolic (mm Hg) 2020-09-07 23:15:00 Rigoberto rial Fletcher Diastolic (mm Hg) 2020-09-07 23:15:00 [facility] [place] Respitory Rate 2020-09-07 23:10:00 [facility] [place] Systolic (mm Hg) 2020-09-07 23:10:00 Rigoberto rial Fletcher Diastolic (mm Hg) 2020-09-07 23:10:00 Mem orial [facility] Height 2020-09-07 19:23:00 172.72 cm [facility] [place] Weight 2020-09-07 19:23:00 [facility] BMI Calculated 2020-09-07 19:23:00 [facility] [place] Temperature Oral (F) 2020-09-07 19:00:00 98.6 F [facility] Height 2020-09-07 17:21:00 172.72 cm [facility] [place] Weight 2020-09-07 17:21:00 [facility] [place] BMI Calculated 2020-09-07 17:21:00 [facility]ori [facility] Systolic (mm Hg) 2020-08-25 18:44:00 Rigoberto rial [place] Diastolic (mm Hg) 2020-08-25 18:44:00 Mem orial [facility] Heart Rate 2020-08-25 18:44:00 [facility] [place] Respitory Rate 2020-08-25 18:44:00 [facility] [place] Height 2020-08-25 18:44:00 170.18 cm [facility] [place] Weight 2020-08-25 18:44:00 [facility] [place] BMI Calculated 2020-08-25 18:44:00 [facility] [place] Systolic (mm Hg) 2020-06-23 17:24:00 Rigoberto rial Fletcher Diastolic (mm Hg) 2020-06-23 17:24:00 [facility] [place] Heart Rate 2020-06-23 17:24:00 [facility] Respitory Rate 2020-06-23 17:24:00 [facility] [place] Temperature Oral (F) 2020-06-23 17:24:00 97.3 F [facility] Height 2020-06-23 17:24:00 170.18 cm [facility] Weight 2020-06-23 17:24:00 [facility] BMI Calculated 2020-06-23 17:24:00 Memori [facility] Height 2020-05-19 12:06:00 170 cm [facility] Weight 2020-05-19 12:06:00 [facility] [place] BMI Calculated 2020-05-19 12:06:00 [facility] [place] Systolic (mm Hg) 2020-04-28 15:53:00 Rigoberto rial [place] Diastolic (mm Hg) 2020-04-28 15:53:00 Mem orial [facility] Heart Rate 2020-04-28 15:53:00 [facility] [place] Respitory Rate 2020-04-28 15:53:00 Memori al [facility] Temperature Oral (F) 2020-04-28 15:53:00 97.3 F [facility] Height 2020-04-28 15:53:00 170.18 cm [facility] [place] Weight 2020-04-28 15:53:00 [facility] BMI Calculated 2020-04-28 15:53:00 Memori [facility] Systolic (mm Hg) 2020-03-31 12:32:00 Rigoberto rial Fletcher Diastolic (mm Hg) 2020-03-31 12:32:00 [facility] [place] Heart Rate 2020-03-31 12:32:00 [facility] Respitory Rate 2020-03-31 12:32:00 Memori al [facility] Temperature Oral (F) 2020-03-31 12:32:00 98.1 F [facility] [place] Height 2020-03-31 12:32:00 172 cm [facility] Weight 2020-03-31 12:32:00 [facility] [place] BMI Calculated 2020-03-31 12:32:00 [facility]ori al [facility] Respitory Rate 2020-01-15 21:23:00 Memori al [facility] Systolic (mm Hg) 2020-01-15 21:23:00 Rigoberto rial Fletcher Diastolic (mm Hg) 2020-01-15 21:23:00 Mem orial [facility] Temperature Oral (F) 2020-01-15 21:23:00 97.8 F [facility] Respitory Rate 2020-01-15 21:15:00 [facility] [place] Systolic (mm Hg) 2020-01-15 21:15:00 Rigoberto rial [place] Diastolic (mm Hg) 2020-01-15 21:15:00 Mem orial [facility] Systolic (mm Hg) 2020-01-15 21:00:00 Rigoberto rial Fletcher Diastolic (mm Hg) 2020-01-15 21:00:00 Mem [facility] [place] Respitory Rate 2020-01-15 21:00:00 [facility] [place] Heart Rate 2020-01-15 15:30:00 [facility] [place] Temperature Oral (F) 2020-01-15 12:41:00 98.2 F [facility] [place] Heart Rate 2020-01-15 12:41:00 [facility] Temperature Oral (F) 2020-01-15 04:46:00 97.8 F [facility] Heart Rate 2020-01-15 04:46:00 [facility] [place] Height 2020-01-09 19:01:00 172.72 cm [facility] [place] Weight 2020-01-09 19:01:00 [facility] [place] [facility] BMI Calculated 2020-01-09 19:01:00 Memori al [facility] Procedures Procedure Date / Time Performed Performing Clinician [facility] e CT CHEST WO CONTRAST 2021-07-20 20:20:00 Ish Schafer [facility] CT CHEST WO CONTRAST 2021-07-20 20:20:00 Ish Schafer [facility] Cardiac 2020-09-07 06:00:00 [facility] catheterization<sup>1</sup > AV - Creation of [facility] Carlos n arteriovenous fistula Insertion of tunneled [facility] H ermann dialysis catheter using fluoroscopic guidance Encounters Start End Encounter Admission Attending Care Care Encounter Source Date/Time Date/Time Type Type Clinicians Facility Department ID 2022-10-17 Outpatient [facility] [id number] [place] 16:02:51 [id number] [facility] 2022-09-20 Outpatient NINA [facility] [id number] HH 14:53:38 [facility] 2022-09-20 Outpatient [facility] ER [id number] [place] 09:00:44 [id number] [facility] 2022-09-07 Outpatient [facility] ER [id number] [place] 12:54:00 [id number] [facility] 2022-09-06 Outpatient [facility] ER [id number] [place] 14:19:32 [id number] [facility] 2022-08-29 Outpatient [facility] ER [id number] [place] 11:35:23 [id number] [facility] 2022-08-17 Outpatient [facility] ER [id number] [place] 12:10:17 [id number] [facility] 2022-08-03 Outpatient [facility] ER [id number] [place] 10:12:49 [id number] [facility] 2022-07-30 Outpatient BALDEMAR Gutierrez [facility] [id number] Common 09:30:00 [facility] 2022-07-28 Outpatient [facility] ER [id number] [place] 13:26:09 [id number] [facility] 2022-03-28 Outpatient BALDEMAR Gutierrez [facility] [id number] Common 08:23:02 [facility] 2021-08-26 Outpatient [id number] 10[facility]37:00 2020-04-17 Inpatient RUDOLPH STONE [facility] [id number] 16:04:57 2022-09-16 2022-10-15 Outpatient RUDOLPH STONE [facility] [id number] [facility] 11:00:00 23:59:00 2022-09-08 2022-10-07 Outpatient NINA [facility] [id number] [facility] 08:31:00 23:59:00 [facility] 2022-09-01 2022-09-02 Outpatient MHIE Liver [id number] Memoria 14:55:00 05:59:[address] 2022-09-01 2022-09-01 Outpatient CONOR [facility] [id number] [facility] 08:55:00 23:59:00 BALWIDNER 2022-07-26 2022-08-25 OP MHIE Transplant [id number] Memoria 14:24:00 05:59:00 Transplant [place] 09 [facility] 2022-07-26 2022-08-24 Outpatient SILVESTRE [facility] [id number] [facility] 08:24:00 23:59:00 ANNE 2022-08-04 2022-08-05 Day MHIE Memorial [id number] Memoria 16:22:00 05:59:[address] 2022-08-04 2022-08-04 Outpatient CONOR [facility] [id number] [facility] 10:22:00 23:59:00 BALWINDER 2022-06-15 2022-06-22 OP nullFlavo Transplant [id number] Memoria 16:00:00 05:59:00 Transplant r [place] 08 [facility] 2022-06-15 2022 Outpatient RUDOLPH STONE [facility] [id number] [facility] 11:00:00 23:59:00 2022-04-25 2022-04-25 [facility]ICE [facility] [id number] Co mmon 00:00:00 00:00:00 VISIT Spirit ESTAB PT - CHI LEVEL 4 [facility] 2022-04-01 2022-04-01 ([facility]) [facility] [id number] Common 00:00:00 00:00:00 Medicare Spiri t Wellness - [facility] 2022-03-28 2022-03-28 OFFICE [facility] [id number] Co mmon 00:00:00 00:00:00 VISIT NEW Spir it PT LEVEL 4 - [facility] 2022-01-17 2022-02-16 OP nullFlavo Transplant [id number] Memoria 16:00:00 04:59:00 Transplant r Center 07 [facility] 2022-01-17 2022-02-15 Outpatient DE [facility] [id number] [facility] 11:00:00 23:59:00 [facility] 2021-11-24 2021-12-24 OP nullFlavo Transplant [id number] Memoria 16:00:00 04:59:00 Transplant r Center 06 l [facility] [place] Pre 2021-11-24 2021-12-23 Outpatient DE [facility] [id number] [facility] 11:00:00 23:59:00 [facility] 2021-12-16 2021-12-16 Outpatient MICHOACANO [facility] [id number] [place] 10:15:00 10:15:00 [facility] 2021-10-13 2021-11-12 OP nullFlavo [facility] [id number] Memoria 17:26:00 04:59:00 Transplant r Fletcher 05 l [facility] kassi Pre Advanced Heart Failure 2021-10-13 2021-11-11 Outpatient RODO [facility] [id number] [facility] 11:26:00 23:59:00 NETTIE BEAL 2021-10-28 2021-10-28 Office Camilla Brizuela [facility] 1.2.840.114 [id number] Univers 16:00:00 16:30:00 Visit Erich Mae 350.1.13.10 [facility] 4.2.7.2.686 [facility] AT [phone] [address] 2021-10-28 2021-10-28 Outpatient [facility] [id number] Univers 16:00:00 16:00:00 ERICH [facility] 2021-10-28 2021-10-28 Outpatient Rick [facility] [id number] Univers 16:00:00 16:00:00 ERICH [facility] 2021-09-13 2021-10-13 [place] [id number] Memoria 19:03:00 05:59:00 Transplant r Adv Heart 03 l Clinic - Failure [place] Pre 2021-09-13 2021-10-12 Outpatient CECIL [facility] [id number] [facility] 13:03:00 23:59:00 CHARLETTE 2021-07-29 2021-07-29 Office Camilla Brizuela [facility] 1.2.840.114 [id number] Univers 15:00:00 15:14:10 Visit Lolis Romero SPECIALTY 350.1.13.10 [facility] 4.2.7.2.686 [facility] AT [phone] Ar daysi Landon2 [facility] 2021-07-29 2021-07-29 Outpatient R [facility] [id number] Univers 15:00:00 15:14:10 [facility] 2021-07-29 2021-07-29 [facility] [id number] Univers 15:00:00 15:14:10 [facility] 2021-07-29 2021-07-29 Outpatient R [facility] [id number] Univers 15:00:00 15:00:00 [facility] 2021-06-22 2021-07-22 OP nullFlavo [facility] [id number] Memoria 12:33:00 05:59:00 Transplant r Fletcher 02 l [facility] 2021-07-22 2021-07-22 EXT [facility] OP de EXT MSRDP 1.2.840.114 1 [id number] [place] 00:00:00 00:00:00 [facility] LOCATION 350.1.13.58 Health [place] 9.2.7.2.686 [phone] [id number] 2021-07-22 2021-07-22 EXT [facility] OP de EXT MSRDP 1.2.840.114 1 [id number] [place] 00:00:00 00:00:00 [facility], LOCATION 350.1.13.58 [facility] [place] 9.2.7.2.686 [id number] 0 2021-07-20 2021-07-21 [facility] [id number] Memoria 20:05:00 05:59:00 n Patient r Outpatient 00 l [facility] Bynum 2021-07-20 2021-07-20 EXT [facility] OP de EXT MSRDP 1.2.840.114 1 [id number] [place] 00:00:00 00:00:00 [facility], LOCATION 350.1.13.58 [facility] [place] 9.2.7.2.686 [id number] [id number] 2021-07-20 2021-07-20 EXT MHH OP de EXT MSRDP 1.2.840.114 1 [id number] [place] 00:00:00 00:00:00 HUNTER Pastrana 350.1.13.58 [facility] [place] 9.2.7.2.686 [id number] [id number] 2021-06-24 2021-06-24 Orders Doctor RUDOLPH 1.2.840.114 [id number] Univers 00:00:00 00:00:00 Only Unassigned, KARY 350.1.13.10 [facility] 4.2.7.2.686 [facility] [phone] [facility] [address] 2021-06-22 2021-06-22 Outpatient DE [facility] [id number] [facility] 06:33:00 06:33:00 [facility] PA[facility] 2021-06-01 2021-06-01 Telephone CLARIBEL Hamilton 1.2.840.114 [id number] Univers 00:00:00 00:00:00 Benjie MULTISPEC 350.1.13.10 ity of IALTY 4.2.7.2.686 [facility] [phone] [facility] AND [place] [address] [facility] 2021-05-18 2021-05-18 Anesthesia Parisa Arevalo 1.2.840.9 [id number] Univers 13:30:59 13:30:59 Event Martha Hdz 69196.1.1 ity of 3.104.2.7 [place] .3.080545 Medica l .8 Branch 2021-05-18 2021-05-18 Hospital Neema 1.2.840.0 [id number] Univers 11:02:00 13:15:00 Encounter Lolis 72057.1.1 it y of 3.104.2.7 [place] .3.465204 Medica l .8 Branch 2021-05-18 2021-05-18 Outpatient R NEEMA [facility] [id number] Univers 11:02:00 13:15:00 LOLIS ity [facility] 2021-05-18 2021-05-18 Orders Doctor 1.2.840.3 [id number] Univers 00:00:00 00:00:00 Only Unassigned, 00873.1.1 ity of [place] 3.104.2.7 [place] .3.733548 Medica l .8 [place] 2021-05-18 2021-05-18 Travel 1.2.840.1 1.2.689.131 [id number] Univers 00:00:00 00:00:00 69398.1.1 350.1.13.10 ity of 3.104.2.7 4.[place]7.3.698 [place] .3.857975 084.8 Medica l .8 [place] 2021-05-17 2021-05-17 Travel 1.2.840.1 1.2.579.814 [id number] Univers 00:00:00 00:00:00 89533.1.1 350.1.13.10 ity of 3.104.2.7 [place]7.3.698 [place] .3.649681 084.8 Medica l .8 [place] 2021-05-15 2021-05-15 Outpatient R NEEMA [facility] [id number] Univers 16:00:00 16:00:00 [facility] 2021-05-15 2021-05-15 Laboratory Lolis Romero 1.2.840.1 [id number] Univers 08:25:16 08:40:16 Only Only, Adc Test 80806.1.1 ity of 3.104.2.7 [place] .3.629717 Medica l .8 [place] 2021-05-15 2021-05-15 Outpatient [facility] [id number] Univers 08:30:00 08:30:00 LOLIS [facility] 2021-05-06 2021-05-06 Outpatient [facility] [id number] Univers 15:45:00 15:45:00 [facility] 2021-05-06 2021-05-06 Telephone Sunil Romero2.840.1 [id number] Univers 00:00:00 00:00:00 Lolis 48525.1.1 ity of 3.104.2.7 [place] .3.667432 Medica l .8 [place] 2021-05-05 2021-05-05 Telephone Joy, 1.2.840.9 [id number] Univers 00:00:00 00:00:00 Benjie 65847.1.1 ity of 3.104.2.7 [place] .3.454211 Medica l .8 [place] 2021-05-05 2021-05-05 [facility] 1.2.840.7 [id number] Univers 00:00:00 00:00:00 Surgery Lolis 79831.1.1 ity of 3.104.2.7 [place] .3.609971 Medica l .8 [place] 2021-05-04 2021-05-04 Outpatient R JOY [facility] [id number] Univers 09:00:00 09:00:00 BENJIE ity [facility] 2021-05-04 2021-05-04 Aoc Director Intelligence Officer Benjie Hamilton 1.2.840.1 [id number] Univers 08:35:14 08:50:14 Visit Sky, [facility] 70298.1.1 ity of 3.104.2.7 [place] .3.356281 Medica l .8 [place] 2021-05-04 2021-05-04 Telephone Joy, 1.2.840.8 [id number] Univers 00:00:00 00:00:00 Benjie 34172.1.1 ity of 3.104.2.7 [place] .3.905835 Medica l .8 [place] 2021-05-03 2021-05-03 Outpatient R JOY [facility] [id number] Univers 15:00:00 16:20:42 BENJIE ity [facility] 2021-05-03 2021-05-03 Office Joy 1.2.840.8 [id number] Univers 14:47:04 16:20:42 Visit Benjie 45715.1.1 ity of 3.104.2.7 [place] .3.691245 Medica l .8 [place] 2021-05-03 2021-05-03 Office CLARIBEL Hamilton 1.2.840.114 [id number] Univers 14:47:04 15:17:04 Visit [facility] 350.1.13.10 it y of [place] 4.2.7.2.686 Hayden as Gregorio?Blea [phone] Ar daysi evans [address] [place] [facility] 2021-05-03 2021-05-03 Travel 1.2.840.1 1.2.136.211 [id number] Univers 00:00:00 00:00:00 05326.1.1 350.1.13.10 ity of 3.104.2.7 [place]7.3.698 [place] .3.563367 084.8 Medica l .8 [place] 2021-04-29 2021-04-29 Office Lolis Romero 1.2.840.1 [id number] Univers 15:45:10 16:40:18 [facility] 48374.1.1 ity of 3.104.2.7 [place] .3.760082 Medica l .8 [place] 2021-04-29 2021-04-29 [facility] 1.2.840.114 [id number] Univers 15:45:10 16:40:18 Visit Lolis Romero SPECIALTY 350.1.13.10 ity of [place].2.[place] [phone] Ar brianblue CARRANZA 072 [facility] 2021-04-29 2021-04-29 Outpatient R NEEMA [facility] [id number] Univers 15:30:00 16:40:18 LOLIS ity of [facility] 2021-04-29 2021-04-29 Travel 1.2.840.1 1.2.093.443 [id number] Univers 00:00:00 00:00:00 48158.1.1 350.1.13.10 ity of 3.104.2.7 [place]7.3.698 [place] .3.957365 084.8 Medica l .8 [place] 2021-03-09 2021-03-09 Office Sunita, 1.2.840.3 [id number] Univers 15:00:07 16:27:03 Visit Sandi 71755.1.1 ity of [place] 3.104.2.7 [place] .3.290577 Medica l .8 [place] 2021-03-09 2021-03-09 Office [facility] 1.2.840.114 [id number] 15:00:07 15:30:07 Visit [facility] 350.1.13.10 Spike [place] 4.2.7.2.686 Professio [phone] nal 044 Office Building One 2021-03-09 2021-03-09 Outpatient R NICKLAUS [facility] [id number] Univers 15:00:00 15:00:00 SANDI luna [facility] 2020-10-19 2020-11-18 OP nullFlavo Transplant [id number] Memoria 19:06:00 04:59:00 Transplant r Center 01 l [facility] [place] Pre 2020-10-19 2020-11-17 Outpatient GABRIEL MCDONOUGH [facility] [id number] [facility] 13:06:00 23:59:00 2020-10-15 2020-10-15 [facility] 1.2.840.114 [id number] Univers 19:12:10 23:59:00 Encounter Paramjit, SPECIALTY 350.1.13.10 ity of [facility] J [facility] 4.2.7.2.686 [facility] AT [phone] Ar daysi CARRANZA 804 [facility] 2020-10-15 2020-10-15 Outpatient R [facility] [id number] Univers 00:00:00 00:00:00 DACA, ity of [facility] 2020-09-14 2020-09-14 [facility] 1.2.567.487 [id number] Univers 15:15:00 23:59:00 Encounter Attending Suleiman 350.1.13.10 itarlette [facility] 4.2.7.2.686 [facility] [phone] [facility] [address] 2020-09-14 2020-09-14 Outpatient R UNKNOWN, [facility] [id number] Univers 00:00:00 00:00:00 ATTENDING ity [facility] 2020-09-07 2020-09-07 Bedded nullFlavo [facility] [id number] Memoria 19:04:00 23:40:00 Outpatient r Fletcher 04 l [facility] 2020-09-07 2020-09-07 Outpatient [facility] [id number] [facility] 13:04:00 17:40:00 NETTIE BEAL 2020-08-25 2020-08-26 Outpatient nullFlavo [facility] [id number] Memoria 16:47:00 05:59:[address] [facility] for Melissa nn Advanced Heart Failure 2020-08-25 2020-08-25 Outpatient [facility] [id number] [facility] 10:47:00 23:59:00 NETTIE BEAL 2020-06-23 2020-06-24 Outpatient nullFlavo [facility] [id number] Memoria 16:30:00 05:59:00 r Fletcher 02 l [place] for Melissa nn Advanced Heart Failure 2020-06-23 2020-06-23 Outpatient [facility] [id number] [facility] 10:30:00 23:59:00 NETTIE BEAL 2020-05-19 2020-05-20 Outpatient nullFlavo [facility] [id number] Memoria 11:59:00 04:59:00 r Fletcher 01 [facility] 2020-03-31 2020-04-30 OP nullFlavo [facility] [id number] Memoria 11:57:00 04:59:00 Transplant r Fletcher 00 [facility] [place] for Herm kassi Pre Advanced Heart Failure 2020-03-31 2020-03-31 Outpatient DE [facility] [id number] [facility] 06:57:00 06:57:00 STEWART PASTRANA 2020-01-15 2020-01-15 Observatio nullFlavo [facility] [id number] Memoria 13:30:00 23:10:00 n [facility] [address] [facility] 2020-01-15 2020-01-15 Outpatient MICHOACANO, MHSE MHSE 7500 MH 08:30:00 18:10:00 [facility] l Results Test Description Test Time Test Comments Results Result Comments Source CHEMISTRY 2022-08-04 17:17:00 Test Item Value Reference Range Interpretation Comme nts Potassium WB (test code = Potassium WB) 5.3 3.5-5.1 [id number] 19:00:00 Test Item Value Reference Range Interpretation Comments LDH (test code = LDH) 214 98-192 [facility] CampusOssxwpdACZNQHQLWY3772-00-35 19:00:00 Test Item Value Reference Range Interpretation Comments PB Smear Path (test Peripheral blood smear code = PB Smear examination: Macrocytic Path) anemia with minimal anisocytosis. No increase in schistocytes. Adequate WBCs with reactive neutrophils. Adequate platelets with presence of occasional large forms. CPT: 90649 [facility]IWMKJWNO2272-16-61 19:00:00 Test Item Value Reference Range Interpretation Comments Haptoglobin (test code = Haptoglobin) 83 16-200 [facility] Brook[facility]bzdgfxFRZCZQCPPE4974-71-34 19:00:00 Test Item Value Reference Range Interpretation Comments Complement Tot (test code = Complement no gt 31-60 Tot) [facility] [id number] 19:00:00 Test Item Value Reference Range Interpretation Comments C3 Complement (test code = C3 81 82-185 Complement) [facility]zkxzakVKUQDRXAEX7444-62-29 19:00:00 Test Item Value Reference Range Interpretation Comments C4 Complement (test code = C4 23 15-53 Complement) [facility] Squ[facility] [id number] 17:00:00 Test Item Value Reference Range Interpretation Comments Titer (test code = Titer) 16 1 [facility] [id number] 17:00:00 Test Item Value Reference Range Interpretation Comments Previous Titer (test code = Previous NA Titer) [facility] [id number] 17:00:00 Test Item Value Reference Range Interpretation Comments Antibody Titered (test code = Antibody Anti-B Titered) [facility] [id number] 17:00:00 Test Item Value Reference Range Interpretation Comments OP ABORh Int (test code = OP ABORh Int) A POS [facility] [id number] 17:00:00 Test Item Value Reference Range Interpretation Comments OP ABSC Gel Interp Negative (07/26/22 (test code = OP ABSC 11:00 AM) Gel Interp) [id number] 17:00:00 Test Item Value Reference Range Interpretation Comments Glucose Lvl (test code = Glucose Lvl) 73 70-99 [id number] 17:00:00 Test Item Value Reference Range Interpretation Comments BUN (test code = BUN) 34 7-22 [id number] 17:00:00 Test Item Value Reference Range Interpretation Comments Creatinine Lvl (test code = Creatinine 15.20 0.50-1.40 Lvl) [id number] 17:00:00 Test Item Value Reference Range Interpretation Comments Sodium Lvl (test code = Sodium Lvl) 139 135-145 [facility] CenterVkegbpmUZGOROYQF2797-35-78 17:00:00 Test Item Value Reference Range Interpretation Comments Potassium Lvl (test code = Potassium 4.8 3.5-5.1 Lvl) [facility]LiptkcnPLSCRENWI9324-52-92 17:00:00 Test Item Value Reference Range Interpretation Comments Chloride Lvl (test code = Chloride Lvl) 100 95-109 [facility] CenterLpmegyeFIYPSHXCY5079-83-80 17:00:00 Test Item Value Reference Range Interpretation Comments CO2 (test code = CO2) 26 24-32 [facility] CenterFxdykckUADVCFCOD5741-03-20 17:00:00 Test Item Value Reference Range Interpretation Comments Calcium Lvl (test code = Calcium Lvl) 8.1 8.5-10.5 [facility] CenterRdgoeizEUKFPREQQ2176-72-80 17:00:00 Test Item Value Reference Range Interpretation Comments Total Protein (test code = Total 7.2 6.4-8.4 Protein) [facility] CenterPeqkhegZOKQZFMUL7398-85-38 17:00:00 Test Item Value Reference Range Interpretation Comments Albumin Lvl (test code = Albumin Lvl) 4.0 3.5-5.0 [facility] CenterXjixrylFATGGYZHK2538-66-12 17:00:00 Test Item Value Reference Range Interpretation Comments ALT (test code = ALT) 21 See_Comment [Auto mated message] The system which ge nerated this result transmit jose carlos reference range : <=65. The reference range was not used to interpr et this result as adan l/abnormal. [facility] KxkwtueCXIYVOQUS2463-12-86 17:00:00 Test Item Value Reference Range Interpretation Comments AST (test code = AST) 13 See_Comment [Auto mated message] The system which ge nerated this result transmit jose carlos reference range : <=37. The reference range was not used to interpr et this result as adan l/abnormal. [facility] OxskuitAMMSMUQHP5479-44-65 17:00:00 Test Item Value Reference Range Interpretation Comments Alk Phos (test code = Alk Phos) 64 39-136 [facility] SxmxmztGPFKGDDEM8111-18-00 17:00:00 Test Item Value Reference Range Interpretation Comments Bili Total (test code = Bili Total) 0.5 0.2-1.3 [facility] KcbascbKMBIOWMKX0333-96-72 17:00:00 Test Item Value Reference Range Interpretation Comments AGAP (test code = AGAP) 17.8 10.0-20.0 [facility] SybunpoENKVGTDQM2291-00-44 17:00:00 Test Item Value Reference Range Interpretation Comments B/C Ratio (test code = B/C Ratio) 2 1 6-25 [facility] RmyoghnWWFJIBQUX6563-05-74 17:00:00 Test Item Value Reference Range Interpretation Comments Globulin (test code = Globulin) 3.2 2.7-4.2 [facility] DpeqtvgZLHDUEBFI9985-77-56 17:00:00 Test Item Value Reference Range Interpretation Comments A/G Ratio (test code = A/G Ratio) 1.2 1 0.7-1.6 [facility] XwtodlxXNFVPYCOV1736-04-74 17:00:00 Test Item Value Reference Range Interpretation Comments eGFR (test code = eGFR) 4 [facility] BrookEinbzxqWQOIGEHRI1580-64-36 17:00:00 Test Item Value Reference Range Interpretation Comments Nicotine Lvl (test code = Nicotine Lvl) no gt [facility] CtxdhuhURFETNBHJ6978-01-70 17:00:00 Test Item Value Reference Range Interpretation Comments Cotinine Lvl (test code = Cotinine Lvl) no gt [facility] ZbsefsbIIUYDJUVB5073-30-64 17:00:00 Test Item Value Reference Range Interpretation Comments Hgb A1C (test code = Hgb A1C) 5.0 [facility] CenterIqxchkgUTHGXULVA6448-63-45 17:00:00 Test Item Value Reference Range Interpretation Comments Ferritin Lvl (test code = Ferritin Lvl) 775 22-381 [facility] CenterEzvazozMNTKEMFXM4180-31-57 17:00:00 Test Item Value Reference Range Interpretation Comments Iron (test code = Iron) 76 50-180 [facility] CenterJnwceieBELHISRIT0190-90-77 17:00:00 Test Item Value Reference Range Interpretation Comments TIBC (test code = TIBC) 238 250-425 [facility] CenterYdyauenVYSEEAJSV6839-72-52 17:00:00 Test Item Value Reference Range Interpretation Comments % Satur Fe (test code = % Satur Fe) 32 20-48 [facility] CenterYdweegqRSCIEAXPU8546-47-62 17:00:00 Test Item Value Reference Range Interpretation Comments Trig (test code = Trig) 89 [facility] CenterNzfawjjSQOLICQTR1355-61-37 17:00:00 Test Item Value Reference Range Interpretation Comments Chol (test code = Chol) 140 [facility] CenterIzrqzlsMTCIFNHQI2505-13-66 17:00:00 Test Item Value Reference Range Interpretation Comments HDL (test code = HDL) 44 [facility] CenterRrsdnyhQYBPNRMDW4147-56-60 17:00:00 Test Item Value Reference Range Interpretation Comments Chol/HDL Ratio (test code = Chol/HDL 3.18 1 4.00-7.30 Ratio) [facility] CenterKzlztleZAXREYRWC6667-45-88 17:00:00 Test Item Value Reference Range Interpretation Comments LDL (Calculated) (test code = LDL 78 (Calculated)) [facility] CenterMjrurbcTKGDGILHB6068-02-83 17:00:00 Test Item Value Reference Range Interpretation Comments VLDL (test code = VLDL) 18 1 [facility] CenterPsqindlVDVXFAQVH6879-29-56 17:00:00 Test Item Value Reference Range Interpretation Comments Magnesium Lvl (test code = Magnesium 2.5 1.8-2.4 Lvl) [facility] CenterOcekiuhAUWVSHVXT9257-55-07 17:00:00 Test Item Value Reference Range Interpretation Comments Phosphorus (test code = Phosphorus) 5.4 2.5-4.5 [facility] CenterVpoptonFQPSHFETJ8382-71-76 17:00:00 Test Item Value Reference Range Interpretation Comments Uric Acid (test code = Uric Acid) 4.5 3.8-8.0 [facility] CenterWddrxzaUJYFRONKJ2670-98-38 17:00:00 Test Item Value Reference Range Interpretation Comments Vitamin D, 25-OH, Total (test code = 32 30-100 Vitamin D, 25-OH, Total) [place] 005662-12-13 17:00:00 Test Item Value Reference Range Interpretation Comments PTH Intact (test code = PTH Intact) 590.4 18.4-80.1 [place] 005662-12-13 17:00:00 Test Item Value Reference Range Interpretation Comments Creatinine Lvl (test code = Creatinine 15.00 0.50-1.40 Lvl) [place] 005662-12-13 17:00:00 Test Item Value Reference Range Interpretation Comments eGFR (test code = eGFR) 4 [place] 330882-12-13 17:00:00 Test Item Value Reference Range Interpretation Comments Segs (test code = Segs) 72.5 45.0-75.0 [place] 330882-12-13 17:00:00 Test Item Value Reference Range Interpretation Comments Lymphocytes (test code = Lymphocytes) 14.3 20.0-40.0 [place] 330882-12-13 17:00:00 Test Item Value Reference Range Interpretation Comments Monocytes (test code = Monocytes) 5.6 2.0-12.0 [place] 330882-12-13 17:00:00 Test Item Value Reference Range Interpretation Comments Eosinophils (test code = 6.5 See_Comment [A utomated message] The Eosinophils) system which ge nerated this result tra nsmitted reference range : <=4.0. The reference r bijan was not used to int erpret this result as normal/abnormal . [place] 330882-12-13 17:00:00 Test Item Value Reference Range Interpretation Comments Basophils (test code = 1.1 See_Comment [Aut omated message] The Basophils) system which ge nerated this result tra nsmitted reference range : <=1.0. The reference r bijan was not used to int erpret this result as normal/abnormal . [place] 330882-12-13 17:00:00 Test Item Value Reference Range Interpretation Comments Neutrophils # (test code = Neutrophils 5.5 1.5-8.1 #) [place] 330882-12-13 17:00:00 Test Item Value Reference Range Interpretation Comments Lymphocytes # (test code = Lymphocytes 1.1 1.0-5.5 #) [facility] 17:00:00 Test Item Value Reference Range Interpretation Comments Monocytes # (test code 0.4 See_Comment [Aut omated message] The = Monocytes #) system which generated this result tra nsmitted reference range : <=0.8. The reference r bijan was not used to int erpret this result as normal/abnormal . [facility] TylerEpkpuumGOEWGFBZUZ7112-10-85 17:00:00 Test Item Value Reference Range Interpretation Comments Eosinophils # (test code 0.5 See_Comment [A utomated message] The = Eosinophils #) system whic h generated this result tra nsmitted reference range : <=0.5. The reference r bijan was not used to int erpret this result as normal/abnormal . [place] 330882-12-13 17:00:00 Test Item Value Reference Range Interpretation Comments Basophils # (test code 0.1 See_Comment [Aut omated message] The = Basophils #) system which generated this result tra nsmitted reference range : <=0.2. The reference r bijan was not used to int erpret this result as normal/abnormal . [facility]RjevtbqKGTLCQWXNQ5024-27-25 17:00:00 Test Item Value Reference Range Interpretation Comments Macrocyte (test code = 1+ *ABN*(07/26/22 Macrocyte) 11:00 AM) [place] [address]-12-13 17:00:00 Test Item Value Reference Range Interpretation Comments PT (test code = PT) 13.6 s 12.0-14.7 [place] [address]-12-13 17:00:00 Test Item Value Reference Range Interpretation Comments INR (test code = INR) 1.05 1 0.85-1.17 [place] [address]-12-13 17:00:00 Test Item Value Reference Range Interpretation Comments PTT (test code = PTT) 31.1 s 22.9-35.8 [place] [address]-12-13 17:00:00 Test Item Value Reference Range Interpretation Comments R-time (test code = R-time) 5.2 min 5.0-10.0 [place] [address]-12-13 17:00:00 Test Item Value Reference Range Interpretation Comments K-time (test code = K-time) 1.5 min 1.0-3.0 [place] 330882-12-13 17:00:00 Test Item Value Reference Range Interpretation Comments Angle (test code = Angle) 67.7 degrees 53.0-72.0 [place] 330882-12-13 17:00:00 Test Item Value Reference Range Interpretation Comments Max Amp (test code = Max Amp) 61.9 mm 50.0-70.0 [place] 330882-12-13 17:00:00 Test Item Value Reference Range Interpretation Comments G-value (test code = G-value) 8.1 4.5-11.0 [place] 330882-12-13 17:00:00 Test Item Value Reference Range Interpretation Comments Ly30 (test code = 1.9 See_Comment [Automate d message] The Ly30) system which ge nerated this result transmit jose carlos reference range : <=7.5. The reference range was not used to interpr et this result as adan l/abnormal. [facility]IbldzdhXAULARTTMC5707-13-03 17:00:00 Test Item Value Reference Range Interpretation Comments Coag Index (test code = Coag Index) 0.9 1 -3.0-3.0 [place] 330882-12-13 17:00:00 Test Item Value Reference Range Interpretation Comments TEG Data (test code = See Note (07/26/22 TEG Data) 11:00 AM) [place] 330882-12-13 17:00:00 Test Item Value Reference Range Interpretation Comments TEG Interp (test Thrombelastograph results code = TEG are within reference ranges. Interp) These indicate adequate hemostasis. Note that TEG does not show effect of NSAIDs or P2Y12 inhibitors. CPT:58921 [facility] TylerGdetzldSEDCLPFVSP9991-08-43 17:00:00 Test Item Value Reference Range Interpretation Comments WBC (test code = WBC) 7.5 3.7-10.4 [place] 330882-12-13 17:00:00 Test Item Value Reference Range Interpretation Comments RBC (test code = RBC) 3.22 4.70-6.10 [place] 330882-12-13 17:00:00 Test Item Value Reference Range Interpretation Comments Hgb (test code = Hgb) 11.1 14.0-18.0 [place] 330882-12-13 17:00:00 Test Item Value Reference Range Interpretation Comments Hct (test code = Hct) 32.8 42.0-54.0 [place] 330882-12-13 17:00:00 Test Item Value Reference Range Interpretation Comments MCV (test code = MCV) 101.9 80.0-94.0 [place] 330882-12-13 17:00:00 Test Item Value Reference Range Interpretation Comments MCH (test code = MCH) 34.5 pg 27.0-31.0 [place] 330882-12-13 17:00:00 Test Item Value Reference Range Interpretation Comments MCHC (test code = MCHC) 33.9 32.0-36.0 [facility]UkcaxftLQXAGVIJLX1835-31-47 17:00:00 Test Item Value Reference Range Interpretation Comments RDW (test code = RDW) 12.9 11.5-14.5 [place] 330882-12-13 17:00:00 Test Item Value Reference Range Interpretation Comments Platelet (test code = Platelet) 157 133-450 [facility]KtcykbdARIMAXFORD1681-05-74 17:00:00 Test Item Value Reference Range Interpretation Comments MPV (test code = MPV) 10.9 7.4-10.4 [place] 040872-12-13 17:00:00 Test Item Value Reference Range Interpretation Comments Cystatin C (test code = Cystatin C) 6.27 0.53-0.95 [place] 040872-12-13 17:00:00 Test Item Value Reference Range Interpretation Comments eGFR Cystatin-based (test code = eGFR 7 Cystatin-based) [place] [address]-12-13 17:00:00 Test Item Value Reference Range Interpretation Comments Hep B Core Ab (test Negative *NA*(07/26/22 code = Hep B Core Ab) 11:00 AM) [place] [address]-12-13 17:00:00 Test Item Value Reference Range Interpretation Comments Hep Bs Ab (test code = Hep Bs Ab) 21.5 [place] 040872-12-13 17:00:00 Test Item Value Reference Range Interpretation Comments Hep Bs Ag (test code Negative *NA*(07/26/22 = Hep Bs Ag) 11:00 AM) [facility]iq[facility]rqTYVFZRGGRA3106-27-18 17:00:00 Test Item Value Reference Range Interpretation Comments HIV Ag/Ab 4th Gen Negative *NA*(07/26/22 (test code = HIV 11:00 AM) Ag/Ab 4th Gen) [place] 040872-12-13 17:00:00 Test Item Value Reference Range Interpretation Comments CMV IgG (test code = CMV IgG) no gt [facility] HospitalItzktvnKABQKKLWHS4438-50-59 17:00:00 Test Item Value Reference Range Interpretation Comments EBV VCA IgG (test code = EBV VCA IgG) 416.[address] [facility] [facility] HospitalQosxdzyCFUTPDHQYG3234-05-99 17:00:00 Test Item Value Reference Range Interpretation Comments Hep A Tot (test code = Hep A Tot) REACTIVE [facility] HospitalAmrnrfaJENDZVIWIE5878-58-26 17:00:00 Test Item Value Reference Range Interpretation Comments HSV 1 IgG (test code = HSV 1 IgG) 46.60 [place] 040872-12-13 17:00:00 Test Item Value Reference Range Interpretation Comments HSV 2 IgG (test code = HSV 2 IgG) no gt [facility] HospitalLfjbfwyFHGJERDDBO3818-97-73 17:00:00 Test Item Value Reference Range Interpretation Comments T-Spot.TB (test code = T-Spot.TB) Negative [facility] HospitalZfhhwpoHLKQFUHIPR3236-04-99 17:00:00 Test Item Value Reference Range Interpretation Comments T-Spot Pnl A Neg Ctrl Corrected (test 0 1 code = T-Spot Pnl A Neg Ctrl Corrected) [facility] HospitalZyukepuSGQCIVHWDP7331-32-04 17:00:00 Test Item Value Reference Range Interpretation Comments T-Spot Pnl B Neg Ctrl Corrected (test 0 1 code = T-Spot Pnl B Neg Ctrl Corrected) [facility] HospitalIlubsvjZLLHIMLYYK1296-11-75 17:00:00 Test Item Value Reference Range Interpretation Comments T-Spot Neg Ctrl (test code = T-Spot Passed Neg Ctrl) [place] 040872-12-13 17:00:00 Test Item Value Reference Range Interpretation Comments T-Spot Pos Ctrl (test code = T-Spot Passed Pos Ctrl) [facility] HospitalEstsfipKNAMQXUROD4099-93-22 17:00:00 Test Item Value Reference Range Interpretation Comments Toxoplasma IgG (test code = Toxoplasma no gt IgG) [place] 040872-12-13 17:00:00 Test Item Value Reference Range Interpretation Comments Toxoplasma IgM (test code = Toxoplasma no gt IgM) [facility]RmmlkwhYGIBYSXTZG2847-11-61 17:00:00 Test Item Value Reference Range Interpretation Comments Treponemal Ab (test code Non-Reactive = Treponemal Ab) *NA*(07/26/22 11:00 AM) [facility] CampusSzolbugBDRPYZUNAK4002-96-06 17:00:00 Test Item Value Reference Range Interpretation Comments Varicella IgG (test code = Varicella 905.80 IgG) [facility]UbqrrwoPOCMEITMYE5537-11-18 17:00:00 Test Item Value Reference Range Interpretation Comments Mumps IgG (test code = Mumps IgG) 80.00 [facility] CampusHpbvhjyOMKOSPYYBN8638-27-66 17:00:00 Test Item Value Reference Range Interpretation Comments Rubella IgG (test code = Rubella IgG) 69.[address] [facility] HospitalYdadoqiWEGRYTNWAK4447-62-69 17:00:00 Test Item Value Reference Range Interpretation Comments Rubeola IgG (test code = Rubeola IgG) 123.00 [facility] JLPVLEWOQY9580-66-93 17:00:00 Test Item Value Reference Range Interpretation Comments HCV RNA VirLoad Not Detected (07/26/22 (Transplant) (test 11:00 AM) code = HCV RNA VirLoad (Transplant)) [facility]2022-12-13 17:00:00 Test Item Value Reference Range Interpretation Comments HCV RNA Log10 (Transplant) (test code = no gt HCV RNA Log10 (Transplant)) [facility] THQZCXK1116-56-79 17:00:00 Test Item Value Reference Range Interpretation Comments Misc Quest (test code = Misc Quest) REPORT [facility] XVLOW1241-11-53 12:38:00 Test Item Value Reference Range Interpretation Comments Ferritin Lvl (test code = Ferritin Lvl) 040 62-103 [facility] ODSZL6578-40-96 12:38:00 Test Item Value Reference Range Interpretation Comments Iron (test code = Iron) 156 [facility] JTKHI8790-29-21 12:38:00 Test Item Value Reference Range Interpretation Comments TIBC (test code = TIBC) 296 [facility] YTTRU7851-16-04 12:38:00 Test Item Value Reference Range Interpretation Comments % Satur Fe (test code = % Satur Fe) 53 [place] 916151-11-09 12:38:00 Test Item Value Reference Range Interpretation Comments Glucose Lvl (test code = Glucose Lvl) 98 70-99 [place] 916151-11-09 12:38:00 Test Item Value Reference Range Interpretation Comments BUN (test code = BUN) 32 7-22 [place] 916151-11-09 12:38:00 Test Item Value Reference Range Interpretation Comments Creatinine Lvl (test code = Creatinine 7.74 0.50-1.40 Lvl) [place] 916151-11-09 12:38:00 Test Item Value Reference Range Interpretation Comments Sodium Lvl (test code = Sodium Lvl) 138 135-145 [place] 916151-11-09 12:38:00 Test Item Value Reference Range Interpretation Comments Potassium Lvl (test code = Potassium 4.4 3.5-5.1 Lvl) [place] 916151-11-09 12:38:00 Test Item Value Reference Range Interpretation Comments Chloride Lvl (test code = Chloride Lvl) 98 95-109 [place] 916151-11-09 12:38:00 Test Item Value Reference Range Interpretation Comments CO2 (test code = CO2) 32 24-32 [place] 916151-11-09 12:38:00 Test Item Value Reference Range Interpretation Comments Calcium Lvl (test code = Calcium Lvl) 10.6 8.5-10.5 [place] 916151-11-09 12:38:00 Test Item Value Reference Range Interpretation Comments Total Protein (test code = Total 7.8 6.4-8.4 Protein) [place] 916151-11-09 12:38:00 Test Item Value Reference Range Interpretation Comments Albumin Lvl (test code = Albumin Lvl) 4.2 3.5-5.0 [place] 916151-11-09 12:38:00 Test Item Value Reference Range Interpretation Comments ALT (test code = ALT) 22 See_Comment [Auto mated message] The system which ge nerated this result transmit jose carlos reference range : <=65. The reference range was not used to interpr et this result as adan l/abnormal. [place] 916151-11-09 12:38:00 Test Item Value Reference Range Interpretation Comments AST (test code = AST) 9 See_Comment [Auto mated message] The system which ge nerated this result transmit jose carlos reference range : <=37. The reference range was not used to interpr et this result as adan l/abnormal. [facility] Campusihiji [id number] 12:38:00 Test Item Value Reference Range Interpretation Comments Alk Phos (test code = Alk Phos) 119 39-136 [facility]ih[facility] EAOIY7612-50-85 12:38:00 Test Item Value Reference Range Interpretation Comments Bili Total (test code = Bili Total) 0.8 0.2-1.3 [facility]2021-11-09 12:38:00 Test Item Value Reference Range Interpretation Comments AGAP (test code = AGAP) 12.4 10.0-20.0 [place] 916151-11-09 12:38:00 Test Item Value Reference Range Interpretation Comments B/C Ratio (test code = B/C Ratio) 4 1 6-25 [place] 916151-11-09 12:38:00 Test Item Value Reference Range Interpretation Comments Globulin (test code = Globulin) 3.6 2.7-4.2 [facility]ih[facility] DEESJ1836-24-25 12:38:00 Test Item Value Reference Range Interpretation Comments A/G Ratio (test code = A/G Ratio) 1.2 1 0.7-1.6 [facility]2021-11-09 12:38:00 Test Item Value Reference Range Interpretation Comments eGFR (test code = eGFR) 8 [facility]2021-11-09 12:38:00 Test Item Value Reference Range Interpretation Comments Magnesium Lvl (test code = Magnesium 2.2 1.8-2.4 Lvl) [facility]2021-11-09 12:38:00 Test Item Value Reference Range Interpretation Comments Phosphorus (test code = Phosphorus) 4.6 2.5-4.5 [facility]2021-11-09 12:38:00 Test Item Value Reference Range Interpretation Comments Uric Acid (test code = Uric Acid) 3.6 3.8-8.0 [facility] LJIXV0591-76-01 12:38:00 Test Item Value Reference Range Interpretation Comments Vitamin D, 25-OH, Total (test code = 39 Vitamin D, 25-OH, Total) [facility] Mond[facility] [id number] 12:38:00 Test Item Value Reference Range Interpretation Comments Creatinine Lvl (test code = Creatinine 8.04 0.50-1.40 Lvl) [facility] [id number] 12:38:00 Test Item Value Reference Range Interpretation Comments eGFR (test code = eGFR) 8 [facility] BrookSuitest IP GroupDRUG GJBZJD7911-67-75 12:38:00 Test Item Value Reference Range Interpretation Comments Phencyclidine Scr (test code = Negative Phencyclidine Scr) [facility] BrookSuitest IP GroupDRUG [id number] 12:38:00 Test Item Value Reference Range Interpretation Comments Radha Scr (test code = Radha Scr) Negative [facility] BrookannDRUG [id number] 12:38:00 Test Item Value Reference Range Interpretation Comments Cannab Scr (test code = Cannab Scr) Negative [facility] BrookSCONTO DIGITALE [id number] 12:38:00 Test Item Value Reference Range Interpretation Comments Methadone Scr (test code = Methadone Negative Scr) [facility] BrookSCONTO DIGITALE [id number] 12:38:00 Test Item Value Reference Range Interpretation Comments Cocaine Scr (test code = Cocaine Negative Scr) [facility] BrookSCON[facility] DIGITALE [id number] 12:38:00 Test Item Value Reference Range Interpretation Comments Benzodiaz Scr (test code = Benzodiaz Negative Scr) [facility] BrookSuitest IP GroupDRUG [id number] 12:38:00 Test Item Value Reference Range Interpretation Comments Amph Scr (test code = Amph Scr) Negative [facility] BrookSCON[facility] DIGITALE [id number] 12:38:00 Test Item Value Reference Range Interpretation Comments Opiate Scr (test code = Opiate Scr) Negative [facility] BrookSuitest IP GroupDRUG [id number] 12:38:00 Test Item Value Reference Range Interpretation Comments 6-Acetylmor Scr (test code = Negative 6-Acetylmor Scr) [facility] CampusFUN[facility] - [id number] 12:38:00 Test Item Value Reference Range Interpretation Comments Cryptococcal Ag (test Negative (06/22/21 code = Cryptococcal Ag) 6:38 AM) [facility] BrookSuitest IP GroupFUNGAL - [id number] 12:38:00 Test Item Value Reference Range Interpretation Comments Histo Yeast Ab (test code = Histo Yeast <1:8 Ab) [facility]2021-11-09 12:38:00 Test Item Value Reference Range Interpretation Comments Histo mycel Ab (test code = Histo mycel <1:8 Ab) [facility]2021-11-09 12:38:00 Test Item Value Reference Range Interpretation Comments U Histo Ag (test code None Detected (06/22/21 = U Histo Ag) 6:38 AM) [facility]2021-11-09 12:38:00 Test Item Value Reference Range Interpretation Comments U Hist Ag Intrp (test code = U Hist NEGATIVE Ag Intrp) [facility]2021-11-09 12:38:00 Test Item Value Reference Range Interpretation Comments Blastomyces Ab (test code = NEGATIVE Blastomyces Ab) [facility]2021-11-09 12:38:00 Test Item Value Reference Range Interpretation Comments Coccid Ab IgM (test code = Coccid Ab NEGATIVE IgM) [facility]2021-11-09 12:38:00 Test Item Value Reference Range Interpretation Comments Coccid Ab IgG (test code = Coccid Ab NEGATIVE IgG) [facility]vdmgqdXCPJEPGXQN1687-77-52 12:38:00 Test Item Value Reference Range Interpretation Comments Segs (test code = Segs) 62.2 45.0-75.0 [facility]kyYWGAQKQHZS5630[facility] 12:38:00 Test Item Value Reference Range Interpretation Comments Lymphocytes (test code = Lymphocytes) 22.8 20.0-40.0 [place] 330881-11-09 12:38:00 Test Item Value Reference Range Interpretation Comments Monocytes (test code = Monocytes) 8.1 2.0-12.0 [place] 330881-11-09 12:38:00 Test Item Value Reference Range Interpretation Comments Eosinophils (test code = 5.9 See_Comment [A utomated message] The Eosinophils) system which ge nerated this result tra nsmitted reference range : <=4.0. The reference r bijan was not used to int erpret this result as normal/abnormal . [facility] TylerYtkoxeuIOXTXBHSIG9165-55-64 12:38:00 Test Item Value Reference Range Interpretation Comments Basophils (test code = 1.0 See_Comment [Aut omated message] The Basophils) system which ge nerated this result tra nsmitted reference range : <=1.0. The reference r bijan was not used to int erpret this result as normal/abnormal . [facility] TylerAtkcujeRPWEMJKQCC3593-55-62 12:38:00 Test Item Value Reference Range Interpretation Comments Neutrophils # (test code = Neutrophils 4.6 1.5-8.1 #) [facility] TylerKccwxkfMLMRRGNXFK3418-27-70 12:38:00 Test Item Value Reference Range Interpretation Comments Lymphocytes # (test code = Lymphocytes 1.7 1.0-5.5 #) [place] 330881-11-09 12:38:00 Test Item Value Reference Range Interpretation Comments Monocytes # (test code 0.6 See_Comment [Aut omated message] The = Monocytes #) system which generated this result tra nsmitted reference range : <=0.8. The reference r bijan was not used to int erpret this result as normal/abnormal . [facility] TylerOtdkokcIXIYPLHBSF2337-47-22 12:38:00 Test Item Value Reference Range Interpretation Comments Eosinophils # (test code 0.4 See_Comment [A utomated message] The = Eosinophils #) system whic h generated this result tra nsmitted reference range : <=0.5. The reference r bijan was not used to int erpret this result as normal/abnormal . [facility] TylerUolawidYCJMGZHZZU6945-90-42 12:38:00 Test Item Value Reference Range Interpretation Comments Basophils # (test code 0.1 See_Comment [Aut omated message] The = Basophils #) system which generated this result tra nsmitted reference range : <=0.2. The reference r bijan was not used to int erpret this result as normal/abnormal . [facility] TylerBwvoqooNPMMIRBNJJ2769-98-42 12:38:00 Test Item Value Reference Range Interpretation Comments Macrocyte (test code = 1+ *ABN*(06/22/21 Macrocyte) 6:38 AM) [facility] TylerMsbjsvnVZWMOCEKXC6698-01-16 12:38:00 Test Item Value Reference Range Interpretation Comments PT (test code = PT) 13.3 s 12.0-14.7 [place] 330881-11-09 12:38:00 Test Item Value Reference Range Interpretation Comments INR (test code = INR) 1.02 1 0.85-1.17 [place] [address]-11-09 12:38:00 Test Item Value Reference Range Interpretation Comments PTT (test code = PTT) 27.1 s 22.9-35.8 [place] 330881-11-09 12:38:00 Test Item Value Reference Range Interpretation Comments WBC (test code = WBC) 7.5 3.7-10.4 [place] 330881-11-09 12:38:00 Test Item Value Reference Range Interpretation Comments RBC (test code = RBC) 3.53 4.70-6.10 [facility]KpiwfugNYMFNWIFGU5323-94-16 12:38:00 Test Item Value Reference Range Interpretation Comments Hgb (test code = Hgb) 12.5 14.0-18.0 [place] 330881-11-09 12:38:00 Test Item Value Reference Range Interpretation Comments Hct (test code = Hct) 35.7 42.0-54.0 [place] 330881-11-09 12:38:00 Test Item Value Reference Range Interpretation Comments MCV (test code = MCV) 101.2 80.0-94.0 [facility] TylerFvzxnjnUOZJTCXLEV8575-45-77 12:38:00 Test Item Value Reference Range Interpretation Comments MCH (test code = MCH) 35.4 pg 27.0-31.0 [facility] TylerQesludwEZVSGROTPL8677-46-63 12:38:00 Test Item Value Reference Range Interpretation Comments MCHC (test code = MCHC) 35.0 32.0-36.0 [place] 330881-11-09 12:38:00 Test Item Value Reference Range Interpretation Comments RDW (test code = RDW) 13.0 11.5-14.5 [place] 330881-11-09 12:38:00 Test Item Value Reference Range Interpretation Comments Platelet (test code = Platelet) 178 133-450 [facility] TylerAyftsjpBDXCRZTLKZ7964-81-84 12:38:00 Test Item Value Reference Range Interpretation Comments MPV (test code = MPV) 9.8 7.4-10.4 [place] 330881-11-09 12:38:00 Test Item Value Reference Range Interpretation Comments Sickle Cell Screen Negative (06/22/21 6:38 (test code = Sickle AM) Cell Screen) [facility] TylerRlfqhgyASCYAWMFRK4012-52-75 12:38:00 Test Item Value Reference Range Interpretation Comments AT III Func (test code = AT III Func) 94 77-140 [facility] TylerFoxmilaRBOASWHFOQ8178-24-08 12:38:00 Test Item Value Reference Range Interpretation Comments dRVV Ratio (test code = dRVV Ratio) 0.92 1 [place] 330881-11-09 12:38:00 Test Item Value Reference Range Interpretation Comments Hex Phos N (test code Negative (06/22/21 6:38 = Hex Phos N) AM) [facility] TylerYeaygrsUZHXUHGZOE7690-00-01 12:38:00 Test Item Value Reference Range Interpretation Comments Lup Interp (test Negative for lupus code = Lup Interp) anticoagulant with all tests performed (dRVVT, and hexagonal phospholipid neutralization). CPT: 23377 [facility] TylerRrhwcmoKECKPOZZZM9805-90-55 12:38:00 Test Item Value Reference Range Interpretation Comments Protein C Func (test code = Protein C 89 72-147 Func) [place] 330881-11-09 12:38:00 Test Item Value Reference Range Interpretation Comments Protein S Func (test code = Protein S 86 54-137 Func) [facility]jkleqlGJQQKIOLXG5729-89-74 12:38:00 Test Item Value Reference Range Interpretation Comments Cystatin C (test code = Cystatin C) 7.59 [place] [address]-11-09 12:38:00 Test Item Value Reference Range Interpretation Comments eGFR Cystatin-based (test code = eGFR 6 Cystatin-based) [place] 040871-11-09 12:38:00 Test Item Value Reference Range Interpretation Comments Hgb A % (test code = Hgb A %) 97.4 95.8-97.8 [place] [address]-11-09 12:38:00 Test Item Value Reference Range Interpretation Comments Hgb A2 % (test code = Hgb A2 %) 2.6 2.2-3.2 [place] [address]-11-09 12:38:00 Test Item Value Reference Range Interpretation Comments Hgb F % (test code = 0.0 See_Comment [Autom ated message] The Hgb F %) system which ge nerated this result transmit jose carlos reference range : <=1.0. The reference range was not used to interpr et this result as adan l/abnormal. [facility] HospitalTnkoumsCWJRUVDXOP8860-73-04 12:38:00 Test Item Value Reference Range Interpretation Comments Hgb S % (test code = 0.0 See_Comment [Autom ated message] The Hgb S %) system which ge nerated this result transmit jose carlos reference range : <=0.0. The reference range was not used to interpr et this result as adan l/abnormal. [place] 040871-11-09 12:38:00 Test Item Value Reference Range Interpretation Comments Hgb C % (test code = 0.0 See_Comment [Autom ated message] The Hgb C %) system which ge nerated this result transmit jose carlos reference range : <=0.0. The reference range was not used to interpr et this result as adan l/abnormal. [facility] HospitalIrpdfcdKHOIHQGROE9702-48-30 12:38:00 Test Item Value Reference Range Interpretation Comments Hgb Interp (test No abnormal hemoglobins are code = Hgb Interp) detected. Normal hemoglobin electrophoresis pattern. The electronic medical record has been reviewed for relevant history. I have personally reviewed the test results and concur with the resident's interpretation. CPT 87280-LO [facility] HospitalWuexyfdHMPNIOXOMU7260-85-38 12:38:00 Test Item Value Reference Range Interpretation Comments Cardiolipin IgA (test code = no gt Cardiolipin IgA) [facility] HospitalFdnzqnnZUCICUSZEM1639-22-02 12:38:00 Test Item Value Reference Range Interpretation Comments Cardiolipin IgG (test code = no gt Cardiolipin IgG) [place] 040871-11-09 12:38:00 Test Item Value Reference Range Interpretation Comments Cardiolipin IgM (test code = 0.9 Cardiolipin IgM) [place] [address]-11-09 12:38:00 Test Item Value Reference Range Interpretation Comments Homocyst Tot (test code = Homocyst Tot) 19.8 3.7-13.9 [place] 040871-11-09 12:38:00 Test Item Value Reference Range Interpretation Comments CMV IgG (test code = CMV IgG) 4.40 [place] 040871-11-09 12:38:00 Test Item Value Reference Range Interpretation Comments EBV VCA IgG (test code = EBV VCA IgG) no gt [place] [address]-11-09 12:38:00 Test Item Value Reference Range Interpretation Comments HIV Ag/Ab 4th Gen Negative *NA*(06/22/21 (test code = HIV 6:38 AM) Ag/Ab 4th Gen) [place] 040871-11-09 12:38:00 Test Item Value Reference Range Interpretation Comments Hep A Tot (test code = Hep A Tot) REACTIVE [facility] HospitalMppbvqzUZPJCEKQWN4321-87-22 12:38:00 Test Item Value Reference Range Interpretation Comments Hep Bs Ab (test code = Hep Bs Ab) no gt [facility] HospitalDkbomhyLCGDKPPWFK9921-74-42 12:38:00 Test Item Value Reference Range Interpretation Comments Hep B Core Ab (test code = Hep B NON-REACTIVE Core Ab) [facility] HospitalCmewhbrTWPYXEWMLJ4051-58-70 12:38:00 Test Item Value Reference Range Interpretation Comments Hep Bs Ag (test code Negative *NA*(06/22/21 = Hep Bs Ag) 6:38 AM) [place] 040871-11-09 12:38:00 Test Item Value Reference Range Interpretation Comments Hep C Ab (test code = Hep C Ab) NON-REACTIVE [facility] HospitalCtnyhaoGGDWARLXYX1829-32-48 12:38:00 Test Item Value Reference Range Interpretation Comments Hep Signal to Cut-Off (test code = Hep 0.01 1 Signal to Cut-Off) [facility] HospitalJwuiwqtLBZOISSGFO0692-44-18 12:38:00 Test Item Value Reference Range Interpretation Comments HSV 1 IgG (test code = HSV 1 IgG) 47.[address] [facility] HospitalDxhpkcrGMZMAOZVMH7270-81-49 12:38:00 Test Item Value Reference Range Interpretation Comments HSV 2 IgG (test code = HSV 2 IgG) no gt [facility] HospitalEpsrvgqTBFKOGBWUT0789-01-20 12:38:00 Test Item Value Reference Range Interpretation Comments T-Spot.TB (test code = T-Spot.TB) Negative [facility] HospitalPwehxzkKYUVFZQUGC3448-32-04 12:38:00 Test Item Value Reference Range Interpretation Comments T-Spot Pnl A Neg Ctrl Corrected (test 0 1 code = T-Spot Pnl A Neg Ctrl Corrected) [facility] HospitalLsnwyaqBHNVGCJSON8572-81-92 12:38:00 Test Item Value Reference Range Interpretation Comments T-Spot Pnl B Neg Ctrl Corrected (test 0 1 code = T-Spot Pnl B Neg Ctrl Corrected) [place] 040871-11-09 12:38:00 Test Item Value Reference Range Interpretation Comments T-Spot Neg Ctrl (test code = T-Spot Passed Neg Ctrl) [facility]DfhdllcWYFVYWUPHW8685-47-53 12:38:00 Test Item Value Reference Range Interpretation Comments T-Spot Pos Ctrl (test code = T-Spot Passed Pos Ctrl) [facility] CampusKriqiubJIAUWSZOJL3670-54-84 12:38:00 Test Item Value Reference Range Interpretation Comments Treponemal Ab (test code Non-Reactive = Treponemal Ab) *NA*(06/22/21 6:38 AM) [facility] CampusPxuaegyHWPNQBIWFJ1413-73-21 12:38:00 Test Item Value Reference Range Interpretation Comments Varicella IgG (test code = Varicella 3232.00 IgG) [facility] CampusLaaxeqxLAHULOVKNJ1670-93-63 12:38:00 Test Item Value Reference Range Interpretation Comments Mumps IgG (test code = Mumps IgG) no gt [facility] CampusMwjfwpgFNZOWGEURK8102-68-87 12:38:00 Test Item Value Reference Range Interpretation Comments Rubella IgG (test code = Rubella IgG) 36.5 [facility] CampusCygcxlrBNKYBHMXFV1341-15-70 12:38:00 Test Item Value Reference Range Interpretation Comments Rubeola IgG (test code = Rubeola IgG) no gt [facility]EggamsvRBIRQT0238[facility]38-90 12:38:00 Test Item Value Reference Range Interpretation Comments Trig (test code = Trig) 64 [facility] CampusRyzafnzSEUHVO9778-47-02 12:38:00 Test Item Value Reference Range Interpretation Comments Chol (test code = Chol) 151 [facility] CampusNocrjmhOUXXOC9023-66-33 12:38:00 Test Item Value Reference Range Interpretation Comments HDL (test code = HDL) 65 [facility] CampusPjqjibyIUOMEI8214-32-13 12:38:00 Test Item Value Reference Range Interpretation Comments CHD Risk (test code = CHD Risk) 2.32 1 4.00-7.30 [facility] BrookQrkqjbrCBGPVZ5826-62-83 12:38:00 Test Item Value Reference Range Interpretation Comments LDL (Calculated) (test code = LDL 73 (Calculated)) [facility] CampusEuypzgjJVUIUF0292-10-73 12:38:00 Test Item Value Reference Range Interpretation Comments VLDL (test code = VLDL) 13 1 [facility]PARAS[facility] - JLBWFXRD5965-87-82 12:38:00 Test Item Value Reference Range Interpretation Comments Strongyloides Antibodies (test code NEGATIVE = Strongyloides Antibodies) [facility] ServicesannPARATHYROID RVLMHQL9299-00-38 12:38:00 Test Item Value Reference Range Interpretation Comments PTH Intact (test code = PTH Intact) 1014.1 18.4-80.1 [facility] CNLVJQVTX4905-91-17 12:38:00 Test Item Value Reference Range Interpretation Comments Nicotine Lvl (test code = Nicotine Lvl) no gt [facility] DQKWVFQQN1354-82-46 12:38:00 Test Item Value Reference Range Interpretation Comments Cotinine Lvl (test code = Cotinine Lvl) no gt [facility] XJGLHBTLB7198-32-30 12:38:00 Test Item Value Reference Range Interpretation Comments Hgb A1C (test code = Hgb A1C) 5.2 [facility] [id number] 12:38:00 Test Item Value Reference Range Interpretation Comments UA Color (test code = Yellow *NA*(06/22/21 UA Color) 6:38 AM) [facility] [id number] 12:38:00 Test Item Value Reference Range Interpretation Comments UA Turbidity (test code = Clear (06/22/21 6:38 UA Turbidity) AM) [facility] [id number] 12:38:00 Test Item Value Reference Range Interpretation Comments UA Spec Grav (test code = UA Spec 1.015 1 Grav) [facility] [id number] 12:38:00 Test Item Value Reference Range Interpretation Comments UA pH (test code = UA pH) 8.5 1 5.0-8.0 [facility] [id number] 12:38:00 Test Item Value Reference Range Interpretation Comments UA Protein (test code = UA Protein) 100 mg/dL [facility] [id number] 12:38:00 Test Item Value Reference Range Interpretation Comments UA Glucose (test code = 250 *ABN*(06/22/21 UA Glucose) 6:38 AM) [facility] [id number] 12:38:00 Test Item Value Reference Range Interpretation Comments UA Ketones (test code Negative *NA*(06/22/21 = UA Ketones) 6:38 AM) [facility] [id number] 12:38:00 Test Item Value Reference Range Interpretation Comments UA Bili (test code = Negative *NA*(06/22/21 UA Bili) 6:38 AM) [facility] AND [id number] 12:38:00 Test Item Value Reference Range Interpretation Comments UA Blood (test code = Trace *ABN*(06/22/21 UA Blood) 6:38 AM) [facility] AND [id number] 12:38:00 Test Item Value Reference Range Interpretation Comments UA Urobilinogen (test code = UA 0.2 0.1-1.0 Urobilinogen) [facility] AND [id number] 12:38:00 Test Item Value Reference Range Interpretation Comments UA Nitrite (test code Negative (06/22/21 6:38 = UA Nitrite) AM) [facility] AND [id number] 12:38:00 Test Item Value Reference Range Interpretation Comments UA Leuk Est (test Negative (06/22/21 6:38 code = UA Leuk Est) AM) [facility] AND [id number] 12:38:00 Test Item Value Reference Range Interpretation Comments UA Sq Epi (test code = UA Sq Occasional /LPF Epi) [facility] AND [id number] 12:38:00 Test Item Value Reference Range Interpretation Comments UA WBC (test code = 1 See_Comment [Automa jose carlos message] The UA WBC) system which ge nerated this result transmit jose carlos reference range : <=5. The reference range was not used to interpr et this result as adan l/abnormal. [facility] AND [id number] 12:38:00 Test Item Value Reference Range Interpretation Comments UA RBC (test code = no gt See_Comment [Automa jose carlos message] The UA RBC) system which ge nerated this result transmit jose carlos reference range : <=2. The reference range was not used to interpr et this result as adan l/abnormal. [facility] AND [id number] 12:38:00 Test Item Value Reference Range Interpretation Comments UA Bacteria (test code = UA Occasional /HPF Bacteria) [facility] AND [id number] 12:38:00 Test Item Value Reference Range Interpretation Comments UA Amorph Bella (test code = Occasional /HPF UA Amorph Bella) [facility]2021-11-09 12:38:00 Test Item Value Reference Range Interpretation Comments U Creatinine (test code = U 117.00 Creatinine) [facility]2021-11-09 12:38:00 Test Item Value Reference Range Interpretation Comments U Alb (test code = U Alb) 609.0 [facility]2021-11-09 12:38:00 Test Item Value Reference Range Interpretation Comments U Alb/Crea (test code = U Alb/Crea) 520.5 [facility]2021-11-09 12:38:00 Test Item Value Reference Range Interpretation Comments U Creatinine (test code = U 117.00 Creatinine) [place] 723171-11-09 12:38:00 Test Item Value Reference Range Interpretation Comments U Protein (test code = U Protein) 194.5 [facility]2021-11-09 12:38:00 Test Item Value Reference Range Interpretation Comments U Prot/Creat (test code = U 1.66 1 Prot/Creat) [facility]2021-11-09 12:38:00 Test Item Value Reference Range Interpretation Comments U Creatinine (test code = U 117.00 Creatinine) [facility]2021-11-09 12:38:00 Test Item Value Reference Range Interpretation Comments U Alb (test code = U Alb) 609.0 [facility]2021-11-09 12:38:00 Test Item Value Reference Range Interpretation Comments U Alb/Crea (test code = U Alb/Crea) 520.5 [facility] OOUDMLKZ3954-90-21 12:38:00 Test Item Value Reference Range Interpretation Comments T cruzi (Chagas) Ab (test code = NONREACTIVE T cruzi (Chagas) Ab) [facility] GIYVAOJJ1622-74-82 12:38:00 Test Item Value Reference Range Interpretation Comments W Nile Ab IgG (test code = W Nile Ab no gt IgG) [facility] UCCCDFFZ5210-38-43 12:38:00 Test Item Value Reference Range Interpretation Comments W Nile Ab IgM (test code = W Nile Ab no gt IgM) [place] 916151-01-25 19:03:00 Test Item Value Reference Range Interpretation Comments Glucose Lvl (test code = Glucose Lvl) 89 70-99 [place] 916151-01-25 19:03:00 Test Item Value Reference Range Interpretation Comments BUN (test code = BUN) 36 7-22 [place] 916151-01-25 19:03:00 Test Item Value Reference Range Interpretation Comments Creatinine Lvl (test code = Creatinine 10.60 0.50-1.40 Lvl) [facility]2021-01-25 19:03:00 Test Item Value Reference Range Interpretation Comments Sodium Lvl (test code = Sodium Lvl) 135 135-145 [place] 916151-01-25 19:03:00 Test Item Value Reference Range Interpretation Comments Potassium Lvl (test code = Potassium 4.3 3.5-5.1 Lvl) [facility]2021-01-25 19:03:00 Test Item Value Reference Range Interpretation Comments Chloride Lvl (test code = Chloride Lvl) 101 95-109 [facility]2021-01-25 19:03:00 Test Item Value Reference Range Interpretation Comments CO2 (test code = CO2) 27 24-32 [place] 916151-01-25 19:03:00 Test Item Value Reference Range Interpretation Comments Calcium Lvl (test code = Calcium Lvl) 9.7 8.5-10.5 [facility]2021-01-25 19:03:00 Test Item Value Reference Range Interpretation Comments AGAP (test code = AGAP) 11.3 10.0-20.0 [facility]2021-01-25 19:03:00 Test Item Value Reference Range Interpretation Comments eGFR (test code = eGFR) 6 [place] 916151-01-25 19:03:00 Test Item Value Reference Range Interpretation Comments Magnesium Lvl (test code = Magnesium 2.5 1.8-2.4 Lvl) [facility]GoegosxUMAWGPWUYZ2858-63-14 19:03:00 Test Item Value Reference Range Interpretation Comments Segs (test code = Segs) 68.6 45.0-75.0 [facility] TylerGdkbducORYYIRWKPI2047-98-62 19:03:00 Test Item Value Reference Range Interpretation Comments Lymphocytes (test code = Lymphocytes) 19.0 20.0-40.0 [place] 330881-01-25 19:03:00 Test Item Value Reference Range Interpretation Comments Monocytes (test code = Monocytes) 6.2 2.0-12.0 [place] 330881-01-25 19:03:00 Test Item Value Reference Range Interpretation Comments Eosinophils (test code = 5.3 See_Comment [A utomated message] The Eosinophils) system which ge nerated this result tra nsmitted reference range : <=4.0. The reference r bijan was not used to int erpret this result as normal/abnormal . [place] 330881-01-25 19:03:00 Test Item Value Reference Range Interpretation Comments Basophils (test code = 0.9 See_Comment [Aut omated message] The Basophils) system which ge nerated this result tra nsmitted reference range : <=1.0. The reference r bijan was not used to int erpret this result as normal/abnormal . [place] 330881-01-25 19:03:00 Test Item Value Reference Range Interpretation Comments Neutrophils # (test code = Neutrophils 5.9 1.5-8.1 #) [place] 330881-01-25 19:03:00 Test Item Value Reference Range Interpretation Comments Lymphocytes # (test code = Lymphocytes 1.6 1.0-5.5 #) [place] 330881-01-25 19:03:00 Test Item Value Reference Range Interpretation Comments Monocytes # (test code 0.5 See_Comment [Aut omated message] The = Monocytes #) system which generated this result tra nsmitted reference range : <=0.8. The reference r bijan was not used to int erpret this result as normal/abnormal . [place] 330881-01-25 19:03:00 Test Item Value Reference Range Interpretation Comments Eosinophils # (test code 0.5 See_Comment [A utomated message] The = Eosinophils #) system whic h generated this result tra nsmitted reference range : <=0.5. The reference r bijan was not used to int erpret this result as normal/abnormal . [place] 330881-01-25 19:03:00 Test Item Value Reference Range Interpretation Comments Basophils # (test code 0.1 See_Comment [Aut omated message] The = Basophils #) system which generated this result tra nsmitted reference range : <=0.2. The reference r bijan was not used to int erpret this result as normal/abnormal . [facility]gubafQPVUBVNUKC7081-68-65 19:03:00 Test Item Value Reference Range Interpretation Comments Macrocyte (test code = 1+ *ABN*(09/07/20 Macrocyte) 1:03 PM) [facility] TylerJhlamlpEIRLSBSYPG6635-07-38 19:03:00 Test Item Value Reference Range Interpretation Comments WBC (test code = WBC) 8.6 3.7-10.4 [facility] TylerTltsssvUIBIOKMBUJ2397-09-47 19:03:00 Test Item Value Reference Range Interpretation Comments RBC (test code = RBC) 3.75 4.70-6.10 [facility] TylerOjdxzbfMBVFHOWGKF9162-41-84 19:03:00 Test Item Value Reference Range Interpretation Comments Hgb (test code = Hgb) 13.1 14.0-18.0 [facility] TylerAfwkmmwUFANBHUOXA6435-88-73 19:03:00 Test Item Value Reference Range Interpretation Comments Hct (test code = Hct) 37.8 42.0-54.0 [facility] TylerZrixzztHWNKFIBTUZ7364-54-63 19:03:00 Test Item Value Reference Range Interpretation Comments MCV (test code = MCV) 100.7 80.0-94.0 [facility] TylerUwkawwdMZENHDNYNQ1383-71-46 19:03:00 Test Item Value Reference Range Interpretation Comments MCH (test code = MCH) 34.9 pg 27.0-31.0 [facility] TylerEnnihveYZDHNCHRZY0451-78-51 19:03:00 Test Item Value Reference Range Interpretation Comments MCHC (test code = MCHC) 34.6 32.0-36.0 [facility] TylerUzcdjjbIZLNYXYJZK4070-12-78 19:03:00 Test Item Value Reference Range Interpretation Comments RDW (test code = RDW) 13.1 11.5-14.5 [facility]TeascszSGLTPBZIUO1883-58-50 19:03:00 Test Item Value Reference Range Interpretation Comments Platelet (test code = Platelet) 188 133-450 [facility] TylerPejhrdgGLGXRVIUNB8964-50-99 19:03:00 Test Item Value Reference Range Interpretation Comments MPV (test code = MPV) 8.8 7.4-10.4 [facility] TylerOrhrvsvCVPCNAPZKB9478-41-44 19:03:00 Test Item Value Reference Range Interpretation Comments PT (test code = PT) 12.8 s 12.0-14.7 [place] [id number] 19:03:00 Test Item Value Reference Range Interpretation Comments INR (test code = INR) 0.97 1 0.85-1.17 [facility] TylerDhyuivaCPEMWQTLDX8295-88-34 19:03:00 Test Item Value Reference Range Interpretation Comments PTT (test code = PTT) 29.1 s 22.9-35.[address] [facility] HospitalGdbfyqmOATWOWVLGI3127-35-16 17:23:00 Test Item Value Reference Range Interpretation Comments Coronavirus (COVID-19) Not Detected (09/07/20 LATONYA (test code = 11:23 AM) Coronavirus (COVID-19) LATONYA) [facility] HospitalCbsipxaUXEPTOKQSN4658-50-62 12:11:00 Test Item Value Reference Range Interpretation Comments Coronavirus (COVID-19) Not Detected (05/19/20 LATONYA (test code = 7:11 AM) Coronavirus (COVID-19) LATONYA) [facility] HospitalShdldxsWSGSFUQWDP1134-75-36 18:29:00 Test Item Value Reference Range Interpretation Comments C3 Complement (test code = C3 101 82-185 Complement) [facility] HospitalJyizyglKFNPCNZABH0980-41-45 18:29:00 Test Item Value Reference Range Interpretation Comments C4 Complement (test code = C4 30 15-53 Complement) [facility] HospitalStxaphnCUHYFLQEBZ3587-96-71 18:29:00 Test Item Value Reference Range Interpretation Comments CHUCKEI (test code = CHUCKIE) NEGATIVE [facility] HospitalMnkecqeIVMFCSWKPG4741-84-50 18:29:00 Test Item Value Reference Range Interpretation Comments DNA Ab (DS) (test code = DNA Ab NEGATIVE (DS)) [facility] CampusDoufwkdCZLCOYYKEU8619-17-02 18:29:00 Test Item Value Reference Range Interpretation Comments ANCA (test code = ANCA) NEGATIVE [facility] CampusTalyst BANK [id number] 12:30:00 Test Item Value Reference Range Interpretation Comments ABO/RH Confirm (test code = ABO/RH A POS Confirm) [facility] Campusihiji [id number] 12:10:00 Test Item Value Reference Range Interpretation Comments Alk Phos (test code = Alk Phos) 55 39-136 [facility] [id number] 12:10:00 Test Item Value Reference Range Interpretation Comments Bili Total (test code = Bili Total) 0.5 0.2-1.3 [facility] [id number] 12:10:00 Test Item Value Reference Range Interpretation Comments AGAP (test code = AGAP) 17.0 10.0-20.0 [facility] [id number] 12:10:00 Test Item Value Reference Range Interpretation Comments B/C Ratio (test code = B/C Ratio) 3 1 6-25 [facility] [id number] 12:10:00 Test Item Value Reference Range Interpretation Comments Globulin (test code = Globulin) 4.2 2.7-4.2 [facility] [employer] [id number] 12:10:00 Test Item Value Reference Range Interpretation Comments A/G Ratio (test code = A/G Ratio) 1.0 1 0.7-1.6 [facility] [id number] 12:10:00 Test Item Value Reference Range Interpretation Comments eGFR (test code = eGFR) 3 [facility] [id number] 12:10:00 Test Item Value Reference Range Interpretation Comments Magnesium Lvl (test code = Magnesium 2.9 1.8-2.4 Lvl) [facility] [id number] 12:10:00 Test Item Value Reference Range Interpretation Comments Phosphorus (test code = Phosphorus) 8.0 2.5-4.5 [facility] [id number] 12:10:00 Test Item Value Reference Range Interpretation Comments Uric Acid (test code = Uric Acid) 5.5 3.8-8.0 [facility] [id number] 12:10:00 Test Item Value Reference Range Interpretation Comments Vitamin D, 25-OH, Total (test code = 23 30-100 Vitamin D, 25-OH, Total) [facility] [id number] 12:10:00 Test Item Value Reference Range Interpretation Comments Creatinine Lvl (test code = Creatinine 16.20 0.50-1.40 Lvl) [facility] [id number] 12:10:00 Test Item Value Reference Range Interpretation Comments eGFR (test code = eGFR) 3 [facility] BrookSuitest IP GroupDRUG [id number] 12:10:00 Test Item Value Reference Range Interpretation Comments Phencyclidine Scr (test code = Negative Phencyclidine Scr) [facility] BrookSuit[facility] IP GroupDRUG [id number] 12:10:00 Test Item Value Reference Range Interpretation Comments Radha Scr (test code = Radha Scr) Negative [facility] HermannDRUG [id number] 12:10:00 Test Item Value Reference Range Interpretation Comments Cannab Scr (test code = Cannab Scr) Negative [facility] [id number] 12:10:00 Test Item Value Reference Range Interpretation Comments Methadone Scr (test code = Methadone Positive Scr) [facility] BrookannDR[facility] [id number] 12:10:00 Test Item Value Reference Range Interpretation Comments Cocaine Scr (test code = Cocaine Negative Scr) [facility] BrookannDR[facility] [id number] 12:10:00 Test Item Value Reference Range Interpretation Comments Benzodiaz Scr (test code = Benzodiaz Negative Scr) [facility] BrookannDR[facility] [id number] 12:10:00 Test Item Value Reference Range Interpretation Comments Amph Scr (test code = Amph Scr) Negative [facility] BrookannDR[facility] [id number] 12:10:00 Test Item Value Reference Range Interpretation Comments Opiate Scr (test code = Opiate Scr) Positive [facility] BrookannDR[facility] [id number] 12:10:00 Test Item Value Reference Range Interpretation Comments 6-Acetylmor Scr (test code = Negative 6-Acetylmor Scr) [facility] BrookannDRUG [id number] 12:10:00 Test Item Value Reference Range Interpretation Comments Opiate Qnt (test code = Opiate Qnt) Negative [facility] BrookannDR[facility] [id number] 12:10:00 Test Item Value Reference Range Interpretation Comments Methadone Qnt (test code = Methadone Negative Qnt) [facility] BrookOknreyaRAAHEHKJLF5655-80-07 12:10:00 Test Item Value Reference Range Interpretation Comments PT (test code = PT) 14.2 s 12.0-14.7 [facility] BrookZxhxqxzXYAPKYSDXK4411-79-34 12:10:00 Test Item Value Reference Range Interpretation Comments INR (test code = INR) 1.10 1 0.85-1.17 [facility] BrookEsfgauyVFQZHUEUQB2356-71-60 12:10:00 Test Item Value Reference Range Interpretation Comments PTT (test code = PTT) 30.4 s 22.9-35.8 [facility] BrookCkjdldbWYXFBYLZGO7115-36-01 12:10:00 Test Item Value Reference Range Interpretation Comments WBC (test code = WBC) 9.6 3.7-10.4 [facility] BrookDsjabqfQFBQAXMAKN3043-73-79 12:10:00 Test Item Value Reference Range Interpretation Comments RBC (test code = RBC) 3.68 4.70-6.10 [facility]OthyxevHRVBQWSGJQ4463-51-24 12:10:00 Test Item Value Reference Range Interpretation Comments Hgb (test code = Hgb) 13.1 14.0-18.0 [facility] TylerUsufmgtUBNXSDPDQG8912-42-57 12:10:00 Test Item Value Reference Range Interpretation Comments Hct (test code = Hct) 38.0 42.0-54.0 [facility] TylerVefbuugBKDSKSBIIS4887-63-30 12:10:00 Test Item Value Reference Range Interpretation Comments MCV (test code = MCV) 103.4 80.0-94.0 [facility] TylerUqaliodBVKZCXGWQL5035-89-24 12:10:00 Test Item Value Reference Range Interpretation Comments MCH (test code = MCH) 35.7 pg 27.0-31.0 [facility] TylerQibsuxwNQFTZITKFK0797-92-37 12:10:00 Test Item Value Reference Range Interpretation Comments MCHC (test code = MCHC) 34.6 32.0-36.0 [facility] TylerSydtcloYBMGTLOYSO0908-85-84 12:10:00 Test Item Value Reference Range Interpretation Comments RDW (test code = RDW) 14.6 11.5-14.5 [facility] TylerVdpnlhsZBCFJBPDOO1580-03-70 12:10:00 Test Item Value Reference Range Interpretation Comments Platelet (test code = Platelet) 181 133-450 [facility] TylerHmybsbfZTEAOBMEXJ9932-51-54 12:10:00 Test Item Value Reference Range Interpretation Comments MPV (test code = MPV) 10.1 7.4-10.4 [facility] TylerPbbhmvxIKLGVUGQKT3047-78-05 12:10:00 Test Item Value Reference Range Interpretation Comments Sickle Cell Screen Negative (03/31/20 7:10 (test code = Sickle AM) Cell Screen) [facility] TylerCaubwocCWIWKBRFJO4329-49-40 12:10:00 Test Item Value Reference Range Interpretation Comments AT III Func (test code = AT III Func) 99 77-140 [facility] TylerNbtoujuBXYSCGOHPI6650-57-81 12:10:00 Test Item Value Reference Range Interpretation Comments F5 Leiden PCR (test Negative (03/31/20 7:10 code = F5 Leiden PCR) AM) [facility] TylerXfqmfibEVUZFSGFRA7840-95-66 12:10:00 Test Item Value Reference Range Interpretation Comments F5 Leiden Intrp (test code = F5 See note Leiden Intrp) [facility] TylerTouwzecVKZVAZXEQE3437-31-05 12:10:00 Test Item Value Reference Range Interpretation Comments dRVV Ratio (test code = dRVV Ratio) 1.17 1 [facility] TylerFtuoadsCTFXAJICML3859-77-60 12:10:00 Test Item Value Reference Range Interpretation Comments Hex Phos N (test code Negative (03/31/20 7:10 = Hex Phos N) AM) [facility] TylerLkbgnahCXTPBZYBNF0474-40-65 12:10:00 Test Item Value Reference Range Interpretation Comments Lup Interp (test Negative for lupus code = Lup Interp) anticoagulant with all tests performed (dRVVT, and hexagonal phospholipid neutralization). CPT: 71515 [facility] TylerLwqwbqyVRHYELHRNL5905-94-14 12:10:00 Test Item Value Reference Range Interpretation Comments F2 Mutation PCR (test Negative (03/31/20 7:10 code = F2 Mutation PCR) AM) [facility] TylerPcxapdcFUQNUELUNV2664-91-60 12:10:00 Test Item Value Reference Range Interpretation Comments F2 Mut Interp (test code = F2 Mut See note Interp) [facility] TylerRtzprgmWADZJXSHHM6838-75-42 12:10:00 Test Item Value Reference Range Interpretation Comments Protein C Func (test code = Protein C 92 72-147 Func) [facility] TylerYeovkyeCMRQTZNMWW2147-68-55 12:10:00 Test Item Value Reference Range Interpretation Comments Protein S Func (test code = Protein S 111 54-137 Func) [facility] TylerHtkcqpdKFLAROVLOR1956-77-13 12:10:00 Test Item Value Reference Range Interpretation Comments Segs (test code = Segs) 71.6 45.0-75.0 [facility] TylerVrxbueaPRJEDLAAMB5368-48-23 12:10:00 Test Item Value Reference Range Interpretation Comments Lymphocytes (test code = Lymphocytes) 14.5 20.0-40.0 [place] [id number] 12:10:00 Test Item Value Reference Range Interpretation Comments Monocytes (test code = Monocytes) 7.5 2.0-12.0 [facility] TylerBnhtfqtSHFDXQAUCH3674-43-83 12:10:00 Test Item Value Reference Range Interpretation Comments Eosinophils (test code = 5.7 See_Comment [A utomated message] The Eosinophils) system which ge nerated this result tra nsmitted reference range : <=4.0. The reference r bijan was not used to int erpret this result as normal/abnormal . [facility] TylerIejragyQMMFABROGG2402-28-43 12:10:00 Test Item Value Reference Range Interpretation Comments Basophils (test code = 0.7 See_Comment [Aut omated message] The Basophils) system which ge nerated this result tra nsmitted reference range : <=1.0. The reference r bijan was not used to int erpret this result as normal/abnormal . [facility] TylerGotguofSZEITDICRB9988-61-93 12:10:00 Test Item Value Reference Range Interpretation Comments Neutrophils # (test code = Neutrophils 6.9 1.5-8.1 #) [facility] TylerWryuxylHPIMNFYBDF7192-65-10 12:10:00 Test Item Value Reference Range Interpretation Comments Lymphocytes # (test code = Lymphocytes 1.4 1.0-5.5 #) [facility] TylerErziuyiXODRUQQJON4884-96-50 12:10:00 Test Item Value Reference Range Interpretation Comments Monocytes # (test code 0.7 See_Comment [Aut omated message] The = Monocytes #) system which generated this result tra nsmitted reference range : <=0.8. The reference r bijan was not used to int erpret this result as normal/abnormal . [facility] TylerFzmlxrgKECJDZYLXE3118-58-64 12:10:00 Test Item Value Reference Range Interpretation Comments Eosinophils # (test code 0.5 See_Comment [A utomated message] The = Eosinophils #) system [facility] h generated this result tra nsmitted reference range : <=0.5. The reference r bijan was not used to int erpret this result as normal/abnormal . [facility] TylerUldlvdgGKXPBDXZIX4717-01-92 12:10:00 Test Item Value Reference Range Interpretation Comments Basophils # (test code 0.1 See_Comment [Aut omated message] The = Basophils #) system which generated this result tra nsmitted reference range : <=0.2. The reference r bijan was not used to int erpret this result as normal/abnormal . [facility] TylerPugibrkAYKSORLRWO7352-49-34 12:10:00 Test Item Value Reference Range Interpretation Comments Macrocyte (test code = 1+ *ABN*(03/31/20 Macrocyte) 7:10 AM) [facility] HospitalPzbekzhTRRIEYJVVU3704-57-02 12:10:00 Test Item Value Reference Range Interpretation Comments Cardiolipin IgA (test code = no gt Cardiolipin IgA) [facility] HospitalBzpramsSYETXNMILI5926-27-09 12:10:00 Test Item Value Reference Range Interpretation Comments Cardiolipin IgG (test code = no gt Cardiolipin IgG) [facility] HospitalMmnpbluYAKFQLASKW6720-31-79 12:10:00 Test Item Value Reference Range Interpretation Comments Cardiolipin IgM (test code = no gt Cardiolipin IgM) [facility] HospitalDyfvkjvWXOFSZPWXZ7664-20-34 12:10:00 Test Item Value Reference Range Interpretation Comments Homocyst Tot (test code = Homocyst Tot) 126.0 3.7-13.9 [place] 040870-08-18 12:10:00 Test Item Value Reference Range Interpretation Comments CMV IgG (test code = CMV IgG) no gt [facility] HospitalVonmhjjJXVWDMZIHB2892-23-69 12:10:00 Test Item Value Reference Range Interpretation Comments EBV VCA IgG (test code = EBV VCA IgG) 236.00 [place] 040870-08-18 12:10:00 Test Item Value Reference Range Interpretation Comments HIV Ag/Ab 4th Gen Negative *NA*(03/31/20 (test code = HIV 7:10 AM) Ag/Ab 4th Gen) [facility] HospitalOvgcbyhPSSRAGTUJZ8074-61-56 12:10:00 Test Item Value Reference Range Interpretation Comments Hep A Tot (test code = Hep A Tot) REACTIVE [facility] HospitalEldkxqdFKSPOYZPBJ9838-11-03 12:10:00 Test Item Value Reference Range Interpretation Comments Hep Bs Ab (test code = Hep Bs Ab) [address] [facility] [facility] HospitalRyerbwvMPPPDQWPFW0173-81-39 12:10:00 Test Item Value Reference Range Interpretation Comments Hep B Core Ab (test code = Hep B NON-REACTIVE Core Ab) [facility] HospitalOsmmlnmJLBLTNASJR1154-96-01 12:10:00 Test Item Value Reference Range Interpretation Comments Hep Bs Ag (test code = Hep Bs NON-REACTIVE Ag) [facility] HospitalXslscxqVNILAXRGQE0486-40-31 12:10:00 Test Item Value Reference Range Interpretation Comments HSV 1 IgG (test code = HSV 1 IgG) 42.30 [place] 040870-08-18 12:10:00 Test Item Value Reference Range Interpretation Comments HSV 2 IgG (test code = HSV 2 IgG) no gt [facility] HospitalPanzjgwVTLOBTSKRS4831-40-28 12:10:00 Test Item Value Reference Range Interpretation Comments Treponemal Ab (test code Non-Reactive = Treponemal Ab) *NA*(03/31/20 7:10 AM) [place] 040870-08-18 12:10:00 Test Item Value Reference Range Interpretation Comments Varicella IgG (test code = Varicella 849.40 IgG) [place] 040870-08-18 12:10:00 Test Item Value Reference Range Interpretation Comments Mumps IgG (test code = Mumps IgG) 20.50 [place] [address]-08-18 12:10:00 Test Item Value Reference Range Interpretation Comments Rubella IgG (test code = Rubella IgG) 71.7 [place] 040870-08-18 12:10:00 Test Item Value Reference Range Interpretation Comments Rubeola IgG (test code = Rubeola IgG) 39.20 [place] 040870-08-18 12:10:00 Test Item Value Reference Range Interpretation Comments Cystatin C (test code = Cystatin C) 6.89 0.52-1.31 [place] 040870-08-18 12:10:00 Test Item Value Reference Range Interpretation Comments eGFR Cystatin-based (test code = eGFR 7 Cystatin-based) [facility] HospitalZnihsvpKSQHWDXZEW3429-39-83 12:10:00 Test Item Value Reference Range Interpretation Comments Hep C Ab (test code = Hep C Ab) NON-REACTIVE [place] 040870-08-18 12:10:00 Test Item Value Reference Range Interpretation Comments Hep Signal to Cut-Off (test code = Hep 0.01 1 Signal to Cut-Off) [place] 040870-08-18 12:10:00 Test Item Value Reference Range Interpretation Comments T-Spot.TB (test code = T-Spot.TB) Negative [place] [address]-08-18 12:10:00 Test Item Value Reference Range Interpretation Comments T-Spot Pnl A Neg Ctrl Corrected (test 1 1 code = T-Spot Pnl A Neg Ctrl Corrected) [facility] HospitalFvrtmzpRSVWTLCKMN8668-50-38 12:10:00 Test Item Value Reference Range Interpretation Comments T-Spot Pnl B Neg Ctrl Corrected (test 2 1 code = T-Spot Pnl B Neg Ctrl Corrected) [facility] BrookDorkvquVPSEZFVIRY1329-55-39 12:10:00 Test Item Value Reference Range Interpretation Comments T-Spot Neg Ctrl (test code = T-Spot Passed Neg Ctrl) [facility] BrookGvbqwomXDGXINSILT5119-34-03 12:10:00 Test Item Value Reference Range Interpretation Comments T-Spot Pos Ctrl (test code = T-Spot Passed Pos Ctrl) [facility] BrookMmwihneUOOHXR3063-29-90 12:10:00 Test Item Value Reference Range Interpretation Comments Trig (test code = Trig) 295 [facility] BrookWtejaazGAQMOT2496-64-90 12:10:00 Test Item Value Reference Range Interpretation Comments Chol (test code = Chol) 127 [facility] BrookHxjelpqGJSCVR3962-79-68 12:10:00 Test Item Value Reference Range Interpretation Comments HDL (test code = HDL) 38 [facility] BrookEmnuiiwDXROYW0880-18-21 12:10:00 Test Item Value Reference Range Interpretation Comments CHD Risk (test code = CHD Risk) 3.34 1 4.00-7.30 [facility] BrookEyufsqrFDEEUS5856-03-42 12:10:00 Test Item Value Reference Range Interpretation Comments LDL (Calculated) (test code = LDL 30 (Calculated)) [facility] BrookNiivztrFYLSXD6711-15-21 12:10:00 Test Item Value Reference Range Interpretation Comments VLDL (test code = VLDL) 59 1 [facility] BrookannPARASITOLOGY - CJRWVWIW1231-71-82 12:10:00 Test Item Value Reference Range Interpretation Comments Strongyloides Antibodies (test code NEGATIVE = Strongyloides Antibodies) [facility] BrookannPARATHYROID YHBOJCN6071-54-73 12:10:00 Test Item Value Reference Range Interpretation Comments PTH Intact (test code = PTH Intact) 431.4 18.4-80.1 [facility] BrookannREFERENCE LAB WSCUYDN5300-42-64 12:10:00 Test Item Value Reference Range Interpretation Comments Misc Quest (test code = Misc SEE COMMENT Quest) [facility] BrookannSPECIAL DBDXBNRCL0471-51-82 12:10:00 Test Item Value Reference Range Interpretation Comments Nicotine Lvl (test code = Nicotine Lvl) no gt [facility] BrookannSPECIAL NOJWNFUVW6399-81-15 12:10:00 Test Item Value Reference Range Interpretation Comments Cotinine Lvl (test code = Cotinine Lvl) no gt [facility] BrookannSPECIAL OBSEQWTTK9431-54-77 12:10:00 Test Item Value Reference Range Interpretation Comments Hgb A1C (test code = Hgb A1C) 4.4 [facility] OUDBFEHN9345-93-22 12:10:00 Test Item Value Reference Range Interpretation Comments T cruzi (Chagas) Ab (test code = NONREACTIVE T cruzi (Chagas) Ab) [facility] SAEQRYUS1767-20-82 12:10:00 Test Item Value Reference Range Interpretation Comments W Nile Ab IgG (test code = W Nile Ab no gt IgG) [facility] SLJHKXSZ0748-15-46 12:10:00 Test Item Value Reference Range Interpretation Comments W Nile Ab IgM (test code = W Nile Ab no gt IgM) [facility] OPNDY4900-32-43 12:10:00 Test Item Value Reference Range Interpretation Comments Ferritin Lvl (test code = Ferritin Lvl) 458 30-[address] [facility] [place] [place] AJAWPIT5297-70-14 12:10:00 Test Item Value Reference Range Interpretation Comments OP ABORh Int (test code = OP ABORh Int) A POS [facility] [place] [place] KTZKNMN0361-99-05 12:10:00 Test Item Value Reference Range Interpretation Comments OP ABSC Gel Interp Negative (03/31/20 7:10 (test code = OP ABSC AM) Gel Interp) [facility] XNZFQ8951-11-04 12:10:00 Test Item Value Reference Range Interpretation Comments Glucose Lvl (test code = Glucose Lvl) 85 70-99 [facility] [id number] 12:10:00 Test Item Value Reference Range Interpretation Comments BUN (test code = BUN) 51 7-22 [facility] WCAGV0876-90-43 12:10:00 Test Item Value Reference Range Interpretation Comments Creatinine Lvl (test code = Creatinine 16.00 0.50-1.40 Lvl) [facility] KQYIK8849-47-50 12:10:00 Test Item Value Reference Range Interpretation Comments Sodium Lvl (test code = Sodium Lvl) 134 135-145 [facility] HVBKS2199-98-53 12:10:00 Test Item Value Reference Range Interpretation Comments Potassium Lvl (test code = Potassium 5.0 3.5-5.1 Lvl) [facility] [id number] 12:10:00 Test Item Value Reference Range Interpretation Comments Chloride Lvl (test code = Chloride Lvl) 98 95-109 [facility] [employer] FNJUF8186-07-66 12:10:00 Test Item Value Reference Range Interpretation Comments CO2 (test code = CO2) 24 24-32 [facility] [employer] [id number] 12:10:00 Test Item Value Reference Range Interpretation Comments Calcium Lvl (test code = Calcium Lvl) 9.1 8.5-10.5 [facility] [employer] KUZMQ1516-56-70 12:10:00 Test Item Value Reference Range Interpretation Comments Total Protein (test code = Total 8.5 6.4-8.4 Protein) [facility] [employer] [id number] 12:10:00 Test Item Value Reference Range Interpretation Comments Albumin Lvl (test code = Albumin Lvl) 4.3 3.5-5.0 [facility] [employer] [id number] 12:10:00 Test Item Value Reference Range Interpretation Comments ALT (test code = ALT) 11 See_Comment [Auto mated message] The system which ge nerated this result transmit jose carlos reference range : <=65. The reference range was not used to interpr et this result as adan l/abnormal. [facility] [employer] [id number] 12:10:00 Test Item Value Reference Range Interpretation Comments AST (test code = AST) 6 See_Comment [Auto mated message] The system which ge nerated this result transmit jose carlos reference range : <=37. The reference range was not used to interpr et this result as adan l/abnormal. [employer] [id number] 14:59:00 Test Item Value Reference Range Interpretation Comments ABO/Rh (test code = ABO/Rh) A POS [employer] ZOZEWXF4036-19-40 14:59:00 Test Item Value Reference Range Interpretation Comments Antibody Scrn (test Negative (01/15/20 9:59 code = Antibody Scrn) AM) [facility] [employer] [id number] 10:07:00 Test Item Value Reference Range Interpretation Comments Glucose Lvl (test code = Glucose Lvl) 96 70-99 [facility] [employer] [id number] 10:07:00 Test Item Value Reference Range Interpretation Comments BUN (test code = BUN) 26 7-22 [facility] [employer] [id number] 10:07:00 Test Item Value Reference Range Interpretation Comments Creatinine Lvl (test code = Creatinine 10.30 0.50-1.40 Lvl) [facility] BrookSuitest IP GroupUNC HEALTH BLUE RIDGE - MORGANTONZDTBX4750-94-07 10:07:00 Test Item Value Reference Range Interpretation Comments Sodium Lvl (test code = Sodium Lvl) 138 135-145 [facility] BrookSuitest IP GroupUNC HEALTH BLUE RIDGE - MORGANTONLGRQR7675-97-78 10:07:00 Test Item Value Reference Range Interpretation Comments Potassium Lvl (test code = Potassium 5.1 3.5-5.1 Lvl) [facility] Brook[facility]uitest IP GroupUNC [facility]ALTH BLUE RIDGE - MORGANTONTYBIH5353-05-15 10:07:00 Test Item Value Reference Range Interpretation Comments Chloride Lvl (test code = Chloride Lvl) 102 95-109 [facility] IP GroupUNC [facility] BLUE [facility]IDGE - [id number] 10:07:00 Test Item Value Reference Range Interpretation Comments CO2 (test code = CO2) 27 24-32 [facility] IP GroupUNC [facility] BL[facility]ID[facility] - [id number] 10:07:00 Test Item Value Reference Range Interpretation Comments Calcium Lvl (test code = Calcium Lvl) 8.5 8.5-10.5 [facility] IP GroupUNC [facility] BL[facility]ID[facility] - [id number] 10:07:00 Test Item Value Reference Range Interpretation Comments AGAP (test code = AGAP) 14.1 10.0-20.0 [facility] IP GroupUNC [facility] BL[facility]ID[facility] - MORGANTONXSJZR5800-69-66 10:07:00 Test Item Value Reference Range Interpretation Comments eGFR (test code = eGFR) 6 [facility]2020-06-03 01:48:00 Test Item Value Reference Range Interpretation Comments Glucose Lvl (test code = Glucose Lvl) 82 70-99 [facility] IP GroupUNC [facility] BL[facility] - MORGANTONSHJBP0186-79-07 01:48:00 Test Item Value Reference Range Interpretation Comments BUN (test code = BUN) 22 7-22 [facility] IP GroupUNC [facility] BL[facility]ID[facility] - MORGANTONTKQRU8172-25-26 01:48:00 Test Item Value Reference Range Interpretation Comments Creatinine Lvl (test code = Creatinine 8.46 0.50-1.40 Lvl) [facility] IP GroupUNC [facility]ALTH BLUE RIDGE - MORGANTONSBGWE8966-54-20 01:48:00 Test Item Value Reference Range Interpretation Comments Sodium Lvl (test code = Sodium Lvl) 139 135-145 [facility]2020-06-03 01:48:00 Test Item Value Reference Range Interpretation Comments Potassium Lvl (test code = Potassium 4.5 3.5-5.1 Lvl) [facility]2020-06-03 01:48:00 Test Item Value Reference Range Interpretation Comments Chloride Lvl (test code = Chloride Lvl) 103 95-109 [place] 916150-06-03 01:48:00 Test Item Value Reference Range Interpretation Comments CO2 (test code = CO2) 30 24-32 [facility]2020-06-03 01:48:00 Test Item Value Reference Range Interpretation Comments Calcium Lvl (test code = Calcium Lvl) 8.2 8.5-10.5 [facility]2020-06-03 01:48:00 Test Item Value Reference Range Interpretation Comments AGAP (test code = AGAP) 10.5 10.0-20.0 [facility]2020-06-03 01:48:00 Test Item Value Reference Range Interpretation Comments eGFR (test code = eGFR) 7 [facility]flsRLOAINZSKK8809-30-97 01:48:00 Test Item Value Reference Range Interpretation Comments WBC (test code = WBC) 5.9 3.7-10.4 [place] 330880-06-03 01:48:00 Test Item Value Reference Range Interpretation Comments RBC (test code = RBC) 3.37 4.70-6.10 [facility] TylerJbgmoayTKCSILIVIC5343-30-31 01:48:00 Test Item Value Reference Range Interpretation Comments Hgb (test code = Hgb) 11.4 14.0-18.0 [place] 330880-06-03 01:48:00 Test Item Value Reference Range Interpretation Comments Hct (test code = Hct) 33.4 42.0-54.0 [place] 330880-06-03 01:48:00 Test Item Value Reference Range Interpretation Comments MCV (test code = MCV) 99.0 80.0-94.0 [place] [address]-06-03 01:48:00 Test Item Value Reference Range Interpretation Comments MCH (test code = MCH) 33.7 pg 27.0-31.0 [place] 330880-06-03 01:48:00 Test Item Value Reference Range Interpretation Comments MCHC (test code = MCHC) 34.0 32.0-36.0 [place] [address]-06-03 01:48:00 Test Item Value Reference Range Interpretation Comments RDW (test code = RDW) 14.4 11.5-14.5 [facility] TylerSylgnehWBWFAXJTCR1389-16-58 01:48:00 Test Item Value Reference Range Interpretation Comments Platelet (test code = Platelet) 153 133-450 [facility] TylerGadssbeGIMVYUTTUI5048-72-06 01:48:00 Test Item Value Reference Range Interpretation Comments MPV (test code = MPV) 9.7 7.4-10.4 [facility] TylerPcxrxtpCPCWDMCHBM0077-01-04 01:48:00 Test Item Value Reference Range Interpretation Comments PT (test code = PT) 13.9 s 12.0-14.7 [facility] TylerJquuvpdDNLINXPXJU1600-89-73 01:48:00 Test Item Value Reference Range Interpretation Comments INR (test code = INR) 1.07 1 0.85-1.17 [facility] TylerMvdatsfXEPCQNVNSI4720-33-31 01:48:00 Test Item Value Reference Range Interpretation Comments PTT (test code = PTT) 31.5 s 22.9-35.8 [facility] TylerVqnmpfwEUUFRWKDGM5894-96-64 01:48:00 Test Item Value Reference Range Interpretation Comments Segs (test code = Segs) 53.1 45.0-75.0 [facility] TylerExamtycFFNIEDQRQI2806-09-28 01:48:00 Test Item Value Reference Range Interpretation Comments Lymphocytes (test code = Lymphocytes) 26.9 20.0-40.0 [facility] TylerQxefuqwBBIJRGDNFF4900-41-54 01:48:00 Test Item Value Reference Range Interpretation Comments Monocytes (test code = Monocytes) 11.9 2.0-12.0 [facility] TylerHftddcgBIUEDNHCSQ3757-41-39 01:48:00 Test Item Value Reference Range Interpretation Comments Eosinophils (test code = 7.0 See_Comment [A utomated message] The Eosinophils) system which ge nerated this result tra nsmitted reference range : <=4.0. The reference r bijan was not used to int erpret this result as normal/abnormal . [facility] TylerNphlkhwAWHREBBILM3430-34-47 01:48:00 Test Item Value Reference Range Interpretation Comments Basophils (test code = 1.1 See_Comment [Aut omated message] The Basophils) system which ge nerated this result tra nsmitted reference range : <=1.0. The reference r bijan was not used to int erpret this result as normal/abnormal . [facility] TylerJzgmgdoNZWXGZTAHQ8447-67-23 01:48:00 Test Item Value Reference Range Interpretation Comments Neutrophils # (test code = Neutrophils 3.2 1.5-8.1 #) [facility] TylerLmkbsfgSZPDTVYOZA4957-87-99 01:48:00 Test Item Value Reference Range Interpretation Comments Lymphocytes # (test code = Lymphocytes 1.6 1.0-5.5 #) [facility] TylerTaicszoIBDSGHVKAD1676-02-60 01:48:00 Test Item Value Reference Range Interpretation Comments Monocytes # (test code 0.7 See_Comment [Aut omated message] The = Monocytes #) system which generated this result tra nsmitted reference range : <=0.8. The reference r bijan was not used to int erpret this result as normal/abnormal . [facility] TylerFmfeylmCSBUGSWHNR3814-75-42 01:48:00 Test Item Value Reference Range Interpretation Comments Eosinophils # (test code 0.4 See_Comment [A utomated message] The = Eosinophils #) system whic h generated this result tra nsmitted reference range : <=0.5. The reference r bijan was not used to int erpret this result as normal/abnormal . [facility] TylerOgiloeyCLKMNLGOGD7533-09-13 01:48:00 Test Item Value Reference Range Interpretation Comments Basophils # (test code 0.1 See_Comment [Aut omated message] The = Basophils #) system which generated this result tra nsmitted reference range : <=0.2. The reference r bijan was not used to int erpret this result as normal/abnormal . [facility] CampusThhbmikSEIDTUUXOE2971-68-73 19:39:00 Test Item Value Reference Range Interpretation Comments Hep Bs Ag (test code Negative *NA*(01/14/20 = Hep Bs Ag) 2:39 PM) [facility] BrookEqnkhkxUUCJXSPPQGFD7810-66-83 13:17:00 Test Item Value Reference Range Interpretation Comments Potassium Lvl (test code = Potassium 6.1 3.5-5.1 Lvl) [facility] BrookWebyog WPPENVR9027-13-40 19:20:00 Test Item Value Reference Range Interpretation Comments ABO/Rh (test code = ABO/Rh) A POS [facility] Squirrly ORINEBQ8264-07-97 19:20:00 Test Item Value Reference Range Interpretation Comments Antibody Scrn (test Negative (01/09/20 2:20 code = Antibody Scrn) PM) [facility]2020-05-28 19:20:00 Test Item Value Reference Range Interpretation Comments Glucose Lvl (test code = Glucose Lvl) 86 70-99 [place] 916150-05-28 19:20:00 Test Item Value Reference Range Interpretation Comments BUN (test code = BUN) 58 7-22 [place] [address]-05-28 19:20:00 Test Item Value Reference Range Interpretation Comments Creatinine Lvl (test code = Creatinine 14.30 0.50-1.40 Lvl) [place] [address]-05-28 19:20:00 Test Item Value Reference Range Interpretation Comments Sodium Lvl (test code = Sodium Lvl) 133 135-145 [place] [address]-05-28 19:20:00 Test Item Value Reference Range Interpretation Comments Chloride Lvl (test code = Chloride Lvl) 100 95-109 [place] 916150-05-28 19:20:00 Test Item Value Reference Range Interpretation Comments CO2 (test code = CO2) 24 24-32 [place] [address]-05-28 19:20:00 Test Item Value Reference Range Interpretation Comments Calcium Lvl (test code = Calcium Lvl) 8.5 8.5-10.5 [place] 916150-05-28 19:20:00 Test Item Value Reference Range Interpretation Comments AGAP (test code = AGAP) 14.9 10.0-20.0 [place] 916150-05-28 19:20:00 Test Item Value Reference Range Interpretation Comments eGFR (test code = eGFR) 4 [place] 330880-05-28 19:20:00 Test Item Value Reference Range Interpretation Comments Segs (test code = Segs) 55.8 45.0-75.0 [place] [address]-05-28 19:20:00 Test Item Value Reference Range Interpretation Comments Lymphocytes (test code = Lymphocytes) 25.3 20.0-40.0 [place] [address]-05-28 19:20:00 Test Item Value Reference Range Interpretation Comments Monocytes (test code = Monocytes) 11.9 2.0-12.0 [place] [address]-05-28 19:20:00 Test Item Value Reference Range Interpretation Comments Eosinophils (test code = 5.8 See_Comment [A utomated message] The Eosinophils) system which ge nerated this result tra nsmitted reference range : <=4.0. The reference r bijan was not used to int erpret this result as normal/abnormal . [facility] TylerXlbrmlsXOFQUSOBPE1365-58-82 19:20:00 Test Item Value Reference Range Interpretation Comments Basophils (test code = 1.2 See_Comment [Aut omated message] The Basophils) system which ge nerated this result tra nsmitted reference range : <=1.0. The reference r bijan was not used to int erpret this result as normal/abnormal . [facility] TylerQbdjdujILFZETGFKW0934-83-58 19:20:00 Test Item Value Reference Range Interpretation Comments Neutrophils # (test code = Neutrophils 3.4 1.5-8.1 #) [place] 330880-05-28 19:20:00 Test Item Value Reference Range Interpretation Comments Lymphocytes # (test code = Lymphocytes 1.5 1.0-5.5 #) [place] 330880-05-28 19:20:00 Test Item Value Reference Range Interpretation Comments Monocytes # (test code 0.7 See_Comment [Aut omated message] The = Monocytes #) system which generated this result tra nsmitted reference range : <=0.8. The reference r bijan was not used to int erpret this result as normal/abnormal . [facility] TylerJravzapMQFWDYVHXH9927-42-47 19:20:00 Test Item Value Reference Range Interpretation Comments Eosinophils # (test code 0.4 See_Comment [A utomated message] The = Eosinophils #) system [facility] generated this result tra nsmitted reference range : <=0.5. The reference r bijan was not used to int erpret this result as normal/abnormal . [facility] TylerZvkhqiaIRDANVQOEX3552-32-97 19:20:00 Test Item Value Reference Range Interpretation Comments Basophils # (test code 0.1 See_Comment [Aut omated message] The = Basophils #) system which generated this result tra nsmitted reference range : <=0.2. The reference r bijan was not used to int erpret this result as normal/abnormal . [place] 330880-05-28 19:20:00 Test Item Value Reference Range Interpretation Comments Macrocyte (test code = 1+ *ABN*(5/28/20 Macrocyte) 2:20 PM) [facility] TylerJrwvphcDFPGZMBEJE9383-91-44 19:20:00 Test Item Value Reference Range Interpretation Comments WBC (test code = WBC) 6.1 3.7-10.4 [facility] TylerVzbmmfpHYVEDFKPQL0018-91-98 19:20:00 Test Item Value Reference Range Interpretation Comments RBC (test code = RBC) 3.80 4.70-6.10 [facility] TylerWwcqhgwWLZVZMJEVA4055-28-68 19:20:00 Test Item Value Reference Range Interpretation Comments Hgb (test code = Hgb) 12.9 14.0-18.0 [facility] TylerFsdgsghGBXNPGFLHS6172-40-85 19:20:00 Test Item Value Reference Range Interpretation Comments Hct (test code = Hct) 38.2 42.0-54.0 [facility] TylerVwuozgbFBWWXJOJSW9393-29-12 19:20:00 Test Item Value Reference Range Interpretation Comments MCV (test code = MCV) 100.5 80.0-94.0 [facility] TylerOtjlpaaQWYKYQKKWS9659-02-48 19:20:00 Test Item Value Reference Range Interpretation Comments MCH (test code = MCH) 34.0 pg 27.0-31.0 [facility] TylerIjlrmwdTJEKHZNUVJ0095-65-42 19:20:00 Test Item Value Reference Range Interpretation Comments MCHC (test code = MCHC) 33.8 32.0-36.0 [facility] TylerIfkamjhSVMZAQZXRO7664-69-71 19:20:00 Test Item Value Reference Range Interpretation Comments RDW (test code = RDW) 15.2 11.5-14.5 [facility] TylerTloilswCFIUCWHHON5076-86-85 19:20:00 Test Item Value Reference Range Interpretation Comments Platelet (test code = Platelet) 146 133-450 [facility] TylerLjftagyIQBRANUXDI7075-36-51 19:20:00 Test Item Value Reference Range Interpretation Comments MPV (test code = MPV) 9.9 7.4-10.4 [facility] TylerUcnyfpoEGTMFSHZPO1897-22-63 19:20:00 Test Item Value Reference Range Interpretation Comments PT (test code = PT) 13.5 s 12.0-14.7 [facility] TylerUozfeqdPCVFJUIUUT4333-72-06 19:20:00 Test Item Value Reference Range Interpretation Comments INR (test code = INR) 1.03 1 0.85-1.17 [facility] 19:20:00 Test Item Value Reference Range Interpretation Comments PTT (test code = PTT) 30.9 s 22.9-35.8 [facility]XrqglfgZDGWIBFCCO6659-25-99 19:03:00 Test Item Value Reference Range Interpretation Comments Coronavirus (COVID-19) Not Detected (01/09/20 LATONYA (test code = 2:03 PM) Coronavirus (COVID-19) LATONYA) [facility]
[2022-10-19] MEDS ORDERED: ACETAMINOPHEN 500 MG TAB ONE (17:59)
[2022-10-19 18:33] LABS: Absolute Lymphocytes (CBC) 0.4 K/uL (0.7-4.9); Hematocrit 29.9 % (39.6-49.0); Lymphocytes % 6.2 % (15.3-44.8); MCV 100.9 fL (80-100); RBC Red Blood Cell Count 2.96 M/uL (4.33-5.43)
[2022-10-19 18:34] LABS: Protime INR 1.05
[2022-10-19 18:34] LABS: SARS-COV-2 RT PCR POSITIVE (NEGATIVE)
--- NOTE | 2022-10-19 18:52 | RAD REPORT ---
EXAM DESCRIPTION: RADChest Single View10/19/2022 6:26 pm CLINICAL HISTORY: FEVER COMPARISON: Chest Single View dated 09/16/2022; Chest Single View dated 06/27/2022; Chest Single View dated 01/15/2022; Chest Pa And Lat (2 Views) dated 10/31/2021 TECHNIQUE: Portable AP view of the chest. FINDINGS: The lungs are clear. No pneumothorax or effusion. The cardiomediastinal contours are unrem arkable. IMPRESSION: No acute cardiopulmonary process.
[2022-10-19 19:10] LABS: Albumin 3.4 g/dL (3.4-5.0); Bilirubin Total 0.5 mg/dL (0.2-1.0); Potassium 5.1 mmol/L (3.5-5.1); Protein, Total 6.6 g/dL (6.4-8.2)
--- NOTE | 2022-10-19 21:04 | P.HP ---
Certification for Inpatient Patient admitted to: Observation With expected LOS: <2 Midnights Patient will require the following post-hospital care: None Practitioner: I am a practitioner with admitting privileges, knowledge of patient current condition, hospital course, and medical plan of care. Services: Services provided to patient in accordance with Admission requirements found in Title 42 Section 412.3 of the Code of Federal Regulations Patient History Date of Service: 10/19/22 Reason for admission: COVID, ESRD History of Present Illness: Patient is a 37-year-old male with past medical history significant of ESRD on HD MWF and tok-wsavzyk-cgwgdybjg type 2 diabetes who presented to the ED with complaints of weakness, fatigue, and fever. Patient reports that he missed HD today because he was feeling so poorly. He last had regular HD on Monday. He was found to febrile and covid positive. Other labs significant for hgb 10.4, hct 29.9, plt 143, sodium 131, BUN 79, creatinine 17. Patient's drama teacher, Dr. Laureano, was contacted and wishes for patient to be admitted so he can receive HD tomorrow. Allergies No Known Allergies Allergy (Verified 09/16/22 22:57) Home Medications: Calcium Carbonate [Tums Regular*] 1,500 mg PO AC PRN 11/02/21 Furosemide [Lasix*] 20 mg PO DAILY 11/02/21 Lanthanum Carbonate 1,000 mg PO TIDWM 11/02/21 Vit B Comp C/Folic Acid/Vit D3 [Dialyvite 800 Plus D Wafer] 1 each PO DAILY 09/16/22 Vitamin D [Drisdol*] 50,000 unit PO PRN 09/16/22 - Past Medical/Surgical History Diabetic: Yes -: Type 2 Diabetes, Non-Insulin Dependent -: ESRD on HD MWF -: Left arm fistula Psychosocial/ Personal History: Patient lives at home with family - Family History Father -: Diabetes Mother -: Diabetes - Social History Smoking Status: Never smoker Alcohol use: No CD- Drugs: No Caffeine use: Yes Place of Residence: Home Review of Systems General: Fever, Weakness, Malaise Physical Examination - Vital Signs Temperature: 100.5 F Blood Pressure: 139/90 Pulse: 96 Respirations: 15 Pulse Ox (%): 100 - Physical Exam General: Alert, In no apparent distress HEENT: Atraumatic, EOMI, Sclerae nonicteric Neck: Supple, 2+ carotid pulse no bruit Respiratory: Clear to auscultation bilaterally, Normal air movement Cardiovascular: Regular rate/rhythm, Normal S1 S2 Gastrointestinal: Normal bowel sounds, No tenderness Musculoskeletal: No tenderness Integumentary: No rashes Neurological: Normal speech, Normal affect - Studies Laboratory Data (last 24 hrs) 10/19/22 18:15: PT 11.5, INR 1.05 10/19/22 18:15: Sodium 131 L, Potassium 5.1, BUN 79 H, Creatinine 17.20 H*, Glucose 104, Total Bilirubin 0.5, AST 32, ALT 40, Alkaline Phosphatase 55 10/19/22 18:15: WBC 6.80, Hgb 10.4 L, Hct 29.9 L, Plt Count 143 L Microbiology Data (last 24 hrs): 10/19/22 18:15 Throat Group A Streptococcus Rapid Screen - Final Assessment and Plan - Problems (Diagnosis) (1) COVID-19 Current Visit: Yes Status: Acute (2) ESRD (end stage renal disease) Current Visit: Yes Status: Chronic (3) Type 2 diabetes mellitus Current Visit: Yes Status: Chronic Qualifiers: Diabetes mellitus intermediate insulin use: without long term care social worker use Diabetes mellitus complication status: with kidney complications Diabetes mellitus complication detail: with chronic kidney disease Chronic kidney disease stage: on chronic dialysis Qualified Code(s): E11.22 - Type 2 diabetes mellitus with diabetic chronic kidney disease; N18.6 - End stage renal disease; Z99.2 - Dependence on renal dialysis - Plan Patient is admitted for further management of ESRD and COVID-19. Nephrology consulted. Dialysis to be performed tomorrow. Electrolytes stable. Isolation precautions in place. Supportive measures with antipyretics and antitussives. Monitor pulse oximetry. Currently saturating appropriately on room air. Glucose monitoring and control with sliding scale. Discharge Plan: Home Plan to discharge in: 24 Hours - Advance Directives Does patient have a Living Will: No Does patient have a Durable POA for Healthcare: No - Code Status/Comfort Care Code Status Assessed: Yes Comfort Measures: Palliative Care Physician Review: Patient Assessed, Agree with Above Assessment and Plan Critical Care: No Time Spent Managing Pts Care (In Minutes): 50
[2022-10-19] MEDS ORDERED: ONDANSETRON 4 MG/2 ML VIAL IV PRN (21:47)
[2022-10-19] MEDS ORDERED: ALBUTEROL 2.5 MG/3 ML NEB SOL NEB PRN (21:47)
[2022-10-19] MEDS ORDERED: BENZONATATE 100 MG CAP PO PRN (22:27)
[2022-10-20 02:23] LABS: Absolute Lymphocytes (CBC) 0.8 K/uL (0.7-4.9); Hematocrit 27.6 % (39.6-49.0); Lymphocytes % 15.1 % (15.3-44.8); MCV 101.4 fL (80-100); RBC Red Blood Cell Count 2.73 M/uL (4.33-5.43)
[2022-10-20 02:54] LABS: Magnesium 2.9 mg/dL (1.6-2.4); Phosphorus 8.5 mg/dL (2.5-4.9); Potassium 4.2 mmol/L (3.5-5.1)
[2022-10-20 03:10] VITALS: BMI 22.7
[2022-10-20] MEDS: ACETAMINOPHEN 500 MG TAB PO PRN ×2 (06:00→22:47)
[2022-10-20] MEDS ORDERED: ACETAMINOPHEN 500 MG TAB ONE (06:05)
[2022-10-20 11:35] VITALS: O2SAT 100
[2022-10-20] MEDS ORDERED: ALBUTEROL 2.5 MG/3 ML NEB SOL NEB PRN (14:00)
[2022-10-20] MEDS: SEVELAMER CARBONATE 800 MG TABLET PO SCH ×2 (14:50→16:22)
--- NOTE | 2022-10-20 15:05 | CON ---
Date of Consultation: 10/20/2022 History Of Present Illness: This is 37-year-old gentleman, well known to me from dialysis with signi ficant past medical history of end-stage renal disease, has been on dialysis through left arm AV fist tony Monday, Monday, Monday at [facility], hypertension, hyperlipidemia. The patie nt came to the hospital complaining from fever, found to have COVID pneumonia. The patient dialyzed at [facility], which does not serve COVID patient. The patient still has fever, feeling weak. For isak t reason, he was admitted. Past Medical History: Includes; 1.Hypertension. 2.End-stage renal disease. 3.Secondary hyperparathyroidism. Home Medications: Include calcium carbonate, Lasix, gabapentin, Fosrenol. Past Surgical History: Includes; 1.AV fistula creation. 2.Tunneled hemodialysis catheter placement and removal. Family History: Positive for hypertension and diabetes. Social History: Denied smoking, denied drinking, denied drugs abuse. Review of Systems: Head and Neck: No red eye. No ear pain. GI: No nausea. No vomiting. : No polyuria. No dysuria. No hematuria. Diesel Truck Crane Operator: Not applicable. Respiratory: Has shortness of breath. Has cough. Cardiovascular: No chest pain. Endocrine: No polydipsia. Skin: No rash. Neuro: Has headache. Musculoskeletal: Generalized body ache. Physical Examination: General: When I saw the patient; the patient lying in bed, feeling sick. Vital Signs: Blood pressure 139/88, pulse of 88, afebrile. Chest: Faint crackles bilateral. Heart: S1, S2. Systolic murmur. Abdomen: Soft, nontender. Extremity: No edema. Neuro: Alert. No focality. Laboratory Data: Hemoglobin 9.6. Sodium 137, potassium 4.2, bicarb 21, BUN 92, creatinine 18.9, jalil cium of 8, phosphorus 8.5, magnesium 2.9. Current Medications: The patient on include Zofran, Tylenol, and albuterol. Assessment And Plan: 1.End-stage renal disease. The patient missed dialysis yesterday. We will arrange for dialysis tod ay. Then, we will consult social services designee for arrangement for outpatient dialysis at [facility]. 2.Hypertension, controlled. We will utilize blood pressure for more ultrafiltration. 3.Hyponatremia secondary to renal failure. No need for treatment. Going to be corrected with dialy sis. 4.COVID pneumonia. We will follow up with primary. STEFAN Voice ID: [id number] Report ID: [id number]
--- NOTE | 2022-10-20 16:21 | EKG ---
Test Date: 2022-10-19 Test Time: 18:42:50 Conventional Machinist: LATRELL MEASUREMENT RESULTS: Intervals: Rate: 95 UT: 158 QRSD: 88 QT: 362 QTc: 454 [place]: P: 77 UT: 158 QRS: 29 T: 52 INTERPRETIVE STATEMENTS: Normal sinus rhythm Normal ECG Compared to ECG 09/16/2022 12:54:28 Sinus tachycardia no longer present Electronically Signed On 10-20-22 16:19:38 DELI SLICER by Walter Marte
--- NOTE | 2022-10-20 17:50 | P.DS ---
Admission Date: 10/19/22 Discharge Date: 10/20/22 Disposition: ROUTINE DISCHARGE Discharge Condition: FAIR Reason for Admission: COVID, ESRD - Problems (1) COVID-19 Current Visit: Yes Status: Acute (2) ESRD (end stage renal disease) Current Visit: Yes Status: Chronic (3) Type 2 diabetes mellitus Current Visit: Yes Status: Chronic Qualifiers: Diabetes mellitus molder operator insulin use: without [facility] use Diabetes mellitus complication status: with kidney complications Diabetes mellitus complication detail: with chronic kidney disease Chronic kidney disease stage: on chronic dialysis Qualified Code(s): E11.22 - Type 2 diabetes mellitus with diabetic chronic kidney disease; N18.6 - End stage renal disease; Z99.2 - Dependence on renal dialysis Brief History of Present Illness: Patient is a 37-year-old male with past medical history significant of ESRD on HD MWF and [id number] type 2 diabetes who presented to the ED with complaints of weakness, fatigue, and fever. Patient reports that he missed HD because he was feeling so poorly. He last had regular HD on Monday. He was found to febrile and covid positive. Other labs significant for hgb 10.4, hct 29.9, plt 143, sodium 131, BUN 79, creatinine 17. Patient's fish housekeeper, Dr. Laureano, was contacted and who recommended patient to be admitted so he can receive HD the next day. Hospital Course: Patient placed on observation on the medical floor and treated with supportive m easures including cough suppressants and bronchodilators. He was seen and evaluated by nephrology Dr. Laureano. Patient underwent hemodialysis. Hemodialysis seat has been arranged at [place] given his COVID positive status. Patient is not hypoxic. His oxygen saturation is 100% on room air. He is deemed stable for discharge. Vital Signs/Physical Exam: Temp Pulse Resp BP Pulse Ox 97.8 F 82 18 150/74 H 100 10/20/22 16:00 10/20/22 16:00 10/20/22 16:00 10/20/22 16:00 10/20/22 16:00 General: Alert, In no apparent distress, Oriented x3 HEENT: Mucous membr. moist/pink Neck: JVD not distended Respiratory: Clear to auscultation bilaterally Cardiovascular: No edema, Regular rate/rhythm, Normal S1 S2 Gastrointestinal: Normal bowel sounds, Soft and benign, Non-distended Musculoskeletal: No swelling Integumentary: No rashes Neurological: Normal strength at 5/5 x4 extr Laboratory Data at Discharge: WBC 5.00 K/uL (4.3-10.9) 10/20/22 02:06 Hgb 9.6 g/dL (13.6-17.9) L 10/20/22 02:06 Hct 27.6 % (39.6-49.0) L 10/20/22 02:06 Plt Count 120 K/uL (152-406) L 10/20/22 02:06 PT 11.5 SECONDS (9.5-12.5) 10/19/22 18:15 INR 1.05 10/19/22 18:15 Sodium 137 mmol/L (136-145) D 10/20/22 02:06 Potassium 4.2 mmol/L (3.5-5.1) D 10/20/22 02:06 BUN 92 mg/dL (7-18) H 10/20/22 02:06 Creatinine 18.90 mg/dL (0.70-1.30) H* 10/20/22 02:06 Glucose 107 mg/dL (74-106) H 10/20/22 02:06 Phosphorus 8.5 mg/dL (2.5-4.9) H 10/20/22 02:06 Magnesium 2.9 mg/dL (1.6-2.4) H 10/20/22 02:06 Total Bilirubin 0.5 mg/dL (0.2-1.0) 10/19/22 18:15 AST 32 U/L (15-37) 10/19/22 18:15 ALT 40 U/L (16-61) 10/19/22 18:15 Alkaline Phosphatase 55 U/L (45-117) 10/19/22 18:15 Home Medications: Lanthanum Carbonate 1,000 mg PO TIDWM 11/02/21 Benzonatate [Tessalon Perle*] 100 mg PO TID PRN #30 cap 10/20/22 Heparin [Heparin 1,000 units/mL *] 4,000 unit IV EVERY HD PRN vial 10/20/22 Sevelamer Carbonate [Renvela*] 1,600 mg PO TIDWM #180 tab 10/20/22 New Medications: Sevelamer Carbonate [Renvela*] 1,600 mg PO TIDWM #180 tab Benzonatate [Tessalon Perle*] 100 mg PO TID PRN #30 cap PRN Reason: Cough Diet: Renal Activity: Ad [place] Followup: Isiah Laureano MD [ACTIVE - CAN ADMIT] - (Within 2 weeks)
[2022-10-20 22:45] VITALS: BP 149/77; TEMP 99.8
== END 2022-10-20 23:10 | disposition home or self-care (01) ==
LOC: ER 16:59 → ERHOLD 20:48 → 2ND 10-20 12:43
PROVIDERS: ADMIT Internal Medicine; ATTEND Internal Medicine
DX: U07.1 COVID-19 (principal); N18.6 End stage renal disease; E11.22 Type 2 diabetes mellitus with diabetic chronic kidney disease; I10 Essential (primary) hypertension; E21.3 Hyperparathyroidism, unspecified; E87.1 Hypo-osmolality and hyponatremia; Z99.2 Dependence on renal dialysis; Z79.4 Long term (current) use of insulin
CPT/HCPCS: 93005; 87040 ×2; 87070; 85025 ×2; 80048; 36415; 83735; 84100; 85610; 87081; 83605; 80053; 0240U; 71045; 90935; 99285; J1644

== ENCOUNTER 2024-07-20 00:19 | Emergency (ER) | payer MEDICARE, OTHER ==
[2024-07-20] MEDS ORDERED: NA CHLORIDE 0.9% 500 ML ONE (01:08)
[2024-07-20] MEDS ORDERED: ALBUMIN HUMAN 25% 50 ML IV ONE ×2 (01:08→01:09)
[2024-07-20 01:18] LABS: Absolute Basophils 0.1 K/uL (0-0.5); Absolute Eosinophils 0.5 K/uL (0-0.5); Absolute Lymphocytes (CBC) 1.5 K/uL (0.7-4.9); Absolute Monocytes 0.6 K/uL (0.1-1.3); Absolute Neutrophil 5.2 K/uL (1.8-8.0); Basophils % 1.1 % (0-1.3); Eosinophils % 6.2 % (0-4.4); Hematocrit 35.9 % (39.6-49.0); Hemoglobin 12.4 g/dL (13.6-17.9); Lymphocytes % 19.6 % (15.3-44.8); MCH 34.4 pg (27.0-35.0); MCHC 34.4 g/dL (32.0-36.0); MPV 9.5 fL (7.6-11.3); Monocytes % 7.4 % (3.3-12.3); Neutrophils % 65.7 % (41.7-73.7); Nucleated Red Blood Cells % 0.1 % (0-0); Platelets 164 thou/uL (152-406); RBC Red Blood Cell Count 3.59 M/uL (4.33-5.43); Red Cell Distribution Width 15.1 % (12.1-15.2)
[2024-07-20 01:22] LABS: PT Prothrombin Time 12.1 SECONDS (9.4-12.5); Protime INR 1.08
[2024-07-20 01:44] LABS: ALT/SGPT 18 U/L (16-61); AST/SGOT 12 U/L (15-37); Albumin 3.9 g/dL (3.4-5.0); Albumin/Globulin Ratio 0.9 (1.1-1.8); Alkaline Phosphatase 96 U/L (45-117); BUN Blood Urea Nitrogen 33 mg/dL (7-18); Bicarbonate 31 mEq/L (21-32); Bilirubin Direct < 0.2 mg/dL (0-0.2); Bilirubin Indirect, Calculated 0.2 mg/dL (0.2-0.8); Bilirubin Total 0.4 mg/dL (0.2-1.0); Globulin 4.2 g/dL (2.3-3.5); Glomerular Filtration Rate 8 ml/min (=/>90); Glucose Level 130 mg/dL (74-106); Magnesium 2.5 mg/dL (1.6-2.4); NT PRO-BNP 740 pg/mL (<125); Protein, Total 8.1 g/dL (6.4-8.2); Sodium Level 136 mEq/L (136-145); Troponin High Sensitivity 16.7 pg/mL (<58.9)
[2024-07-20] MEDS ORDERED: HYDROCORTISONE SUC 100 MG INJ ONE (01:54)
[2024-07-20] MEDS ORDERED: NA CHLORIDE 0.9% 1,000 ML ONE (01:55)
[2024-07-20 01:57] LABS: Thyroid Stimulating Hormone 1.21 uIU/mL (0.358-3.740)
--- NOTE | 2024-07-20 03:44 | RAD REPORT ---
EXAM DESCRIPTION: Chest Single View CLINICAL HISTORY: CHEST PAIN COMPARISON: 03/12/2024 FINDINGS: 1 view(s) of the chest. Tubes and lines: Leads overlie the chest. Cardiomediastinal silhouette: Normal size and contour. Lungs: No consolidation, pneumothorax, or pleural effusion. Bones: No acute osseous abnormality. Upper abdomen: No abnormality identified. IMPRESSION: 1. No acute pulmonary process identified. Electronically signed by: Fran Churchill DO 07/20/2024 03:12 AM [facility] [id number] Due to temporary technical issues with the PACS/[employer] reporting system, reports are being antionette d by the in-house radiologist without review as a courtesy to ensure prompt reporting the interpreting radiologist is fully responsible for the content of the report. Transcribed Date/Time: 07/20/2024 3:44 AM
--- NOTE | 2024-07-20 03:54 | EDPHYS ---
Physician Documentation [facility] Name: Dennis Mariee Age: 39 yrs Sex: Male : 1985 Arrival Date: 07/20/2024 Time: 00:19 Bed 19 Private MD: ED Physician Navid Avalos HPI: 07/20 00:34 This 39 yrs old Male presents to ER via Unassigned with complaints of sp4 Dizziness, Blurred Vision, low blood pressure. 19:55 Patient presents with near syncopal episode and dizziness after dialysis today. Patient sp4 also reports low blood pressure. Reportedly dizzy and lightheaded on standing up.. Historical: - Allergies: 01:00 No Known Allergies; ha1 - PMHx: 01:00 ESRD; HD- M/W/F; Hypertension; PD-nightly ([place]- HD left ar); ha1 - PSHx: 01:00 [place]ist[place]- HD left arm; ha1 - Immunization history:: Adult Immunizations up to date. - Infectious Disease History:: Denies. - Social history:: Smoking status: unknown. - Family history:: not pertinent. ROS: 19:55 Constitutional: Negative for fever, chills, and weight loss, positive for generalized sp4 weakness, dizziness, blurry vision, near syncopal episode 19:55 All other systems are negative, Exam: 03:43 Constitutional: This is a well developed, well nourished patient who is awake, alert, sp4 and in no acute distress. Head/Face: Normocephalic, atraumatic. Eyes: Pupils equal round and reactive to light, extra-ocular motions intact. Lids and lashes normal. Conjunctiva and sclera are not injected. Cornea within normal limits. Periorbital areas with no swelling, redness, or edema. ENT: Nares patent. No nasal discharge, no septal abnormalities noted. Tympanic membranes are normal and external auditory canals are clear. Oropharynx with no redness, swelling, or masses, exudates, or evidence of obstruction, uvula midline. Mucous membranes moist. Neck: Trachea midline, no thyromegaly or masses palpated, and no cervical lymphadenopathy. Supple, full range of motion without nuchal rigidity, or vertebral point tenderness. Chest/axilla: Normal chest wall appearance and motion. Nontender with no deformity. No lesions are appreciated. Cardiovascular: Regular rate and rhythm with a normal S1 and S2. No gallops, murmurs, or rubs. Normal PMI, no JVD. No pulse deficits. Respiratory: Lungs have equal breath sounds bilaterally, clear to auscultation and percussion. No rales, rhonchi or wheezes noted. No increased work of breathing, no retractions or nasal flaring. Abdomen/GI: Soft, with normal bowel sounds. No distension or tympany. No guarding or rebound. No evidence of tenderness throughout. Back: No spinal tenderness. No costovertebral tenderness. Skin: Warm, dry with normal turgor. Normal color with no rashes, no lesions, and no evidence of cellulitis. MS/ Extremity: Pulses equal, no cyanosis. Neurovascular intact. Full, normal range of motion. Neuro: Awake and alert, GCS 15, oriented to person, place, time, and situation. Cranial nerves II-XII grossly intact. Motor strength 5/5 in all extremities. Sensory grossly intact. Psych: Awake, alert, with orientation to person, place and time. Behavior, mood, and affect are within normal limits 03:43 ECG was reviewed by the Attending Physician. [place] at 0053 normal EKG Vital Signs: 00:39 BP 97 / 59; Pulse 95; Resp 19 S; Temp 98.1; Pulse Ox 100% on R/A; Weight 74.84 kg; ha1 Height 5 ft. 6 in. ; 01:00 BP 89 / 57 Sitting; Pulse 95; ha1 01:03 BP 81 / 49 Supine; Pulse 95; ha1 01:08 BP 83 / 51 Standing; Pulse 85; ha1 02:00 BP 99 / 47; Pulse 82; Resp 17; Pulse Ox 95% on R/A; Pain 0/10; rg5 02:46 BP 96 / 47; Pulse 86; Resp 18; Pulse Ox 94% on R/A; rg5 03:15 BP 100 / 53; Pulse 79; Resp 18; Pulse Ox 90% on 3 lpm NC; rg5 03:47 BP 111 / 48 Supine; Pulse 94; Resp 17; Pulse Ox 93% ; rg5 03:49 BP 110 / 70 Standing; Pulse 100; Resp 17; rg5 00:39 Body Mass Index 26.63 (74.84 kg, 167.64 cm) ha1 02:00 Pain Scale: Adult rg5 Tea Coma Score: 19:55 Eye Response: spontaneous(4). Motor Response: obeys commands(6). Verbal Response: sp4 oriented(5). Total: 15. MDM: 00:36 Medical Screening Exam initiated sp4 03:43 ED course: PROCEDURE: CT Head Without Intravenous Contrast CLINICAL INDICATION: The sp4 patient is 39 years old and is Male; DIZZINESS TECHNIQUE: Axial computed tomography images of the head/brain without intravenous contrast. Sagittal and coronal reformatted images were created and reviewed. This CT exam was performed using one or more of the following dose reduction techniques: automated exposure control, adjustment of the mA and/or kV according to patient size, and/or use of iterative reconstruction technique. DLP: 884 mGy*cm COMPARISON: MRI brain dated 07/29/2022. FINDINGS: BRAIN: Unremarkable. No hemorrhage. No significant white matter disease. No edema. VENTRICLES: Unremarkable. No ventriculomegaly. BONES/JOINTS: Unremarkable. No acute fracture. SOFT TISSUES: Unremarkable. SINUSES: Unremarkable as visualized. No acute sinusitis. MASTOID AIR CELLS: Unremarkable as visualized. No mastoid effusion. IMPRESSION: No acute intracranial abnormality. . 03:45 ED course: EXAM DESCRIPTION: Chest Single View CLINICAL HISTORY: CHEST PAIN COMPARISON: sp4 03/12/2024 FINDINGS: 1 view(s) of the chest. Tubes and lines: Leads overlie the chest. Cardiomediastinal silhouette: Normal size and contour. Lungs: No consolidation, pneumothorax, or pleural effusion. Bones: No acute osseous abnormality. Upper abdomen: No abnormality identified. IMPRESSION: 1. No acute pulmonary process identified.. 19:56 Differential diagnosis: cardiac arrhythmia, generalized weakness, hypovolemia, sp4 near-syncope, syncope. Data reviewed: vital signs, nurses notes, lab test result(s), EKG, radiologic studies, CT scan, plain films. Consideration of Admission/Observation Escalation of care including admission/observation considered. ED course: Patient much improved after IV hydration and IV albumin. Stable for discharge home.. 12 00:36 Order name: Basic Metabolic Panel; Complete Time: 03:43 sp4 12 00:36 Order name: CBC with Diff; Complete Time: :43 sp4 07/20 00:36 Order name: LFT's; Complete Time: 03:43 sp4 07/20 00:36 Order name: Magnesium; Complete Time: 03:43 sp4 07/20 00:36 Order name: NT PRO-BNP; Complete Time: 03:43 sp4 07/20 00:36 Order name: PT-INR; Complete Time: 03:43 4 07/20 00:36 Order name: Troponin HS; Complete Time: 03:43 sp4 07/20 01:17 Order name: Lactate w/ 2H reflex if indic.; Complete Time: 03:43 sp4 07/20 01:17 Order name: TSH; Complete Time: 03:43 sp4 07/20 01:17 Order name: T4 Free; Complete Time: 03:43 sp4 07/20 00:36 Order name: XRAY Chest (1 view) 4 07/20 00:56 Order name: CT Head Brain wo Cont 4 07/20 00:36 Order name: EKG; Complete Time: 00:36 4 07/20 00:36 Order name: Cardiac monitoring; Complete Time: 01:4 07/20 00:36 Order name: EKG - Nurse/Tech; Complete Time: 01:4 07/20 00:36 Order name: IV Saline Lock; Complete Time: 01:4 07/20 00:36 Order name: Labs collected and sent; Complete Time: :4 07/20 00:36 Order name: O2 Per Protocol; Complete Time: 01:06 4 07/20 00:36 Order name: O2 Sat Monitoring; Complete Time: 01:06 4 07/20 01:14 Order name: Orthostatic Blood Pressure; Complete Time: 01:14 ha1 EC:53 Rate is 89 beats/min. Rhythm is regular, Normal Sinus Rhythm. QRS [place] is Normal. MT sp4 interval is normal. QRS interval is normal. QT interval is normal. No Q waves. T waves are Normal. No ST changes noted. Clinical impression: Normal ECG. Interpreted by me. Reviewed by me. Administered Medications: 01:10 Drug: NS 0.9% IV 500 ml 500 ml IV at 1 bolus once; to be given as a bolus over 30 rg5 minutes Volume: 500 ml; Route: IV; Rate: 1 bolus; Site: right antecubital; 02:47 Follow up: IV Status: Completed infusion; IV Intake: 500ml rg5 01:10 Drug: Albumin IVPB 25 grams 100 ml IVPB once; (Note: Albumin 25% concentration) Volume: rg5 100 ml; Route: IVPB; Site: right antecubital; 02:00 Drug: Solu-CORTEF IVP 100 mg IVP once Route: IVP; Site: right forearm; rg5 02:47 Follow up: Response: No adverse reaction rg5 02:00 Drug: NS 0.9% IV 1000 ml IV at 125 ml/hr Per protocol; to be given as a bolus over 60 rg5 minutes Route: IV; Rate: 125 ml/hr; Site: right forearm; 03:37 Follow up: Rate change 75 ml/hr rg5 04:00 Follow up: IV Status: Order to discontinue infusion; IV Intake: 200ml rg5 Disposition Summary: 07/20/24 03:53 Discharge Ordered Notes: Location: Home sp4 Problem: new sp4 Symptoms: have improved sp4 Condition: Stable sp4 Diagnosis - Moderate dehydration, Hypotension after hemodialysis sp4 Followup: sp4 - With: Selvin London, - When: 2 - 3 days - Reason: Recheck today's complaints Discharge Instructions: - Discharge Summary Sheet sp4 - Hemodialysis, Care After, [id number] sp4 Forms: - Patient Portal Instructions sp4 Signatures: Dispatcher [employer] Brittaney Fonseca, RN RN ha1 Navid Avalos MD MD sp4 Stanley Del Real RN RN rg5 Corrections: (The following items were deleted from the chart) 01:17 01:17 THYROID STIMULAT HORMONE+C.LAB.BRZ ordered. EDMS EDMS 01:17 01:17 T4 FREE+C.LAB.BRZ ordered. EDMS EDMS
--- NOTE | 2024-07-20 03:54 | ER ---
Nurse's Notes [facility] Name: Dennis Mariee Age: 39 yrs Sex: Male : 1985 Arrival Date: 07/20/2024 Time: 00:19 Bed 19 Private MD: Diagnosis: Moderate dehydration, Hypotension after hemodialysis Presentation: 07/20 00:39 Chief complaint: Patient states: HAD DIALYSIS THIS MORNING AND HAVE BEEN FEELING WEAK ha1 AND DIZZY EVER SINCE . LOW BP. 00:39 Method Of Arrival: Ambulatory ha1 00:39 Coronavirus screen: Client denies travel out of the [place] in the last 14 days. Ebola ha1 Screen: No symptoms or risks identified at this time. Initial Sepsis Screen: Does the patient meet any 2 criteria? No. Patient's initial sepsis screen is negative. Does the patient have a suspected source of infection? No. Patient's initial sepsis screen is negative. Risk Assessment: Do you want to hurt yourself or someone else? Patient reports no desire to harm self or others. Onset of symptoms was July 20, 2024. 00:39 Acuity: RUPESH 3 ha1 Historical: - Allergies: 01:00 No Known Allergies; ha1 - PMHx: 01:00 ESRD; HD- M/W/F; Hypertension; PD-nightly ([place]- HD left ar); ha1 - PSHx: 01:00 [place]- HD left arm; ha1 - Immunization history:: Adult Immunizations up to date. - Infectious Disease History:: Denies. - Social history:: Smoking status: unknown. - Family history:: not pertinent. Screenin:00 [facility] ED Fall Risk Assessment (Adult) History of falling in the last 3 months, ha1 including since admission No falls in past 3 months (0 pts) Confusion or Disorientation No (0 pts) Intoxicated or Sedated No (0 pts) Impaired Gait No (0 pts) Mobility Assist Device Used No (0 pt) Altered Elimination No (0 pt) Score/Fall Risk Level 0 - 2 = Low Risk Oriented to surroundings, Maintained a safe environment, Educated pt \T\ family on fall prevention, incl call for assistance when getting out of bed, Hourly rounding (assess needs \T\ fall precautionary measures) done. Abuse screen: Denies threats or abuse. Denies injuries from another. Nutritional screening: No deficits noted. Tuberculosis screening: No symptoms or risk factors identified. Assessment: 00:40 General: Appears in no apparent distress. comfortable, Behavior is calm, cooperative, rg5 appropriate for age. Pain: Denies pain. Neuro: Level of Consciousness is awake, alert, Oriented to person, place, time, situation. 00:40 Cardiovascular: Denies chest pain, Heart tones S1 S2 Patient's skin is warm and dry. rg5 Respiratory: Airway is patent Trachea midline Respiratory effort is even, unlabored, Respiratory pattern is regular, symmetrical. GI: Abdomen is flat, non-distended, Abd is soft and non tender. : No signs and/or symptoms were reported regarding the genitourinary system. EENT: No deficits noted. Derm: No signs and/or symptoms reported regarding the dermatologic system. Musculoskeletal: Circulation, motion, and sensation intact. Range of motion: intact in all extremities. 01:39 Reassessment: No changes from previously documented assessment. Patient and/or family rg5 updated on plan of care and expected duration. Pain level reassessed. Patient is alert, oriented x 3, equal unlabored respirations, skin warm/dry/pink. 02:41 Reassessment: No changes from previously documented assessment. Patient and/or family rg5 updated on plan of care and expected duration. Pain level reassessed. Patient is alert, oriented x 3, equal unlabored respirations, skin warm/dry/pink. 03:16 Reassessment: Patient and/or family updated on plan of care and expected duration. Pain rg5 level reassessed. Patient is alert, oriented x 3, equal unlabored respirations, skin warm/dry/pink. 03:51 Reassessment: Patient and/or family updated on plan of care and expected duration. Pain rg5 level reassessed. Patient is alert, oriented x 3, equal unlabored respirations, skin warm/dry/pink. Patient states feeling better. Patient states symptoms have improved. Vital Signs: 00:39 BP 97 / 59; Pulse 95; Resp 19 S; Temp 98.1; Pulse Ox 100% on R/A; Weight 74.84 kg; ha1 Height 5 ft. 6 in. ; 01:00 BP 89 / 57 Sitting; Pulse 95; ha1 01:03 BP 81 / 49 Supine; Pulse 95; ha1 01:08 BP 83 / 51 Standing; Pulse 85; ha1 02:00 BP 99 / 47; Pulse 82; Resp 17; Pulse Ox 95% on R/A; Pain 0/10; rg5 02:46 BP 96 / 47; Pulse 86; Resp 18; Pulse Ox 94% on R/A; rg5 03:15 BP 100 / 53; Pulse 79; Resp 18; Pulse Ox 90% on 3 lpm NC; rg5 03:47 BP 111 / 48 Supine; Pulse 94; Resp 17; Pulse Ox 93% ; rg5 03:49 BP 110 / 70 Standing; Pulse 100; Resp 17; rg5 00:39 Body Mass Index 26.63 (74.84 kg, 167.64 cm) ha1 02:00 Pain Scale: Adult rg5 Tea Coma Score: 19:55 Eye Response: spontaneous(4). Motor Response: obeys commands(6). Verbal Response: sp4 oriented(5). Total: 15. ED Course: 00:22 Patient arrived in ED. gm2 00:34 Navid Avalos MD is Attending Physician. sp4 00:39 Arm band placed on. rg5 00:40 No provider procedures requiring assistance completed. rg5 00:40 Patient has correct armband on for positive identification. Bed in low position. Call rg5 light in reach. Side rails up X 1. 00:42 Stanley Del Real, CRISTOBAL is Primary Nurse. rg5 01:00 Triage completed. ha1 01:06 Inserted saline lock: 20 gauge in right antecubital area, using aseptic technique. af3 Blood collected. Flushed with 10 mL NS. 01:06 EKG done, by principal technical architect. af3 01:06 Warm blanket given. af3 01:37 CT Head Brain wo Cont In Process Unspecified. EDMS 02:19 XRAY Chest (1 view) In Process Unspecified. EDMS 02:19 X-ray completed. Portable x-ray completed in exam room. Patient tolerated procedure mh1 well. 03:50 Provided Education on: POST ER CARE. rg5 03:52 Selvin London DO is Referral Physician. sp4 04:05 IV discontinued, bleeding controlled, No redness/swelling at site. Pressure dressing rg5 applied. Administered Medications: 01:10 Drug: NS 0.9% IV 500 ml 500 ml IV at 1 bolus once; to be given as a bolus over 30 rg5 minutes Volume: 500 ml; Route: IV; Rate: 1 bolus; Site: right antecubital; 02:47 Follow up: IV Status: Completed infusion; IV Intake: 500ml rg5 01:10 Drug: Albumin IVPB 25 grams 100 ml IVPB once; (Note: Albumin 25% concentration) Volume: rg5 100 ml; Route: IVPB; Site: right antecubital; 02:00 Drug: Solu-CORTEF IVP 100 mg IVP once Route: IVP; Site: right forearm; rg5 02:47 Follow up: Response: No adverse reaction rg5 02:00 Drug: NS 0.9% IV 1000 ml IV at 125 ml/hr Per protocol; to be given as a bolus over 60 rg5 minutes Route: IV; Rate: 125 ml/hr; Site: right forearm; 03:37 Follow up: Rate change 75 ml/hr rg5 04:00 Follow up: IV Status: Order to discontinue infusion; IV Intake: 200ml rg5 Medication: 00:40 VIS not applicable for this client. rg5 Intake: 02:47 IV: 500ml; Total: 500ml. rg5 04:00 IV: 200ml; Total: 700ml. rg5 Outcome: 03:53 Discharge ordered by . sp4 04:05 Discharged to home ambulatory, rg5 04:05 Condition: stable 04:05 Discharge instructions given to patient, Instructed on discharge instructions, follow up and referral plans. Demonstrated understanding of instructions, follow-up care, 04:06 Patient left the ED. rg5 Signatures: Dispatcher [employer] EDMS Nany Hurst 1 Brittaney Higuera RN RN ha1 Navid Avalos MD MD sp4 Anushka Ray gm2 Stanley Del Real RN RN rg5 Sydnie Mitchell3 Corrections: (The following items were deleted from the chart) 03:50 03:47 BP 111 / 48; Pulse 94bpm; Resp 17bpm; Pulse Ox 93%; rg5 rg5
--- NOTE | 2024-07-20 03:59 | RAD REPORT ---
PROCEDURE: CT Head Without Intravenous Contrast CLINICAL INDICATION: The patient is 39 years old and is Male; DIZZINESS TECHNIQUE: Axial computed tomography images of the head/brain without intravenous contrast. Sagittal and coron al reformatted images were created and reviewed. This CT exam was performed using one or more of the following dose reduction techniques: automated exposure control, adjustment of the mA and/or kV according to patient size, and/or use of iterative reconstruction technique. DLP: 884 mGy*cm COMPARISON: MRI brain dated 07/29/2022. FINDINGS: BRAIN: Unremarkable. No hemorrhage. No significant white matter disease. No edema. VENTRICLES: Unremarkable. No ventriculomegaly. BONES/JOINTS: Unremarkable. No acute fracture. SOFT TISSUES: Unremarkable. SINUSES: Unremarkable as visualized. No acute sinusitis. MASTOID AIR CELLS: Unremarkable as visualized. No mastoid effusion. IMPRESSION: No acute intracranial abnormality. Electronically signed by: Ryley Li DO 07/20/2024 02:23 AM [facility] 9 Due to temporary technical issues with the PACS/[employer] reporting system, reports are being antionette d by the in-house radiologist without review as a courtesy to ensure prompt reporting the interpreting radiologist is fully responsible for the content of the report. Transcribed Date/Time: 07/20/2024 3:59 AM
[2024-07-20 06:52] VITALS: TEMP 98.1
[2024-07-20 07:13] VITALS: O2SAT 93
[2024-07-20 07:14] VITALS: BP 110/70
== END 2024-07-20 04:06 | disposition home or self-care (01) ==
LOC: ER 00:19
DX: E86.0 Dehydration (principal); I95.3 Hypotension of hemodialysis; I12.0 Hypertensive chronic kidney disease with stage 5 chronic kidney disease or end stage renal disease; N18.6 End stage renal disease; Z99.2 Dependence on renal dialysis
CPT/HCPCS: 85025; 80048; 36415; 83735; 85610; 80076; 83605; 84443; 84484; 84439; 83880; 70450; 71045; 99284; J1720; P9047 ×2; J7040; J7030